=== PATIENT | female | born 1940 | race Caucasian/White ===

== ENCOUNTER 2024-07-09 11:52 | Inpatient (IN) | payer MEDICARE, SELFPAY ==
[2024-07-09] VITALS (12 sets, daily range): BP systolic 84–159; BP diastolic 57–110; PULSE 102–115; RESP 15–33; TEMP 36.6; O2SAT 93–98
--- NOTE | ~2024-07-09 | US_ITS ---
BILATERAL LOWER EXTREMITY VENOUS ULTRASOUND Ordering provider: Jordi Russo MD History: . lower extremitis swelling . Comparison: None. FINDINGS: RIGHT LOWER EXTREMITY VEINS: --COMMON FEMORAL: Patent and free of thrombus. Normal compressibility, phasic flow and augmentation. --PROXIMAL SUPERFICIAL FEMORAL: Patent and free of thrombus. Normal compressibility, phasic flow and augmentation. --DISTAL SUPERFICIAL FEMORAL: Patent and free of thrombus. Normal compressibility, phasic flow and au gmentation. --POPLITEAL: Patent and free of thrombus. Normal compressibility, phasic flow and augmentation. --POSTERIOR TIBIAL: Thrombosed. --Peroneal: Thrombosed. --Lesser saphenous: Thrombosed. LEFT LOWER EXTREMITY VEINS: --COMMON FEMORAL: Patent and free of thrombus. Normal compressibility, phasic flow and augmentation. --PROXIMAL SUPERFICIAL FEMORAL: Patent and free of thrombus. Normal compressibility, phasic flow and augmentation. --DISTAL SUPERFICIAL FEMORAL: Thrombosed.. --POPLITEAL: Patent and free of thrombus. Normal compressibility, phasic flow and augmentation. --POSTERIOR TIBIAL: Thrombosed. --Peroneal: Thrombosis. IMPRESSION: Bilateral deep vein thrombosis. Reviewed, dictated and finalized at location A.
--- NOTE | ~2024-07-09 | CT_ITS ---
EXAMINATION: CT chest abdomen pelvis wo con DATE: 07/09/2024 15:16 INDICATION: Tachycardia. Hypotension. TECHNIQUE: Computed tomography (CT) of the chest, abdomen, and pelvis was performed without intraveno us contrast. Automated exposure control and iterative reconstruction technique were employed. The dos e-length product was 1685.58 mGy-cm. COMPARISON: None FINDINGS: CHEST CT: There is mild atelectasis bilaterally. There are subpleural bands in the lower lobes and lingula. A c alcified right lung nodule and calcified right hilar lymph nodes are consistent with old granulomatou s disease. No pleural effusion. The heart size is normal. There are coronary artery calcifications. N o pericardial effusion. There is severe thoracic and cervical spondylosis. ABDOMEN/PELVIS CT: The liver is normal. Calcifications in the spleen are consistent with old granulomatous disease. Ther e are gallstones in the gallbladder which is normal in size. The pancreas and right adrenal gland are normal. There is thickening of left adrenal gland, likely benign. There are cysts in the kidneys karen suring up to 3.6 cm on the right. There is a 1.9 cm mass in left kidney. There is no urolithiasis. A uterine fibroid is noted. There are no dilated loops of bowel. The appendix is normal. There are no p athologically enlarged lymph nodes. There is no free intraperitoneal fluid. There is a total right hi p arthroplasty. There is severe lumbar spondylosis. IMPRESSION: 1. 1.9 cm left kidney mass, which may be a hemorrhagic cyst or less likely renal cell carcinoma. Abdo men CT or MRI without and with contrast is recommended. Reviewed, dictated and finalized at location B. IMPRESSION: 1. 1.9 cm left kidney mass, which may be a hemorrhagic cyst or less likely debbie l cell carcinoma. Abdomen CT or MRI without and with contrast is recommended.
--- NOTE | ~2024-07-09 | MR_ITS ---
EXAMINATION: MR brain/brain stem wo/w con DATE: 07/10/2024 14:27 INDICATION: Altered mental status. TECHNIQUE: Magnetic resonance imaging (MRI) of the brain and brainstem was performed without and with 20 mL ProHance intravenous contrast. COMPARISON: Head CT 07/09/2024 FINDINGS: There is an old lacunar infarct in the shorty. There is an old infarct in the right parietal and occipital lobes. There are old infarcts in the bilateral basal ganglia and thalami. There are sca ttered areas of nonspecific increased T2-weighted signal intensity in the cerebral white matter and p ons. There is no intracranial hemorrhage, acute infarction, or abnormal intracranial mass lesion. The ventricles are normal in size. There is mild mucosal thickening in the paranasal sinuses. The mastoi d air cells are normal. There are likely changes of ocular lens replacement surgeries. IMPRESSION: 1. Old infarcts in the brain. 2. Moderate nonspecific cerebral white matter disease and pontine disease, which likely represents ch ronic small vessel ischemic disease. Reviewed, dictated and finalized at location B. IMPRESSION: 1. Old infarcts in the brain. 2. Moderate nonspecific cerebral white matter disease and pontine disease, whic h likely represents chronic small vessel ischemic disease.
--- NOTE | ~2024-07-09 | US_ITS ---
EXAMINATION: US carotid duplex BI DATE: 07/11/2024 16:02 INDICATION: Infarct in the right parietal and occipital lobes. TECHNIQUE: Grayscale, color Doppler, and pulsed Doppler images of the cervical carotid arteries were obtained. The degree of vessel stenosis is placed in one of the following categories: normal, <50%, 5 0-69%, >=70% but less than near-occlusion, near-occlusion, or total occlusion. Note that percent sten osis relative to normal distal artery lumen diameter is indirectly measured from velocity measurement s as described by Kai, et al. Radiology 2003; 229:340-346. COMPARISON: None. FINDINGS: RIGHT: The right common carotid artery (CCA) peak systolic velocity (PSV) is 115 cm/s. The right internal ca rotid artery (ICA) PSV is 97 cm/s. The right ICA end-diastolic velocity (EDV) is 11 cm/s. The right I CA/CCA PSV ratio is 0.8. Grayscale and color Doppler images yield an estimate of <50% diameter reduct ion from plaque in the ICA. There is antegrade flow in the right vertebral artery. LEFT: The left CCA PSV is 77 cm/s. The left ICA PSV is 262 cm/s. The left ICA EDV is 37 cm/s. The left ICA/ CCA PSV ratio is 3.4. Grayscale and color Doppler images yield an estimate of <50% diameter reduction from plaque in the ICA. There is antegrade flow in the left vertebral artery. IMPRESSION: 1. <50% stenosis in the right internal carotid artery. 2. <50% stenosis in the left internal carotid artery. Reviewed, dictated and finalized at location B.
--- NOTE | ~2024-07-09 | CT_ITS ---
EXAMINATION: CT brain wo con DATE: 07/09/2024 15:16 INDICATION: Altered mental status. TECHNIQUE: Computed tomography (CT) of the head was performed without intravenous contrast. The mA wa s adjusted according to patient size. Iterative reconstruction technique was employed. The dose-lengt h product was 605.33 mGy-cm. COMPARISON: None FINDINGS: There is an old lacunar infarct in the shorty. There is an old infarct in the right parietal and occipital lobes. There are old infarcts in the bilateral basal ganglia and thalami. There are sca ttered areas of low attenuation in the cerebral white matter. There is no intracranial hemorrhage, ac mohegan infarction, or abnormal intracranial mass lesion. The ventricles are normal in size. There is mil d mucosal thickening in left maxillary sinus. The mastoid air cells are normal. There are likely luz ges of ocular lens replacement surgeries. IMPRESSION: 1. Old infarcts involving the shorty, right parietal and occipital lobes, bilateral basal ganglia, and bilateral thalami. 2. Moderate nonspecific cerebral white matter disease, which likely represents chronic small vessel i schemic disease. Reviewed, dictated and finalized at location B. IMPRESSION: 1. Old infarcts involving the shorty, right parietal and occipital lobes, bilater al basal ganglia, and bilateral thalami. 2. Moderate nonspecific cerebral white matter disease, which likely represents chronic small vessel ischemic disease.
--- NOTE | 2024-07-09 12:13 | ECG_ITS ---
Test Date: 2024-07-09 12:48:29 Measurements Intervals [employer] Rate: 110 P: 56 [place]: 162 QRS: 7 QRSD: 84 T: 60 QT: 344 QTc: 465 Interpretive Statements SINUS TACHYCARDIA NONSPECIFIC T-WAVE ABNORMALITY No previous ECG available for comparison Electronically Signed On 07-09-2024 15:05:59 CDT by Charlotte Crowder M.D.
[2024-07-09 13:06] LABS: Add Urine Microscopic? YES; Appearance Urine Clear (Clear); Bacteria Urine None Seen /hpf; Bilirubin Urine Negative (Negative); Blood Urine Negative (Negative); Budding Yeast Urine Present /hpf; Color Urine Yellow (Yellow); Glucose Urine UA Negative (Negative); Ketones Urine Negative (Negative); Leukocyte Esterase Ur Negative LEU/UL (Negative); Nitrate Urine Negative (Negative); Non Pathogenic Casts 0-2; Protein Urine Trace mg/dL (Negative); Specific Grav Ur 1.017 (1.001-1.035); Squamous Epithelial Cell Urine None Seen /hpf (Few); Urobilinogen Urine 0.2 mg/dL (<2.0); WBC Urine 0-5 /hpf (0-3)
[2024-07-09 13:29] LABS: Alanine Aminotransferase 27 U/L (6-35); Albumin Level 4.1 g/dL (3.5-5.1); Alkaline Phosphatase 82 U/L (38-126); Anion Gap 11 mmol/L (4-12); Aspartate Amino Transferase 57 U/L (14-36); Bilirubin,Total 0.7 mg/dL (0.2-1.3); Blood Urea Nitrogen 35 mg/dL (7-17); Calcium 9.7 mg/dL (8.4-10.2); Carbon Dioxide 19 mmol/L (22-30); Chloride 110 mmol/L (98-107); Estimated CRCL calculation 24 ml/min; Estimated Glomerular Filt Rate 21; Glucose 112 mg/dL (65-110); Potassium 4.6 mmol/L (3.4-5.0); Sodium 140 mmol/L (137-145)
--- NOTE | 2024-07-09 14:11 | PC.NURSE ---
Lab called to add on bnp.
[2024-07-09 14:13] LABS: Basophils Percent Auto 0.3 % (0.2-1.2); Eosinophils Absolute Auto 0.1 K/mm3 (0-0.3); Eosinophils Percent Auto 0.7 % (0-4.4); Hematocrit 31.8 % (37.0-47.0); Hemoglobin 9.7 g/dL (12.0-15.0); Immature Granulocyte Absolute 0.06 K/mm3 (0.00-0.031); Immature Granulocyte Percent A 0.6 % (0-0.5); Lymphocytes Absolute Auto 0.76 K/mm3 (0.9-3.2); Lymphocytes Percent Auto 7.5 % (18.3-44.2); Mean Corpuscular HGB Conc 30.5 g/dl (32-36); Mean Corpuscular Hemoglobin 31.4 pg (26-34); Mean Corpuscular Volume 102.9 fl (80-100); Mean Platelet Volume 10.1 fl (7.4-10.4); Monocytes Absolute Auto 0.8 K/mm3 (0.1-0.6); Monocytes Percent Auto 8.2 % (2.6-8.5); Neutrophils Absolute Auto 8.4 K/mm3 (1.3-6.7); Neutrophils Percent Auto 82.7 % (45.5-73.1); Platelet Count Result 172 k/mm3 (150-375); Red Blood Count 3.09 M/mm3 (4.2-5.4); Red Cell Distribution Width 16.1 % (11.5-14.5); White Blood Count 10.1 K/mm3 (4.5-10.0)
[2024-07-09 14:26] LABS: Prothrombin Time 14.1 Seconds (11.1-14.7)
[2024-07-09 14:27] LABS: Partial Thromboplastin Time 25.3 Seconds (22.3-36.8)
[2024-07-09 14:40] LABS: NT Pro B Type Natriuretic Pept 383 pg/mL (19.9-100)
[2024-07-09] MEDS: LACTATED RINGERS 1,000 ML 999 ML IV CONT (14:55)
--- NOTE | 2024-07-09 14:59 | PC.NURSE ---
pt to CT at this time. Will restart LR when pt is back in room.
--- NOTE | 2024-07-09 15:11 | PC.NURSE ---
lab called to add on troponin and tsh.
--- NOTE | 2024-07-09 15:23 | ED.AMS ---
HPI - Altered Mental Status General Chief Complaint: Altered Mental Status Stated Complaint: weak, AMS Time Seen by Provider: 07/09/24 14:14 History of Present Illness HPI narrative: 84-year-old female presenting from her [facility] facility for concerns of mental status changes. Patient was diagnosed with urinary tract infection 2 weeks ago. Patient presently is alert and answering questions. She has a history of hypertension, hyperlipidemia, CKD. Patient endorses a headache as well as just feeling unwell. Endorses weakness for a few days. Found to be slightly hypotensive and tachycardic and tachypneic in triage. No signs of trauma. No collateral formation provided from [facility] or review of the EMR. Related Data Allergies Allergy/AdvReac Type Severity Reaction Status Date / Time codeine Allergy Mild Itching Verified 06/01/18 12:36 vancomycin Allergy Mild Hives / Verified 06/01/18 12:36 Red Face Review of Systems Review of Systems: As reviewed above in HPI Exam Narrative: GENERAL: Elderly, not any acute distress, mildly tachypneic HEAD: [Normocephalic, atraumatic.] EYES: [PERRLA and EOMI.] ENT: Nares clear, no rhinorrhea or epistaxis. Mucous membranes moist. NECK: Supple. CHEST: [Clear to auscultation. No respiratory distress.] HEART: [Regular rate and rhythm]. No murmur heard. [Normal peripheral pulses.] ABDOMEN: Largely distended abdomen but soft and non peritoneal, mild tenderness to palpation, [No rigidity or guarding] EXTREMITIES: Normal range of motion. [No edema.] SKIN: Warm, dry, no rash. NEURO: [No focal deficits]. Alert and oriented [x3.] PSYCH: [Normal mood and affect.] Course Vital Signs Vital signs: Vital Signs Temperature 36.6 C 07/09/24 11:52 Pulse Rate 111 H 07/09/24 11:52 Respiratory Rate 24 H 07/09/24 11:52 Blood Pressure 91/66 L 07/09/24 11:52 Pulse Oximetry 98 07/09/24 11:52 Oxygen Delivery Room Air 07/09/24 11:52 Temperature 36.6 C 07/09/24 11:52 Pulse Rate 115 H 07/09/24 18:04 Respiratory Rate 15 07/09/24 18:04 Blood Pressure 156/110 H 07/09/24 18:04 Pulse Oximetry 95 07/09/24 18:04 Oxygen Delivery Room Air 07/09/24 13:16 MDM - Altered Mental Status MDM Narrative Medical decision making narrative: 84-year-old female history of hypertension, hyperlipidemia, CKD stage 4. Presents from her fdc facility for mental status changes. Patient endorses feeling weak for last week as well as having a headache and does have some mild abdominal tenderness. She has distended abdomen which he states is not new for her. Hypotensive and tachycardic in triage with some tachypnea. IV was established, fluid bolus initiated, CBC, CMP, lactic acid, blood cultures, coags, troponin and BNP ordered. CT chest abdomen pelvis and CT head obtained. Differential remains broad at this time but could include metabolic encephalopathy versus infectious pathology. Intracranial process such as a bleed or stroke less likely but still possible. Urinary tract infection, electrolyte disturbances, dehydration. She was given a fluid bolus and re-evaluated frequently. COVID flu RSV and TSH also added on. Workup shows no significant leukocytosis. Hemoglobin 9.7 with no recent baseline. Normal platelet count. Coag studies within normal limits. Electrolytes show an elevated BUN and creatinine likely secondary to volume depletion in dehydration given her low blood pressure that responded to fluids. This is likely KEKE on CKD as she has a baseline elevated creatinine. Negative lactic acid which reassures that there is no acute infectious or septic pathology. LFTs within normal limits. TSH mildly elevated 5.25, urinalysis without signs of infection. Negative COVID flu and RSV. CT of the head shows old infarcts in multiple territories consistent with her history. Nonspecific cerebral white matter disease chronic. CT of the chest abdomen pelvis shows a left kidney mass likely hemorrhagic cyst. EKG obtained shows sinus tachycardia but no signs of ST segment elevations, depressions inversions or ectopy. Patient was frequent re-evaluated, felt slightly improved after fluids and has a new blood pressure 154/60 which is reassuring. No longer is tachycardic. Patient likely is dehydrated with an KEKE on CKD and still unclear if she is truly altered from her baseline. Patient will be admitted to the hospital for further evaluation and treatment as well as fluid resuscitation. Spoke to the hospitalist ruling being covered by the midlevel provider Jessica Hernandez who accepted the patient. Condition is hemodynamically stable for a medical-surgical bed at this time. Medical Records Attestation: I reviewed the patient's medical records. Lab Data Attestation: I reviewed the patient's lab results. 07/09/24 14:01 07/09/24 12:56 Labs: Lab Results 07/09/24 07/09/24 07/09/24 Range/Units 12:36 12:55 12:56 WBC (4.5-10.0) K/mm3 RBC (4.2-5.4) M/mm3 Hgb (12.0-15.0) g/dL Hct (37.0-47.0) % MCV (80-100) fl MCH (26-34) pg MCHC (32-36) g/dl RDW (11.5-14.5) % Plt Count (150-375) k/mm3 MPV (7.4-10.4) fl Immature Gran % (Auto) (0-0.5) % Neut % (Auto) (45.5-73.1) % Lymph % (Auto) (18.3-44.2) % [place] % (Auto) (2.6-8.5) % Eos % (Auto) (0-4.4) % Baso % (Auto) (0.2-1.2) % Lymph # (Auto) (0.9-3.2) K/mm3 [place] # (Auto) (0.1-0.6) K/mm3 Eos # (Auto) (0-0.3) K/mm3 Baso # (Auto) (0.0-0.1) K/mm3 Abs Immat Gran (auto) (0.00-0.031) K/mm3 Absolute Neuts (auto) (1.3-6.7) K/mm3 Absolute Nucleated RBC (0.0-0.012) K/mm3 Nucleated RBC % (0.0-0.2) % PT (11.1-14.7) Seconds INR APTT (22.3-36.8) Seconds Sodium 140 (137-145) mmol/L Potassium 4.6 (3.4-5.0) mmol/L Chloride 110 H (98-107) mmol/L Carbon Dioxide 19 L (22-30) mmol/L Anion Gap 11 (4-12) mmol/L BUN 35 H (7-17) mg/dL Creatinine 2.23 H (0.7-1.0) mg/dL Estim Creat Clear Calc 24 ml/min Estimated GFR 21 L (59 - ) Glucose 112 H (65-110) mg/dL Lactic Acid (0.7-2.0) mmol/L Calcium 9.7 (8.4-10.2) mg/dL Total Bilirubin 0.7 (0.2-1.3) mg/dL AST 57 H (14-36) U/L ALT 27 (6-35) U/L Alkaline Phosphatase 82 (38-126) U/L Troponin I 0.032 (0.000-0.034) ng/mL NT-Pro-B Natriuret Pep 383 H (19.9-100) pg/mL Total Protein 7.0 (6.3-8.2) g/dL Albumin 4.1 (3.5-5.1) g/dL TSH (Reflex) (0.465-4.68) uIU/mL Free T4 (0.78-2.19) ng/dL Total T3 (0.97-1.69) NG/ML Urine Color Yellow (Yellow) Urine Appearance Clear (Clear) Urine pH 5.0 (5.0-9.0) Ur Specific [place] 1.017 (1.001-1.035) Urine Protein Trace (Negative) mg/dL Urine Glucose (UA) Negative (Negative) mg/dL Urine Ketones Negative (Negative) mg/dL Ur Blood (Man) Negative (Negative) Urine Nitrate Negative (Negative) Urine Bilirubin Negative (Negative) Urine Urobilinogen 0.2 (<2.0) mg/dL Leukocyte Esterase Rfl Negative (Negative) ROWAN/UL Urine RBC 6-10 H (0-2) /hpf Urine WBC 0-5 (0-3) /hpf Ur Squamous Epith Cells None seen (Few) /hpf Urine Bacteria None seen /hpf Urine Casts 0-2 Urine Yeast (Budding) Present H (None) /hpf Influenza A (RT-PCR) (Negative) Influenza B (RT-PCR) (Negative) RSV (RT-PCR) (Negative) SARS-CoV-2 RNA (RT-PCR) (Negative) 07/09/24 07/09/24 07/09/24 Range/Units 14:01 15:26 16:04 WBC 10.1 H (4.5-10.0) K/mm3 RBC 3.09 L (4.2-5.4) M/mm3 Hgb 9.7 L (12.0-15.0) g/dL Hct 31.8 L (37.0-47.0) % MCV 102.9 H (80-100) fl MCH 31.4 (26-34) pg MCHC 30.5 L (32-36) g/dl RDW 16.1 H (11.5-14.5) % Plt Count 172 (150-375) k/mm3 MPV 10.1 (7.4-10.4) fl Immature Gran % (Auto) 0.6 H (0-0.5) % Neut % (Auto) 82.7 H (45.5-73.1) % Lymph % (Auto) 7.5 L (18.3-44.2) % [place] % (Auto) 8.2 (2.6-8.5) % Eos % (Auto) 0.7 (0-4.4) % Baso % (Auto) 0.3 (0.2-1.2) % Lymph # (Auto) 0.76 L (0.9-3.2) K/mm3 [place] # (Auto) 0.8 H (0.1-0.6) K/mm3 Eos # (Auto) 0.1 (0-0.3) K/mm3 Baso # (Auto) 0.0 (0.0-0.1) K/mm3 Abs Immat Gran (auto) 0.06 H (0.00-0.031) K/mm3 Absolute Neuts (auto) 8.4 H (1.3-6.7) K/mm3 Absolute Nucleated RBC 0.000 (0.0-0.012) K/mm3 Nucleated RBC % 0.0 (0.0-0.2) % PT 14.1 (11.1-14.7) Seconds INR 1.0 APTT 25.3 (22.3-36.8) Seconds Sodium (137-145) mmol/L Potassium (3.4-5.0) mmol/L Chloride (98-107) mmol/L Carbon Dioxide (22-30) mmol/L Anion Gap (4-12) mmol/L BUN (7-17) mg/dL Creatinine (0.7-1.0) mg/dL Estim Creat Clear Calc ml/min Estimated GFR (59 - ) Glucose (65-110) mg/dL Lactic Acid 1.4 (0.7-2.0) mmol/L Calcium (8.4-10.2) mg/dL Total Bilirubin (0.2-1.3) mg/dL AST (14-36) U/L ALT (6-35) U/L Alkaline Phosphatase (38-126) U/L Troponin I (0.000-0.034) ng/mL NT-Pro-B Natriuret Pep (19.9-100) pg/mL Total Protein (6.3-8.2) g/dL Albumin (3.5-5.1) g/dL TSH (Reflex) 5.250 H (0.465-4.68) uIU/mL Free T4 1.00 (0.78-2.19) ng/dL Total T3 0.93 L (0.97-1.69) NG/ML Urine Color (Yellow) Urine Appearance (Clear) Urine pH (5.0-9.0) Ur Specific [place] (1.001-1.035) Urine Protein (Negative) mg/dL Urine Glucose (UA) (Negative) mg/dL Urine Ketones (Negative) mg/dL Ur Blood (Man) (Negative) Urine Nitrate (Negative) Urine Bilirubin (Negative) Urine Urobilinogen (<2.0) mg/dL Leukocyte Esterase Rfl (Negative) ROWAN/UL Urine RBC (0-2) /hpf Urine WBC (0-3) /hpf Ur Squamous Epith Cells (Few) /hpf Urine Bacteria /hpf Urine Casts Urine Yeast (Budding) (None) /hpf Influenza A (RT-PCR) Negative (Negative) Influenza B (RT-PCR) Negative (Negative) RSV (RT-PCR) Negative (Negative) SARS-CoV-2 RNA (RT-PCR) Negative (Negative) Imaging Data Attestation: I personally reviewed and interpreted this imaging study as follows: My impression: Impressions Head CT 07/09/24 15:18 IMPRESSION: 1. Old infarcts involving the shorty, right parietal and occipital lobes, bilateral basal ganglia, and bilateral thalami. 2. Moderate nonspecific cerebral white matter disease, which likely represents chronic small vessel ischemic disease. Chest/Abdomen/Pelvis CT 07/09/24 15:24 IMPRESSION: 1. 1.9 cm left kidney mass, which may be a hemorrhagic cyst or less likely renal cell carcinoma. Abdomen CT or MRI without and with contrast is recommended. Discharge Plan Discharge Clinical Impression: Altered mental status, unspecified, Acute dehydration, Acute kidney injury superimposed on chronic kidney disease, History of cerebrovascular accident Patient Disposition: Still a Patient Condition: Stable Patient Language: Upper Sorbian Follow-up/Referrals: Sohan,Piter Mejia MD [Primary Care Provider] - Time of Disposition: 18:45
[2024-07-09 15:43] LABS: Lactic Acid Reflex 1.4 mmol/L (0.7-2.0)
--- NOTE | 2024-07-09 15:54 | PC.NURSE ---
Unable to obtain 2nd set of cultures d/t pt. being a difficult stick. CRN Kehinde to bedside to attempt.
[2024-07-09 16:03] LABS: Troponin I 0.032 ng/mL (0.000-0.034)
[2024-07-09 16:08] LABS: Influenza A QL RT-PCR Negative (Negative); Influenza B QL RT-PCR Negative (Negative); RSV RNA, RT-PCR Negative (Negative); SARS-CoV-2 RNA PCR Negative (Negative)
--- OUTSIDE RECORDS SUMMARY | 2024-07-09 16:34 | XMS_ITS | Clinical Summary ---
Author Organization [facility] [employer] Address [address] [place] [address] Care Team Providers Care Front End Developer Name Role Phone Unavailable Primary Care Provider Unavailabl e Source Comments [facility],non-owned Affiliates and Associated Physician Practices is amultiple site organization consisting of ambulatory clinics and hospital sitesin [place], [place], [place] and [place]. This disclosure is being madepursuant to the Care Everywhere program and may not contain all information available regarding this patient. Last updated 18.[facility] [employer] Allergies Active Allergy Reactions Criticality Noted Date Comments Adhesive Sensitivity Rash Medium 07/31/2012 Codeine Urticaria,Rash Medium 07/31/2012 Vancomycin Urticaria Medium 09/18/2012 Medications * Be aware that medications may not be up to date on this document. Alwaysverify current medications with the patient. Medication Sig Dispensed Refills Start Date End Date Status B Complex Vitamins (B COMPLEX 1 PO) Take 1 tablet by mouth once daily Active levothyroxine (Synthroid) 50 MCG tablet Take 1 (one) tablet by mouth daily before breakfast Active folic acid (Folvite) 1 MG tablet Take 2 (two) tablets by mouth once daily Active artificial tears 1.4 % ophthalmic solution 1 (one) drop 4 times daily as needed Active melatonin 5 MG tablet Take 1 (one) tablet by mouth nightly as needed Active lisinopril-hydroCHLO ROthiazide (Prinzide; Zestoretic) 20-12.5 MG tablet Take 1 (one) tablet by mouth once daily Active docusate sodium (Colace) 100 MG capsule Take 1 (one) capsule by mouth once daily as needed Active loperamide (Imodium) 2 MG capsule Take 1 (one) capsule by mouth 4 times daily as needed for Diarrhea Active cholestyramine (Questran) 4 g packet Take 1 (one) packet by mouth 2 times daily as needed (Loose stools) Active diphenhydrAMINE (Benadryl) 25 MG capsule Take 1 (one) capsule by mouth nightly as needed for Itching Active allopurinol (Zyloprim) 100 MG tablet Take 1 (one) tablet by mouth once daily Active vitamin D3 (Cholecalciferol) 25 MCG (1000 UNITS) tablet Take 1 (one) tablet by mouth once daily Active citalopram (CeleXA) 10 MG tablet Take 1 (one) tablet by mouth once daily Active metoprolol succinate XL 24hr (Toprol XL) 100 MG tablet Take 1 (one) tablet by mouth once daily Active simvastatin (Zocor) 20 MG tablet Take 1 (one) tablet by mouth at bedtime Active ondansetron (Zofran) 4 MG tablet Take 1 (one) tablet by mouth every 6 hours as needed for Nausea/Vomiting Active famotidine (Pepcid) 20 MG tablet Take 1 (one) tablet by mouth at bedtime Active pantoprazole EC (Protonix) 40 MG tablet Take 1 (one) tablet by mouth daily before breakfast for 30 days 30 tablet 02/01/2024 Active apixaban (Eliquis) 2.5 MG tablet Take 1 (one) tablet by mouth 2 times daily 02/07/2024 Active Active Problems Problem Noted Date Diagnosed Date Rectal bleeding 01/26/2024 Stage 4 chronic kidney disease 01/26/2024 Left homonymous hemianopsia 08/08/2022 Benign essential hypertension 04/25/2019 Chronic left-sided ulcerative colitis 04/25/2019 Chronic renal insufficiency, stage III (moderate ) 04/25/2019 Deep venous thrombosis 04/25/2019 Herniation of nucleus pulposus 04/25/2019 Hirsutism 04/25/2019 History of cerebrovascular accident 04/25/2019 Postartificial menopausal syndrome 04/25/2019 Pure hypercholesterolemia 04/25/2019 Tobacco user 04/25/2019 Depressive disorder 12/12/2017 Social History Tobacco Use Types Packs/Day Years Used Date Smoking Tobacco: Former Smokeless Tobacco: Never Tobacco Cessation:Counseling Given: No Alcohol Use Standard Drinks/Week Comments Yes 0 (1 standard drink = 0.6 oz pur e alcohol) occ. AUDIT-C Answer Date Recorded Q1: How often do you have a drink containing alc ohol? Monthly or less 01/28/2024 Q2: How many drinks containi ng alcohol do you have on a typical day when you are drinking? 1 or 2 01/28/2024 Q3: How often do you have si x or more drinks on one occasion? Never 01/28/2024 Overall Financial Resource Strain (CARDIA) Answe r Date Recorded How hard is it for you to pa y for the very basics like food, housing, medical care, and heating? Not hard at all 01/29/2024 PHQ-2 Answer Date Recorded PHQ2 TOTAL SCORE 0 08/09/2022 [facility] - Occupational Stress Questionnaire Answer Date Recorded Do you feel stress - tense, restless, nervous, or anxious, or unable to sleep at night because your mind is troubled all the time - these days? Only a little 01/29/2024 Hunger Vital Sign Answer Date Recorded Within the past 12 months, y ou worried that your food would run out before you got the money to buy more. Never true 01/29/20 24 Within the past 12 months, t he food you bought just didn't last and you didn't have money to get more. Never true 01/29/2024 PRAPARE - Transportation Answer Date Re corded In the past 12 months, has l ack of transportation kept you from medical appointments or from getting medications? No 01/01 In the past 12 months, has l ack of transportation kept you from meetings, work, or from getting things needed for daily living? No 01/29/2024 Housing Stability Vital Sign Answer Sal e Recorded In the last 12 months, was t here a time when you were not able to pay the mortgage or rent on time? No 01/29/2024 In the last 12 months, how many places have you lived? 1 01/29/2024 In the last 12 months, was t here a time when you did not have a steady place to sleep or slept in a fci (including now)? No 01/29/2024 Sex and Gender Information Value Date Recorded Sex Assigned at Not on file Gender Identity Not on file Sexual Orientation Not on file Last Filed Vital Signs Vital Sign Reading Time Taken Comments Blood Pressure 132/71 01/31/2024 11:09 AM CDT Pulse 88 01/31/2024 11:09 AM CDT Temperature 36.5 C (97.7 F) 01/31/2024 11:09 AM CDT Respiratory Rate 18 01/31/2024 11:0 9 AM CDT Oxygen Saturation 100% 01/31/2024 11: 09 AM CDT Inhaled Oxygen Concentration - - Weight 105.7 kg (233 lb 1.6 oz) 01/28/2024 3:37 AM CDT Height 165.1 cm (5' 5 ) 01/28/2024 3:37 AM CDT Body Mass Index 38.79 01/28/2024 3:37 AM CDT Plan of Treatment Health Maintenance Due Date Last Done Comments BONE DENSITY TESTING 1940 COLOGUARD (AGES 45-75) - COLON CA SCREENING 1942 CT COLONOGRAPHY - COLON CA SCREENING 1940 FIT - COLON CA SCREENING 1940 FLEX SIG - COLON CA SCREENING 1940 MEDICARE AWV 12 MONTHS 1940 DTAP/TDAP/TD VACCINES (1 - Tdap) 1961 PNEUMOCOCCAL VACCINE 50+ (1 of 1 - PCV) 02/07/1992 ZOSTER VACCINE (1 of 2) 02/07/1992 Respiratory Syncytial Virus (RSV) Vaccine Pt: or over 60 yrs (1 - 1-dose 75+ series) 2017 COVID-19 VACCINE ( - season) 2023 04/13/2021, 08/25/2020, 07/28/2020 INFLUENZA VACCINE (#1) 2023 , 02/04/2022, 02/19/2021, Additional history exists DEPRESSION SCREENING 05/01/2024 08/08/2022 COLON MONITORING 01/28/2025 01/29/2024, 01/29/2024 Colorectal Cancer Screening 01/28/2025 COLONOSCOPY - COLON CA SCREENING 01/28/2034 01/29/2024, 01/29/2024 HEPATITIS B VACCINE Aged Out No longe r eligible based on patient's age to complete this topic HIB VACCINE Aged Out No longer eligi ble based on patient's age to complete this topic HPV VACCINE Aged Out No longer eligi ble based on patient's age to complete this topic MENINGOCOCCAL (Group B) VACCINE Aged Out No longer eligible based on patient's age to complete this topic MENINGOCOCCAL VACCINE Aged Out No juany farshad eligible based on patient's age to complete this topic Goals Goal Patient Goal Type Associated Problems Recent Progress Patient-Stated? Author Medication Management General No James Marquez DO Note: Expected end date: Interventions: Take all medications as prescribed Procedures Procedure Name Priority Date/Time Associated Diagnosis Comments ENDOSCOPY, COLON, DIAGNOSTIC Routine 01/29/2024 2:39 PM CDT from Last 3 Months or Most Recently Relevant to Health Maintenance Results * Endoscopy, Colon, Diagnostic (01/29/2024 2:39 PM CDT) Report Endoscopy POC _ Patient Name: Clau Escalante Procedure Date: 01/29/2024 2:39 PM Date of : 1940 Admit Type: Inpatient Age: 83 Gender: Female Attending MD: Yari Rosa MD, [id number] _ Procedure: Colonoscopy Indications: Hematochezia Providers: Yari Rosa MD (Doctor) Medicines: Monitored Anesthesia Care Complications: No immediate complications. _ Estimated Blood Loss: Estimated blood loss: none. Procedure: Pre-Anesthesia Assessment: - Prior to the procedure, a History and Physical was performed, and patient medications and allergies were reviewed. The patient's tolerance of previous anesthesia was also reviewed. The risks and benefits of the procedure and the sedation options and risks were discussed with the patient. All questions were answered, and informed consent was obtained. Prior Anticoagulants: The patient has taken no anticoagulant or antiplatelet agents. ASA Grade Assessment: III - A patient with severe systemic disease. After reviewing the risks and benefits, the patient was deemed in satisfactory condition to undergo the procedure. After I obtained informed consent, the scope was passed under direct vision. Throughout the procedure, the patient's blood pressure, pulse, and oxygen saturations were monitored continuously. The Colonoscope was introduced through the anus and advanced to the cecum, identified by appendiceal orifice and ileocecal valve. The colonoscopy was performed without difficulty. The patient tolerated the procedure well. The quality of the bowel preparation was adequate. The ileocecal valve, appendiceal orifice, and rectum were photographed. Findings: The perianal and digital rectal examinations were normal. A 24 mm polyp was found in the proximal ascending colon. The polyp was sessile. Preparations were made for mucosal resection. Chromoscopy with methylene blue was done to steven the borders of the lesion. Demarcation of the lesion was performed to clearly identify boundaries of the lesion. Saline with methylene blue was injected to raise the lesion. Snare mucosal resection was performed. Resection and retrieval were complete. Resected tissue margins were examined and clear of polyp tissue. To prevent bleeding after mucosal resection, two hemostatic clips were successfully placed. 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 The transverse colon, ascending colon and cecum appeared normal. There was significant inflammation in the sigmoid and descending colon. Inflammation was most severe in the descending colon with ulceration, visible flat vessels, and stigmata of recent bleeding. Patchy erythema was noted in other parts of the descending colon and sigmoid. Appearance is most consistent with ischemic colitis. This was biopsied with a cold forceps for histology. Verification of patient identification for the specimen was done. Estimated blood loss was minimal. A 10 mm polyp was found in the sigmoid colon. The polyp was flat. The polyp was removed with a hot snare. Resection and retrieval were complete. Verification of patient identification for the specimen was done. Estimated blood loss: none. Many small-mouthed diverticula were found in the sigmoid colon. Non-bleeding external hemorrhoids were found during retroflexion. The hemorrhoids were medium-sized. _ Impression: - One 24 mm polyp in the proximal ascending colon, removed with mucosal resection. Resected and retrieved. Clips were placed. 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 - The transverse colon, ascending colon and cecum are normal. - Ischemic colitis in the descending colon and sigmoid, with severely inflamed segment in the descending colon with stigmata of recent bleeding. Biopsied. - One 10 mm polyp in the sigmoid colon, removed with a hot snare. Resected and retrieved. - Diverticulosis in the sigmoid colon. - Non-bleeding external hemorrhoids. Recommendation: - Return patient to hospital crews for ongoing care. - Resume regular diet today. - Continue present medications. - Await pathology results. - Repeat colonoscopy in 1 year for surveillance. Procedure Code(s): --- Professional --- 29974, Colonoscopy, flexible; with endoscopic mucosal resection 75436, 59, Colonoscopy, flexible; with removal of tumor(s), polyp(s), or other lesion(s) by snare technique 18864, 59, Colonoscopy, flexible; with biopsy, single or multiple --- Technical --- 24003, Colonoscopy, flexible; with endoscopic mucosal resection 69122, 59, Colonoscopy, flexible; with removal of tumor(s), polyp(s), or other lesion(s) by snare technique 25529, 59, Colonoscopy, flexible; with biopsy, single or multiple Diagnosis Code(s): --- Professional --- D12.2, Benign neoplasm of ascending colon D12.5, Benign neoplasm of sigmoid colon K64.4, Residual hemorrhoidal skin tags K63.89, Other specified diseases of intestine K92.1, Melena (includes Hematochezia) K57.30, Diverticulosis of large intestine without perforation or abscess without bleeding --- Technical --- D12.2, Benign neoplasm of ascending colon D12.5, Benign neoplasm of sigmoid colon K64.4, Residual hemorrhoidal skin tags K63.89, Other specified diseases of intestine K92.1, Melena (includes Hematochezia) K57.30, Diverticulosis of large intestine without perforation or abscess without bleeding CPT copyright 2020 [employer]. All rights reserved. The codes documented in this report are preliminary and upon insulation board calender operator review may be revised to meet current compliance requirements. Dr. Theresa Rosa MD Yari Rosa MD 01/29/2024 4:20:25 PM This report has been signed electronically. Number of Addenda: 0 Note Initiated On: 01/29/2024 2:39 PM Procedure Date: 01/29/2024 2:39:58 PM Scope Withdrawal Time: 0 hours 29 minutes 12 seconds [facility] ENDOSCOPY 01/29/2024 2:39 PM CDT Yari Rosa MD GI PROCEDURE ORDERAB LES [facility] ENDOSCOPY from Last 3 Months or Most Recently Relevant to Health Maintenance Advance Directives Documents on File Type Date Recorded Patient Trimmer Sorter Expl anation Adv Directive/Living Will/POA 08/13/2022 12:08 AM * Full Code (Latest Code Status on File) Date Activated Date Inactivated Comments 01/26/2024 4:31 PM 01/31/2024 3:46 PM * Full Code Date Activated Date Inactivated Comments 08/08/2022 10:05 PM 08/11/2022 2:32 PM
--- OUTSIDE RECORDS SUMMARY | 2024-07-09 16:34 | XMS_ITS | Referral Summary ---
Author Organization [facility] Address [address] [place] [address] Care Team Providers Care Network Systems Integrator Name Role Phone Unavailable Primary Care Provider Unavailabl e Source Comments [facility],non-owned Affiliates and Associated Physician Practices is amultiple site organization consisting of ambulatory clinics and hospital sitesin [place], [place], [place] and [place]. This disclosure is being madepursuant to the Care Everywhere program and may not contain all information available regarding this patient. Last updated 18.[facility] [employer] Allergies Active Allergy Reactions Criticality Noted Date [...] Date Recorded PHQ2 TOTAL SCORE 0 08/09/2022 [facility] - Occupational Stress [...] Mass Index 38.79 01/28/2024 3:37 AM CDT Functional Status Functional Status Response Date of Assess ment Is person deaf or have serious hearing difficult y? No 01/28/2024 Is person blind or have serious difficulty seein g? No 01/28/2024 Does person have serious dif ficulty walking/climbing stairs? Yes 01/28/2024 Does person have difficulty dressing/bathing? No 01/28/2024 Does person have difficulty doing errands alone? Yes 01/28/2024 Cognitive Status Response Date of Assessm ent Does person have difficulty concentrating/remembering/making decisions? No 01/28/2024 Plan of Treatment Not on file Goals Goal Patient Goal Type Associated Problems [...] Gender: Female Attending MD: Yari Rosa MD, [id number] _ Procedure: Colonoscopy Indications: Hematochezia Providers: Yari [...] two hemostatic clips were successfully placed. 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 The transverse colon, ascending colon and cecum [...] Resected and retrieved. Clips were placed. 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 - The transverse colon, ascending colon and [...] for surveillance. Procedure Code(s): --- Professional --- 23224, Colonoscopy, flexible; with endoscopic mucosal resection 48284, 59, Colonoscopy, flexible; with removal of tumor(s), polyp(s), or other lesion(s) by snare technique [id number], 59, Colonoscopy, flexible; with biopsy, single or multiple --- Technical --- 24794, Colonoscopy, flexible; with endoscopic mucosal resection 25572, 59, Colonoscopy, flexible; with removal of tumor(s), polyp(s), or other lesion(s) by snare technique 72127, 59, Colonoscopy, flexible; with biopsy, single or [...] or abscess without bleeding CPT copyright 2020 [employer]. All rights reserved. The codes documented in this report are preliminary and upon marketing content manager review may be revised to meet current compliance requirements. Dr. Theresa Rosa MD Yari Rosa MD 01/29/2024 4:20:25 PM This report has been signed electronically. Number of Addenda: 0 Note Initiated On: 01/29/2024 2:39 PM Procedure Date: 01/29/2024 2:39:58 PM Scope Withdrawal Time: 0 hours 29 minutes 12 seconds [facility] ENDOSCOPY 01/29/2024 2:39 PM CDT Yari Rosa MD GI PROCEDURE ORDERAB LES [facility] ENDOSCOPY from Last 3 Months or Most Recently Relevant to Health Maintenance Advance Directives Documents on File Type Date Recorded Patient Exceptional Children Teacher Assistant Expl anation Adv Directive/Living Will/POA 08/13/2022 12:08 AM * Full Code (Latest Code Status on File) Date Activated Date Inactivated Comments 01/26/2024 4:31 PM 01/31/2024 3:46 PM * Full Code Date Activated Date Inactivated Comments 08/08/2022 10:05 PM 08/11/2022 2:32 PM
--- OUTSIDE RECORDS SUMMARY | 2024-07-09 16:34 | XMS_ITS | Patient Health Summary ---
Author Organization [facility] Address [address] [place] [address] Care Team Providers Care Superintendent [employer] Name Role Phone Unavailable Primary Care Provider Unavailabl e Note from [facility],non-owned Affiliates and Associated Physician Practices is amultiple site organization consisting of ambulatory clinics and hospital sitesin [place], [place], [place] and [place]. This disclosure is being madepursuant to the Care Everywhere program and may not contain all information available regarding this patient. Last updated 18.[facility] Allergies * Adhesive Sensitivity(Rash) -Medium Criticality * Codeine(Urticaria,Rash) -Medium Criticality * Vancomycin(Urticaria) -Medium Criticality Medications * Be aware that medications may not be up to date on this document. Alwaysverify current medications with the patient. * B Complex Vitamins (B COMPLEX 1 PO) Take 1 tablet by mouth once daily * levothyroxine (Synthroid) 50 MCG tablet Take 1 (one) tablet by mouth daily before breakfast * folic acid (Folvite) 1 MG tablet Take 2 (two) tablets by mouth once daily * artificial tears 1.4 % ophthalmic solution 1 (one) drop 4 times daily as needed * melatonin 5 MG tablet Take 1 (one) tablet by mouth nightly as needed * lisinopril-hydroCHLOROthiazide (Prinzide; Zestoretic) 20-12.5 MG tablet Take 1 (one) tablet by mouth once daily * docusate sodium (Colace) 100 MG capsule Take 1 (one) capsule by mouth once daily as needed * loperamide (Imodium) 2 MG capsule Take 1 (one) capsule by mouth 4 times daily as needed for Diarrhea * cholestyramine (Questran) 4 g packet Take 1 (one) packet by mouth 2 times daily as needed (Loose stools) * diphenhydrAMINE (Benadryl) 25 MG capsule Take 1 (one) capsule by mouth nightly as needed for Itching * allopurinol (Zyloprim) 100 MG tablet Take 1 (one) tablet by mouth once daily * vitamin D3 (Cholecalciferol) 25 MCG (1000 UNITS) tablet Take 1 (one) tablet by mouth once daily * citalopram (CeleXA) 10 MG tablet Take 1 (one) tablet by mouth once daily * metoprolol succinate XL 24hr (Toprol XL) 100 MG tablet Take 1 (one) tablet by mouth once daily * simvastatin (Zocor) 20 MG tablet Take 1 (one) tablet by mouth at bedtime * ondansetron (Zofran) 4 MG tablet Take 1 (one) tablet by mouth every 6 hours as needed for Nausea/Vomiting * famotidine (Pepcid) 20 MG tablet Take 1 (one) tablet by mouth at bedtime * pantoprazole EC (Protonix) 40 MG tablet(Started 02/01/2024) Take 1 (one) tablet by mouth daily before breakfast for 30 days * apixaban (Eliquis) 2.5 MG tablet(Started 02/07/2024) Take 1 (one) tablet by mouth 2 times daily Active Problems Problem Noted Date Diagnosed Date [...] Date Recorded PHQ2 TOTAL SCORE 0 08/09/2022 [facility] - Occupational [...] place to sleep or slept in a long term (including now)? No 01/29/2024 Sex and Gender [...] Mass Index 38.79 01/28/2024 3:37 AM CDT Procedures * CARDIAC EKG ORDER(Performed 02/01/2024) * CBC W/O DIFFERENTIAL(Performed 01/31/2024) * BASIC METABOLIC PANEL (CALCIUM TOTAL)(Performed 01/31/2024) * CBC W/O DIFFERENTIAL(Performed 01/30/2024) * BASIC METABOLIC PANEL (CALCIUM TOTAL)(Performed 01/30/2024) * PATHOLOGY TISSUE EXAM (STL)(Performed 01/29/2024) Performed for Colitis * ENDOSCOPY, COLON, DIAGNOSTIC(Performed 01/29/2024) * GA COLONOSCOPY, DIAGNOSTIC(Performed 01/29/2024) * CBC W AUTO DIFFERENTIAL(Performed 01/29/2024) * CBC W AUTO DIFFERENTIAL(Performed 01/28/2024) Performed for Rectal bleeding * HGB HCT PANEL(Performed 01/27/2024) Performed for Rectal bleeding * HGB HCT PANEL(Performed 01/27/2024) Performed for Rectal bleeding * HGB HCT PANEL(Performed 01/27/2024) Performed for Rectal bleeding * BASIC METABOLIC PANEL (CALCIUM TOTAL)(Performed 01/27/2024) Performed for Rectal bleeding * HGB HCT PANEL(Performed 01/26/2024) Performed for Rectal bleeding * BLOOD TYPE VERIFICATION(Performed 01/26/2024) * TROPONIN-I HIGH SENSITIVE REFLEX 1HOUR(Performed 01/26/2024) * ANTIBODY IDENTIFICATION(Performed 01/26/2024) * TYPE + SCREEN PANEL(Performed 01/26/2024) * TROPONIN-I HIGH SENSITIVE BASELINE + 1HR(Performed 01/26/2024) * COMPREHENSIVE METABOLIC PANEL(Performed 01/26/2024) * CBC W AUTO DIFFERENTIAL(Performed 01/26/2024) * EKG 12-LEAD(Performed 01/26/2024) Performed for Rectal bleeding * CARDIAC RHYTHM STRIP ORDER(Performed 08/13/2022) * GLUCOSE - POINT OF CARE(Performed 08/11/2022) * GLUCOSE - POINT OF CARE(Performed 08/11/2022) * CBC W AUTO DIFFERENTIAL(Performed 08/11/2022) * BASIC METABOLIC PANEL (CALCIUM TOTAL)(Performed 08/11/2022) * GLUCOSE - POINT OF CARE(Performed 08/10/2022) * GLUCOSE - POINT OF CARE(Performed 08/10/2022) * ECHO COMPLETE W CONTRAST(Performed 08/10/2022) Performed for Left homonymous hemianopsia * GLUCOSE - POINT OF CARE(Performed 08/10/2022) * GLUCOSE - POINT OF CARE(Performed 08/10/2022) * CARDIAC EKG ORDER(Performed 08/09/2022) * GLUCOSE - POINT OF CARE(Performed 08/09/2022) * GLUCOSE - POINT OF CARE(Performed 08/09/2022) * MRI BRAIN WO CONTRAST(Performed 08/09/2022) Performed for Left homonymous hemianopsia * GLUCOSE - POINT OF CARE(Performed 08/09/2022) * GLUCOSE - POINT OF CARE(Performed 08/09/2022) * TROPONIN I(Performed 08/09/2022) Performed for Left homonymous hemianopsia * LIPID PROFILE(Performed 08/09/2022) Performed for Left homonymous hemianopsia * TROPONIN I(Performed 08/08/2022) * URINE MICROSCOPIC ONLY REFLEX TO CULTURE(Performed 08/08/2022) * URINALYSIS REFLEX MICROSCOPIC REFLEX CULTURE(Performed 08/08/2022) * TROPONIN I(Performed 08/08/2022) * CULTURE URINE(Performed 08/08/2022) * CT HEAD WO CONTRAST(Performed 08/08/2022) Performed for Left homonymous hemianopsia * HEMOGLOBIN A1C(Performed 08/08/2022) Performed for Left homonymous hemianopsia * TROPONIN I(Performed 08/08/2022) * PT-INR(Performed 08/08/2022) * COMPREHENSIVE METABOLIC PANEL(Performed 08/08/2022) * CBC W AUTO DIFFERENTIAL(Performed 08/08/2022) * EKG 12-LEAD(Performed 08/08/2022) Performed for Left homonymous hemianopsia * ED LACERATION REPAIR(Performed 08/02/2022) * CT CERVICAL SPINE WO CONTRAST(Performed 08/02/2022) Performed for Fall, initial encounter * CT HEAD WO CONTRAST(Performed 08/02/2022) Performed for Fall, initial encounter * PT-INR(Performed 08/02/2022) * CBC W AUTO DIFFERENTIAL(Performed 08/02/2022) * COMPREHENSIVE METABOLIC PANEL(Performed 08/02/2022) * AMB REFERRAL TO CARDIOLOGY(Performed 07/05/2019) Performed for Orthostatic hypotension * CBC W AUTO DIFFERENTIAL(Performed 05/15/2019) Performed for Other iron deficiency anemia * CBC W AUTO DIFFERENTIAL(Performed 04/25/2019) Performed for Other iron deficiency anemia * COMPREHENSIVE METABOLIC PANEL(Performed 04/25/2019) Performed for Other iron deficiency anemia * IRON + TRANSFERRIN PANEL(Performed 04/25/2019) Performed for Other iron deficiency anemia * FERRITIN(Performed 04/25/2019) Performed for Other iron deficiency anemia * CARDIAC EKG ORDER(Performed 12/22/2009) * CARDIAC PROCEDURE ORDER(Performed 12/22/2009) * IMAGING/RADIOLOGY/XRAY RESULTS ORDER(Performed 12/18/2009) * CARDIAC STRESS TEST ORDER(Performed 12/18/2009) * IMAGING/RADIOLOGY/XRAY RESULTS ORDER(Performed 12/17/2009) * CARDIAC EKG ORDER(Performed 12/17/2009) Results * CARDIAC EKG ORDER (02/01/2024 4:04 PM CDT) Only the most recent of4 resultswithin the time period is included. Narrative 02/01/2024 4:04 PM CDT Ordered by an unspecified provider. Scanned Document CARDIAC SERVICES ORD ERABLES * (ABNORMAL) CBC W/O DIFFERENTIAL (01/31/2024 4:03 AM CDT) Only the most recent of2 resultswithin the time period is included. WBC 8.0 4.0 - 10.7 x10E9/L 01/31/2024 4:25 AM CDT [facility] RBC Count 3.21(L) 3.90 - 5.20 x10E12/L 01/31/2024 4:25 AM CDT [facility] Hemoglobin 10.1(L) 11.9 - 15.8 g/dL 01/31/2024 4:25 AM CDT [facility] Hematocrit 32.9(L) 34.8 - 46.1 % 01/31/2024 4:25 AM CDT -[facility] MCV 102.5(H) 80.0 - 98.0 fL 01/31/2024 4:25 AM CDT -[facility] MCH 31.5 26.7 - 33.6 pg 01/31/2024 4:25 AM CDT [facility] MCHC 30.7(L) 31.7 - 36.3 g/dL 01/31/2024 4:25 AM CDT [facility] RDW-CV 13.2 11.3 - 14.8 % 01/31/2024 4:25 AM CDT -[facility] Platelet Count 131(L) 150 - 420 x10E9/L 01/31/2024 4:25 AM CDT [facility] MPV 9.8 7.8 - 11.4 fL 01/31/2024 4:25 AM CDT [facility] Blood BLOOD SPECIMEN / Unknown Lab Venipuncture / Unknown 01/31/2024 4:03 AM CDT 01/31/2024 4:17 AM CDT Ricky Long MD LAB - HEMATOLOG Y ORDERABLES [facility] [address] [place], [place] [id number] * (ABNORMAL) BASIC METABOLIC PANEL (CALCIUM TOTAL) (01/31/2024 4:03 AM CDT) Only the most recent of4 resultswithin the time period is included. Glucose 138(H) 70 - 99 mg/dL 01/31/2024 4:40 AM CDT -[facility] Sodium 138 136 - 145 mmol/L 01/31/2024 4:40 AM CDT [facility] Potassium 3.9 3.5 - 5.1 mmol/L 01/31/2024 4:40 AM CDT -[facility] Chloride 107 98 - 107 mmol/L 01/31/2024 4:40 AM CDT [facility] CO2 21(L) 22 - 29 mmol/L 01/31/2024 4:40 AM CDT -[facility] Calcium 8.8 8.4 - 10.4 mg/dL 01/31/2024 4:40 AM CDT [facility] Anion Gap 10 6 - 16 mmol/L 01/31/2024 4:40 AM CDT -[facility] BUN 30(H) 7 - 26 mg/dL 01/31/2024 4:40 AM CDT -[facility] Creatinine 2.99(H) 0.57 - 1.11 mg/dL 01/31/2024 4:40 AM CDT -[facility] eGFR by CKD-EPI 15(L) >=90 mL/min/1.7 3 m2 01/31/2024 4:40 AM CDT [facility] Blood BLOOD SPECIMEN / Unknown Lab Venipuncture / Unknown 01/31/2024 4:03 AM CDT 01/31/2024 4:16 AM CDT Ricky Long MD LAB - CHEMISTRY ORDERABLES [facility] [address] [place] [address] * PATHOLOGY TISSUE EXAM (STL) (01/29/2024 3:02 PM CDT) Case Report Surgical Pathology Report Case: [id number] Authorizing Provider: Yari Rosa MD Collected: 01/29/2024 03:02 PM Ordering Location: [address] INPATIENT CARE Received: 01/30/2024 09:05 AM Pathologist: Sharmin Ceja MD Specimens: A) - Colon, Left colon CB B) - Polyp Ascending, HS X 1 C) - Polyp Sigmoid 01/31/2024 10:58 AM CDT -[facility] Final Diagnosis Left colon biopsy: - Colonic mucosa with changes consistent with mild ischemic type mucosal injury/colitis (see comment) - Negative for dysplasia and malignancy Colon, ascending polyp x1, polypectomy: - Tubulovillous adenoma - Negative for high-grade dysplasia and malignancy Colon, sigmoid polyp x1, polypectomy: - Tubular adenoma - Negative for high-grade dysplasia and malignancy Comment: Possible etiologies for this ischemic type mucosal injury include true ischemic colitis, infection and a drug reaction. Clinical and endoscopic correlation is recommended. 01/31/2024 10:58 AM CDT [facility] Clinical History 83-year-old female presenting with history of colitis. 01/31/2024 10:58 AM CDT [facility] Gross Description There are 3 formalin filled specimen containers received. Specimen A labeled l eft colon biopsy consists of multiple menezes-red mucosal fragments 2-5 mm greatest dimension, submitted in toto in A1. Specimen B labeled a scending polyp x1 consists of a 1.6 x 1.4 x 0.6 cm menezes-red, blue-stained polypoid tissue. Polyp is sectioned and entirely submitted in B1. Specimen C labeled sigmoid polyp consists of a 5 mm menezes polypoid tissue fragment, submitted in toto in C1. 01/31/2024 10:58 AM CDT [facility] Microscopic Description Microscopic examination substantiates the final diagnosis. 01/31/2024 10:58 AM CDT [facility] Performed By [facility] at [address] [address]. 01/31/2024 10:58 AM CDT [facility] Disclaimer All histochemical and/or immunohistochemical results are interpreted with controls that demonstrate appropriate staining reactions before reporting results. Note on use of immunocytochemistry reagents: This test was developed and its performance characteristic determined by [facility], Department of Laboratory Medicine. It has not been cleared or approved by the U.S. Food and Drug Administration (FDA). The FDA has determined that such clearance or approval is not necessary. The test is used for clinical purpose. It should not be regarded as investigational or for research. This laboratory is certified to perform high complexity testing. The performance characteristics of the IHC/LIVAN assays have been validated on formalin-fixed paraffin embedded tissues only. The assays have not been validated on decalcified tissues. Results should be interpreted with caution. 01/31/2024 10:58 AM CDT [facility] Embedded Images 01/31/2024 10:58 AM CDT [facility] Pathology/Cytology COLON PART / Unknown 01/29/2024 3:02 PM CDT 01/30/2024 9:05 AM CDT Miscellaneous samples (specimen) POLYP / Unknown 01/29/2024 3:23 PM CDT 01/30/2024 9:05 AM CDT Miscellaneous samples (specimen) POLYP OF SIGMOID COLON / Unknown 01/29/2024 3:36 PM CDT 01/30/2024 9:05 AM CDT Yari Rosa MD LAB - PATHOLOGY/CYTO LOGY ORDERABLES -[facility] [address] [place] [address] * Endoscopy, Colon, Diagnostic (01/29/2024 2:39 PM CDT) Report Endoscopy POC _ Patient Name: Clau Escalante Procedure Date: 01/29/2024 2:39 PM Date of : 1940 Admit Type: Inpatient Age: 83 Gender: Female Attending MD: Yari Rosa MD, [id number] _ Procedure: Colonoscopy Indications: Hematochezia Providers: Yari [...] two hemostatic clips were successfully placed. 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 The transverse colon, ascending colon and cecum [...] Resected and retrieved. Clips were placed. 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 - The transverse colon, ascending colon and [...] for surveillance. Procedure Code(s): --- Professional --- 36255, Colonoscopy, flexible; with endoscopic mucosal resection 21141, 59, Colonoscopy, flexible; with removal of tumor(s), polyp(s), or other lesion(s) by snare technique 28427, 59, Colonoscopy, flexible; with biopsy, single or multiple --- Technical --- 58329, Colonoscopy, flexible; with endoscopic mucosal resection 96454, 59, Colonoscopy, flexible; with removal of tumor(s), polyp(s), or other lesion(s) by snare technique 52438, 59, Colonoscopy, flexible; with biopsy, single or [...] or abscess without bleeding CPT copyright 2020 [employer]. All rights reserved. The codes documented in this report are preliminary and upon manager electronic review may be revised to meet current compliance requirements. Dr. Theresa Rosa MD Yari Rosa MD 01/29/2024 4:20:25 PM This report has been signed electronically. Number of Addenda: 0 Note Initiated On: 01/29/2024 2:39 PM Procedure Date: 01/29/2024 2:39:58 PM Scope Withdrawal Time: 0 hours 29 minutes 12 seconds [facility] ENDOSCOPY 01/29/2024 2:39 PM CDT Yari Rosa MD GI PROCEDURE ORDERAB LES [facility] ENDOSCOPY * (ABNORMAL) CBC W AUTO DIFFERENTIAL (01/29/2024 3:32 AM CDT) Only the most recent of8 resultswithin the time period is included. WBC 9.8 4.0 - 10.7 x10E9/L 01/29/2024 4:15 AM CDT [facility] RBC Count 3.62(L) 3.90 - 5.20 x10E12/L 01/29/2024 4:15 AM CDT [facility] Hemoglobin 11.5(L) 11.9 - 15.8 g/dL 01/29/2024 4:15 AM CDT [facility] Hematocrit 36.6 34.8 - 46.1 % 01/29/2024 4:15 AM CDT [facility] MCV 101.1(H) 80.0 - 98.0 fL 01/29/2024 4:15 AM CDT [facility] MCH 31.8 26.7 - 33.6 pg 01/29/2024 4:15 AM CDT [facility] MCHC 31.4(L) 31.7 - 36.3 g/dL 01/29/2024 4:15 AM CDT [facility] RDW-CV 13.1 11.3 - 14.8 % 01/29/2024 4:15 AM CDT [facility] Platelet Count 171 150 - 420 x10E9/L 01/29/2024 4:15 AM CDT [facility] MPV 9.7 7.8 - 11.4 fL 01/29/2024 4:15 AM CDT [facility] Neutrophil % 74.4(H) 41.0 - 74.0 % 01/29/2024 4:15 AM CDT [facility] Lymphocyte % 13.9(L) 17.0 - 47.0 % 01/29/2024 4:15 AM CDT [facility] Monocyte % 8.6 3.0 - 11.0 % 01/29/2024 4:15 AM CDT [facility] Eosinophil % 2.4 0.0 - 7.0 % 01/29/2024 4:15 AM CDT [facility] Basophil % 0.3 0.0 - 1.6 % 01/29/2024 4:15 AM CDT [facility] Immature Granulocytes % 0.4 0.0 - 1.0 % 01/29/2024 4:15 AM CDT [facility] Neutrophil Absolute 7.25 1.60 - 7.50 x10E9/L 01/29/2024 4:15 AM CDT [facility] Lymphocyte Absolute 1.36 1.00 - 4.40 x10E9/L 01/29/2024 4:15 AM CDT [facility] Monocyte Absolute 0.84 0.15 - 1.00 x10E9/L 01/29/2024 4:15 AM CDT [facility] Eosinophil Absolute 0.23 0.00 - 0.60 x10E9/L 01/29/2024 4:15 AM CDT [facility] Basophil Absolute 0.03 0.00 - 0.13 x10E9/L 01/29/2024 4:15 AM CDT -[facility] Blood BLOOD SPECIMEN / Unknown Lab Venipuncture / Unknown 01/29/2024 3:32 AM CDT 01/29/2024 4:05 AM CDT Ricky Long MD LAB - HEMATOLOG Y ORDERABLES Performing Organization Address [facility]/ZIP Co de Phone Number [facility] [address] [place] [phone] * (ABNORMAL) HGB HCT PANEL (01/27/2024 4:38 PM CDT) Only the most recent of4 resultswithin the time period is included. Hemoglobin 10.7(L) 11.9 - 15.8 g/dL 01/27/2024 4:45 PM CDT [facility] Hematocrit 34.7(L) 34.8 - 46.1 % 01/27/2024 4:45 PM CDT [facility] Blood BLOOD SPECIMEN / Unknown Lab Venipuncture / Unknown 01/27/2024 4:38 PM CDT 01/27/2024 4:42 PM CDT Isaiah Marshall PA-C LAB - HEMATOLOGY ORD ERABLES Performing Organization Address [facility] Co de Phone Number [facility] [address] [place] [phone] * TROPONIN-I HIGH SENSITIVE REFLEX 1HOUR (01/26/2024 2:13 PM CDT) Troponin I High Sensitive 6 <=14 ng/L 01/26/2024 2:39 PM CDT -[facility] Delta Troponin I HS 01/26/2024 2:39 PM CDT -[facility] Comment:Delta value intentio nas not calculated. Baseline to 1 hour specimen collection interval exceeded. Blood BLOOD SPECIMEN / Unknown Venipuncture / Unknown 01/26/2024 2:13 PM CDT 01/26/2024 2:15 PM CDT Gustavo Dozier DO LAB - CHEMISTRY MILLIE KAN Performing Organization Address [facility]/ZIP Co de Phone Number [facility] [address] [place] [phone] * BLOOD TYPE VERIFICATION (01/26/2024 2:13 PM CDT) ABO Rh A POS 01/26/2024 3:0 2 PM CDT [facility] Blood Bank BLOOD SPECIMEN / Unknown Venipuncture / Unknown 01/26/2024 2:13 PM CDT 01/26/2024 2:15 PM CDT Gustavo Dozier DO LAB - BLOOD BANK ROGE BRAVO Performing Organization Address [facility] Co de Phone Number [facility] [address] [place] [phone] [place] [address] * TROPONIN-I HIGH SENSITIVE BASELINE + 1HR (01/26/2024 12:41 PM CDT) Troponin I High Sensitive 8 <=14 ng/L 01/26/2024 1:11 PM CDT [facility] Blood BLOOD SPECIMEN / Unknown Venipuncture / Unknown 01/26/2024 12:41 PM CDT 01/26/2024 12:47 PM CDT Gustavo Dozier DO LAB - CHEMISTRY MILLIE KAN Performing Organization Address [facility]/ZIP Co de Phone Number [facility] [address] [place] [phone] * TYPE + SCREEN PANEL (01/26/2024 12:41 PM CDT) ABO Rh A POS 01/26/2024 2:38 PM CDT -[facility] Comment:No history; collect retype. Antibody Screen POS 2:38 PM CDT [facility] Blood Bank BLOOD SPECIMEN / Unknown Venipuncture / Unknown 01/26/2024 12:41 PM CDT 01/26/2024 12:47 PM CDT Gustavo Dozier DO LAB - BLOOD BANK ORD ERABLES [facility] [address] [place] [address], [facility] [phone] * ANTIBODY IDENTIFICATION (01/26/2024 12:41 PM CDT) Antibody 1 POS, Anti-JkA 01/26/2024 4:35 PM CDT [facility] Blood Bank BLOOD SPECIMEN / Unknown Venipuncture / Unknown 01/26/2024 12:41 PM CDT 01/26/2024 12:47 PM CDT Gustavo Dozier DO LAB - BLOOD BANK ORD [facility] Performing Organization Address City/[facility]/ZIP Co de Phone Number [facility] [address] [place] [phone], [facility] [phone] * (ABNORMAL) COMPREHENSIVE METABOLIC PANEL (01/26/2024 12:41 PM CDT) Only the most recent of4 resultswithin the time period is included. Glucose 118(H) 70 - 99 mg/dL 01/26/2024 1:05 PM CDT -[facility] Sodium 141 136 - 145 mmol/L 01/26/2024 1:05 PM CDT -[facility] Potassium 4.5 3.5 - 5.1 mmol/L 01/26/2024 1:05 PM CDT -[facility] Chloride 106 98 - 107 mmol/L 01/26/2024 1:05 PM CDT -[facility] CO2 24 22 - 29 mmol/L 01/26/2024 1:05 PM CDT -[facility] Calcium 10.0 8.4 - 10.4 mg/dL 01/26/2024 1:05 PM CDT -[facility] Anion Gap 11 6 - 16 mmol/L 01/26/2024 1:05 PM CDT -[facility] BUN 33(H) 7 - 26 mg/dL 01/26/2024 1:05 PM T -[facility] Creatinine 2.28(H) 0.57 - 1.11 mg/dL 01/26/2024 1:05 PM T -[facility] Alkaline Phosphatase 89 40 - 150 U/L 01/26/2024 1:05 PM CDT [facility] ALT 13 0 - 55 U/L 01/26/2024 1:05 PM T -[facility] AST 16 5 - 34 U/L 01/26/2024 1:05 PM T -[facility] Protein Total 6.9 6.4 - 8.3 gm/dL 01/26/2024 1:05 PM T -[facility] Albumin 3.6 3.4 - 5.0 gm/dL 01/26/2024 1:05 PM T -[facility] Bilirubin Total 0.7 0.2 - 1.2 mg/dL 01/26/2024 1:05 PM T [facility] eGFR by CKD-EPI 21(L) >=90 mL/min/1.7 3 m2 01/26/2024 1:05 PM T [facility] Blood BLOOD SPECIMEN / Unknown Venipuncture / Unknown 01/26/2024 12:41 PM CDT 01/26/2024 12:47 PM CDT Gustavo Dozier DO LAB - CHEMISTRY MILLIE KAN [facility] Organization Address City/State/ZIP Co de Phone Number [facility] [address] [place] [address] * EKG 12-LEAD (01/26/2024 12:15 PM CDT) Only the most recent of2 resultswithin the time period is included. Ventricular Rate 72 BPM [facility] Atrial Rate 72 BPM [facility] P-R Interval 138 ms [facility] QRS Duration ms 80 ms [facility] Q-T Interval ms 410 ms [facility] QTC Calculation (Bezet) 448 ms [facility] Calculated P [place] 27 degrees [facility] Calculated R [place] 14 degrees [facility] Calculated T [place] 72 degrees [facility] Interpretation EKG Normal sinus rhythm Nonspecific ST and T wave abnormality Abnormal ECG No previous ECGs available Confirmed by JUVENTINO PRINCE ([id number]) on 01/27/2024 3:58:44 PM [facility] 01/26/2024 12:1 5 PM CDT 01/27/2024 3:58 PM CDT Gustavo Dozier DO ECG ORDERABLES Performing Organization Address [facility] de Phone Number [facility] * CARDIAC RHYTHM STRIP ORDER (08/13/2022 12:18 AM CDT) Narrative 08/13/2022 12:18 AM CDT Ordered by an unspecified provider. Scanned Document CARDIAC SERVICES ORD ERABLES * GLUCOSE - POINT OF CARE (08/11/2022 11:46 AM CDT) Only the most recent of10 resultswithin the time period is included. [facility] Glucose WB/POC 87 70 - 106 mg/dL 08/11/2022 11:55 AM CDT [facility] [facility] Specimen Type Cap Fingerstick 2022 11:55 AM CDT [facility] Blood BLOOD SPECIMEN / Unknown 08/11/2022 11:46 AM CDT 08/11/2022 11:55 AM CDT Chary Victoria MD LAB - POINT OF CARE ORDERABLES Performing Organization Address [facility] Co de Phone Number [facility] [address] [place] [address] * ECHO COMPLETE W CONTRAST (08/10/2022 3:04 PM CDT) Pathologist [facility] BSA 2.2961646 m2 SSM CV FUJ I PACS LV biplane EF 72 % SSM CV FUJI PACS LV A2C EF 82 % SSM CV FUJ I PACS LV A4C EF 89 % SSM CV FUJ I PACS LV stroke vol index A4C MOD 41.45 ml SSM CV FUJI PACS LV ESV BP 14.591 mL SSM CV [facility] I PACS LV ESV index BP 6.5 mL/m2 SSM CV FUJI PACS LV ESV A2C 4.9 mL SSM CV FU JI PACS LV EDV BP 52.164 mL SSM CV [facility] I PACS LV ESV A4C 10.615 mL SSM CV FU JI PACS LV EDV index BP 23.2 mL/m2 SSM CV FUJI PACS LV EDV A2C 59.356 mL SSM CV FU JI PACS LV EDV A4C 46.351 mL SSM CV FU JI PACS LV Guerra A4C 7.375 cm SSM CV F UJI PACS MV E pk scott 62.564 cm/s SSM CV F UJI PACS MV A pk scott 112.109 cm/s SSM CV F UJI PACS MV E' lateral scott 8.237 cm/s SS M [facility] DT 297 ms SSM CV [facility] I PACS MV E' septal scott 7.54 cm/s [facility] LVOT pk scott 1.73925 m/s SSM CV F UJI PACS LVOT mn scott 1.60840 m/s SSM CV F UJI PACS LVOT mn grad 5.8 mmHg [facility] TAPSE 2.542 cm SSM CV [facility] I PACS AV mn grad 7 mmHg SSM CV FU PACS AV pk grad 11 mmHg SSM CV FU PACS AV mn scott 1.21 m/s SSM CV [facility] I PACS AV pk scott 1.68 m/s SSM CV [facility] I PACS AV VTI 35.351 cm SSM CV [facility] I PACS LVOT pk grad 8.393 mmHg [facility] LVOT VTI 33.908 cm SSM CV [facility] I PACS AV Doppler scott index pk scott 0.86 [facility] PHT 86 ms SSM CV [facility] I PACS MV area PHT 2.56 cm2 SSM CV F UJI PACS MV decel slope 210.434 cm/s2 [facility] C [facility] TR pk scott 254.6 cm/s SSM CV [facility] I PACS TR pk grad 26 mmHg SSM CV FU JI PACS PV pk scott 112.302 cm/s SSM CV FUJ I PACS PV pk grad 5 mmHg SSM CV FU JI PACS AV scott ratio 0.86 SSM CV FUJI PACS LA ESV A4C MOD Index 19 ml/m2 SSM CV FUJI PACS LA ESV A2C MOD Index 15 ml/m2 SSM CV FUJI PACS LA vol BP A-L 41.01 SSM CV FUJI PACS Dimensionless Index 0.959 SSM CV FUJI PACS LA Size 3.114 cm SSM CV FUJ I PACS Anatomical Region Laterality Modality Ultrasound Narrative 08/10/2022 3:12 PM CDT Left Ventricle: Left ventricle size is normal. Normal wall thickness. Normal systolic function. Normal wall motion. Grade I diastolic dysfunction with normal left atrial pressure. Left Atrium: Left atrium size is normal. Right Ventricle: Normal systolic function. Right Atrium: Right atrium size is normal. Mitral Valve: Mild regurgitation. Tricuspid Valve: Mild regurgitation. Left Ventricle Left ventricle size is normal. Normal wall thickness. Normal systolic function. Normal wall motion. Grade I diastolic dysfunction with normal left atrial pressure. Right Ventricle Right ventricle size is normal. Normal systolic function. Left Atrium Left atrium size is normal. Right Atrium Right atrium size is normal. IVC/SVC IVC diameter is less than or equal to 21 mm and decreases greater than 50% during inspiration; therefore the estimated right atrial pressure is normal (~3 mmHg). Mitral Valve Valve structure is normal. No restricted motion. Mild regurgitation. No stenosis. Tricuspid Valve Valve structure is normal. No restricted motion. Mild regurgitation. No stenosis. Aortic Valve Valve structure is trileaflet. No restricted motion. No regurgitation. No stenosis. Pulmonic Valve Valve structure is normal. No restricted motion. No regurgitation. No stenosis. Main pulmonary artery size is normal. Ascending Aorta Normal sized sinus of Valsalva (aortic root) and ascending aorta. Pericardium No pericardial effusion. Study Details Study quality was poor. A complete 2D, color Doppler, spectral Doppler and M- mode echocardiogram was performed. The apical, parasternal, subcostal and suprasternal views were obtained. Definity ultrasound enhancing agent used. Procedure Note Timmy Valdez MD - 08/10/2022 Left Ventricle: Left ventricle size is normal. Normal wall thickness.Normal systolic function. Normal wall motion. Grade I diastolicdysfunction with normal left atrial pressure. Left Atrium: Left atrium size is normal. Right Ventricle: Normal systolic function. Right Atrium: Right atrium size is normal. Mitral Valve: Mild regurgitation. Tricuspid Valve: Mild regurgitation. Nilay Riggs MD ECHO CUPID * MRI BRAIN WO CONTRAST (08/09/2022 2:07 PM CDT) Anatomical Region Laterality Modality Head Magnetic Resonan ce 08/09/2022 2:19 PM CDT Impressions 08/09/2022 2:23 PM CDT IMPRESSION: 1. No acute intracranial abnormality or recent infarction. 2. Involutional changes, chronic infarctions and moderate ischemic microangiopathy. > Interpreting Provider: Grant Dang DO on 08/09/2022 2:23 PM Narrative 08/09/2022 2:23 PM CDT PROCEDURE: MRI BRAIN WO CONTRAST, DATE/TIME OF EXAM: 08/09/2022 2:07 PM, LOCATION [facility] INDICATION: CVA. COMPARISON: Head CT 05/10/2022. TECHNIQUE: Axial DWI, ADC, FLAIR, T2 FSE and T1-weighted imaging without contrast utilizing limited stroke protocol. FINDINGS: Volume loss, commensurate with age. There is no mass, mass effect or midline shift. 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 There may be a much smaller, minimally hemorrhagic chronic lacune within or adjacent to the left caudate head nucleus. 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 Superimposed moderate chronic ischemic microangiopathy. No cytotoxic edema is identified to indicate an acute infarction. Orbital contents are grossly unremarkable. Sinuses and mastoids are clear. Procedure Note Grant Dang DO - 08/09/2022 PROCEDURE: MRI BRAIN WO CONTRAST, DATE/TIME OF EXAM: 08/09/2022 2:07PM, LOCATION [facility] INDICATION: CVA. COMPARISON: Head CT 05/10/2022. TECHNIQUE: Axial DWI, ADC, FLAIR, T2 FSE and T1-weighted imaging without contrast utilizing limited stroke protocol. FINDINGS: Volume loss, commensurate with age. There is no mass, mass effect or midline shift. Old hemorrhagic infarction within the posterior limb of the rightinternal capsule extending to the cerebral peduncle. There may be a much smaller, minimally hemorrhagic chronic lacune within or adjacent to the leftcaudate head nucleus. 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 Superimposed moderate chronic ischemic microangiopathy. No cytotoxic edema is identified to indicate an acute infarction. Orbital contents are grossly unremarkable. Sinuses and mastoids areclear. IMPRESSION: 1. No acute intracranial abnormality or recent infarction. 2. Involutional changes, chronic infarctions and moderate ischemic microangiopathy. > Interpreting Provider: Grant Dang DO on 08/09/2022 2:23 PM Eneida Barreto APRN-CREDIT PORTFOLIO MANAGER MR ORDERABLES * TROPONIN I (08/09/2022 5:07 AM CDT) Only the most recent of4 resultswithin the time period is included. Troponin I 0.010 <0.038 ng/mL 08/09/2022 5:41 AM CDT [facility] Blood BLOOD SPECIMEN / Unknown Venipuncture / Unknown 08/09/2022 5:07 AM CDT 08/09/2022 5:14 AM CDT Nilay Riggs MD LAB - CHEMISTRY MILLIE KAN [facility] Organization Address City/State/ZIP Co de Phone Number [facility] [address] [place] [address] * LIPID PROFILE (08/09/2022 5:07 AM CDT) Cholesterol 143 <200 mg/dL 08/09/2022 5:49 AM CDT [facility] Triglycerides 115 <150 mg/dL 08/09/2022 5:49 AM CDT [facility] HDL Cholesterol 54 >40 mg/dL 3 5:49 AM CDT [facility] LDL Calculated 66 <130 mg/dL 08/09/2022 5:49 AM CDT [facility] VLDL Calculated 23 <=30 mg/dL 3 5:49 AM CDT [facility] Chol HDL Ratio 2.6 <4.5 08/09/2022 5:49 AM CDT [facility] LDL/HDL Ratio 1.2 <5.0 08/09/2022 5:49 AM CDT [facility] Blood BLOOD SPECIMEN / Unknown Venipuncture / Unknown 08/09/2022 5:07 AM CDT 08/09/2022 5:14 AM CDT Nilay Riggs MD LAB - CHEMISTRY ORDE RABLES Performing Organization Address [facility]/ZIP Co de Phone Number [facility] [address] [place] [address] * (ABNORMAL) URINE MICROSCOPIC ONLY REFLEX TO CULTURE (08/08/2022 6:44 PM CDT) Reflex Status Culture to follow 08/08/2022 7:07 PM CDT [facility] RBC UA 0-2 0 - 5 # /hpf 08/08/2022 7:07 PM CDT [facility] WBC UA 0-5 0 - 5 # /hpf 08/08/2022 7:07 PM CDT [facility] Bacteria UA Trace(A) None Seen 08/08/2022 7:07 PM CDT [facility] Squamous Epithelial Cells 0-2 0 - 5 /hpf 08/08/2022 7:07 PM CDT [facility] Urine URINE SPECIMEN OBTAINED BY CLEAN CATCH PROCEDURE / Unknown Collection / Unknown 08/08/2022 6:44 PM CDT 08/08/2022 6:52 PM CDT Narrative [facility] - 08/08/2022 7:07 PM CDT Nilay Riggs MD LAB - URINALYSIS ORD ERABLES Performing Organization Address [facility]/ZIP Co de Phone Number [facility] [address] [place] [address] * (ABNORMAL) URINALYSIS REFLEX MICROSCOPIC REFLEX CULTURE (08/08/2022 6:44 PM CDT) Color UA Yellow Straw, Yellow 08/08/2022 6:59 PM CDT [facility] Clarity UA Clear Clear 08/08/2022 6:59 PM CDT [facility] Glucose UA Negative Negative 08/08/2022 6:59 PM CDT [facility] Bilirubin UA Negative Negative 08/08/2022 6:59 PM CDT [facility] Ketone UA Negative Negative 08/08/2022 6:59 PM CDT [facility] Specific [place] Cross UA 1.011 1.005 - 1.030 08/08/2022 6:59 PM CDT [facility] Blood UA Negative Negative 08/08/2022 6:59 PM CDT [facility] pH UA 6.0 5.0 - 8.0 pH 08/08/2022 6:59 PM CDT [facility] Protein UA Negative Negative 08/08/2022 6:59 PM CDT [facility] Urobilinogen UA Negative Negative mg/dL 08/08/2022 6:59 PM CDT [facility] Nitrite UA Negative Negative 08/08/2022 6:59 PM CDT [facility] Leukocyte UA Trace(A) Negative 08/08/2022 6:59 PM CDT [facility] Urine Microscopy Urine microscopy to follow 08/08/2022 6:59 PM CDT [facility] Reflex Status Culture to follow 08/08/2022 6:59 PM CDT [facility] Urine URINE SPECIMEN OBTAINED BY CLEAN CATCH PROCEDURE / Unknown Collection / Unknown 08/08/2022 6:44 PM CDT 08/08/2022 6:52 PM CDT Narrative [facility] - 08/08/2022 6:59 PM CDT Nilay Riggs MD LAB - URINALYSIS ORD ERABLES Performing Organization Address City/State/[facility] Co de Phone Number [facility] [address] [place] [address] * (ABNORMAL) CULTURE URINE (08/08/2022 6:44 PM CDT) Pathologist [facility] Culture Urine >100,000 CFU/mL Citrobacter freundii(A) KELLY 08/11/2022 2:30 AM CDT [facility] Urine URINE SPECIMEN OBTAINED BY CLEAN CATCH PROCEDURE / Unknown Collection / Unknown 08/08/2022 6:44 PM CDT 08/08/2022 6:52 PM CDT [facility] MICROBIOLOGY - 08/11/2022 2:30 AM CDT Organism Antibiotic Method Susceptibility Citrobacter freundii Piperacillin-tazobactam KB Susceptible Citrobacter freundii Amikacin KELLY <=2 ug/mL: Susceptible Citrobacter freundii Cefepime KELLY <=1 ug/mL: Susceptible Citrobacter freundii Ceftriaxone KELLY <=1 ug/mL: Susceptible Citrobacter freundii Ciprofloxacin KELLY <=0.25 ug/mL: Susceptible Citrobacter freundii Gentamicin KELLY <=1 ug/mL: Susceptible Citrobacter freundii Meropenem KELLY <=0.25 ug/mL: Susceptible Citrobacter freundii Nitrofurantoin KELLY 64 ug/mL: Intermediate Citrobacter freundii Tobramycin KELLY <=1 ug/mL: Susceptible Citrobacter freundii Trimethoprim-sulfamethoxazole KELLY <=20 ug/mL: Susceptible Nilay Riggs MD LAB - MICROBIOLOGY O RDERABLES [facility] MICROBIOLOGY [address] [place], [place] [address], [facility] [phone] * CT HEAD WO CONTRAST (08/08/2022 4:45 PM CDT) Only the most recent of2 resultswithin the time period is included. Anatomical Region Laterality Modality Head Computed Tomogra phy 08/08/2022 5:02 PM CDT Impressions 08/08/2022 5:03 PM CDT IMPRESSION: Old right occipital infarct Small vessel and senescent changes. > Interpreting Provider: Aquiles Schmidt MD on 08/08/2022 5:03 PM Narrative 08/08/2022 5:03 PM CDT PROCEDURE: CT HEAD WO CONTRAST, DATE/TIME OF EXAM: 08/08/2022 4:45 PM, LOCATION [facility] INDICATION: H53.462: Homonymous bilateral field defects, left side. Stroke. ADDITIONAL CLINICAL INFORMATION: Ordering Provider Reason For Exam: Technologist Note: Additional: COMPARISON: August 02, 2022 TECHNIQUE: Noncontrast CT brain was performed utilizing standard protocol. CT dose reduction technique was used, including Automated Exposure Control. FINDINGS: The ventricles, gyri and sulci are diffusely prominent but stable. Encephalomalacia right occipital lobe is still present. Periventricular small vessel and senescent changes are seen. There is no midline shift, mass, mass effect or acute intracranial hemorrhage. No definite acute cortical infarct is present. The calvarium is intact. Left maxillary sinus thickening is present. Procedure Note Aquiles Schmidt MD - 08/08/2022 PROCEDURE: CT HEAD WO CONTRAST, DATE/TIME OF EXAM: 08/08/2022 4:45 PM, LOCATION [facility] INDICATION: H53.462: Homonymous bilateral field defects, left side. Stroke. ADDITIONAL CLINICAL INFORMATION: Ordering Provider Reason For Exam: Technologist Note: Additional: COMPARISON: August 02, 2022 TECHNIQUE: Noncontrast CT brain was performed utilizing standard protocol. CT dose reduction technique was used, including Automated ExposureControl. FINDINGS: The ventricles, gyri and sulci are diffusely prominent but stable. Encephalomalacia right occipital lobe is still present. Periventricular small vessel and senescent changes are seen. There is no midline shift, mass, mass effect or acute intracranial hemorrhage. No definite acute cortical infarct is present. The calvarium is intact. Left maxillary sinus thickening is present. IMPRESSION: Old right occipital infarct Small vessel and senescent changes. > Interpreting Provider: Aquiles Schmidt MD on 08/08/2022 5:03 PM Nilay Riggs MD CT ORDERABLES * (ABNORMAL) HEMOGLOBIN A1C (08/08/2022 3:47 PM CDT) Hemoglobin A1c 5.9(H) <5.7 % 08/08/2022 10:17 PM CDT [facility] Estimated Average Glucose 123 mg/dL 08/08/2022 10:17 PM CDT [facility] Blood BLOOD SPECIMEN / Unknown Venipuncture / Unknown 08/08/2022 3:47 PM CDT 08/08/2022 3:58 PM CDT Narrative [facility] - 08/08/2022 10:17 PM CDT HbA1c Interpretation: Normal: < 5.7% Pre-diabetes: 5.7-6.4% Diabetes: Equal to or greater than 6.5% Test results diagnostic of diabetes should be repeated for confirmation. Treatment target values recommended by ADA and other clinical organizations should be used to evaluate metabolic control in patients. This test should not replace glucose testing for patients with Type 1 diabetes, pediatric patients, or women. Falsely low HbA1c results may be observed in patients with clinical conditions that shorten erythrocyte life span or decrease mean erythrocyte age such as the presence of unstable hemoglobin variants, elevated hemoglobin F level or other causes of hemolytic anemia. HbA1c may not accurately reflect glycemic control when clinical conditions that affect erythrocyte survival are present. Severe Iron deficiency anemia may yield falsely high results. Hemoglobin A1c assay should not be used to diagnose or monitor diabetes in patients with malignancy, recent blood transfusion, chronic kidney or liver disease. This method may yield falsely low results when hemoglobin (HbF) exceeds 5% in the specimen. The Macdonald Roofer Apprentice assay for the measurement of HbA1c is a National Glycohemoglobin Standardization Program (NGSP) certified method. Nilay Riggs MD LAB - CHEMISTRY ORDE LUCIUS Performing Organization Address [facility] de Phone Number [facility] [id number] [place] [id number] * PT-INR (08/08/2022 3:47 PM CDT) Only the most recent of2 resultswithin the time period is included. PT 13.7 12.1 - 14.8 sec 08/08/2022 4:12 PM CDT [facility] INR 1.1 0.9 - 1.1 08/08/2022 4:12 PM CDT [facility] Blood BLOOD SPECIMEN / Unknown Venipuncture / Unknown 08/08/2022 3:47 PM CDT 08/08/2022 3:58 PM CDT Narrative [facility] - 08/08/2022 4:12 PM CDT Conventional Warfarin Anticoagulant Therapy: INR Reference Range: 2.0-3.0 Intensive Warfarin Anticoagulant Therapy: INR Reference Range: 2.5-3.5 Nilay Riggs MD LAB - COAGULATION OR DERABLES Performing Organization Address [facility] Co de Phone Number [facility] [address] [place], [place] [id number] * Laceration Repair (08/02/2022 9:52 PM CDT) Dg Laws MD - 08/02/2022 9:52 PM CDT Dg Pal MD 08/02/2022 9:56 PM Laceration Repair Date/Time: 08/02/2022 9:52 PM Performed by: Dg Pal MD Authorized by: Dg Pal MD Consent: Consent obtained: Verbal Consent given by: Patient Risks, benefits, and alternatives were discussed: yes Risks discussed: Infection, pain, poor cosmetic result and poor wound healing Alternatives discussed: No treatment [place] protocol: Patient identity confirmed: Verbally with patient Anesthesia: Anesthesia method: Local infiltration Local anesthetic: Lidocaine 1% w/o epi Laceration details: Location: Face Face location: Forehead Length (cm): 3 Pre-procedure details: Preparation: Patient was prepped and draped in usual sterile fashion Exploration: Imaging obtained comment: Ct Imaging outcome: foreign body not noted Wound exploration: entire depth of wound visualized Wound extent: no muscle damage noted Contaminated: no Treatment: Area cleansed with: Povidone-iodine Amount of cleaning: Standard Debridement: None Skin repair: Repair method: Sutures Suture size: 4-0 Suture material: Nylon Suture technique: Running Number of sutures: 7 Approximation: Approximation: Close Repair type: Repair type: Simple Post-procedure details: Dressing: Open (no dressing) Procedure completion: Tolerated well, no immediate complications Dg Pal MD PROCEDURE/MINOR SURG ICAL ORDERABLES * CT CERVICAL SPINE WO CONTRAST (08/02/2022 3:22 PM CDT) Anatomical Region Laterality Modality Spine Computed Tomogra phy 08/02/2022 3:25 PM CDT Impressions 08/02/2022 3:26 PM CDT Impression: No acute injury. Diffuse cervical spondylosis. > Interpreting Provider: Javan John MD on 08/02/2022 3:26 PM Narrative 08/02/2022 3:[address] Cervical Spine Without Contrast Indication: Neck Pain, Trauma Comparison: None Technique: Multiple axial CT images of the cervical spine were obtained along with coronal and sagittal multiplanar reformats. Findings: The lung apices are clear. The vertebral body alignment is preserved. No prevertebral soft tissue swelling is seen. No fracture is visible. There is diffuse disc disease, facet hypertrophy, and uncovertebral joint spurring contributing to varying degrees of spinal and foraminal stenosis. Procedure Note Javan John MD - 08/02/2022 CT Cervical Spine Without Contrast Indication: Neck Pain, Trauma Comparison: None Technique: Multiple axial CT images of the cervical spine were obtained along with coronal and sagittal multiplanar reformats. Findings: The lung apices are clear. The vertebral body alignment is preserved. No prevertebral soft tissue swelling is seen. No fracture is visible. Thereis diffuse disc disease, facet hypertrophy, and uncovertebral jointspurring contributing to varying degrees of spinal and foraminal stenosis. Impression: No acute injury. Diffuse cervical spondylosis. > Interpreting Provider: Javan John MD on 08/02/2022 3:26 [address]inthya Morejon MD CT ORDERABLES * AMB REFERRAL TO CARDIOLOGY (07/05/2019) James Marquez DO OUTPATIENT REFERRALS * (ABNORMAL) IRON + TRANSFERRIN PANEL (04/25/2019 3:01 PM HVAC R TECH) Iron 65 50 - 170 ug/dL 04/25/2019 11:24 PM [facility] Transferrin 300 173 - 360 mg/dL 04/25/2019 11:24 PM HVAC R TECH [facility] TIBC Calculated 375 ug/ml 9 11:24 PM HVAC R TECH [facility] Iron Saturation % 17(L) 20 - 55 % 04/25/2019 11:24 PM HVAC R TECH [facility] Blood BLOOD SPECIMEN / Unknown Venipuncture / Unknown 04/25/2019 3:01 PM HVAC R TECH 04/25/2019 3:01 PM HVAC R TECH James Marquez DO LAB - CHEMISTRY MILLIE KAN [facility] Organization Address City/State/ZIP Co de Phone Number [facility] [address] [place], [place] [address] [phone] * FERRITIN (04/25/2019 3:01 PM HVAC R TECH) Ferritin 139 5 - 204 ng/mL 04/25/2019 11:26 PM [facility] Blood BLOOD SPECIMEN / Unknown Venipuncture / Unknown 04/25/2019 3:01 PM HVAC R TECH 04/25/2019 3:01 PM HVAC R TECH James Marquez DO LAB - CHEMISTRY MILLIE KAN [facility] [address] [place] [id number], [facility] [phone] * CARDIAC PROCEDURE ORDER (12/22/2009) Scanned Document CARDIAC SERVICES ORD ERABLES * IMAGING RADIOLOGY XRAY RESULTS ORDER (12/18/2009) Only the most recent of2 resultswithin the time period is included. Anatomical Region Laterality Modality Other Scanned Document IMAGING * CARDIAC STRESS TEST ORDER (12/18/2009) Scanned Document CARDIAC SERVICES ORD ERABLES
--- OUTSIDE RECORDS SUMMARY | 2024-07-09 16:34 | XMS_ITS | Clinical Summary ---
Author Organization [facility] Address [address] [facility] [address] [facility] [address] [address] [place] [address] Care Team Providers Care Clerk Funeral Detail Name Role Phone Unavailable Primary Care Provider Unavailabl e Encounters Date Type Department Care Team Description 06/25/2024 Telephone [facility] [address] [facility] [address] [place] [address] Rosalina Gil from Last 3 Months Social History Tobacco Use Types Packs/Day Years Used Date Smoking Tobacco: Never Assessed Comments Unknown Sex and Gender Information Value Date Recorded Sex Assigned at Not on file Legal Sex Female 12:45 PM EST Gender Identity Not on file Sexual Orientation Not on file Plan of Treatment Health Maintenance Due Date Last Done Comments Pneumococcal Vaccine: 65+ Ye ars (1 of 2 - PCV) 02/07/1946 Influenza Vaccine (#1) 2023 04/15/2019 Hepatitis B Vaccine Aged Out No longe r eligible based on patient's age to complete this topic Insurance MEDICARE [facility]
--- OUTSIDE RECORDS SUMMARY | 2024-07-09 16:34 | XMS_ITS | Clinical Summary ---
Author Organization [facility] [address] [facility] Address [address] [facility] [place] [address] Phone Care Team Providers Care Entry Level Accounting Clerk Name Role Phone Piter Parry MD Primary Care Provider [phone] Allergies Active Allergy Reactions Criticality Noted Date Comments Adhesive Tape-Silicones Rash Low 07/31/2012 Codeine Hives High 07/31/2012 Vancomycin Hives High 09/18/2012 Medications omega-3 fatty acids-fish oil 300-1,000 mg Oral Cap Take by mouth daily. Active multivitamin (DAILY-KESHIA) Oral tablet Take 1 Tab by mouth daily. Active metoprolol tartrate (LOPRESSOR) 100 mg Oral tablet Take 200 mg by mouth daily. Active mesalamine (ASACOL) 400 mg Oral TbEC Take 400 mg by mouth 3 times daily. 3 tabs Active simvastatin (ZOCOR) 20 mg tablet Take by mouth daily. Active CLOPIDOGREL BISULFATE (PLAVIX ORAL) Active ASPIRIN ORAL Active vit b comp & q-iw-ibtngl-zin c (DIATX ZN) 5-1.5-25 mg Tablet Take 1 Tab by mouth daily. Active vit X-ejrcbvmt-vedg thicone (CETAPHIL) Lotion Apply to affected area 4 times daily as needed. Active ELIQUIS 5 mg tablet 09/04/2017 Active citalopram (CeleXA) 10 mg tablet 01/11/2018 Active FLUAD [id number], 65 YR UP,,PF, 45 mcg (15 mcg x 3)/0.5 mL Syringe syringe RPH TO ADM 0.5ML IM UTD 0 02/20/2018 Active metoprolol succinate (TOPROL XL) 200 mg Extended Release 24 hour tablet 01/09/2018 Active warfarin (COUMADIN) 5 mg tablet 02/19/2018 Active Active Problems No known active problems Family History Medical History Relation Name Comments Macular Degen Mother Relation Name Status Comments Mother Social History Tobacco Use Types Packs/Day Years Used Date Smoking Tobacco: Former Cigarettes Q uit: 05/04/2015 Smokeless Tobacco: Never Alcohol Use Standard Drinks/Week Comments No 0 (1 standard drink = 0.6 oz pur e alcohol) Comments Unknown Sex and Gender Information Value Date Recorded Sex Assigned at Not on file Legal Sex Female 3:32 PM CDT Gender Identity Not on file Sexual Orientation Not on file Occupation Industry Job Start Date Job End Date Not on file Not on file Not on file Not on file Last Filed Vital Signs Vital Sign Reading Time Taken Comments Blood Pressure 153/82 03/20/2018 3:00 PM 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 Pulse 75 03/20/2018 3:00 PM 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 Temperature 36.3 C (97.4 F) 10/16/2012 11:57 AM CDT Respiratory Rate 14 10/16/2012 11:57 AM CDT Oxygen Saturation 95% 03/20/2018 3:00 PM [employer]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 Inhaled Oxygen Concentration - - Weight 99.8 kg (220 lb) 09/12/2017 1:56 PM CDT Height 170.2 cm (5' 7 ) 09/12/2017 1:56 PM CDT Body Mass Index 34.46 09/12/2017 1:56 PM CDT Plan of Treatment Health Maintenance Due Date Last Done Comments DTAP/TDAP/TD VACCINES (1 - Tdap) 1959 PNEUMOCOCCAL VACCINE 50+ YEARS (1 of 1 - PCV) 02/06/19 92 ZOSTER VACCINE (1 of 2) 02/07/1992 OSTEOPOROSIS SCREENING 2007 RSV VACCINE (60+ or ) (1 - 1-dose 75+ series) 2017 INFLUENZA VACCINE (#1) 2023 Medical Devices Implanted Type Area Showplace Manager Device Identifier Shelf Expiration Date Model / Serial / Lot Lens Io Toric Sn6at5 18.5 - [id number] Implanted:Qty: 1 on 09/20/2012 at [facility] [address] Eye Left: Eye [employer] 08/29/2015 SN6AT5 18.5 / [id number] / Lens Io Toric Sn6at4 19.5 - [id number] Implanted:Qty: 1 on 10/16/2012 at [place] [address] Eye Right: Eye [employer] 07/28/2014 SN6AT4 19.5 / [id number] / Insurance MEDICARE PART A AND B [facility] EYE MED VISION Advance Directives For more information, please contact: [phone] * Full Code (Latest Code Status on File) Date Activated Date Inactivated Comments 10/16/2012 11:19 AM 10/16/2012 2:33 PM * Full Code Date Activated Date Inactivated Comments 10/16/2012 9:24 AM 10/16/2012 11:19 AM * Full Code Date Activated Date Inactivated Comments 09/20/2012 10:18 AM 09/20/2012 2:09 PM * Full Code Date Activated Date Inactivated Comments 09/20/2012 9:20 AM 09/20/2012 10:18 AM Care Teams Entry Level Accounting Clerk Relationship Specialty Start Date End Date Piter Parry MD [address] [address] PCP - General Internal Medicine 03/20/18
--- OUTSIDE RECORDS SUMMARY | 2024-07-09 16:35 | XMS_ITS | Referral Summary ---
Author Organization [facility] Address [address] [place] [address] Care Team Providers Care Body Service Team Member Name Role Phone Piter Parry MD Primary Care Provider Encounters Date Type Department Care Team Description 06/19/2024 10:31 AM ARCADE ATTENDANT - 06/24/2024 6:47 PM ARCADE ATTENDANT Hospital Encounter [address] [id number] Giovanny Regan MD Hartweger, John E., MD Kumaralingam, Pradeep, MD Acute kidney injury superimposed on chronic kidney disease (Primary Dx) Discharge Disposition: Discharge to home or self care 06/18/2024 2:55 PM ARCADE ATTENDANT - 06/18/2024 11:59 PM ARCADE ATTENDANT Hospital Encounter [id number] [place] [address] Discharge Disposition: Discharge to home or self care 05/30/2024 10:35 AM ARCADE ATTENDANT - 06/05/2024 2:48 PM ARCADE ATTENDANT Hospital Encounter [address] [id number] Rossana Christiansen MD Hartweger, John E., MD Johnson, Michael Ernest, MD Kumaralingam, Pradeep, MD KEKE (acute kidney injury) (Primary Dx); Altered mental status, unspecified altered mental status type Discharge Disposition: Discharge to home or self care from Last 3 Months Allergies Active Allergy Reactions Criticality Noted Date Comments Adhesive Tape-Silicones Rash Medium Reaction: rash, Codeine Hives,Rash Medium 07/31/2012 Reaction: hives Lisinopril Other (See comments) High 06/24/2024 Renal failure. SCR > 4 Vancomycin Hives Medium 09/18/2012 Medications citalopram (CeleXA) 10 mg tablet Take 10 mg by mouth daily. 8 Active ascorbic acid (ascorbic acid with azra hips) 500 mg tablet,chewabl e Active cholecalcifero l, vitamin D3, 1,000 unit tablet,chewabl e Take 1 tablet/chew tab by mouth Active vitamin B xnzoisz-O-hys- Fe-FA 106 mg iron- 1 mg tabletIndicati ons:Vitamin Deficiency 1 tablet Active folic acid (FOLVITE) 1 mg tablet Take 2 mg by mouth daily Active levothyroxine (SYNTHROID) 50 mcg tablet Take 1 tablet (50 mcg total) by mouth steel placer before breakfast Active allopurinoL (ZYLOPRIM) 300 mg tablet Take 1 tablet (300 mg total) by mouth daily Active apixaban (ELIQUIS) 2.5 mg tablet Take 2.5 mg by mouth 2 (two) times a day Active simvastatin (ZOCOR) 20 mg tablet Take 20 mg by mouth nightly Active ARIPiprazole (ABILIFY) 2 mg tablet Take 1 tablet (2 mg total) by mouth daily Active lisinopriL (PRINIVIL,ZEST RIL) 40 mg tablet Take 1 tablet (40 mg total) by mouth daily 06/24/19 25 Discontinue d(Stop Taking at Discharge) cefdinir (OMNICEF) 300 mg capsuleIndicat ions:Urinary Tract/Genitour inary Infection Take 1 capsule (300 mg total) by mouth daily for 2 doses 2 capsule 5 06/27/19 25 Active Problems Problem Noted Date Diagnosed Date Acute kidney injury superimposed on chronic kidn ey disease 06/19/2024 KEKE (acute kidney injury) 05/30/2024 Fall 04/11/2019 Dizziness on standing 04/11/2019 Supratherapeutic INR 04/11/2019 Coagulopathy 04/11/2019 Chronic deep vein thrombosis (DVT) of right popl iteal vein 04/11/2019 Acute blood loss anemia 04/11/2019 Intraparenchymal hemorrhage of brain 04/11/2019 Cystitis 04/11/2019 Normocytic anemia 04/11/2019 Acute kidney injury superimposed on CKD 04/11/20 19 Hypophosphatemia 04/11/2019 Hypothyroidism (acquired) 04/11/2019 Mood disorder 04/11/2019 Gastrointestinal hemorrhage 04/10/2019 Overview (04/11/2019): Added automatically from request for surgery [id number] Essential hypertension 08/24/2018 Overview (08/24/2018): Hypertension Hemiparesis 08/24/2018 Vision disturbance, 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/2018 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 Overview (08/05/2016): POSTTRAUM WND INFEC NEC Adverse effect of anticoagulant Immunizations Immunization Administration Dates Next Due Influenza, Trivalent, High D ose, Split, Preservative Free, Intramuscular 04/15/2019 Social History Tobacco Use Types Packs/Day Years Used Date Smoking Tobacco: Former Cigarettes 1 50 0 05/01/1964 - 05/01/2014 Smokeless Tobacco: Never Tobacco Cessation:Counseling Given: No Alcohol Use Standard Drinks/Week Comments Yes 2 (1 standard drink = 0.6 oz pur e alcohol) 1-2 drinks, about 3 x/week Tuee Utilities Answer Date Recorded In the past 12 months has e electric, gas, oil, or water [employer] threatened to shut off services in your home? No 06/20/2024 Social Connection and Isolation Panel [NHANES] A nswer Date Recorded In a typical week, how many times do you talk on the phone with family, friends, or neighbors? Twice a week 06/20/2024 How often do you get together with friends or re latives? Never 06/20/2024 How often do you attend yarsani or jainism serv ices? Never 06/20/2024 Do you belong to any clubs o r organizations such as yarsani groups, unions, fraternal or athletic groups, or school groups? No 06/20/2024 How often do you attend meet ings of the clubs or organizations you belong to? Never 06/20/2024 Are you , , di vorced, , never , or living with a partner? 06/20/2024 Overall Financial Resource Strain (CARDIA) Answe r Date Recorded How hard is it for you to pa y for the very basics like food, housing, medical care, and heating? Not hard at all 06/20/2024 PHQ-2 Answer Date Recorded PHQ-2 Score 0 12/22/2018 Hunger Vital Sign Answer Date Recorded Within the past 12 months, y ou worried that your food would run out before you got the money to buy more. Never true 06/20/19 25 Within the past 12 months, t he food you bought just didn't last and you didn't have money to get more. Never true 06/20/2024 PRAPARE - Transportation Answer Date Re corded In the past 12 months, has l ack of transportation kept you from medical appointments or from getting medications? No 06/02 In the past 12 months, has l ack of transportation kept you from meetings, work, or from getting things needed for daily living? No 06/20/2024 Housing Stability Vital Sign Answer Sal e Recorded In the last 12 months, was t here a time when you were not able to pay the mortgage or rent on time? No 06/20/2024 In the past 12 months, how m any times have you moved where you were living? 0 06/20/2024 At any time in the past 12 m [facility], were you homeless or living in a usp (including now)? No 06/20/2024 Personal Safety Answer Date Recorded Have you ever been in or are you currently in a harmful physical or emotional relationship or is someone making you feel afraid or unsafe? Denies 06/19/2024 Comments No Sex and Gender Information Value Date Recorded Sex Assigned at Not on file Legal Sex Female 1:28 AM ARCADE ATTENDANT Gender Identity Not on file Sexual Orientation Not on file Last Filed Vital Signs Vital Sign Reading Time Taken Comments Blood Pressure 147/53 06/24/2024 5:15 AM ARCADE ATTENDANT Pulse 66 06/24/2024 5:15 AM ARCADE ATTENDANT Temperature 37.1 C (98.8 F) 06/23/2024 8:20 PM ARCADE ATTENDANT Respiratory Rate 18 06/23/2024 8:20 PM ARCADE ATTENDANT Oxygen Saturation 98% 06/24/2024 5:15 AM ARCADE ATTENDANT Inhaled Oxygen Concentration - - Weight 100 kg (220 lb 7.4 oz) 06/20/2024 8:00 AM ARCADE ATTENDANT Height 168 cm (5' 6.14 ) 06/20/2024 8:00 AM ARCADE ATTENDANT Body Mass Index 35.43 06/20/2024 8:00 AM ARCADE ATTENDANT Plan of Treatment Not on file Medical Devices Implanted Type Area Doctor Of Dental Medicine Device Identifier Shelf Expiration Date Model / Serial / Lot Lens Lens Bilateral: Eye Procedures Procedure Name Priority Date/Time Associated Diagnosis Comments EGFR Routine 06/24/2024 1:43 AM ARCADE ATTENDANT DIFFERENTIAL AUTO Routine 06/24/2024 1:4 3 AM ARCADE ATTENDANT MAGNESIUM Routine 06/24/2024 1:43 AM ARCADE ATTENDANT COMPREHENSIVE METABOLIC PANEL Routine 06/24/2024 1:43 AM ARCADE ATTENDANT CBC WITH AUTO DIFFERENTIAL Routine 06/24/2024 1:43 AM ARCADE ATTENDANT EGFR Routine 06/23/2024 2:25 AM ARCADE ATTENDANT DIFFERENTIAL AUTO Routine 06/23/2024 2:2 5 AM ARCADE ATTENDANT MAGNESIUM Routine 06/23/2024 2:25 AM ARCADE ATTENDANT COMPREHENSIVE METABOLIC PANEL Routine 06/23/2024 2:25 AM ARCADE ATTENDANT CBC WITH AUTO DIFFERENTIAL Routine 06/23/2024 2:25 AM ARCADE ATTENDANT EGFR Routine 06/22/2024 5:31 AM ARCADE ATTENDANT DIFFERENTIAL AUTO Routine 06/22/2024 5:3 1 AM ARCADE ATTENDANT COMPREHENSIVE METABOLIC PANEL Routine 06/22/2024 5:31 AM ARCADE ATTENDANT CBC WITH AUTO DIFFERENTIAL Routine 06/22/2024 5:31 AM ARCADE ATTENDANT MAGNESIUM Add-On 06/21/2024 4:46 AM ARCADE ATTENDANT EGFR Routine 06/21/2024 4:46 AM ARCADE ATTENDANT DIFFERENTIAL AUTO Routine 06/21/2024 4:4 6 AM ARCADE ATTENDANT COMPREHENSIVE METABOLIC PANEL Routine 06/21/2024 4:46 AM ARCADE ATTENDANT CBC WITH AUTO DIFFERENTIAL Routine 06/21/2024 4:46 AM ARCADE ATTENDANT US KIDNEY COMPLETE IP Routine 06/20/2024 8: 24 AM ARCADE ATTENDANT EGFR Routine 06/20/2024 2:08 AM ARCADE ATTENDANT DIFFERENTIAL AUTO Routine 06/20/2024 2:0 8 AM ARCADE ATTENDANT COMPREHENSIVE METABOLIC PANEL Routine 06/20/2024 2:08 AM ARCADE ATTENDANT CBC WITH AUTO DIFFERENTIAL Routine 06/20/2024 2:08 AM ARCADE ATTENDANT URINALYSIS, MICROSCOPIC ONLY STAT 06/19/2024 10:26 PM ARCADE ATTENDANT SODIUM, URINE, RANDOM STAT 06/19/2024 10:26 PM ARCADE ATTENDANT CREATININE, URINE, RANDOM STAT 06/19/2024 10:26 PM ARCADE ATTENDANT URINE CULTURE STAT 06/19/2024 10:26 PM ARCADE ATTENDANT URINALYSIS AND REFLEX TO MICROSCOPIC AND CULTURE STAT 06/19/2024 10:26 PM ARCADE ATTENDANT EGFR STAT 06/19/2024 12:39 PM ARCADE ATTENDANT COMPREHENSIVE METABOLIC PANEL STAT 06/19/2024 12:39 PM ARCADE ATTENDANT DIFFERENTIAL AUTO STAT 06/19/2024 10: 46 AM ARCADE ATTENDANT CBC WITH AUTO DIFFERENTIAL STAT 06/19/2024 10:46 AM ARCADE ATTENDANT ECG 12-LEAD STAT 06/19/2024 10:38 AM ARCADE ATTENDANT EGFR Routine 06/18/2024 9:00 AM ARCADE ATTENDANT DIFFERENTIAL AUTO Routine 06/18/2024 9:0 0 AM ARCADE ATTENDANT CBC WITH AUTO DIFFERENTIAL Routine 06/18/2024 9:00 AM ARCADE ATTENDANT GLUCOSE, RANDOM (OUTREACH) Routine 06/18/2024 9:00 AM ARCADE ATTENDANT COMPREHENSIVE METABOLIC PANEL WITHOUT GLUCOSE (OUTREACH) Routine 06/18/2024 9:00 AM ARCADE ATTENDANT EGFR Routine 06/05/2024 3:03 AM ARCADE ATTENDANT DIFFERENTIAL AUTO Routine 06/05/2024 3:0 3 AM ARCADE ATTENDANT CBC WITH AUTO DIFFERENTIAL Routine 06/05/2024 3:03 AM ARCADE ATTENDANT BASIC METABOLIC PANEL Routine 06/05/2024 3:03 AM ARCADE ATTENDANT EGFR Routine 06/04/2024 3:13 AM ARCADE ATTENDANT DIFFERENTIAL AUTO Routine 06/04/2024 3:1 3 AM ARCADE ATTENDANT CBC WITH AUTO DIFFERENTIAL Routine 06/04/2024 3:13 AM ARCADE ATTENDANT BASIC METABOLIC PANEL Routine 06/04/2024 3:13 AM ARCADE ATTENDANT EGFR Routine 06/03/2024 4:56 PM ARCADE ATTENDANT BASIC METABOLIC PANEL Routine 06/03/2024 4:56 PM ARCADE ATTENDANT MAGNESIUM Add-On 06/03/2024 2:32 AM ARCADE ATTENDANT EGFR STAT 06/03/2024 2:32 AM ARCADE ATTENDANT BASIC METABOLIC PANEL STAT 06/03/2024 2:32 AM ARCADE ATTENDANT DIFFERENTIAL AUTO Routine 06/03/2024 1:5 0 AM ARCADE ATTENDANT CBC WITH AUTO DIFFERENTIAL Routine 06/03/2024 1:50 AM ARCADE ATTENDANT EGFR Routine 06/02/2024 3:08 AM ARCADE ATTENDANT DIFFERENTIAL AUTO Routine 06/02/2024 3:0 8 AM ARCADE ATTENDANT CBC WITH AUTO DIFFERENTIAL Routine 06/02/2024 3:08 AM ARCADE ATTENDANT BASIC METABOLIC PANEL Routine 06/02/2024 3:08 AM ARCADE ATTENDANT EGFR Routine 06/01/2024 1:35 AM ARCADE ATTENDANT DIFFERENTIAL AUTO Routine 06/01/2024 1:3 5 AM ARCADE ATTENDANT CBC WITH AUTO DIFFERENTIAL Routine 06/01/2024 1:35 AM ARCADE ATTENDANT BASIC METABOLIC PANEL Routine 06/01/2024 1:35 AM ARCADE ATTENDANT LEUKOCYTES, FECAL Routine 05/31/2024 3:4 4 AM ARCADE ATTENDANT STOOL CULTURE Routine 05/31/2024 3:[address] HEAD WO CONTRAST ED 05/30/2024 2 :38 PM ARCADE ATTENDANT URINALYSIS, MICROSCOPIC ONLY STAT 05/30/2024 2:25 PM ARCADE ATTENDANT URINALYSIS AND REFLEX TO MICROSCOPIC AND CULTURE STAT 05/30/2024 2:25 PM ARCADE ATTENDANT ECG 12-LEAD STAT 05/30/2024 10:38 AM ARCADE ATTENDANT MAGNESIUM Add-On 05/30/2024 10:36 AM ARCADE ATTENDANT THYROID FUNCTION CASCADE Add-On 05/30/2024 10:36 AM ARCADE ATTENDANT EGFR STAT 05/30/2024 10:36 AM ARCADE ATTENDANT DIFFERENTIAL AUTO STAT 05/30/2024 10: 36 AM ARCADE ATTENDANT COMPREHENSIVE METABOLIC PANEL STAT 05/30/2024 10:36 AM ARCADE ATTENDANT CBC WITH AUTO DIFFERENTIAL STAT 05/30/2024 10:36 AM ARCADE ATTENDANT INFLUENZA A/B, RSV, AND COVID-19 PCR Routine 05/30/2024 10:36 AM ARCADE ATTENDANT from Last 3 Months Results * (ABNORMAL) eGFR (06/24/2024 1:43 AM ARCADE ATTENDANT) eGFR 31(L) >=60 mL/min/1. 73 m2 Comment: Interpretive Data Reference Interval Normal >/= 90 mL/min/1.73m2 Mildly decreased* 60 - 89 mL/min/1.73m2 Mildly to moderately decreased 45 - 59 mL/min/1.73m2 Moderately to severely decreased 30 - 44 mL/min/1.73m2 Severely decreased 15 - 29 mL/min/1.73m2 Kidney Failure < 15 mL/min/1.73m2 *Relative to young adult level Estimated glomerular filtration rate is determined by the 2020 CKD-EPI equation recommended by the National Kidney Foundation (A Unifying Approach to GFR Estimation: Recommendations of the NKF-ASK Task Force on Reassessing the Inclusion of Race in Diagnosing Kidney Disease, JASN 202). The CKD-EPI equation should not be used for patients with unstable renal function and has not been validated in children and those over 70. Current interpretive data was last reviewed 2021. Blood 06/24/2024 1:43 AM ARCADE ATTENDANT 06/24/2024 1:56 AM ARCADE ATTENDANT us Giovanny Regan MD LAB BLOOD ORDERABLES F inal Result [facility] [address] [facility] Department [place] [address] * Differential, auto (06/24/2024 1:43 AM ARCADE ATTENDANT) Neutrophil abs 4.9 1.5 - 6.5 K/cumm Imm gran abs 0.1 0.0 - 0.1 K/cumm [facility] Lymphocyte abs 1.3 0.8 - 3.3 K/cumm [facility] Monocyte abs 0.6 0.2 - 0.8 K/cumm [facility] Eosinophil abs 0.3 0.0 - 0.5 K/cumm [facility] Basophil abs 0.0 0.0 - 0.1 K/cumm [facility] Neutrophil pct 67.9 % [facility] Comment: Interpretive Data Percent cell count reference ranges are not reported, since discordance with absolute values may lead to misinterpretation of CBC data. Current Interpretive Data was last revised on 2017. Imm gran pct 0.8 % [facility] Comment: Interpretive Data Percent cell count reference ranges are not reported, since discordance with absolute values may lead to misinterpretation of CBC data. Current Interpretive Data was last revised on 2017. Lymphocyte pct 18.3 % [facility] Comment: Interpretive Data Percent cell count reference ranges are not reported, since discordance with absolute values may lead to misinterpretation of CBC data. Current Interpretive Data was last revised on 2017. Monocyte pct 8.2 % [facility] Comment: Interpretive Data Percent cell count reference ranges are not reported, since discordance with absolute values may lead to misinterpretation of CBC data. Current Interpretive Data was last revised on 2017. Eosinophil pct 4.4 % [facility] Comment: Interpretive Data Percent cell count reference ranges are not reported, since discordance with absolute values may lead to misinterpretation of CBC data. Current Interpretive Data was last revised on 2017. Basophil pct 0.4 % [facility] Comment: Interpretive Data Percent cell count reference ranges are not reported, since discordance with absolute values may lead to misinterpretation of CBC data. Current Interpretive Data was last revised on 2017. Blood 06/24/2024 1:43 AM ARCADE ATTENDANT 06/24/2024 1:56 AM ARCADE ATTENDANT Giovanny Regan MD LAB BLOOD ORDERABLES F inal Result [facility] [address] [place] [address] * (ABNORMAL) CBC with auto differential (06/24/2024 1:43 AM ARCADE ATTENDANT) WBC 7.2 3.8 - 9.9 K/cumm Hgb 8.7(L) 11.9 - 15.5 g/dL [facility] Hct 28.3(L) 35.6 - 45.5 % [facility] Plt 187 150 - 400 K/cumm [facility] MPV 10.1 9.1 - 12.3 fL [facility] RBC 2.82(L) 3.90 - 5.20 M/cumm [facility] MCV 100.4(H) 81.3 - 96.4 fL [facility] MCH 30.9 27.1 - 33.3 pg [facility] MCHC 30.7(L) 32.3 - 35.7 g/dL [facility] RDW CV 16.2(H) 11.1 - 14.9 % [facility] RDW SD 59.5(H) 35.7 - 48.1 fL [facility] NRBC abs 0.00 0.00 - 0.01 K/cumm [facility] Blood 06/24/2024 1:43 AM ARCADE ATTENDANT 06/24/2024 1:56 AM ARCADE ATTENDANT Giovanny Regan MD LAB BLOOD ORDERABLES F inal Result [facility] [address] [place] [address] * Magnesium (06/24/2024 1:43 AM ARCADE ATTENDANT) Magnesium 1.5 1.4 - 2.5 mg/dL Blood 06/24/2024 1:43 AM ARCADE ATTENDANT 06/24/2024 1:56 AM ARCADE ATTENDANT us Rosetta La MD LAB BLOOD ORDERABLES Final Resul t [facility] [address] [facility] Department [place] [address] * (ABNORMAL) Comprehensive metabolic panel (06/24/2024 1:43 AM ARCADE ATTENDANT) Sodium 141 135 - 145 mmol/L Potassium, pl 3.4 3.3 - 4.9 mmol/L [facility] Chloride 107 97 - 110 mmol/L [facility] CO2 23 22 - 32 mmol/L [facility] Anion gap 11 2 - 15 mmol/L [facility] BUN 24 6 - 25 mg/dL [facility] Creatinine 1.63(H) 0.60 - 1.10 mg/dL [facility] Glucose 100 70 - 199 mg/dL [facility] Comment: Interpretive Data Fasting glucose >/= 126 mg/dl is diagnostic for diabetes. Fasting is defined as no caloric intake for at least 8 hours. Fasting glucose between 100 mg/dl to 125 mg/dl is diagnostic of prediabetes. In a patient with classic symptoms of hyperglycemia or hyperglycemic crisis, a random glucose >/= 200 mg/dl is diagnostic for diabetes. In the absence of unequivocal hyperglycemia, results should be confirmed by repeat testing. The classification and Diagnosis of Diabetes Diabetes Care 2021; 46: S19-S40. Current interpretive data was last revised 2022. Calcium 9.3 8.5 - 10.3 mg/dL [facility] Bilirubin, total 0.2 0.1 - 1.2 mg/dL [facility] Protein, pl 5.9(L) 6.5 - 8.5 g/dL [facility] Albumin 3.4(L) 3.5 - 5.0 g/dL [facility] Alk phos 76 40 - 130 Units/L [facility] ALT 19 7 - 45 Units/L [facility] AST 27 10 - 45 Units/L [facility] Blood 06/24/2024 1:43 AM ARCADE ATTENDANT 06/24/2024 1:56 AM ARCADE ATTENDANT Giovanny Regan MD LAB BLOOD ORDERABLES F inal Result Performing Organization Address [facility] Co de Phone Number [address] Department [place] [address] * (ABNORMAL) eGFR (06/23/2024 2:25 AM ARCADE ATTENDANT) Pathologist [facility] eGFR 32(L) >=60 mL/min/1. 73 m2 Comment: Interpretive Data Reference Interval Normal >/= 90 mL/min/1.73m2 Mildly decreased* 60 - 89 mL/min/1.73m2 Mildly to moderately decreased 45 - 59 mL/min/1.73m2 Moderately to severely decreased 30 - 44 mL/min/1.73m2 Severely decreased 15 - 29 mL/min/1.73m2 Kidney Failure < 15 mL/min/1.73m2 *Relative to young adult level Estimated glomerular filtration rate is determined by the 2020 CKD-EPI equation recommended by the National Kidney Foundation (A Unifying Approach to GFR Estimation: Recommendations of the NKF-ASK Task Force on Reassessing the Inclusion of Race in Diagnosing Kidney Disease, JASN 2020). The CKD-EPI equation should not be used for patients with unstable renal function and has not been validated in children and those over 70. Current interpretive data was last reviewed 2021. Blood 06/23/2024 2:25 AM ARCADE ATTENDANT 06/23/2024 2:55 AM ARCADE ATTENDANT Giovanny Regan MD LAB BLOOD ORDERABLES F inal Result Performing Organization Address [facility]/ZIP Co de Phone Number [address] Department [place] [address] * Differential, auto (06/23/2024 2:25 AM ARCADE ATTENDANT) [facility] Neutrophil abs 4.6 1.5 - 6.5 K/cumm Imm gran abs 0.1 0.0 - 0.1 K/cumm [facility] Lymphocyte abs 1.4 0.8 - 3.3 K/cumm [facility] Monocyte abs 0.6 0.2 - 0.8 K/cumm [facility] Eosinophil abs 0.3 0.0 - 0.5 K/cumm [facility] Basophil abs 0.0 0.0 - 0.1 K/cumm [facility] Neutrophil pct 65.0 % [facility] Comment: Interpretive Data Percent cell count reference ranges are not reported, since discordance with absolute values may lead to misinterpretation of CBC data. Current Interpretive Data was last revised on 2017. Imm gran pct 1.0 % [facility] Comment: Interpretive Data Percent cell count reference ranges are not reported, since discordance with absolute values may lead to misinterpretation of CBC data. Current Interpretive Data was last revised on 2017. Lymphocyte pct 19.7 % [facility] Comment: Interpretive Data Percent cell count reference ranges are not reported, since discordance with absolute values may lead to misinterpretation of CBC data. Current Interpretive Data was last revised on 2017. Monocyte pct 8.9 % [facility] Comment: Interpretive Data Percent cell count reference ranges are not reported, since discordance with absolute values may lead to misinterpretation of CBC data. Current Interpretive Data was last revised on 2017. Eosinophil pct 4.8 % [facility] Comment: Interpretive Data Percent cell count reference ranges are not reported, since discordance with absolute values may lead to misinterpretation of CBC data. Current Interpretive Data was last revised on 2017. Basophil pct 0.6 % [facility] Comment: Interpretive Data Percent cell count reference ranges are not reported, since discordance with absolute values may lead to misinterpretation of CBC data. Current Interpretive Data was last revised on 2017. Blood 06/23/2024 2:25 AM ARCADE ATTENDANT 06/23/2024 2:55 AM ARCADE ATTENDANT us Giovanny Regan MD LAB BLOOD ORDERABLES F inal Result [facility] [address] [facility] Department [place] [address] * (ABNORMAL) CBC with auto differential (06/23/2024 2:25 AM ARCADE ATTENDANT) WBC 7.1 3.8 - 9.9 K/cumm Hgb 8.1(L) 11.9 - 15.5 g/dL [facility] Hct 26.4(L) 35.6 - 45.5 % [facility] Plt 189 150 - 400 K/cumm [facility] MPV 10.5 9.1 - 12.3 fL [facility] RBC 2.62(L) 3.90 - 5.20 M/cumm [facility] MCV 100.8(H) 81.3 - 96.4 fL [facility] MCH 30.9 27.1 - 33.3 pg [facility] MCHC 30.7(L) 32.3 - 35.7 g/dL [facility] RDW CV 16.6(H) 11.1 - 14.9 % [facility] RDW SD 59.9(H) 35.7 - 48.1 fL [facility] NRBC abs 0.00 0.00 - 0.01 K/cumm [facility] Blood 06/23/2024 2:25 AM ARCADE ATTENDANT 06/23/2024 2:55 AM ARCADE ATTENDANT us Giovanny Regan MD LAB BLOOD ORDERABLES F inal Result Performing Organization Address City/[facility]/ZIP Co de Phone Number [address] Department [place] [address] * (ABNORMAL) Magnesium (06/23/2024 2:25 AM ARCADE ATTENDANT) Pathologist [facility] Magnesium 1.3(L) 1.4 - 2.5 mg/dL Blood 06/23/2024 2:25 AM ARCADE ATTENDANT 06/23/2024 2:55 AM ARCADE ATTENDANT Rosetta La MD LAB BLOOD ORDERABLES Final Resul t [address] [place] [address] * (ABNORMAL) Comprehensive metabolic panel (06/23/2024 2:25 AM ARCADE ATTENDANT) Sodium 141 135 - 145 mmol/L Potassium, pl 3.3 3.3 - 4.9 mmol/L [facility] Chloride 110 97 - 110 mmol/L [facility] CO2 22 22 - 32 mmol/L [facility] Anion gap 9 2 - 15 mmol/L [facility] BUN 27(H) 6 - 25 mg/dL [facility] Creatinine 1.61(H) 0.60 - 1.10 mg/dL [facility] Glucose 104 70 - 199 mg/dL [facility] Comment: Interpretive Data Fasting glucose >/= 126 mg/dl is diagnostic for diabetes. Fasting is defined as no caloric intake for at least 8 hours. Fasting glucose between 100 mg/dl to 125 mg/dl is diagnostic of prediabetes. In a patient with classic symptoms of hyperglycemia or hyperglycemic crisis, a random glucose >/= 200 mg/dl is diagnostic for diabetes. In the absence of unequivocal hyperglycemia, results should be confirmed by repeat testing. The classification and Diagnosis of Diabetes Diabetes Care 202; 46: S19-S40. Current interpretive data was last revised 2022. Calcium 8.9 8.5 - 10.3 mg/dL [facility] Bilirubin, total 0.2 0.1 - 1.2 mg/dL [facility] Protein, pl 5.0(L) 6.5 - 8.5 g/dL [facility] Albumin 3.0(L) 3.5 - 5.0 g/dL [facility] Alk phos 62 40 - 130 Units/L [facility] ALT 15 7 - 45 Units/L [facility] AST 25 10 - 45 Units/L [facility] Blood 06/23/2024 2:25 AM ARCADE ATTENDANT 06/23/2024 2:55 AM ARCADE ATTENDANT us Giovanny Regan MD LAB BLOOD ORDERABLES F inal Result [facility] [address] [place] [address] * (ABNORMAL) eGFR (06/22/2024 5:31 AM ARCADE ATTENDANT) Pathologist [facility] eGFR 31(L) >=60 mL/min/1. 73 m2 Comment: Interpretive Data Reference Interval Normal >/= 90 mL/min/1.73m2 Mildly decreased* 60 - 89 mL/min/1.73m2 Mildly to moderately decreased 45 - 59 mL/min/1.73m2 Moderately to severely decreased 30 - 44 mL/min/1.73m2 Severely decreased 15 - 29 mL/min/1.73m2 Kidney Failure < 15 mL/min/1.73m2 *Relative to young adult level Estimated glomerular filtration rate is determined by the 2020 CKD-EPI equation recommended by the National Kidney Foundation (A Unifying Approach to GFR Estimation: Recommendations of the NKF-ASK Task Force on Reassessing the Inclusion of Race in Diagnosing Kidney Disease, JASN 2020). The CKD-EPI equation should not be used for patients with unstable renal function and has not been validated in children and those over 70. Current interpretive data was last reviewed 2021. Blood 06/22/2024 5:31 AM ARCADE ATTENDANT 06/22/2024 5:34 AM ARCADE ATTENDANT us Giovanny Regan MD LAB BLOOD ORDERABLES F inal Result [address] [place] [address] * Differential, auto (06/22/2024 5:31 AM ARCADE ATTENDANT) Neutrophil abs 4.4 1.5 - 6.5 K/cumm Imm gran abs 0.1 0.0 - 0.1 K/cumm [facility] Lymphocyte abs 1.9 0.8 - 3.3 K/cumm [facility] Monocyte abs 0.7 0.2 - 0.8 K/cumm [facility] Eosinophil abs 0.4 0.0 - 0.5 K/cumm [facility] Basophil abs 0.0 0.0 - 0.1 K/cumm [facility] Neutrophil pct 59.0 % [facility] Comment: Interpretive Data Percent cell count reference ranges are not reported, since discordance with absolute values may lead to misinterpretation of CBC data. Current Interpretive Data was last revised on 2017. Imm gran pct 0.7 % [facility] Comment: Interpretive Data Percent cell count reference ranges are not reported, since discordance with absolute values may lead to misinterpretation of CBC data. Current Interpretive Data was last revised on 2017. Lymphocyte pct 25.6 % [facility] Comment: Interpretive Data Percent cell count reference ranges are not reported, since discordance with absolute values may lead to misinterpretation of CBC data. Current Interpretive Data was last revised on 2017. Monocyte pct 9.1 % [facility] Comment: Interpretive Data Percent cell count reference ranges are not reported, since discordance with absolute values may lead to misinterpretation of CBC data. Current Interpretive Data was last revised on 2017. Eosinophil pct 5.1 % [facility] Comment: Interpretive Data Percent cell count reference ranges are not reported, since discordance with absolute values may lead to misinterpretation of CBC data. Current Interpretive Data was last revised on 2017. Basophil pct 0.5 % [facility] Comment: Interpretive Data Percent cell count reference ranges are not reported, since discordance with absolute values may lead to misinterpretation of CBC data. Current Interpretive Data was last revised on 2017. Blood 06/22/2024 5:31 AM ARCADE ATTENDANT 06/22/2024 5:34 AM ARCADE ATTENDANT us Giovanny Regan MD LAB BLOOD ORDERABLES F inal Result [facility] [address] [facility] Department [place] [address] * (ABNORMAL) CBC with auto differential (06/22/2024 5:31 AM ARCADE ATTENDANT) WBC 7.5 3.8 - 9.9 K/cumm Hgb 9.2(L) 11.9 - 15.5 g/dL [facility] Hct 29.8(L) 35.6 - 45.5 % [facility] Plt 208 150 - 400 K/cumm [facility] MPV 10.4 9.1 - 12.3 fL [facility] RBC 2.95(L) 3.90 - 5.20 M/cumm [facility] MCV 101.0(H) 81.3 - 96.4 fL [facility] MCH 31.2 27.1 - 33.3 pg [facility] MCHC 30.9(L) 32.3 - 35.7 g/dL [facility] RDW CV 16.5(H) 11.1 - 14.9 % [facility] RDW SD 60.3(H) 35.7 - 48.1 fL [facility] NRBC abs 0.00 0.00 - 0.01 K/cumm [facility] Blood 06/22/2024 5:31 AM ARCADE ATTENDANT 06/22/2024 5:34 AM ARCADE ATTENDANT us Giovanny Regan MD LAB BLOOD ORDERABLES F inal Result [facility] [address] [facility] Department [place] [address] * (ABNORMAL) Comprehensive metabolic panel (06/22/2024 5:31 AM ARCADE ATTENDANT) Sodium 143 135 - 145 mmol/L Potassium, pl 3.7 3.3 - 4.9 mmol/L [facility] Chloride 111(H) 97 - 110 mmol/L [facility] CO2 22 22 - 32 mmol/L [facility] Anion gap 10 2 - 15 mmol/L [facility] BUN 33(H) 6 - 25 mg/dL [facility] Creatinine 1.63(H) 0.60 - 1.10 mg/dL [facility] Glucose 106 70 - 199 mg/dL [facility] Comment: Interpretive Data Fasting glucose >/= 126 mg/dl is diagnostic for diabetes. Fasting is defined as no caloric intake for at least 8 hours. Fasting glucose between 100 mg/dl to 125 mg/dl is diagnostic of prediabetes. In a patient with classic symptoms of hyperglycemia or hyperglycemic crisis, a random glucose >/= 200 mg/dl is diagnostic for diabetes. In the absence of unequivocal hyperglycemia, results should be confirmed by repeat testing. The classification and Diagnosis of Diabetes Diabetes Care 2021; 46: S19-S40. Current interpretive data was last revised 2022. Calcium 9.0 8.5 - 10.3 mg/dL [facility] Bilirubin, total 0.2 0.1 - 1.2 mg/dL [facility] Protein, pl 5.7(L) 6.5 - 8.5 g/dL [facility] Albumin 3.3(L) 3.5 - 5.0 g/dL [facility] Alk phos 67 40 - 130 Units/L [facility] ALT 22 7 - 45 Units/L [facility] AST 28 10 - 45 Units/L [facility] Blood 06/22/2024 5:31 AM ARCADE ATTENDANT 06/22/2024 5:34 AM ARCADE ATTENDANT us Giovanny Regan MD LAB BLOOD ORDERABLES F inal Result [facility] [address] [facility] Department [place] [address] * (ABNORMAL) eGFR (06/21/2024 4:46 AM ARCADE ATTENDANT) eGFR 21(L) >=60 mL/min/1. 73 m2 Comment: Interpretive Data Reference Interval Normal >/= 90 mL/min/1.73m2 Mildly decreased* 60 - 89 mL/min/1.73m2 Mildly to moderately decreased 45 - 59 mL/min/1.73m2 Moderately to severely decreased 30 - 44 mL/min/1.73m2 Severely decreased 15 - 29 mL/min/1.73m2 Kidney Failure < 15 mL/min/1.73m2 *Relative to young adult level Estimated glomerular filtration rate is determined by the 2020 CKD-EPI equation recommended by the National Kidney Foundation (A Unifying Approach to GFR Estimation: Recommendations of the NKF-ASK Task Force on Reassessing the Inclusion of Race in Diagnosing Kidney Disease, JASN 202). The CKD-EPI equation should not be used for patients with unstable renal function and has not been validated in children and those over 70. Current interpretive data was last reviewed 2021. Blood 06/21/2024 4:46 AM ARCADE ATTENDANT 06/21/2024 4:51 AM ARCADE ATTENDANT us Giovanny Regan MD LAB BLOOD ORDERABLES F inal Result [address] Department [place] [address] * Differential, auto (06/21/2024 4:46 AM ARCADE ATTENDANT) Neutrophil abs 4.1 1.5 - 6.5 K/cumm Imm gran abs 0.0 0.0 - 0.1 K/cumm [facility] Lymphocyte abs 1.6 0.8 - 3.3 K/cumm [facility] Monocyte abs 0.6 0.2 - 0.8 K/cumm [facility] Eosinophil abs 0.4 0.0 - 0.5 K/cumm [facility] Basophil abs 0.0 0.0 - 0.1 K/cumm [facility] Neutrophil pct 61.1 % [facility] Comment: Interpretive Data Percent cell count reference ranges are not reported, since discordance with absolute values may lead to misinterpretation of CBC data. Current Interpretive Data was last revised on 2017. Imm gran pct 0.4 % [facility] Comment: Interpretive Data Percent cell count reference ranges are not reported, since discordance with absolute values may lead to misinterpretation of CBC data. Current Interpretive Data was last revised on 2017. Lymphocyte pct 22.9 % [facility] Comment: Interpretive Data Percent cell count reference ranges are not reported, since discordance with absolute values may lead to misinterpretation of CBC data. Current Interpretive Data was last revised on 2017. Monocyte pct 9.1 % [facility] Comment: Interpretive Data Percent cell count reference ranges are not reported, since discordance with absolute values may lead to misinterpretation of CBC data. Current Interpretive Data was last revised on 2017. Eosinophil pct 6.2 % [facility] Comment: Interpretive Data Percent cell count reference ranges are not reported, since discordance with absolute values may lead to misinterpretation of CBC data. Current Interpretive Data was last revised on 2017. Basophil pct 0.3 % [facility] Comment: Interpretive Data Percent cell count reference ranges are not reported, since discordance with absolute values may lead to misinterpretation of CBC data. Current Interpretive Data was last revised on 2017. Blood 06/21/2024 4:46 AM ARCADE ATTENDANT 06/21/2024 4:51 AM ARCADE ATTENDANT us Giovanny Regan MD LAB BLOOD ORDERABLES F inal Result [facility] [address] [facility] Department [place] [address] * (ABNORMAL) CBC with auto differential (06/21/2024 4:46 AM ARCADE ATTENDANT) WBC 6.8 3.8 - 9.9 K/cumm Hgb 8.5(L) 11.9 - 15.5 g/dL [facility] Hct 27.0(L) 35.6 - 45.5 % [facility] Plt 186 150 - 400 K/cumm [facility] MPV 9.5 9.1 - 12.3 fL [facility] RBC 2.69(L) 3.90 - 5.20 M/cumm [facility] MCV 100.4(H) 81.3 - 96.4 fL [facility] MCH 31.6 27.1 - 33.3 pg [facility] MCHC 31.5(L) 32.3 - 35.7 g/dL [facility] RDW CV 16.3(H) 11.1 - 14.9 % [facility] RDW SD 59.1(H) 35.7 - 48.1 fL [facility] NRBC abs 0.00 0.00 - 0.01 K/cumm [facility] Blood 06/21/2024 4:46 AM ARCADE ATTENDANT 06/21/2024 4:51 AM ARCADE ATTENDANT Giovanny Regan MD LAB BLOOD ORDERABLES F inal Result Performing Organization Address [facility] de Phone Number [address] [place] [address] * (ABNORMAL) Magnesium (06/21/2024 4:46 AM ARCADE ATTENDANT) [facility] Magnesium 1.3(L) 1.4 - 2.5 mg/dL Blood 06/21/2024 4:46 AM ARCADE ATTENDANT 06/21/2024 6:26 AM ARCADE ATTENDANT Derrek Paz NP LAB BLOOD ORDERABLES Fin al Result Performing Organization Address [facility] de Phone Number [address] [place] [address] * (ABNORMAL) Comprehensive metabolic panel (06/21/2024 4:46 AM ARCADE ATTENDANT) [facility] Sodium 144 135 - 145 mmol/L Potassium, pl 2.9(C) 3.3 - 4.9 mmol/L [facility] Comment:Critical Result call ed by [id number] at 2024-06-21 05:12:17. Result Read Back by annalise cheng rn med Chloride 113(H) 97 - 110 mmol/L [facility] CO2 20(L) 22 - 32 mmol/L [facility] Anion gap 11 2 - 15 mmol/L [facility] BUN 48(H) 6 - 25 mg/dL [facility] Creatinine 2.30(H) 0.60 - 1.10 mg/dL [facility] Glucose 116 70 - 199 mg/dL [facility] Comment: Interpretive Data Fasting glucose >/= 126 mg/dl is diagnostic for diabetes. Fasting is defined as no caloric intake for at least 8 hours. Fasting glucose between 100 mg/dl to 125 mg/dl is diagnostic of prediabetes. In a patient with classic symptoms of hyperglycemia or hyperglycemic crisis, a random glucose >/= 200 mg/dl is diagnostic for diabetes. In the absence of unequivocal hyperglycemia, results should be confirmed by repeat testing. The classification and Diagnosis of Diabetes Diabetes Care 2021; 46: S19-S40. Current interpretive data was last revised 2022. Calcium 8.9 8.5 - 10.3 mg/dL [facility] Bilirubin, total 0.3 0.1 - 1.2 mg/dL [facility] Protein, pl 5.2(L) 6.5 - 8.5 g/dL [facility] Albumin 3.2(L) 3.5 - 5.0 g/dL [facility] Alk phos 63 40 - 130 Units/L [facility] ALT 19 7 - 45 Units/L [facility] AST 32 10 - 45 Units/L [facility] Blood 06/21/2024 4:46 AM ARCADE ATTENDANT 06/21/2024 4:51 AM ARCADE ATTENDANT us Giovanny Regan MD LAB BLOOD ORDERABLES F inal Result [facility] [address] [facility] Department [place] [address] * US Kidney Complete (06/20/2024 8:24 AM ARCADE ATTENDANT) Anatomical Region Laterality Modality Kidney N/A Ultrasound 06/20/2024 8:59 AM ARCADE ATTENDANT Impressions 06/20/2024 8:59 AM ARCADE ATTENDANT 1. Normal renal size without hydronephrosis; bilateral renal cysts as detailed above. 2. Central endometrial cavity fluid, an incidental but abnormal finding in a postmenopausal patient, which could be further evaluated with elective dedicated pelvic ultrasound. Correlate clinically for any gynecological symptoms such as pelvic pain or postmenopausal bleeding. This report was created using voice recognition software. Occasional wrong-word or sound-alike substitutions may have occurred due to the inherent limitations of voice recognition software. Read the above report carefully and recognize, using context, where substitutions may have occurred. Recommend follow up of the Incidental endometrial cavity fluid Additional Imaging In 1 Month with pelvic ultrasound, sooner if gynecologic symptoms such as pelvic pain or postmenopausal bleeding are present. Electronically signed by: Veronika Kimbrough M.D. Narrative 06/20/2024 8:59 AM ARCADE ATTENDANT EXAMINATION: Bilateral Renal Ultrasound DATE/TIME: 06/20/2024 6:40 AM. HISTORY/INDICATION: Kidney failure, acute COMPARISON: 02/19/2023 TECHNIQUE: Bilateral renal and bladder sonogram was performed. The right kidney measures 10.7 cm X 5.7 cm X 4.7 cm. The left kidney measures 10.3 cm X 5.3 cm X 5.0 cm. No hydronephrosis is present. 3.1 x 3 x 2.6 cm parapelvic cyst is similar in size and shape to 2022 CT. There is an additional 12 x 9 x 9 mm right mid zone renal cortical cyst. 2 left upper pole renal cysts measuring 1.9 x 1.6 x 1.8 cm and 1.6 x 1.7 x 1.8 cm are similar in size to the [address]22 CT. No complex cystic or solid renal masses are identified. Renal parenchymal echogenicity is within normal limits. The bladder is well distended and normal in appearance. Incidental finding of endometrial cavity fluid with a fusiform appearance, 9 mm thickness, 12 mm transverse width and 23 mm long, which could be further evaluated with dedicated pelvic ultrasound. Correlate clinically for gynecological symptoms such as pelvic pain or postmenopausal vaginal bleeding. Procedure Note Veronika Kimbrough MD - 06/20/2024 EXAMINATION: Bilateral Renal Ultrasound DATE/TIME: 06/20/2024 6:40 AM. HISTORY/INDICATION: Kidney failure, acute COMPARISON: 02/19/2023 TECHNIQUE: Bilateral renal and bladder sonogram was performed. The right kidney measures 10.7 cm X 5.7 cm X 4.7 cm. The left kidney measures 10.3 cm X 5.3 cm X 5.0 cm. No hydronephrosis is present. 3.1 x 3 x 2.6 cm parapelvic cyst is similar in size and shape to 2022 CT. There is an additional 12 x 9 x 9 mm right mid zone renal cortical cyst. 2 left upper pole renal cysts measuring 1.9 x 1.6 x 1.8 cm and 1.6 x 1.7 x 1.8 cm are similar in size to the 2022 CT. No complex cystic or solid renal masses are identified. Renal parenchymal echogenicity is within normal limits. The bladder is well distended and normal in appearance. Incidental finding of endometrial cavity fluid with a fusiform appearance, 9 mm thickness, 12 mm transverse width and 23 mm long, which could be further evaluated with dedicated pelvic ultrasound. Correlate clinically for gynecological symptoms such as pelvic pain or postmenopausal vaginal bleeding. IMPRESSION: 1. Normal renal size without hydronephrosis; bilateral renal cysts as detailed above. 2. Central endometrial cavity fluid, an incidental but abnormal finding in a postmenopausal patient, which could be further evaluated with elective dedicated pelvic ultrasound. Correlate clinically for any gynecological symptoms such as pelvic pain or postmenopausal bleeding. This report was created using voice recognition software. Occasional wrong-word or sound-alike substitutions may have occurred due to the inherent limitations of voice recognition software. Read the above report carefully and recognize, using context, where substitutions may have occurred. Recommend follow up of the Incidental endometrial cavity fluid Additional Imaging In 1 Month with pelvic ultrasound, sooner if gynecologic symptoms such as pelvic pain or postmenopausal bleeding are present. Electronically signed by: Veronika Kimbrough M.D. us Cahrisse Dunn NP IMG US PROCEDURES Final Result * (ABNORMAL) eGFR (06/20/2024 2:08 AM ARCADE ATTENDANT) eGFR 11(L) >=60 mL/min/1. 73 m2 Comment: Interpretive Data Reference Interval Normal >/= 90 mL/min/1.73m2 Mildly decreased* 60 - 89 mL/min/1.73m2 Mildly to moderately decreased 45 - 59 mL/min/1.73m2 Moderately to severely decreased 30 - 44 mL/min/1.73m2 Severely decreased 15 - 29 mL/min/1.73m2 Kidney Failure < 15 mL/min/1.73m2 *Relative to young adult level Estimated glomerular filtration rate is determined by the 2020 CKD-EPI equation recommended by the National Kidney Foundation (A Unifying Approach to GFR Estimation: Recommendations of the NKF-ASK Task Force on Reassessing the Inclusion of Race in Diagnosing Kidney Disease, JASN 2020). The CKD-EPI equation should not be used for patients with unstable renal function and has not been validated in children and those over 70. Current interpretive data was last reviewed 2021. Blood 06/20/2024 2:08 AM ARCADE ATTENDANT 06/20/2024 2:14 AM ARCADE ATTENDANT Giovanny Regan MD LAB BLOOD ORDERABLES F inal Result [address] [place] [address] * Differential, auto (06/20/2024 2:08 AM ARCADE ATTENDANT) Neutrophil abs 4.9 1.5 - 6.5 K/cumm Imm gran abs 0.0 0.0 - 0.1 K/cumm [facility] Lymphocyte abs 1.3 0.8 - 3.3 K/cumm [facility] Monocyte abs 0.8 0.2 - 0.8 K/cumm [facility] Eosinophil abs 0.5 0.0 - 0.5 K/cumm [facility] Basophil abs 0.0 0.0 - 0.1 K/cumm [facility] Neutrophil pct 65.5 % [facility] Comment: Interpretive Data Percent cell count reference ranges are not reported, since discordance with absolute values may lead to misinterpretation of CBC data. Current Interpretive Data was last revised on 2017. Imm gran pct 0.3 % [facility] Comment: Interpretive Data Percent cell count reference ranges are not reported, since discordance with absolute values may lead to misinterpretation of CBC data. Current Interpretive Data was last revised on 2017. Lymphocyte pct 17.1 % [facility] Comment: Interpretive Data Percent cell count reference ranges are not reported, since discordance with absolute values may lead to misinterpretation of CBC data. Current Interpretive Data was last revised on 2017. Monocyte pct 10.3 % [facility] Comment: Interpretive Data Percent cell count reference ranges are not reported, since discordance with absolute values may lead to misinterpretation of CBC data. Current Interpretive Data was last revised on 2017. Eosinophil pct 6.4 % [facility] Comment: Interpretive Data Percent cell count reference ranges are not reported, since discordance with absolute values may lead to misinterpretation of CBC data. Current Interpretive Data was last revised on 2017. Basophil pct 0.4 % [facility] Comment: Interpretive Data Percent cell count reference ranges are not reported, since discordance with absolute values may lead to misinterpretation of CBC data. Current Interpretive Data was last revised on 2017. Blood 06/20/2024 2:08 AM ARCADE ATTENDANT 06/20/2024 2:14 AM ARCADE ATTENDANT us Giovanny Regan MD LAB BLOOD ORDERABLES F inal Result [facility] [address] [facility] Department [place] [address] * (ABNORMAL) CBC with auto differential (06/20/2024 2:08 AM ARCADE ATTENDANT) WBC 7.5 3.8 - 9.9 K/cumm Hgb 8.4(L) 11.9 - 15.5 g/dL [facility] Hct 26.6(L) 35.6 - 45.5 % [facility] Plt 202 150 - 400 K/cumm [facility] MPV 9.9 9.1 - 12.3 fL [facility] RBC 2.67(L) 3.90 - 5.20 M/cumm [facility] MCV 99.6(H) 81.3 - 96.4 fL [facility] MCH 31.5 27.1 - 33.3 pg [facility] MCHC 31.6(L) 32.3 - 35.7 g/dL [facility] RDW CV 16.2(H) 11.1 - 14.9 % [facility] RDW SD 59.1(H) 35.7 - 48.1 fL [facility] NRBC abs 0.00 0.00 - 0.01 K/cumm [facility] Blood 06/20/2024 2:08 AM ARCADE ATTENDANT 06/20/2024 2:14 AM ARCADE ATTENDANT us Giovanny Regan MD LAB BLOOD ORDERABLES F inal Result [facility] [address] [facility] Department [place] [address] * (ABNORMAL) Comprehensive metabolic panel (06/20/2024 2:08 AM ARCADE ATTENDANT) Sodium 144 135 - 145 mmol/L Potassium, pl 3.1(L) 3.3 - 4.9 mmol/L [facility] Chloride 113(H) 97 - 110 mmol/L [facility] CO2 18(L) 22 - 32 mmol/L [facility] Anion gap 13 2 - 15 mmol/L [facility] BUN 67(H) 6 - 25 mg/dL [facility] Creatinine 3.88(H) 0.60 - 1.10 mg/dL [facility] Glucose 126 70 - 199 mg/dL [facility] Comment: Interpretive Data Fasting glucose >/= 126 mg/dl is diagnostic for diabetes. Fasting is defined as no caloric intake for at least 8 hours. Fasting glucose between 100 mg/dl to 125 mg/dl is diagnostic of prediabetes. In a patient with classic symptoms of hyperglycemia or hyperglycemic crisis, a random glucose >/= 200 mg/dl is diagnostic for diabetes. In the absence of unequivocal hyperglycemia, results should be confirmed by repeat testing. The classification and Diagnosis of Diabetes Diabetes Care 2021; 46: S19-S40. Current interpretive data was last revised 2022. Calcium 9.0 8.5 - 10.3 mg/dL [facility] Bilirubin, total 0.3 0.1 - 1.2 mg/dL [facility] Protein, pl 5.4(L) 6.5 - 8.5 g/dL [facility] Albumin 3.1(L) 3.5 - 5.0 g/dL [facility] Alk phos 67 40 - 130 Units/L [facility] ALT 28 7 - 45 Units/L [facility] AST 50(H) 10 - 45 Units/L [facility] Blood 06/20/2024 2:08 AM ARCADE ATTENDANT 06/20/2024 2:14 AM ARCADE ATTENDANT Giovanny Regan MD LAB BLOOD ORDERABLES F inal Result Performing Organization Address City/[facility]/ZIP Co de Phone Number [facility] [address] [place] [address] * (ABNORMAL) Urinalysis reflex to microscopic and culture Urine (06/19/2024 10:26 PM ARCADE ATTENDANT) Color, ur Yellow Yellow Clarity, ur Turbid(A) Clear [facility] Specific gravity, ur 1.016 1.003 - 1.030 [facility] pH, urine 6.0 [facility] Comment: Interpretive Data U rine pH is affected by diet, medications, systemic acid-base disturbances, and renal tubular function. pH may affect urinary stone formation. For example, urine pH below 6.0 may help reduce the tendency for calcium phosphate stones and pH greater than 6.0 may reduce the tendency for uric acid stone formation. Source: [facility] Current Interpretive Data was last revised on 2017 Protein, ur ql 1+(A) Negative [facility] Glucose, ur ql Negative Negative [facility] Ketones, ur Negative Negative [facility] Bilirubin, ur Negative Negative [facility] Blood, ur 1+(A) Negative [facility] Urobilinogen, ur <2.0 <2.0 mg/dL [facility] Nitrite, ur Positive(A) Negative [facility] Leukocyte esterase, ur 4+(A) Negative [facility] UA reflex comment Reflex to microscopic UA will be performed. [facility] Urine 06/19/2024 10:2 6 PM ARCADE ATTENDANT 06/19/2024 10:30 PM ARCADE ATTENDANT Giovanny Regan MD LAB MICROBIOLOGY - GEN ERAL ORDERABLES Final Result Performing Organization Address City/[facility]/ZIP Co de Phone Number [facility] [address] [place] [address] * Sodium, urine, random (06/19/2024 10:26 PM ARCADE ATTENDANT) Sodium, ur 30 mmol/L Comment: Interpretive Data No reference range established. Current interpretive data was last revised 2018. Testing performed by: [facility], [address] [place] [address]., [id number] Urine 06/19/2024 10:2 6 PM ARCADE ATTENDANT 06/19/2024 10:30 PM ARCADE ATTENDANT Giovanny Regan MD LAB URINE ORDERABLES F inal Result Performing Organization Address [facility]/ZIP Co de Phone Number [address] [address] * Creatinine, urine, random (06/19/2024 10:26 PM ARCADE ATTENDANT) Creatinine Ur 206.2 mg/dL Comment: Interpretive Data No reference range established. Current interpretive data was last revised 2018. Testing performed by: [facility], [address] [place] [address]., [id number] Urine 06/19/2024 10:2 6 PM ARCADE ATTENDANT 06/19/2024 10:30 PM ARCADE ATTENDANT Giovanny Regan MD LAB URINE ORDERABLES F inal Result Performing Organization Address City/[facility] Co de Phone Number [address] [address] * (ABNORMAL) Urinalysis, microscopic only (06/19/2024 10:26 PM ARCADE ATTENDANT) WBC, ur >50(A) 0 - 5 /HPF RBC, ur 3-5(A) 0 - 2 /HPF [facility] Epithelial cells, squamous, ur 6-10(A) 0 - 5 /HPF [facility] Bacteria, ur 1+(A) [facility] Culture Reflex Comment Reflex to urine culture will be performed. [facility] Urine 06/19/2024 10:2 6 PM ARCADE ATTENDANT 06/19/2024 10:30 PM ARCADE ATTENDANT Giovanny Regan MD LAB URINE ORDERABLES F inal Result Performing Organization Address [facility]/State/ZIP Co de Phone Number MAGALIS [address] [place] [address] * (ABNORMAL) Urine culture Urine (06/19/2024 10:26 PM ARCADE ATTENDANT) Report Final Report: Greater than or equal to 100,000 colonies/ml of Klebsiella pneumoniae (.) Comment:Testing performed by : [facility], [address] [place] [address]., [id number] Organism KLEBSIELLA PNEUMONIAE [facility] Urine 06/19/2024 10:2 6 PM ARCADE ATTENDANT 06/20/2024 3:24 AM ARCADE ATTENDANT Narrative [facility] - 06/23/2024 1:19 PM ARCADE ATTENDANT Urine culture reflexed based upon urinalysis results. Organism Antibiotic Method Susceptibility Klebsiella pneumoniae Ampicillin with Sulbactam (KELLY) INTERPRETATION Susceptible Klebsiella pneumoniae Cefazolin (KELLY) INTERPRETATIO N Susceptible Klebsiella pneumoniae Ciprofloxacin (KELLY) INTERPRETATI ON Susceptible Klebsiella pneumoniae Gentamicin (KELLY) INTERPRETATIO N Susceptible Klebsiella pneumoniae Levofloxacin (KELLY) INTERPRETATIO N Susceptible Klebsiella pneumoniae Meropenem (KELLY) INTERPRETATIO N Susceptible Klebsiella pneumoniae Nitrofurantoin (KELLY) INTERPRETAT ION Intermediate Klebsiella pneumoniae Piperacillin/Tazobactam (KELLY) IN TERPRETATION Susceptible Klebsiella pneumoniae Trimethoprim with Sulfamethoxazole (KELLY) INTERPRETATION Susceptible Giovanny Regan MD LAB MICROBIOLOGY - GEN ERAL ORDERABLES Final Result [facility] [address] [place] [address] * (ABNORMAL) eGFR (06/19/2024 12:39 PM ARCADE ATTENDANT) eGFR 9(L) >=60 mL/min/1. 73 m2 Comment: Interpretive Data Reference Interval Normal >/= 90 mL/min/1.73m2 Mildly decreased* 60 - 89 mL/min/1.73m2 Mildly to moderately decreased 45 - 59 mL/min/1.73m2 Moderately to severely decreased 30 - 44 mL/min/1.73m2 Severely decreased 15 - 29 mL/min/1.73m2 Kidney Failure < 15 mL/min/1.73m2 *Relative to young adult level Estimated glomerular filtration rate is determined by the 2020 CKD-EPI equation recommended by the National Kidney Foundation (A Unifying Approach to GFR Estimation: Recommendations of the NKF-ASK Task Force on Reassessing the Inclusion of Race in Diagnosing Kidney Disease, JASN 2020). The CKD-EPI equation should not be used for patients with unstable renal function and has not been validated in children and those over 70. Current interpretive data was last reviewed 2021. Blood 06/19/2024 12:3 9 PM ARCADE ATTENDANT 06/19/2024 12:43 PM ARCADE ATTENDANT Giovanny Regan MD LAB BLOOD ORDERABLES F inal Result [facility] [address] [facility] [place] [address] * (ABNORMAL) Comprehensive metabolic panel (06/19/2024 12:39 PM ARCADE ATTENDANT) Sodium 145 135 - 145 mmol/L Potassium, pl 3.3 3.3 - 4.9 mmol/L [facility] Chloride 111(H) 97 - 110 mmol/L [facility] CO2 18(L) 22 - 32 mmol/L [facility] Anion gap 16(H) 2 - 15 mmol/L [facility] BUN 70(H) 6 - 25 mg/dL [facility] Creatinine 4.63(H) 0.60 - 1.10 mg/dL [facility] Glucose 113 70 - 199 mg/dL [facility] Comment: Interpretive Data Fasting glucose >/= 126 mg/dl is diagnostic for diabetes. Fasting is defined as no caloric intake for at least 8 hours. Fasting glucose between 100 mg/dl to 125 mg/dl is diagnostic of prediabetes. In a patient with classic symptoms of hyperglycemia or hyperglycemic crisis, a random glucose >/= 200 mg/dl is diagnostic for diabetes. In the absence of unequivocal hyperglycemia, results should be confirmed by repeat testing. The classification and Diagnosis of Diabetes Diabetes Care 2021; 46: S19-S40. Current interpretive data was last revised 2022. Calcium 9.9 8.5 - 10.3 mg/dL [facility] Bilirubin, total 0.3 0.1 - 1.2 mg/dL [facility] Protein, pl 6.5 6.5 - 8.5 g/dL [facility] Albumin 3.8 3.5 - 5.0 g/dL [facility] Alk phos 79 40 - 130 Units/L [facility] ALT 34 7 - 45 Units/L [facility] AST 70(H) 10 - 45 Units/L [facility] Comment:Hemolysis may falsel y increase results. Use caution when interpreting hemolyzed results. Blood 06/19/2024 12:3 9 PM ARCADE ATTENDANT 06/19/2024 12:43 PM ARCADE ATTENDANT us Giovanny Regan MD LAB BLOOD ORDERABLES F inal Result [facility] [address] [facility] Department [place] [address] * (ABNORMAL) Differential, auto (06/19/2024 10:46 AM ARCADE ATTENDANT) Neutrophil abs 7.0(H) 1.5 - 6.5 K/cumm Imm gran abs 0.1 0.0 - 0.1 K/cumm [facility] Lymphocyte abs 1.5 0.8 - 3.3 K/cumm [facility] Monocyte abs 0.9(H) 0.2 - 0.8 K/cumm [facility] Eosinophil abs 0.2 0.0 - 0.5 K/cumm [facility] Basophil abs 0.1 0.0 - 0.1 K/cumm [facility] Neutrophil pct 71.8 % [facility] Comment: Interpretive Data Percent cell count reference ranges are not reported, since discordance with absolute values may lead to misinterpretation of CBC data. Current Interpretive Data was last revised on 2017. Imm gran pct 0.5 % [facility] Comment: Interpretive Data Percent cell count reference ranges are not reported, since discordance with absolute values may lead to misinterpretation of CBC data. Current Interpretive Data was last revised on 2017. Lymphocyte pct 15.4 % [facility] Comment: Interpretive Data Percent cell count reference ranges are not reported, since discordance with absolute values may lead to misinterpretation of CBC data. Current Interpretive Data was last revised on 2017. Monocyte pct 9.5 % [facility] Comment: Interpretive Data Percent cell count reference ranges are not reported, since discordance with absolute values may lead to misinterpretation of CBC data. Current Interpretive Data was last revised on 2017. Eosinophil pct 2.1 % [facility] Comment: Interpretive Data Percent cell count reference ranges are not reported, since discordance with absolute values may lead to misinterpretation of CBC data. Current Interpretive Data was last revised on 2017. Basophil pct 0.7 % [facility] Comment: Interpretive Data Percent cell count reference ranges are not reported, since discordance with absolute values may lead to misinterpretation of CBC data. Current Interpretive Data was last revised on 2017. Blood 06/19/2024 10:4 6 AM ARCADE ATTENDANT 06/19/2024 10:53 AM ARCADE ATTENDANT us Giovanny Regan MD LAB BLOOD ORDERABLES F inal Result [facility] [address] [facility] Department [place] [address] * (ABNORMAL) CBC with auto differential (06/19/2024 10:46 AM ARCADE ATTENDANT) WBC 9.7 3.8 - 9.9 K/cumm Hgb 10.1(L) 11.9 - 15.5 g/dL [facility] Hct 32.2(L) 35.6 - 45.5 % [facility] Plt 267 150 - 400 K/cumm [facility] MPV 10.7 9.1 - 12.3 fL [facility] RBC 3.20(L) 3.90 - 5.20 M/cumm [facility] MCV 100.6(H) 81.3 - 96.4 fL [facility] MCH 31.6 27.1 - 33.3 pg [facility] MCHC 31.4(L) 32.3 - 35.7 g/dL [facility] RDW CV 16.2(H) 11.1 - 14.9 % [facility] RDW SD 59.4(H) 35.7 - 48.1 fL [facility] NRBC abs 0.00 0.00 - 0.01 K/cumm [facility] Blood 06/19/2024 10:4 6 AM ARCADE ATTENDANT 06/19/2024 10:53 AM ARCADE ATTENDANT Giovanny eRgan MD LAB BLOOD ORDERABLES F inal Result Performing Organization Address City/[facility] Co de Phone Number [facility] [address] [facility] [place] [address] * ECG 12 lead (06/19/2024 10:38 AM ARCADE ATTENDANT) 06/19/2024 10:3 8 AM ARCADE ATTENDANT Narrative [facility] - 06/19/2024 7:30 PM ARCADE ATTENDANT Vent Rate: 85 bpm RR Interval: 703 msec IA Interval: 0 msec QRS Duration: 98 msec QT Interval: 336 msec QTC Interval: 378 msec P-R-T [place]: 0 - 7 - 60 degrees IMPRESSION: poor baseline sinus rhythm NONSPECIFIC ST \T\ T-WAVE ABNORMALITY BORDERLINE ECG Electronically Signed By: Grant Yi MD, [facility] Giovanny Regan MD ECG ORDERABLES Final Result Performing Organization Address [facility] Co de Phone Number [facility] [employer] [facility] * Glucose, random (Outreach) (06/18/2024 9:00 AM ARCADE ATTENDANT) Glucose 91 70 - 199 mg/dL Comment: Interpretive Data Fasting glucose >/= 126 mg/dl is diagnostic for diabetes. Fasting is defined as no caloric intake for at least 8 hours. Fasting glucose between 100 mg/dl to 125 mg/dl is diagnostic of prediabetes. In a patient with classic symptoms of hyperglycemia or hyperglycemic crisis, a random glucose >/= 200 mg/dl is diagnostic for diabetes. In the absence of unequivocal hyperglycemia, results should be confirmed by repeat testing. The classification and Diagnosis of Diabetes Diabetes Care 2021; 46: S19-S40. Current interpretive data was last revised 2022. Blood 06/18/2024 9:00 AM ARCADE ATTENDANT 06/18/2024 3:32 PM ARCADE ATTENDANT us Notinfile Unknown LAB BLOOD ORDERABLES Final Res ult [facility] [address] Department [place] [address] * (ABNORMAL) eGFR (06/18/2024 9:00 AM ARCADE ATTENDANT) eGFR 10(L) >=60 mL/min/1. 73 m2 Comment: Interpretive Data Reference Interval Normal >/= 90 mL/min/1.73m2 Mildly decreased* 60 - 89 mL/min/1.73m2 Mildly to moderately decreased 45 - 59 mL/min/1.73m2 Moderately to severely decreased 30 - 44 mL/min/1.73m2 Severely decreased 15 - 29 mL/min/1.73m2 Kidney Failure < 15 mL/min/1.73m2 *Relative to young adult level Estimated glomerular filtration rate is determined by the 2020 CKD-EPI equation recommended by the National Kidney Foundation (A Unifying Approach to GFR Estimation: Recommendations of the NKF-ASK Task Force on Reassessing the Inclusion of Race in Diagnosing Kidney Disease, JASN 2020). The CKD-EPI equation should not be used for patients with unstable renal function and has not been validated in children and those over 70. Current interpretive data was last reviewed 2021. Blood 06/18/2024 9:00 AM ARCADE ATTENDANT 06/18/2024 3:55 PM ARCADE ATTENDANT us Notinfile Unknown LAB BLOOD ORDERABLES Final Res ult [facility] [address] Department [place] [address] * Differential, auto (06/18/2024 9:00 AM ARCADE ATTENDANT) Neutrophil abs 5.5 1.5 - 6.5 K/cumm Imm gran abs 0.0 0.0 - 0.1 K/cumm [facility] Lymphocyte abs 1.2 0.8 - 3.3 K/cumm [facility] Monocyte abs 0.7 0.2 - 0.8 K/cumm [facility] Eosinophil abs 0.4 0.0 - 0.5 K/cumm [facility] Basophil abs 0.0 0.0 - 0.1 K/cumm [facility] Neutrophil pct 70.8 % [facility] Comment: Interpretive Data Percent cell count reference ranges are not reported, since discordance with absolute values may lead to misinterpretation of CBC data. Current Interpretive Data was last revised on 2017. Imm gran pct 0.4 % [facility] Comment: Interpretive Data Percent cell count reference ranges are not reported, since discordance with absolute values may lead to misinterpretation of CBC data. Current Interpretive Data was last revised on 2017. Lymphocyte pct 14.8 % [facility] Comment: Interpretive Data Percent cell count reference ranges are not reported, since discordance with absolute values may lead to misinterpretation of CBC data. Current Interpretive Data was last revised on 2017. Monocyte pct 8.5 % [facility] Comment: Interpretive Data Percent cell count reference ranges are not reported, since discordance with absolute values may lead to misinterpretation of CBC data. Current Interpretive Data was last revised on 2017. Eosinophil pct 5.0 % [facility] Comment: Interpretive Data Percent cell count reference ranges are not reported, since discordance with absolute values may lead to misinterpretation of CBC data. Current Interpretive Data was last revised on 2017. Basophil pct 0.5 % [facility] Comment: Interpretive Data Percent cell count reference ranges are not reported, since discordance with absolute values may lead to misinterpretation of CBC data. Current Interpretive Data was last revised on 2017. Blood 06/18/2024 9:00 AM ARCADE ATTENDANT 06/18/2024 3:32 PM ARCADE ATTENDANT us Notinfile Unknown LAB BLOOD ORDERABLES Final Res ult Performing Organization Address [facility]/ZIP Co de Phone Number [facility] [address] Department [employer] [place] [address] * (ABNORMAL) Comprehensive metabolic panel, without glucose (Outreach) (06/18/2024 9:00 AM ARCADE ATTENDANT) Sodium 145 135 - 145 mmol/L Potassium, pl 3.2(L) 3.3 - 4.9 mmol/L [facility] Chloride 114(H) 97 - 110 mmol/L [facility] CO2 18(L) 22 - 32 mmol/L [facility] Anion gap 13 2 - 15 mmol/L [facility] BUN 66(H) 6 - 25 mg/dL [facility] Creatinine 4.18(H) 0.60 - 1.10 mg/dL [facility] Calcium 8.7 8.5 - 10.3 mg/dL [facility] Protein, pl 5.8(L) 6.5 - 8.5 g/dL [facility] Albumin 3.3(L) 3.5 - 5.0 g/dL [facility] Bilirubin, total 0.3 0.1 - 1.2 mg/dL [facility] Alk phos 68 40 - 130 Units/L [facility] AST 107(H) 10 - 45 Units/L [facility] ALT 36 7 - 45 Units/L [facility] Blood 06/18/2024 9:00 AM ARCADE ATTENDANT 06/18/2024 3:32 PM ARCADE ATTENDANT us Notinfile Unknown LAB BLOOD ORDERABLES Final Res ult Performing Organization Address City/[facility]/ZIP Co de Phone Number [facility] [address] Department [employer] [place], [place] [id number] * (ABNORMAL) CBC with auto differential (06/18/2024 9:00 AM ARCADE ATTENDANT) [facility] WBC 7.8 3.8 - 9.9 K/cumm Hgb 9.1(L) 11.9 - 15.5 g/dL [facility] Hct 29.6(L) 35.6 - 45.5 % [facility] Plt 226 150 - 400 K/cumm [facility] MPV 11.0 9.1 - 12.3 fL [facility] RBC 2.91(L) 3.90 - 5.20 M/cumm [facility] MCV 101.7(H) 81.3 - 96.4 fL [facility] MCH 31.3 27.1 - 33.3 pg [facility] MCHC 30.7(L) 32.3 - 35.7 g/dL [facility] RDW CV 15.8(H) 11.1 - 14.9 % [facility] RDW SD 58.6(H) 35.7 - 48.1 fL [facility] NRBC abs 0.00 0.00 - 0.01 K/cumm [facility] Blood 06/18/2024 9:00 AM ARCADE ATTENDANT 06/18/2024 3:32 PM ARCADE ATTENDANT us Notinfile Unknown LAB BLOOD ORDERABLES Final Res ult [facility] [address] Department [place] [address] * (ABNORMAL) eGFR (06/05/2024 3:03 AM ARCADE ATTENDANT) [facility] eGFR 33(L) >=60 mL/min/1. 73 m2 Comment: Interpretive Data Reference Interval Normal >/= 90 mL/min/1.73m2 Mildly decreased* 60 - 89 mL/min/1.73m2 Mildly to moderately decreased 45 - 59 mL/min/1.73m2 Moderately to severely decreased 30 - 44 mL/min/1.73m2 Severely decreased 15 - 29 mL/min/1.73m2 Kidney Failure < 15 mL/min/1.73m2 *Relative to young adult level Estimated glomerular filtration rate is determined by the 2020 CKD-EPI equation recommended by the National Kidney Foundation (A Unifying Approach to GFR Estimation: Recommendations of the NKF-ASK Task Force on Reassessing the Inclusion of Race in Diagnosing Kidney Disease, JASN 2020). The CKD-EPI equation should not be used for patients with unstable renal function and has not been validated in children and those over 70. Current interpretive data was last reviewed 2021. Blood 06/05/2024 3:03 AM ARCADE ATTENDANT 06/05/2024 3:08 AM ARCADE ATTENDANT us Sushma Romo NP LAB BLOOD ORDERABLES [place] cardenas Result [address] [place] [address] * Differential, auto (06/05/2024 3:03 AM ARCADE ATTENDANT) Neutrophil abs 5.5 1.5 - 6.5 K/cumm Imm gran abs 0.0 0.0 - 0.1 K/cumm [facility] Lymphocyte abs 1.4 0.8 - 3.3 K/cumm [facility] Monocyte abs 0.6 0.2 - 0.8 K/cumm [facility] Eosinophil abs 0.4 0.0 - 0.5 K/cumm [facility] Basophil abs 0.0 0.0 - 0.1 K/cumm [facility] Neutrophil pct 69.3 % [facility] Comment: Interpretive Data Percent cell count reference ranges are not reported, since discordance with absolute values may lead to misinterpretation of CBC data. Current Interpretive Data was last revised on 2017. Imm gran pct 0.5 % [facility] Comment: Interpretive Data Percent cell count reference ranges are not reported, since discordance with absolute values may lead to misinterpretation of CBC data. Current Interpretive Data was last revised on 2017. Lymphocyte pct 18.0 % [facility] Comment: Interpretive Data Percent cell count reference ranges are not reported, since discordance with absolute values may lead to misinterpretation of CBC data. Current Interpretive Data was last revised on 2017. Monocyte pct 7.3 % [facility] Comment: Interpretive Data Percent cell count reference ranges are not reported, since discordance with absolute values may lead to misinterpretation of CBC data. Current Interpretive Data was last revised on 2017. Eosinophil pct 4.4 % [facility] Comment: Interpretive Data Percent cell count reference ranges are not reported, since discordance with absolute values may lead to misinterpretation of CBC data. Current Interpretive Data was last revised on 2017. Basophil pct 0.5 % [facility] Comment: Interpretive Data Percent cell count reference ranges are not reported, since discordance with absolute values may lead to misinterpretation of CBC data. Current Interpretive Data was last revised on 2017. Blood 06/05/2024 3:03 AM ARCADE ATTENDANT 06/05/2024 3:07 AM ARCADE ATTENDANT Sushma Romo NP LAB BLOOD ORDERABLES [place] cardenas Result [address] Department [place] [address] * (ABNORMAL) CBC with auto differential (06/05/2024 3:03 AM ARCADE ATTENDANT) Pathologist [facility] WBC 8.0 3.8 - 9.9 K/cumm Hgb 9.4(L) 11.9 - 15.5 g/dL [facility] Hct 30.3(L) 35.6 - 45.5 % [facility] Plt 173 150 - 400 K/cumm [facility] MPV 9.4 9.1 - 12.3 fL [facility] RBC 3.00(L) 3.90 - 5.20 M/cumm [facility] MCV 101.0(H) 81.3 - 96.4 fL [facility] MCH 31.3 27.1 - 33.3 pg [facility] MCHC 31.0(L) 32.3 - 35.7 g/dL [facility] RDW CV 15.9(H) 11.1 - 14.9 % [facility] RDW SD 58.6(H) 35.7 - 48.1 fL [facility] NRBC abs 0.00 0.00 - 0.01 K/cumm [facility] Blood 06/05/2024 3:03 AM ARCADE ATTENDANT 06/05/2024 3:07 AM ARCADE ATTENDANT Sushma Romo NP LAB BLOOD ORDERABLES [place] l Result [facility] [address] [facility] [place] [address] * (ABNORMAL) Basic metabolic panel (06/05/2024 3:03 AM ARCADE ATTENDANT) Sodium 144 135 - 145 mmol/L Potassium, pl 4.0 3.3 - 4.9 mmol/L [facility] Chloride 116(H) 97 - 110 mmol/L [facility] CO2 18(L) 22 - 32 mmol/L [facility] Anion gap 10 2 - 15 mmol/L [facility] BUN 19 6 - 25 mg/dL [facility] Creatinine 1.56(H) 0.60 - 1.10 mg/dL [facility] Glucose 108 70 - 199 mg/dL [facility] Comment: Interpretive Data Fasting glucose >/= 126 mg/dl is diagnostic for diabetes. Fasting is defined as no caloric intake for at least 8 hours. Fasting glucose between 100 mg/dl to 125 mg/dl is diagnostic of prediabetes. In a patient with classic symptoms of hyperglycemia or hyperglycemic crisis, a random glucose >/= 200 mg/dl is diagnostic for diabetes. In the absence of unequivocal hyperglycemia, results should be confirmed by repeat testing. The classification and Diagnosis of Diabetes Diabetes Care 2021; 46: S19-S40. Current interpretive data was last revised 2022. Calcium 9.2 8.5 - 10.3 mg/dL [facility] Blood 06/05/2024 3:03 AM ARCADE ATTENDANT 06/05/2024 3:08 AM ARCADE ATTENDANT Sushma Christa Rmoo PERFORMANCE REPORTER LAB BLOOD ORDERABLES [place] l Result Performing Organization Address [facility] Co de Phone Number [address] [place] [address] * (ABNORMAL) eGFR (06/04/2024 3:13 AM ARCADE ATTENDANT) Pathologist [facility] eGFR 36(L) >=60 mL/min/1. 73 m2 Comment: Interpretive Data Reference Interval Normal >/= 90 mL/min/1.73m2 Mildly decreased* 60 - 89 mL/min/1.73m2 Mildly to moderately decreased 45 - 59 mL/min/1.73m2 Moderately to severely decreased 30 - 44 mL/min/1.73m2 Severely decreased 15 - 29 mL/min/1.73m2 Kidney Failure < 15 mL/min/1.73m2 *Relative to young adult level Estimated glomerular filtration rate is determined by the 2020 CKD-EPI equation recommended by the National Kidney Foundation (A Unifying Approach to GFR Estimation: Recommendations of the NKF-ASK Task Force on Reassessing the Inclusion of Race in Diagnosing Kidney Disease, JASN 2020). The CKD-EPI equation should not be used for patients with unstable renal function and has not been validated in children and those over 70. Current interpretive data was last reviewed 2021. Blood 06/04/2024 3:13 AM ARCADE ATTENDANT 06/04/2024 4:00 AM ARCADE ATTENDANT Sushma Romo NP LAB BLOOD ORDERABLES [place] l Result Performing Organization Address [facility] Co de Phone Number [facility] [address] [place] [address] * Differential, auto (06/04/2024 3:13 AM ARCADE ATTENDANT) Pathologist [facility] Neutrophil abs 5.4 1.5 - 6.5 K/cumm Imm gran abs 0.0 0.0 - 0.1 K/cumm [facility] Lymphocyte abs 1.6 0.8 - 3.3 K/cumm [facility] Monocyte abs 0.7 0.2 - 0.8 K/cumm [facility] Eosinophil abs 0.4 0.0 - 0.5 K/cumm [facility] Basophil abs 0.0 0.0 - 0.1 K/cumm [facility] Neutrophil pct 67.3 % [facility] Comment: Interpretive Data Percent cell count reference ranges are not reported, since discordance with absolute values may lead to misinterpretation of CBC data. Current Interpretive Data was last revised on 2017. Imm gran pct 0.4 % [facility] Comment: Interpretive Data Percent cell count reference ranges are not reported, since discordance with absolute values may lead to misinterpretation of CBC data. Current Interpretive Data was last revised on 2017. Lymphocyte pct 19.5 % [facility] Comment: Interpretive Data Percent cell count reference ranges are not reported, since discordance with absolute values may lead to misinterpretation of CBC data. Current Interpretive Data was last revised on 2017. Monocyte pct 8.1 % [facility] Comment: Interpretive Data Percent cell count reference ranges are not reported, since discordance with absolute values may lead to misinterpretation of CBC data. Current Interpretive Data was last revised on 2017. Eosinophil pct 4.3 % [facility] Comment: Interpretive Data Percent cell count reference ranges are not reported, since discordance with absolute values may lead to misinterpretation of CBC data. Current Interpretive Data was last revised on 2017. Basophil pct 0.4 % [facility] Comment: Interpretive Data Percent cell count reference ranges are not reported, since discordance with absolute values may lead to misinterpretation of CBC data. Current Interpretive Data was last revised on 2017. Blood 06/04/2024 3:13 AM ARCADE ATTENDANT 06/04/2024 4:00 AM ARCADE ATTENDANT us Sushma Romo PERFORMANCE REPORTER LAB BLOOD ORDERABLES [place] cardenas Result [facility] [address] [facility] [place] [address] * (ABNORMAL) CBC with auto differential (06/04/2024 3:13 AM ARCADE ATTENDANT) WBC 8.1 3.8 - 9.9 K/cumm Hgb 10.0(L) 11.9 - 15.5 g/dL [facility] Hct 31.5(L) 35.6 - 45.5 % [facility] Plt 186 150 - 400 K/cumm [facility] MPV 10.2 9.1 - 12.3 fL [facility] RBC 3.14(L) 3.90 - 5.20 M/cumm [facility] MCV 100.3(H) 81.3 - 96.4 fL [facility] MCH 31.8 27.1 - 33.3 pg [facility] MCHC 31.7(L) 32.3 - 35.7 g/dL [facility] RDW CV 15.8(H) 11.1 - 14.9 % [facility] RDW SD 56.8(H) 35.7 - 48.1 fL [facility] NRBC abs 0.00 0.00 - 0.01 K/cumm [facility] Blood 06/04/2024 3:13 AM ARCADE ATTENDANT 06/04/2024 4:00 AM ARCADE ATTENDANT us Sushma Romo NP LAB BLOOD ORDERABLES [place] cardenas Result [facility] [address] [facility] Department [place] [address] * (ABNORMAL) Basic metabolic panel (06/04/2024 3:13 AM ARCADE ATTENDANT) [facility] Sodium 144 135 - 145 mmol/L Potassium, pl 3.4 3.3 - 4.9 mmol/L [facility] Chloride 115(H) 97 - 110 mmol/L [facility] CO2 18(L) 22 - 32 mmol/L [facility] Anion gap 11 2 - 15 mmol/L [facility] BUN 16 6 - 25 mg/dL [facility] Creatinine 1.46(H) 0.60 - 1.10 mg/dL [facility] Glucose 99 70 - 199 mg/dL [facility] Comment: Interpretive Data Fasting glucose >/= 126 mg/dl is diagnostic for diabetes. Fasting is defined as no caloric intake for at least 8 hours. Fasting glucose between 100 mg/dl to 125 mg/dl is diagnostic of prediabetes. In a patient with classic symptoms of hyperglycemia or hyperglycemic crisis, a random glucose >/= 200 mg/dl is diagnostic for diabetes. In the absence of unequivocal hyperglycemia, results should be confirmed by repeat testing. The classification and Diagnosis of Diabetes Diabetes Care 2021; 46: S19-S40. Current interpretive data was last revised 2022. Calcium 9.1 8.5 - 10.3 mg/dL [facility] Blood 06/04/2024 3:13 AM ARCADE ATTENDANT 06/04/2024 4:00 AM ARCADE ATTENDANT Sushma Romo PERFORMANCE REPORTER LAB BLOOD ORDERABLES [place] cardenas Result [facility] Department [place] [address] * (ABNORMAL) eGFR (06/03/2024 4:56 PM ARCADE ATTENDANT) eGFR 34(L) >=60 mL/min/1. 73 m2 Comment: Interpretive Data Reference Interval Normal >/= 90 mL/min/1.73m2 Mildly decreased* 60 - 89 mL/min/1.73m2 Mildly to moderately decreased 45 - 59 mL/min/1.73m2 Moderately to severely decreased 30 - 44 mL/min/1.73m2 Severely decreased 15 - 29 mL/min/1.73m2 Kidney Failure < 15 mL/min/1.73m2 *Relative to young adult level Estimated glomerular filtration rate is determined by the 2020 CKD-EPI equation recommended by the National Kidney Foundation (A Unifying Approach to GFR Estimation: Recommendations of the NKF-ASK Task Force on Reassessing the Inclusion of Race in Diagnosing Kidney Disease, JASN 2020). The CKD-EPI equation should not be used for patients with unstable renal function and has not been validated in children and those over 70. Current interpretive data was last reviewed 2021. Blood 06/03/2024 4:56 PM ARCADE ATTENDANT 06/03/2024 4:59 PM ARCADE ATTENDANT Niyah Rubio PERFORMANCE REPORTER LAB BLOOD ORDERABLES Final R esult [facility] [address] Department [place] [address] * (ABNORMAL) Basic metabolic panel (06/03/2024 4:56 PM ARCADE ATTENDANT) [facility] Sodium 144 135 - 145 mmol/L Potassium, pl 3.6 3.3 - 4.9 mmol/L [facility] Chloride 114(H) 97 - 110 mmol/L [facility] CO2 20(L) 22 - 32 mmol/L [facility] Anion gap 11 2 - 15 mmol/L [facility] BUN 15 6 - 25 mg/dL [facility] Creatinine 1.53(H) 0.60 - 1.10 mg/dL [facility] Glucose 130 70 - 199 mg/dL [facility] Comment: Interpretive Data Fasting glucose >/= 126 mg/dl is diagnostic for diabetes. Fasting is defined as no caloric intake for at least 8 hours. Fasting glucose between 100 mg/dl to 125 mg/dl is diagnostic of prediabetes. In a patient with classic symptoms of hyperglycemia or hyperglycemic crisis, a random glucose >/= 200 mg/dl is diagnostic for diabetes. In the absence of unequivocal hyperglycemia, results should be confirmed by repeat testing. The classification and Diagnosis of Diabetes Diabetes Care 2021; 46: S19-S40. Current interpretive data was last revised 2022. Calcium 9.0 8.5 - 10.3 mg/dL [facility] Blood 06/03/2024 4:56 PM ARCADE ATTENDANT 06/03/2024 4:59 PM ARCADE ATTENDANT Niyah Rubio PERFORMANCE REPORTER LAB BLOOD ORDERABLES Final R esult [facility] [address] Department [place] [address] * (ABNORMAL) eGFR (06/03/2024 2:32 AM ARCADE ATTENDANT) Pathologist [facility] eGFR 35(L) >=60 mL/min/1. 73 m2 Comment: Interpretive Data Reference Interval Normal >/= 90 mL/min/1.73m2 Mildly decreased* 60 - 89 mL/min/1.73m2 Mildly to moderately decreased 45 - 59 mL/min/1.73m2 Moderately to severely decreased 30 - 44 mL/min/1.73m2 Severely decreased 15 - 29 mL/min/1.73m2 Kidney Failure < 15 mL/min/1.73m2 *Relative to young adult level Estimated glomerular filtration rate is determined by the 2020 CKD-EPI equation recommended by the National Kidney Foundation (A Unifying Approach to GFR Estimation: Recommendations of the NKF-ASK Task Force on Reassessing the Inclusion of Race in Diagnosing Kidney Disease, JASN 2020). The CKD-EPI equation should not be used for patients with unstable renal function and has not been validated in children and those over 70. Current interpretive data was last reviewed 2021. Blood 06/03/2024 2:32 AM ARCADE ATTENDANT 06/03/2024 2:35 AM ARCADE ATTENDANT Giovanny Villeda MD LAB BLOOD ORDERABLES F inal Result Performing Organization Address [facility] Co de Phone Number [address] Department [place] [address] * (ABNORMAL) Magnesium (06/03/2024 2:32 AM ARCADE ATTENDANT) [facility] Magnesium 1.1(L) 1.4 - 2.5 mg/dL Blood 06/03/2024 2:32 AM ARCADE ATTENDANT 06/03/2024 7:52 AM ARCADE ATTENDANT Niyah Rubio NP LAB BLOOD ORDERABLES Final R esult Performing Organization Address City/[facility]/ZIP Co de Phone Number [address] of [facility] [place], [place] [id number] * (ABNORMAL) Basic metabolic panel (06/03/2024 2:32 AM ARCADE ATTENDANT) Pathologist [facility] Sodium 146(H) 135 - 145 mmol/L Potassium, pl 2.9(C) 3.3 - 4.9 mmol/L [facility] Comment:Critical Result call ed by [id number] at 2024-06-03 02:52:22. Result Read Back by Nikolay Godron RN in MEDS Chloride 116(H) 97 - 110 mmol/L [facility] CO2 20(L) 22 - 32 mmol/L [facility] Anion gap 10 2 - 15 mmol/L [facility] BUN 19 6 - 25 mg/dL [facility] Creatinine 1.50(H) 0.60 - 1.10 mg/dL [facility] Glucose 144 70 - 199 mg/dL [facility] Comment: Interpretive Data Fasting glucose >/= 126 mg/dl is diagnostic for diabetes. Fasting is defined as no caloric intake for at least 8 hours. Fasting glucose between 100 mg/dl to 125 mg/dl is diagnostic of prediabetes. In a patient with classic symptoms of hyperglycemia or hyperglycemic crisis, a random glucose >/= 200 mg/dl is diagnostic for diabetes. In the absence of unequivocal hyperglycemia, results should be confirmed by repeat testing. The classification and Diagnosis of Diabetes Diabetes Care 2021; 46: S19-S40. Current interpretive data was last revised 2022. Calcium 8.7 8.5 - 10.3 mg/dL [facility] Blood 06/03/2024 2:32 AM ARCADE ATTENDANT 06/03/2024 2:35 AM ARCADE ATTENDANT us Giovanny Villeda MD LAB BLOOD ORDERABLES F inal Result [facility] [address] [facility] Department [place] [address] * Differential, auto (06/03/2024 1:50 AM ARCADE ATTENDANT) [facility] Neutrophil abs 5.5 1.5 - 6.5 K/cumm Imm gran abs 0.0 0.0 - 0.1 K/cumm [facility] Lymphocyte abs 1.3 0.8 - 3.3 K/cumm [facility] Monocyte abs 0.6 0.2 - 0.8 K/cumm [facility] Eosinophil abs 0.3 0.0 - 0.5 K/cumm [facility] Basophil abs 0.0 0.0 - 0.1 K/cumm [facility] Neutrophil pct 71.0 % [facility] Comment: Interpretive Data Percent cell count reference ranges are not reported, since discordance with absolute values may lead to misinterpretation of CBC data. Current Interpretive Data was last revised on 2017. Imm gran pct 0.4 % [facility] Comment: Interpretive Data Percent cell count reference ranges are not reported, since discordance with absolute values may lead to misinterpretation of CBC data. Current Interpretive Data was last revised on 2017. Lymphocyte pct 16.1 % [facility] Comment: Interpretive Data Percent cell count reference ranges are not reported, since discordance with absolute values may lead to misinterpretation of CBC data. Current Interpretive Data was last revised on 2017. Monocyte pct 7.9 % [facility] Comment: Interpretive Data Percent cell count reference ranges are not reported, since discordance with absolute values may lead to misinterpretation of CBC data. Current Interpretive Data was last revised on 2017. Eosinophil pct 4.1 % [facility] Comment: Interpretive Data Percent cell count reference ranges are not reported, since discordance with absolute values may lead to misinterpretation of CBC data. Current Interpretive Data was last revised on 2017. Basophil pct 0.5 % [facility] Comment: Interpretive Data Percent cell count reference ranges are not reported, since discordance with absolute values may lead to misinterpretation of CBC data. Current Interpretive Data was last revised on 2017. Blood 06/03/2024 1:50 AM ARCADE ATTENDANT 06/03/2024 2:03 AM ARCADE ATTENDANT us Sushma Romo PERFORMANCE REPORTER LAB BLOOD ORDERABLES [place] cardenas Result [facility] [address] [facility] Department [place] [address] * (ABNORMAL) CBC with auto differential (06/03/2024 1:50 AM ARCADE ATTENDANT) Pathologist [facility] WBC 7.8 3.8 - 9.9 K/cumm Hgb 9.9(L) 11.9 - 15.5 g/dL [facility] Hct 33.2(L) 35.6 - 45.5 % [facility] Plt 173 150 - 400 K/cumm [facility] MPV 10.1 9.1 - 12.3 fL [facility] RBC 3.12(L) 3.90 - 5.20 M/cumm [facility] MCV 106.4(H) 81.3 - 96.4 fL [facility] MCH 31.7 27.1 - 33.3 pg [facility] MCHC 29.8(L) 32.3 - 35.7 g/dL [facility] RDW CV 15.9(H) 11.1 - 14.9 % [facility] RDW SD 60.1(H) 35.7 - 48.1 fL [facility] NRBC abs 0.00 0.00 - 0.01 K/cumm [facility] Blood 06/03/2024 1:50 AM ARCADE ATTENDANT 06/03/2024 2:03 AM ARCADE ATTENDANT Sushma Romo NP LAB BLOOD ORDERABLES [place] cardenas Result [facility] [address] [facility] Department [place] [address] * (ABNORMAL) eGFR (06/02/2024 3:08 AM ARCADE ATTENDANT) Pathologist [facility] eGFR 30(L) >=60 mL/min/1. 73 m2 Comment: Interpretive Data Reference Interval Normal >/= 90 mL/min/1.73m2 Mildly decreased* 60 - 89 mL/min/1.73m2 Mildly to moderately decreased 45 - 59 mL/min/1.73m2 Moderately to severely decreased 30 - 44 mL/min/1.73m2 Severely decreased 15 - 29 mL/min/1.73m2 Kidney Failure < 15 mL/min/1.73m2 *Relative to young adult level Estimated glomerular filtration rate is determined by the 2020 CKD-EPI equation recommended by the National Kidney Foundation (A Unifying Approach to GFR Estimation: Recommendations of the NKF-ASK Task Force on Reassessing the Inclusion of Race in Diagnosing Kidney Disease, JASN 2020). The CKD-EPI equation should not be used for patients with unstable renal function and has not been validated in children and those over 70. Current interpretive data was last reviewed 2021. Blood 06/02/2024 3:08 AM ARCADE ATTENDANT 06/02/2024 3:13 AM ARCADE ATTENDANT us Sushma Romo NP LAB BLOOD ORDERABLES [place] cardenas Result [address] Department [place] [address] * Differential, auto (06/02/2024 3:08 AM ARCADE ATTENDANT) Neutrophil abs 4.5 1.5 - 6.5 K/cumm Imm gran abs 0.0 0.0 - 0.1 K/cumm [facility] Lymphocyte abs 1.4 0.8 - 3.3 K/cumm [facility] Monocyte abs 0.6 0.2 - 0.8 K/cumm [facility] Eosinophil abs 0.3 0.0 - 0.5 K/cumm [facility] Basophil abs 0.0 0.0 - 0.1 K/cumm [facility] Neutrophil pct 65.4 % [facility] Comment: Interpretive Data Percent cell count reference ranges are not reported, since discordance with absolute values may lead to misinterpretation of CBC data. Current Interpretive Data was last revised on 2017. Imm gran pct 0.3 % [facility] Comment: Interpretive Data Percent cell count reference ranges are not reported, since discordance with absolute values may lead to misinterpretation of CBC data. Current Interpretive Data was last revised on 2017. Lymphocyte pct 21.2 % [facility] Comment: Interpretive Data Percent cell count reference ranges are not reported, since discordance with absolute values may lead to misinterpretation of CBC data. Current Interpretive Data was last revised on 2017. Monocyte pct 8.5 % [facility] Comment: Interpretive Data Percent cell count reference ranges are not reported, since discordance with absolute values may lead to misinterpretation of CBC data. Current Interpretive Data was last revised on 2017. Eosinophil pct 4.3 % [facility] Comment: Interpretive Data Percent cell count reference ranges are not reported, since discordance with absolute values may lead to misinterpretation of CBC data. Current Interpretive Data was last revised on 2017. Basophil pct 0.3 % [facility] Comment: Interpretive Data Percent cell count reference ranges are not reported, since discordance with absolute values may lead to misinterpretation of CBC data. Current Interpretive Data was last revised on 2017. Blood 06/02/2024 3:08 AM ARCADE ATTENDANT 06/02/2024 3:13 AM ARCADE ATTENDANT Sushma Romo NP LAB BLOOD ORDERABLES [place] cardenas Result [facility] [address] [facility] Department [place] [address] * (ABNORMAL) CBC with auto differential (06/02/2024 3:08 AM ARCADE ATTENDANT) WBC 6.8 3.8 - 9.9 K/cumm Hgb 9.4(L) 11.9 - 15.5 g/dL [facility] Hct 29.8(L) 35.6 - 45.5 % [facility] Plt 191 150 - 400 K/cumm [facility] MPV 10.0 9.1 - 12.3 fL [facility] RBC 2.93(L) 3.90 - 5.20 M/cumm [facility] MCV 101.7(H) 81.3 - 96.4 fL [facility] MCH 32.1 27.1 - 33.3 pg [facility] MCHC 31.5(L) 32.3 - 35.7 g/dL [facility] RDW CV 15.5(H) 11.1 - 14.9 % [facility] RDW SD 56.7(H) 35.7 - 48.1 fL [facility] NRBC abs 0.00 0.00 - 0.01 K/cumm [facility] Blood 06/02/2024 3:08 AM ARCADE ATTENDANT 06/02/2024 3:13 AM ARCADE ATTENDANT Sushma Romo PERFORMANCE REPORTER LAB BLOOD ORDERABLES [place] l Result [facility] [address] [facility] Department [place] [address] * (ABNORMAL) Basic metabolic panel (06/02/2024 3:08 AM ARCADE ATTENDANT) Sodium 146(H) 135 - 145 mmol/L Potassium, pl 3.0(L) 3.3 - 4.9 mmol/L [facility] Chloride 119(H) 97 - 110 mmol/L [facility] CO2 17(L) 22 - 32 mmol/L [facility] Anion gap 10 2 - 15 mmol/L [facility] BUN 25 6 - 25 mg/dL [facility] Creatinine 1.68(H) 0.60 - 1.10 mg/dL [facility] Glucose 105 70 - 199 mg/dL [facility] Comment: Interpretive Data Fasting glucose >/= 126 mg/dl is diagnostic for diabetes. Fasting is defined as no caloric intake for at least 8 hours. Fasting glucose between 100 mg/dl to 125 mg/dl is diagnostic of prediabetes. In a patient with classic symptoms of hyperglycemia or hyperglycemic crisis, a random glucose >/= 200 mg/dl is diagnostic for diabetes. In the absence of unequivocal hyperglycemia, results should be confirmed by repeat testing. The classification and Diagnosis of Diabetes Diabetes Care 202; 46: S19-S40. Current interpretive data was last revised 2022. Calcium 9.0 8.5 - 10.3 mg/dL [facility] Blood 06/02/2024 3:08 AM ARCADE ATTENDANT 06/02/2024 3:13 AM ARCADE ATTENDANT Sushma Romo NP LAB BLOOD ORDERABLES [place] l Result Performing Organization Address City/[facility]/ZIP Co de Phone Number [facility] [address] [place] [address] * (ABNORMAL) eGFR (06/01/2024 1:35 AM ARCADE ATTENDANT) eGFR 23(L) >=60 mL/min/1. 73 m2 Comment: Interpretive Data Reference Interval Normal >/= 90 mL/min/1.73m2 Mildly decreased* 60 - 89 mL/min/1.73m2 Mildly to moderately decreased 45 - 59 mL/min/1.73m2 Moderately to severely decreased 30 - 44 mL/min/1.73m2 Severely decreased 15 - 29 mL/min/1.73m2 Kidney Failure < 15 mL/min/1.73m2 *Relative to young adult level Estimated glomerular filtration rate is determined by the 2020 CKD-EPI equation recommended by the National Kidney Foundation (A Unifying Approach to GFR Estimation: Recommendations of the NKF-ASK Task Force on Reassessing the Inclusion of Race in Diagnosing Kidney Disease, JASN 2020). The CKD-EPI equation should not be used for patients with unstable renal function and has not been validated in children and those over 70. Current interpretive data was last reviewed 2021. Blood 06/01/2024 1:35 AM ARCADE ATTENDANT 06/01/2024 5:56 AM ARCADE ATTENDANT Sushma Romo NP LAB BLOOD ORDERABLES [place] l Result Performing Organization Address City/[facility]/ZIP Co de Phone Number [facility] [address] Department [place] [address] * Differential, auto (06/01/2024 1:35 AM ARCADE ATTENDANT) Neutrophil abs 6.1 1.5 - 6.5 K/cumm Imm gran abs 0.1 0.0 - 0.1 K/cumm [facility] Lymphocyte abs 1.1 0.8 - 3.3 K/cumm [facility] Monocyte abs 0.6 0.2 - 0.8 K/cumm [facility] Eosinophil abs 0.2 0.0 - 0.5 K/cumm [facility] Basophil abs 0.0 0.0 - 0.1 K/cumm [facility] Neutrophil pct 74.9 % [facility] Comment: Interpretive Data Percent cell count reference ranges are not reported, since discordance with absolute values may lead to misinterpretation of CBC data. Current Interpretive Data was last revised on 2017. Imm gran pct 0.6 % [facility] Comment: Interpretive Data Percent cell count reference ranges are not reported, since discordance with absolute values may lead to misinterpretation of CBC data. Current Interpretive Data was last revised on 2017. Lymphocyte pct 13.7 % [facility] Comment: Interpretive Data Percent cell count reference ranges are not reported, since discordance with absolute values may lead to misinterpretation of CBC data. Current Interpretive Data was last revised on 2017. Monocyte pct 7.4 % [facility] Comment: Interpretive Data Percent cell count reference ranges are not reported, since discordance with absolute values may lead to misinterpretation of CBC data. Current Interpretive Data was last revised on 2017. Eosinophil pct 3.0 % [facility] Comment: Interpretive Data Percent cell count reference ranges are not reported, since discordance with absolute values may lead to misinterpretation of CBC data. Current Interpretive Data was last revised on 2017. Basophil pct 0.4 % [facility] Comment: Interpretive Data Percent cell count reference ranges are not reported, since discordance with absolute values may lead to misinterpretation of CBC data. Current Interpretive Data was last revised on 2017. Blood 06/01/2024 1:35 AM ARCADE ATTENDANT 06/01/2024 5:55 AM ARCADE ATTENDANT Sushma Romo NP LAB BLOOD ORDERABLES [place] cardenas Result [facility] [address] [facility] Department [place] [address] * (ABNORMAL) CBC with auto differential (06/01/2024 1:35 AM ARCADE ATTENDANT) [facility] WBC 8.1 3.8 - 9.9 K/cumm Hgb 9.4(L) 11.9 - 15.5 g/dL [facility] Hct 29.8(L) 35.6 - 45.5 % [facility] Plt 218 150 - 400 K/cumm [facility] MPV 10.7 9.1 - 12.3 fL [facility] RBC 2.97(L) 3.90 - 5.20 M/cumm [facility] MCV 100.3(H) 81.3 - 96.4 fL [facility] MCH 31.6 27.1 - 33.3 pg [facility] MCHC 31.5(L) 32.3 - 35.7 g/dL [facility] RDW CV 15.3(H) 11.1 - 14.9 % [facility] RDW SD 55.6(H) 35.7 - 48.1 fL [facility] NRBC abs 0.00 0.00 - 0.01 K/cumm [facility] Blood 06/01/2024 1:35 AM ARCADE ATTENDANT 06/01/2024 5:55 AM ARCADE ATTENDANT Sushma Romo NP LAB BLOOD ORDERABLES [place] cardenas Result [facility] [address] [facility] Department [place] [address] * (ABNORMAL) Basic metabolic panel (06/01/2024 1:35 AM ARCADE ATTENDANT) [facility] Sodium 144 135 - 145 mmol/L Potassium, pl 3.5 3.3 - 4.9 mmol/L [facility] Chloride 113(H) 97 - 110 mmol/L [facility] CO2 17(L) 22 - 32 mmol/L [facility] Anion gap 14 2 - 15 mmol/L [facility] BUN 37(H) 6 - 25 mg/dL [facility] Creatinine 2.10(H) 0.60 - 1.10 mg/dL [facility] Glucose 89 70 - 199 mg/dL [facility] Comment: Interpretive Data Fasting glucose >/= 126 mg/dl is diagnostic for diabetes. Fasting is defined as no caloric intake for at least 8 hours. Fasting glucose between 100 mg/dl to 125 mg/dl is diagnostic of prediabetes. In a patient with classic symptoms of hyperglycemia or hyperglycemic crisis, a random glucose >/= 200 mg/dl is diagnostic for diabetes. In the absence of unequivocal hyperglycemia, results should be confirmed by repeat testing. The classification and Diagnosis of Diabetes Diabetes Care 2021; 46: S19-S40. Current interpretive data was last revised 2022. Calcium 9.5 8.5 - 10.3 mg/dL [facility] Blood 06/01/2024 1:35 AM ARCADE ATTENDANT 06/01/2024 5:55 AM ARCADE ATTENDANT Sushma Romo PERFORMANCE REPORTER LAB BLOOD ORDERABLES [place] l Result Performing Organization Address [facility] Co de Phone Number [address] [place] [address] * (ABNORMAL) Leukocytes, fecal (05/31/2024 3:44 AM ARCADE ATTENDANT) WBC, fecal Few leukocyte s(A) No leukocytes Comment: Interpretive Data Testing performed by microsopy. Current Interpretive Data was last revised on 2022 Stool 05/31/2024 3:44 AM ARCADE ATTENDANT 05/31/2024 3:46 AM ARCADE ATTENDANT us Aaliyah Wen PERFORMANCE REPORTER LAB BODY FLUIDS AND STOOLS ORDERABLES Final Result [address] [place] [address] * Stool culture Stool Rectum (05/31/2024 3:44 AM ARCADE ATTENDANT) Direct Specimen Exam Shiga Toxin Testing: Negative for: Shigatoxin of enterohemorrhagic E.coli. Comment:Testing performed by : [facility], [facility], [place]., [address] Report Final Report: No Salmonella, Shigella, Aeromonas, Plesiomonas, Yersinia, Campylobacter, or E.coli O157:H7 isolated [facility] Comment:Testing performed by : [facility], [facility], [place]., [address] Stool (Rectum) 05/31/2024 3: 44 AM ARCADE ATTENDANT 05/31/2024 9:14 AM ARCADE ATTENDANT Narrative [facility] - 06/03/2024 2:00 PM ARCADE ATTENDANT This specimen is screened for the presence of Aeromonas, Campylobacter, E.coli-[id number], Plesiomonas, Salmonella, Shigella, Shiga Toxin producing E. coli, and Yersinia. Aaliyah Wen NP LAB MICROBIOLOGY - G ENERAL ORDERABLES Final Result [facility] [address] [facility] [place] [address] * CT Head WO Contrast (05/30/2024 2:38 PM ARCADE ATTENDANT) Anatomical Region Laterality Modality Head and Neck N/A Computed Tomogra phy 05/30/2024 2:48 PM ARCADE ATTENDANT Impressions 05/30/2024 2:48 PM ARCADE ATTENDANT No acute intracranial CT abnormality. Electronically signed by: Kelvin Mcduffie M.D. Narrative 05/30/2024 2:48 PM ARCADE ATTENDANT EXAMINATION: CT HEAD WO CONTRAST HISTORY: Mental status change, unknown cause FINDINGS: No acute intracranial hemorrhage. No evidence of mass effect or midline shift. Areas of subcortical and periventricular hypoattenuation is nonspecific, but likely sequela of chronic small vessel ischemic change. 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 Bilateral lens replacements. No acute fractures. Mastoid air cells and paranasal sinuses are unremarkable. Procedure Note Kelvin Mcduffie MD - 05/30/2024 EXAMINATION: CT HEAD WO CONTRAST HISTORY: Mental status change, unknown cause FINDINGS: No acute intracranial hemorrhage. No evidence of mass effect or midline shift. Areas of subcortical and periventricular hypoattenuation is nonspecific, but likely sequela of chronic small vessel ischemic change. 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 Bilateral lens replacements. No acute fractures. Mastoid air cells and paranasal sinuses are unremarkable. IMPRESSION: No acute intracranial CT abnormality. Electronically signed by: Kelvin Mcduffie M.D. Zachariah Man MD IMG CT PROCEDURES Final Result * (ABNORMAL) Urinalysis reflex to microscopic and culture Urine (05/30/2024 2:25 PM ARCADE ATTENDANT) Color, ur Yellow Yellow Clarity, ur Clear Clear [facility] Specific gravity, ur 1.014 1.003 - 1.030 [facility] pH, urine 6.0 [facility] Comment: Interpretive Data U rine pH is affected by diet, medications, systemic acid-base disturbances, and renal tubular function. pH may affect urinary stone formation. For example, urine pH below 6.0 may help reduce the tendency for calcium phosphate stones and pH greater than 6.0 may reduce the tendency for uric acid stone formation. Source: [facility] Current Interpretive Data was last revised on 2017 Protein, ur ql Trace Negative [facility] Glucose, ur ql Negative Negative [facility] Ketones, ur Negative Negative [facility] Bilirubin, ur Negative Negative [facility] Blood, ur Trace(A) Negative [facility] Urobilinogen, ur <2.0 <2.0 mg/dL [facility] Nitrite, ur Negative Negative [facility] Leukocyte esterase, ur 1+(A) Negative [facility] UA reflex comment Reflex to microscopic UA will be performed. [facility] Urine 05/30/2024 2:25 PM ARCADE ATTENDANT 05/30/2024 2:29 PM ARCADE ATTENDANT Zachariah Man MD LAB MICROBIOLOGY - GENE RAL ORDERABLES Final Result [facility] [address] [place] [address] * (ABNORMAL) Urinalysis, microscopic only (05/30/2024 2:25 PM ARCADE ATTENDANT) WBC, ur 0-5 0 - 5 /HPF RBC, ur 0-2 0 - 2 /HPF [facility] Epithelial cells, squamous, ur 1-5 0 - 5 /HPF [facility] Bacteria, ur Trace(A) [facility] Mucous, ur Present(A) [facility] Hyaline casts, ur 1-5 0 - 10 /LPF [facility] Culture Reflex Comment Reflex conditions for urine culture (WBC >10) not met. [facility] Urine 05/30/2024 2:25 PM ARCADE ATTENDANT 05/30/2024 2:29 PM ARCADE ATTENDANT Zachariah Man MD LAB URINE ORDERABLES Fi nal Result Performing Organization Address [facility]/ZIP Co de Phone Number [facility] [address] [facility] Department of Laboratories [place] [id number] * ECG 12 lead (05/30/2024 10:38 AM ARCADE ATTENDANT) 05/30/2024 10:3 8 AM ARCADE ATTENDANT Narrative [facility] - 05/30/2024 11:04 AM ARCADE ATTENDANT Vent Rate: 89 bpm RR Interval: 670 msec IA Interval: 186 msec QRS Duration: 97 msec QT Interval: 321 msec QTC Interval: 368 msec P-R-T [place]: 58 - 32 - 83 degrees IMPRESSION: SINUS RHYTHM NONSPECIFIC ST \T\ T-WAVE ABNORMALITY BORDERLINE ECG Electronically Signed By: Giovanny Butt, , [facility] Giovanny Regan MD ECG ORDERABLES Final Result Performing Organization Address City/[facility]/ZIP Co de Phone Number [facility] * Influenza A/B, RSV, and COVID-19 PCR Nasopharyngeal (05/30/2024 10:36 AM ARCADE ATTENDANT) Pathologist [facility] COVID-19 RNA Negative Negative Influenza A RNA Negative Negative [facility] Influenza B RNA Negative Negative [facility] RSV RNA Negative Negative [facility] Comment: Interpretive data: Testing performed by [facility]. This test is performed using the [employer] Xpert Xpress CoV-2/Flu/RSV plus assay. This is a multiplex, real-time reverse transcriptase PCR assay intended for the qualitative detection of nucleic acid from SARS-CoV-2, influenza A, influenza B, and respiratory syncytial virus. This assay has been cleared by the [place] Food and Drug administration. The performance characteristics have been verified by the [facility]. Results must be considered in the clinical context, and a negative result does not rule out infection. Interpretive Data last revised 2023 Nasopharyngeal 05/30/2024 10 :36 AM ARCADE ATTENDANT 05/30/2024 10:48 AM ARCADE ATTENDANT Narrative [facility] - 05/30/2024 12:38 PM ARCADE ATTENDANT Is the Patient experiencing symptoms consistent with COVID?->Yes Giovanny Regan MD LAB MICROBIOLOGY - GEN ERAL ORDERABLES Final Result [facility] [address] [facility] [place] [address] * (ABNORMAL) eGFR (05/30/2024 10:36 AM ARCADE ATTENDANT) eGFR 11(L) >=60 mL/min/1. 73 m2 Comment: Interpretive Data Reference Interval Normal >/= 90 mL/min/1.73m2 Mildly decreased* 60 - 89 mL/min/1.73m2 Mildly to moderately decreased 45 - 59 mL/min/1.73m2 Moderately to severely decreased 30 - 44 mL/min/1.73m2 Severely decreased 15 - 29 mL/min/1.73m2 Kidney Failure < 15 mL/min/1.73m2 *Relative to young adult level Estimated glomerular filtration rate is determined by the 2020 CKD-EPI equation recommended by the National Kidney Foundation (A Unifying Approach to GFR Estimation: Recommendations of the NKF-ASK Task Force on Reassessing the Inclusion of Race in Diagnosing Kidney Disease, JASN 202). The CKD-EPI equation should not be used for patients with unstable renal function and has not been validated in children and those over 70. Current interpretive data was last reviewed 2021. Blood 05/30/2024 10:3 6 AM ARCADE ATTENDANT 05/30/2024 10:42 AM ARCADE ATTENDANT us Giovanny Regan MD LAB BLOOD ORDERABLES F inal Result [facility] [address] [facility] [place] [address] * (ABNORMAL) Differential, auto (05/30/2024 10:36 AM ARCADE ATTENDANT) Neutrophil abs 6.6(H) 1.5 - 6.5 K/cumm Imm gran abs 0.0 0.0 - 0.1 K/cumm [facility] Lymphocyte abs 1.3 0.8 - 3.3 K/cumm [facility] Monocyte abs 0.7 0.2 - 0.8 K/cumm [facility] Eosinophil abs 0.2 0.0 - 0.5 K/cumm [facility] Basophil abs 0.0 0.0 - 0.1 K/cumm [facility] Neutrophil pct 74.7 % [facility] Comment: Interpretive Data Percent cell count reference ranges are not reported, since discordance with absolute values may lead to misinterpretation of CBC data. Current Interpretive Data was last revised on 2017. Imm gran pct 0.3 % [facility] Comment: Interpretive Data Percent cell count reference ranges are not reported, since discordance with absolute values may lead to misinterpretation of CBC data. Current Interpretive Data was last revised on 2017. Lymphocyte pct 14.4 % [facility] Comment: Interpretive Data Percent cell count reference ranges are not reported, since discordance with absolute values may lead to misinterpretation of CBC data. Current Interpretive Data was last revised on 2017. Monocyte pct 7.6 % [facility] Comment: Interpretive Data Percent cell count reference ranges are not reported, since discordance with absolute values may lead to misinterpretation of CBC data. Current Interpretive Data was last revised on 2017. Eosinophil pct 2.6 % [facility] Comment: Interpretive Data Percent cell count reference ranges are not reported, since discordance with absolute values may lead to misinterpretation of CBC data. Current Interpretive Data was last revised on 2017. Basophil pct 0.4 % [facility] Comment: Interpretive Data Percent cell count reference ranges are not reported, since discordance with absolute values may lead to misinterpretation of CBC data. Current Interpretive Data was last revised on 2017. Blood 05/30/2024 10:3 6 AM ARCADE ATTENDANT 05/30/2024 10:42 AM ARCADE ATTENDANT Giovanny Regan MD LAB BLOOD ORDERABLES F inal Result Performing Organization Address City/[facility]/ZIP Co de Phone Number [address] [place] [address] * Thyroid Function [place] (05/30/2024 10:36 AM ARCADE ATTENDANT) [facility] TSH 3.38 0.30 - 4.20 mcIUnit/mL Blood 05/30/2024 10:3 6 AM ARCADE ATTENDANT 05/30/2024 2:37 PM ARCADE ATTENDANT Rossana Christiansen MD LAB BLOOD ORDERABLES Final Result Performing Organization Address City/[facility]/ZIP Co de Phone Number [address] [place] [address] * (ABNORMAL) CBC with auto differential (05/30/2024 10:36 AM ARCADE ATTENDANT) [facility] WBC 8.9 3.8 - 9.9 K/cumm Hgb 9.8(L) 11.9 - 15.5 g/dL [facility] Hct 30.9(L) 35.6 - 45.5 % [facility] Plt 216 150 - 400 K/cumm [facility] MPV 10.1 9.1 - 12.3 fL [facility] RBC 3.10(L) 3.90 - 5.20 M/cumm [facility] MCV 99.7(H) 81.3 - 96.4 fL [facility] MCH 31.6 27.1 - 33.3 pg [facility] MCHC 31.7(L) 32.3 - 35.7 g/dL [facility] RDW CV 14.9 11.1 - 14.9 % [facility] RDW SD 54.0(H) 35.7 - 48.1 fL [facility] NRBC abs 0.00 0.00 - 0.01 K/cumm [facility] Blood 05/30/2024 10:3 6 AM ARCADE ATTENDANT 05/30/2024 10:42 AM ARCADE ATTENDANT Giovanny Regan MD LAB BLOOD ORDERABLES F inal Result Performing Organization Address [facility]/ZIP Co de Phone Number [address] Department [place] [address] * Magnesium (05/30/2024 10:36 AM ARCADE ATTENDANT) [facility] Magnesium 1.6 1.4 - 2.5 mg/dL Blood 05/30/2024 10:3 6 AM ARCADE ATTENDANT 05/30/2024 2:37 PM ARCADE ATTENDANT Rossana Christiansen MD LAB BLOOD ORDERABLES Final Result Performing Organization Address [facility] de Phone Number [address] [place] [address] * (ABNORMAL) Comprehensive metabolic panel (05/30/2024 10:36 AM ARCADE ATTENDANT) [facility] Sodium 144 135 - 145 mmol/L Potassium, pl 3.7 3.3 - 4.9 mmol/L [facility] Chloride 111(H) 97 - 110 mmol/L [facility] CO2 18(L) 22 - 32 mmol/L [facility] Anion gap 15 2 - 15 mmol/L [facility] BUN 54(H) 6 - 25 mg/dL [facility] Creatinine 3.81(H) 0.60 - 1.10 mg/dL [facility] Glucose 117 70 - 199 mg/dL [facility] Comment: Interpretive Data Fasting glucose >/= 126 mg/dl is diagnostic for diabetes. Fasting is defined as no caloric intake for at least 8 hours. Fasting glucose between 100 mg/dl to 125 mg/dl is diagnostic of prediabetes. In a patient with classic symptoms of hyperglycemia or hyperglycemic crisis, a random glucose >/= 200 mg/dl is diagnostic for diabetes. In the absence of unequivocal hyperglycemia, results should be confirmed by repeat testing. The classification and Diagnosis of Diabetes Diabetes Care 202; 46: S19-S40. Current interpretive data was last revised 2022. Calcium 10.0 8.5 - 10.3 mg/dL [facility] Bilirubin, total 0.4 0.1 - 1.2 mg/dL [facility] Protein, pl 6.9 6.5 - 8.5 g/dL [facility] Albumin 4.1 3.5 - 5.0 g/dL [facility] Alk phos 92 40 - 130 Units/L [facility] ALT 14 7 - 45 Units/L [facility] AST 35 10 - 45 Units/L [facility] Blood 05/30/2024 10:3 6 AM ARCADE ATTENDANT 05/30/2024 10:42 AM ARCADE ATTENDANT Giovanny Regan MD LAB BLOOD ORDERABLES F inal Result [facility] [address] [facility] Department of Laboratories [place] [address] from Last 3 Months Insurance MEDICARE [facility] TRADITIONAL MEDICARE [facility] MEDICARE ANTH MEDICARE SUPPLEMENT Advance Directives For more information, please contact: [phone] Documents on File Type Date Recorded Patient Clipper Automatic Expl anation ADVANCE DIRECTIVE 06/05/2018 11:45 AM POWER OF LITHODUPLICATOR OPERATOR ADVANCE DIRECTIVE 06/05/2018 11:42 AM POWER OF LITHODUPLICATOR OPERATOR ADVANCE DIRECTIVE 06/02/2018 12:56 AM POWER OF LITHODUPLICATOR OPERATOR * Full Code (Latest Code Status on File) Date Activated Date Inactivated Comments 06/19/2024 1:33 PM 06/24/2024 10:47 PM * Full Code Date Activated Date Inactivated Comments 05/30/2024 5:04 PM 06/05/2024 6:48 PM * LIMITED - No CPR Date Activated Date Inactivated Comments 04/11/2019 12:12 AM 04/15/2019 2:25 PM Question Answer Comments Provide aggressive medical m anagement before a full cardiopulmonary arrest occurs. Use antibiotics, IV Fluids, and medical treatment unless specifically selected below: No intubation * Full Code Date Activated Date Inactivated Comments 06/01/2018 5:27 PM 06/04/2018 7:16 PM Healthcare Agents on File Name Relationship Healthcare Agent [facility] Communication Doris Tamayo Daughter First Alternate Health Care Agent Care Teams Body Service Team Member Relationship Specialty Start Date End Date Piter Parry MD [address] [place] [address] [facility] - General 04/10/19
--- OUTSIDE RECORDS SUMMARY | 2024-07-09 16:35 | XMS_ITS | Clinical Summary ---
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 Active allopurinoL (ZYLOPRIM) 300 mg [...] for 2 doses 2 capsule 5 06/27/19 Active Problems Problem Noted Date Diagnosed Date [...] (04/11/2019): Added automatically from request for surgery [id number] Essential hypertension 08/24/2018 Overview (08/24/2018): Hypertension Hemiparesis 08/24/2018 Vision disturbance, 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/2018 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 Overview (08/05/2016): POSTTRAUM WND INFEC NEC Adverse effect of anticoagulant Encounters Date Type Department Care Team Description 06/19/2024 10:31 AM [facility] - 06/24/2024 6:47 PM [facility] Hospital Encounter [address] [address] Giovanny Regan MD Hartweger, John E., MD Kumaralingam, Pradeep, MD Acute kidney injury superimposed on chronic kidney disease (Primary Dx) Discharge Disposition: Discharge to home or self care 06/18/2024 2:55 PM [facility] - 06/18/2024 11:59 PM [facility] Hospital Encounter [facility] [address] [place] [address] Discharge Disposition: Discharge to home or self care 05/30/2024 10:35 AM [facility] - 06/05/2024 2:48 PM [facility] [facility] Hospital Encounter [facility] [address] [place] [address] Rossana Christiansen MD Hartweger, John E., MD Johnson, MD Yudith Younger Pradeep, MD KEKE (acute kidney injury) (Primary Dx); Altered mental status, unspecified altered mental status type Discharge Disposition: Discharge to home or self care from Last 3 Months Immunizations Immunization Administration Dates Next Due Influenza, Trivalent, High D ose, Split, Preservative Free, Intramuscular 04/15/2019 Surgical History Surgery Date Site/Laterality Comments TUBAL LIGATION Bilateral tubal ligation OTHER SURGICAL HISTORY D&C HIP ARTHROPLASTY 05/01/2009 - 04/30/2010 Right Medical History Medical History Date Comments Hypertension Hypertension Gastroesophageal reflux disease GERD Asthma as child Cancer ([facility]) skin cancer on f shade, s/p excision Arthritis Stroke ([facility]) DVT (deep venous thrombosis) (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 Family History Medical History Relation Name Comments Heart attack Brother Heart disease Brother Cancer Father Heart disease Mother No Known Problems Sister Relation Name Status Comments Brother Father Mother Sister Alive Social History Tobacco Use Types Packs/Day Years Used Date Smoking Tobacco: Former Cigarettes 1 50 0 05/01/1964 - 05/01/2014 Smokeless Tobacco: Never Tobacco Cessation:Counseling Given: No Alcohol Use Standard Drinks/Week Comments Yes 2 (1 standard drink = 0.6 oz pur e alcohol) 1-2 drinks, about 3 x/week [facility] Utilities Answer Date Recorded In the past 12 months has th e electric, gas, oil, or water company threatened to shut off services in your home? No 06/20/2024 Social Connection and Isolation Panel [NHANES] A nswer Date Recorded In a typical week, how many times do you talk on the phone with family, friends, or neighbors? Twice a week 06/20/2024 How often do you get together with friends or re latives? Never 06/20/2024 How often do you attend scientologist or yarsani serv ices? Never 06/20/2024 Do you belong to any clubs o r organizations such as scientologist groups, unions, fraternal or athletic groups, or [...] any time in the past 12 m [facility], were you homeless or living in a correction (including now)? No 06/20/2024 Personal Safety Answer Date Recorded Have you ever been in or are you currently in a harmful physical or emotional relationship or is someone making you feel afraid or unsafe? Denies 06/19/2024 Comments No Sex and Gender Information Value Date Recorded Sex Assigned at Not on file Legal Sex Female 1:28 AM [employer] [employer] [facility] Gender Identity Not on file Sexual Orientation Not on file Obstetrics History Last Filed Vital Signs Vital Sign Reading Time Taken Comments Blood Pressure 147/53 06/24/2024 5:15 AM [facility] Pulse 66 06/24/2024 5:15 AM [facility] Temperature 37.1 C (98.8 F) 06/23/2024 8:20 PM [facility] Respiratory Rate 18 06/23/2024 8:20 PM [facility] Oxygen Saturation 98% 06/24/2024 5:15 AM [facility] Inhaled Oxygen Concentration - - Weight 100 kg (220 lb 7.4 oz) 06/20/2024 8:00 AM [facility] Height 168 cm (5' 6.14 ) 06/20/2024 8:00 AM [facility] Body Mass Index 35.43 06/20/2024 8:00 AM [facility] Plan of Treatment Health Maintenance Due Date Last Done Comments Osteoporosis Screening-Bone Density Scan 1942 DTaP/Tdap/Td Vaccine (1 - Tdap) 1953 Hepatitis B Screening 02/07/1960 Zoster Vaccine (1 of 2) 02/07/1992 Well Visit 65+ 2007 Pneumococcal vaccine 65+ (2 of 2 - PCV) 02/09/2013 02/10/2012 Depression Screening 06/01/2019 06/01/2018, 06/01/19 19 Influenza Vaccine (#1) 2023 9, 02/20/2018, 02/19/2014, Additional history exists Fall Risk Assessment 06/24/2025 06/24/2024 Medical Devices Implanted Type Area [employer] Instructor Device Identifier Shelf Expiration Date Model / Serial / Lot Lens Lens Bilateral: Eye Procedures Procedure Name Priority Date/Time Associated Diagnosis Comments EGFR Routine 06/24/2024 1:43 AM [facility] DIFFERENTIAL AUTO Routine 06/24/2024 1:4 3 AM [facility] MAGNESIUM Routine 06/24/2024 1:43 AM [facility] COMPREHENSIVE METABOLIC PANEL Routine 06/24/2024 1:43 AM [facility] CBC WITH AUTO DIFFERENTIAL Routine 06/24/2024 1:43 AM [employer] [facility] EGFR Routine 06/23/2024 2:25 AM [employer] DIFFERENTIAL AUTO Routine 06/23/2024 2:2 5 AM [employer] [facility] MAGNESIUM Routine 06/23/2024 2:25 AM [employer] [facility] COMPREHENSIVE METABOLIC PANEL Routine 06/23/2024 2:25 AM [employer] [facility] CBC WITH AUTO DIFFERENTIAL Routine 06/23/2024 2:25 AM [employer] [facility] EGFR Routine 06/22/2024 5:31 AM [employer] [employer] [facility] DIFFERENTIAL AUTO Routine 06/22/2024 5:3 1 AM [employer] COMPREHENSIVE METABOLIC PANEL Routine 06/22/2024 5:31 AM [employer] [facility] CBC WITH AUTO DIFFERENTIAL Routine 06/22/2024 5:31 AM [facility] MAGNESIUM Add-On 06/21/2024 4:46 AM [employer] [facility] EGFR Routine 06/21/2024 4:46 AM [employer] [facility] DIFFERENTIAL AUTO Routine 06/21/2024 4:4 6 AM [facility] COMPREHENSIVE METABOLIC PANEL Routine 06/21/2024 4:46 AM [employer] [facility] CBC WITH AUTO DIFFERENTIAL Routine 06/21/2024 4:46 AM [employer] [facility] US KIDNEY COMPLETE IP Routine 06/20/2024 8: 24 AM [facility] EGFR Routine 06/20/2024 2:08 AM [facility] [facility] DIFFERENTIAL AUTO Routine 06/20/2024 2:0 8 AM [facility] COMPREHENSIVE METABOLIC PANEL Routine 06/20/2024 2:08 AM [facility] CBC WITH AUTO DIFFERENTIAL Routine 06/20/2024 2:08 AM [facility] URINALYSIS, MICROSCOPIC ONLY STAT 06/19/2024 10:26 PM [facility] SODIUM, URINE, RANDOM STAT 06/19/2024 10:26 PM [facility] CREATININE, URINE, RANDOM STAT 06/19/2024 10:26 PM [facility] URINE CULTURE STAT 06/19/2024 10:26 PM [facility] URINALYSIS AND REFLEX TO MICROSCOPIC AND CULTURE STAT 06/19/2024 10:26 PM [facility] [facility] EGFR STAT 06/19/2024 12:39 PM [facility] COMPREHENSIVE METABOLIC PANEL STAT 06/19/2024 12:39 PM [facility] DIFFERENTIAL AUTO STAT 06/19/2024 10: 46 AM [facility] CBC WITH AUTO DIFFERENTIAL STAT 06/19/2024 10:46 AM [facility] ECG 12-LEAD STAT 06/19/2024 10:38 AM [facility] EGFR Routine 06/18/2024 9:00 AM [employer] [facility] DIFFERENTIAL AUTO Routine 06/18/2024 9:0 0 AM [facility] CBC WITH AUTO DIFFERENTIAL Routine 06/18/2024 9:00 AM [facility] GLUCOSE, RANDOM (OUTREACH) Routine 06/18/2024 9:00 AM [facility] COMPREHENSIVE METABOLIC PANEL WITHOUT GLUCOSE (OUTREACH) Routine 06/18/2024 9:00 AM [facility] EGFR Routine 06/05/2024 3:03 AM [facility] DIFFERENTIAL AUTO Routine 06/05/2024 3:0 3 AM [facility] CBC WITH AUTO DIFFERENTIAL Routine 06/05/2024 3:03 AM [facility] BASIC METABOLIC PANEL Routine 06/05/2024 3:03 AM [facility] EGFR Routine 06/04/2024 3:13 AM [facility] DIFFERENTIAL AUTO Routine 06/04/2024 3:1 3 AM [facility] CBC WITH AUTO DIFFERENTIAL Routine 06/04/2024 3:13 AM [facility] BASIC METABOLIC PANEL Routine 06/04/2024 3:13 AM [facility] EGFR Routine 06/03/2024 4:56 PM [facility] BASIC METABOLIC PANEL Routine 06/03/2024 4:56 PM [facility] MAGNESIUM Add-On 06/03/2024 2:32 AM [facility] EGFR STAT 06/03/2024 2:32 AM [facility] BASIC METABOLIC PANEL STAT 06/03/2024 2:32 AM [facility] DIFFERENTIAL AUTO Routine 06/03/2024 1:5 0 AM [facility] CBC WITH AUTO DIFFERENTIAL Routine 06/03/2024 1:50 AM [facility] EGFR Routine 06/02/2024 3:08 AM [employer] DIFFERENTIAL AUTO Routine 06/02/2024 3:0 8 AM [facility] CBC WITH AUTO DIFFERENTIAL Routine 06/02/2024 3:08 AM [facility] BASIC METABOLIC PANEL Routine 06/02/2024 3:08 AM [facility] EGFR Routine 06/01/2024 1:35 AM [facility] DIFFERENTIAL AUTO Routine 06/01/2024 1:3 5 AM [facility] CBC WITH AUTO DIFFERENTIAL Routine 06/01/2024 1:35 AM [facility] BASIC METABOLIC PANEL Routine 06/01/2024 1:35 AM [facility] LEUKOCYTES, FECAL Routine 05/31/2024 3:4 4 AM [facility] STOOL CULTURE Routine 05/31/2024 3:[address] HEAD WO CONTRAST ED 05/30/2024 2 :38 PM [facility] URINALYSIS, MICROSCOPIC ONLY STAT 05/30/2024 2:25 PM [facility] URINALYSIS AND REFLEX TO MICROSCOPIC AND CULTURE STAT 05/30/2024 2:25 PM [facility] ECG 12-LEAD STAT 05/30/2024 10:38 AM [facility] MAGNESIUM Add-On 05/30/2024 10:36 AM [facility] THYROID FUNCTION CASCADE Add-On 05/30/2024 10:36 AM [facility] EGFR STAT 05/30/2024 10:36 AM [facility] DIFFERENTIAL AUTO STAT 05/30/2024 10: 36 AM [facility] COMPREHENSIVE METABOLIC PANEL STAT 05/30/2024 10:36 AM [facility] CBC WITH AUTO DIFFERENTIAL STAT 05/30/2024 10:36 AM [facility] INFLUENZA A/B, RSV, AND COVID-19 PCR Routine 05/30/2024 10:36 AM [facility] from Last 3 Months Results * (ABNORMAL) eGFR (06/24/2024 1:43 AM [facility]) eGFR 31(L) >=60 mL/min/1. 73 m2 Comment: [...] last reviewed 2021. Blood 06/24/2024 1:43 AM [facility] 06/24/2024 1:56 AM [employer] [facility] Giovanny Regan MD LAB BLOOD ORDERABLES F inal Result [facility] [address] [facility] Department [place] [address] * Differential, auto (06/24/2024 1:43 AM [employer]) Neutrophil abs 4.9 1.5 - 6.5 K/cumm Imm gran abs 0.1 0.0 - 0.1 K/cumm [facility] Lymphocyte abs 1.3 0.8 - 3.3 K/cumm [facility] Monocyte abs 0.6 0.2 - 0.8 K/cumm [facility] Eosinophil abs 0.3 0.0 - 0.5 K/cumm [facility] Basophil abs 0.0 0.0 - 0.1 K/cumm [facility] Neutrophil pct 67.9 % [facility] Comment: Interpretive Data Percent cell count reference ranges are not reported, since discordance with absolute values may lead to misinterpretation of CBC data. Current Interpretive Data was last revised on 2017. Imm gran pct 0.8 % [facility] Comment: Interpretive Data Percent cell count reference ranges are not reported, since discordance with absolute values may lead to misinterpretation of CBC data. Current Interpretive Data was last revised on 2017. Lymphocyte pct 18.3 % [facility] Comment: Interpretive Data Percent cell count reference ranges are not reported, since discordance with absolute values may lead to misinterpretation of CBC data. Current Interpretive Data was last revised on 2017. Monocyte pct 8.2 % [facility] Comment: Interpretive Data Percent cell count reference ranges are not reported, since discordance with absolute values may lead to misinterpretation of CBC data. Current Interpretive Data was last revised on 2017. Eosinophil pct 4.4 % [facility] Comment: Interpretive Data Percent cell count reference ranges are not reported, since discordance with absolute values may lead to misinterpretation of CBC data. Current Interpretive Data was last revised on 2017. Basophil pct 0.4 % [facility] Comment: Interpretive Data Percent cell count reference ranges are not reported, since discordance with absolute values may lead to misinterpretation of CBC data. Current Interpretive Data was last revised on 2017. Blood 06/24/2024 1:43 AM [facility] 06/24/2024 1:56 AM [employer] us Giovanny Regan MD LAB BLOOD ORDERABLES F inal Result [facility] [address] [facility] Department [place] [address] * (ABNORMAL) CBC with auto differential (06/24/2024 1:43 AM [facility] [facility]) WBC 7.2 3.8 - 9.9 K/cumm Hgb 8.7(L) 11.9 - 15.5 g/dL [facility] Hct 28.3(L) 35.6 - 45.5 % [facility] Plt 187 150 - 400 K/cumm [facility] MPV 10.1 9.1 - 12.3 fL [facility] RBC 2.82(L) 3.90 - 5.20 M/cumm [facility] MCV 100.4(H) 81.3 - 96.4 fL [facility] MCH 30.9 27.1 - 33.3 pg [facility] MCHC 30.7(L) 32.3 - 35.7 g/dL [facility] RDW CV 16.2(H) 11.1 - 14.9 % [facility] RDW SD 59.5(H) 35.7 - 48.1 fL [facility] NRBC abs 0.00 0.00 - 0.01 K/cumm [facility] Blood 06/24/2024 1:43 AM [facility] 06/24/2024 1:56 AM [employer] [facility] Giovanny Regan MD LAB BLOOD ORDERABLES F inal Result Performing Organization Address [facility] de Phone Number [address] [place], [place] [id number] * Magnesium (06/24/2024 1:43 AM [facility]) [facility] Magnesium 1.5 1.4 - 2.5 mg/dL Blood 06/24/2024 1:43 AM [facility] 06/24/2024 1:56 AM [employer] [facility] Rosetta La MD LAB BLOOD ORDERABLES Final Resul t Performing Organization Address [facility] de Phone Number [address] [place] [address] * (ABNORMAL) Comprehensive metabolic panel (06/24/2024 1:43 AM [facility] [facility]) [facility] Sodium 141 135 - 145 mmol/L Potassium, pl 3.4 3.3 - 4.9 mmol/L [facility] Chloride 107 97 - 110 mmol/L [facility] CO2 23 22 - 32 mmol/L [facility] Anion gap 11 2 - 15 mmol/L [facility] BUN 24 6 - 25 mg/dL [facility] Creatinine 1.63(H) 0.60 - 1.10 mg/dL [facility] Glucose 100 70 - 199 mg/dL [facility] Comment: Interpretive Data Fasting glucose >/= [...] 2022. Calcium 9.3 8.5 - 10.3 mg/dL [facility] Bilirubin, total 0.2 0.1 - 1.2 mg/dL [facility] Protein, pl 5.9(L) 6.5 - 8.5 g/dL [facility] Albumin 3.4(L) 3.5 - 5.0 g/dL [facility] Alk phos 76 40 - 130 Units/L [facility] ALT 19 7 - 45 Units/L [facility] AST 27 10 - 45 Units/L [facility] Blood 06/24/2024 1:43 AM [facility] [facility] 06/24/2024 1:56 AM [employer] Giovanny Regan MD LAB BLOOD ORDERABLES F inal Result [address] Department [place] [address] * (ABNORMAL) eGFR (06/23/2024 2:25 AM [facility] [facility]) eGFR 32(L) >=60 mL/min/1. 73 m2 Comment: [...] last reviewed 2021. Blood 06/23/2024 2:25 AM [facility] [facility] 06/23/2024 2:55 AM [employer] us Giovanny Regan MD LAB BLOOD ORDERABLES F inal Result [address] Department [place] [address] * Differential, auto (06/23/2024 2:25 AM [employer] [employer]) Pathologist [facility] Neutrophil abs 4.6 1.5 - 6.5 K/cumm Imm gran abs 0.1 0.0 - 0.1 K/cumm [facility] Lymphocyte abs 1.4 0.8 - 3.3 K/cumm [facility] Monocyte abs 0.6 0.2 - 0.8 K/cumm [facility] Eosinophil abs 0.3 0.0 - 0.5 K/cumm [facility] Basophil abs 0.0 0.0 - 0.1 K/cumm [facility] Neutrophil pct 65.0 % [facility] Comment: Interpretive Data Percent cell count reference ranges are not reported, since discordance with absolute values may lead to misinterpretation of CBC data. Current Interpretive Data was last revised on 2017. Imm gran pct 1.0 % [facility] Comment: Interpretive Data Percent cell count reference ranges are not reported, since discordance with absolute values may lead to misinterpretation of CBC data. Current Interpretive Data was last revised on 2017. Lymphocyte pct 19.7 % [facility] Comment: Interpretive Data Percent cell count reference ranges are not reported, since discordance with absolute values may lead to misinterpretation of CBC data. Current Interpretive Data was last revised on 2017. Monocyte pct 8.9 % [facility] Comment: Interpretive Data Percent cell count reference ranges are not reported, since discordance with absolute values may lead to misinterpretation of CBC data. Current Interpretive Data was last revised on 2017. Eosinophil pct 4.8 % [facility] Comment: Interpretive Data Percent cell count reference ranges are not reported, since discordance with absolute values may lead to misinterpretation of CBC data. Current Interpretive Data was last revised on 2017. Basophil pct 0.6 % [facility] Comment: Interpretive Data Percent cell count reference ranges are not reported, since discordance with absolute values may lead to misinterpretation of CBC data. Current Interpretive Data was last revised on 2017. Blood 06/23/2024 2:25 AM [employer] [facility] 06/23/2024 2:55 AM [employer] us Giovanny Regan MD LAB BLOOD ORDERABLES F inal Result [facility] [address] [facility] Department [place] [address] * (ABNORMAL) CBC with auto differential (06/23/2024 2:25 AM [facility] [facility]) WBC 7.1 3.8 - 9.9 K/cumm Hgb 8.1(L) 11.9 - 15.5 g/dL [facility] Hct 26.4(L) 35.6 - 45.5 % [facility] Plt 189 150 - 400 K/cumm [facility] MPV 10.5 9.1 - 12.3 fL [facility] RBC 2.62(L) 3.90 - 5.20 M/cumm [facility] MCV 100.8(H) 81.3 - 96.4 fL [facility] MCH 30.9 27.1 - 33.3 pg [facility] MCHC 30.7(L) 32.3 - 35.7 g/dL [facility] RDW CV 16.6(H) 11.1 - 14.9 % [facility] RDW SD 59.9(H) 35.7 - 48.1 fL [facility] NRBC abs 0.00 0.00 - 0.01 K/cumm [facility] Blood 06/23/2024 2:25 AM [employer] [facility] 06/23/2024 2:55 AM [employer] [facility] Giovanny Regan MD LAB BLOOD ORDERABLES F inal Result Performing Organization Address [facility] Co de Phone Number [address] of Laboratories [place], [place] [id number] * (ABNORMAL) Magnesium (06/23/2024 2:25 AM [facility]) [facility] Magnesium 1.3(L) 1.4 - 2.5 mg/dL Blood 06/23/2024 2:25 AM [facility] [facility] 06/23/2024 2:55 AM [employer] [facility] Rosetta La MD LAB BLOOD ORDERABLES Final Resul t Performing Organization Address [facility] de Phone Number [address] [place] [address] * (ABNORMAL) Comprehensive metabolic panel (06/23/2024 2:25 AM [facility]) [facility] Sodium 141 135 - 145 mmol/L Potassium, pl 3.3 3.3 - 4.9 mmol/L [facility] Chloride 110 97 - 110 mmol/L [facility] CO2 22 22 - 32 mmol/L [facility] Anion gap 9 2 - 15 mmol/L [facility] BUN 27(H) 6 - 25 mg/dL [facility] Creatinine 1.61(H) 0.60 - 1.10 mg/dL [facility] Glucose 104 70 - 199 mg/dL [facility] Comment: Interpretive Data Fasting glucose >/= [...] Calcium 8.9 8.5 - 10.3 mg/dL [facility] Bilirubin, total 0.2 0.1 - 1.2 mg/dL [facility] Protein, pl 5.0(L) 6.5 - 8.5 g/dL [facility] Albumin 3.0(L) 3.5 - 5.0 g/dL [facility] Alk phos 62 40 - 130 Units/L [facility] ALT 15 7 - 45 Units/L [facility] AST 25 10 - 45 Units/L [facility] Blood 06/23/2024 2:25 AM [employer] [facility] 06/23/2024 2:55 AM [employer] us Giovanny Regan MD LAB BLOOD ORDERABLES F inal Result [facility] [address] [facility] Department [place] [address] * (ABNORMAL) eGFR (06/22/2024 5:31 AM [employer] [facility]) eGFR 31(L) >=60 mL/min/1. 73 m2 Comment: [...] last reviewed 2021. Blood 06/22/2024 5:31 AM [employer] [facility] 06/22/2024 5:34 AM [employer] us Giovanny Regan MD LAB BLOOD ORDERABLES F inal Result [address] Department [place] [address] * Differential, auto (06/22/2024 5:31 AM [facility] [facility]) Neutrophil abs 4.4 1.5 - 6.5 K/cumm Imm gran abs 0.1 0.0 - 0.1 K/cumm [facility] Lymphocyte abs 1.9 0.8 - 3.3 K/cumm [facility] Monocyte abs 0.7 0.2 - 0.8 K/cumm [facility] Eosinophil abs 0.4 0.0 - 0.5 K/cumm [facility] Basophil abs 0.0 0.0 - 0.1 K/cumm [facility] Neutrophil pct 59.0 % [facility] Comment: Interpretive Data Percent cell count reference ranges are not reported, since discordance with absolute values may lead to misinterpretation of CBC data. Current Interpretive Data was last revised on 2017. Imm gran pct 0.7 % [facility] Comment: Interpretive Data Percent cell count reference ranges are not reported, since discordance with absolute values may lead to misinterpretation of CBC data. Current Interpretive Data was last revised on 2017. Lymphocyte pct 25.6 % [facility] Comment: Interpretive Data Percent cell count reference ranges are not reported, since discordance with absolute values may lead to misinterpretation of CBC data. Current Interpretive Data was last revised on 2017. Monocyte pct 9.1 % [facility] Comment: Interpretive Data Percent cell count reference ranges are not reported, since discordance with absolute values may lead to misinterpretation of CBC data. Current Interpretive Data was last revised on 2017. Eosinophil pct 5.1 % [facility] Comment: Interpretive Data Percent cell count reference ranges are not reported, since discordance with absolute values may lead to misinterpretation of CBC data. Current Interpretive Data was last revised on 2017. Basophil pct 0.5 % [facility] Comment: Interpretive Data Percent cell count reference ranges are not reported, since discordance with absolute values may lead to misinterpretation of CBC data. Current Interpretive Data was last revised on 2017. Blood 06/22/2024 5:31 AM [employer] 06/22/2024 5:34 AM [employer] Giovanny Regan MD LAB BLOOD ORDERABLES F inal Result [facility] [address] [facility] Department [place] [address] * (ABNORMAL) CBC with auto differential (06/22/2024 5:31 AM [employer] [employer]) WBC 7.5 3.8 - 9.9 K/cumm Hgb 9.2(L) 11.9 - 15.5 g/dL [facility] Hct 29.8(L) 35.6 - 45.5 % [facility] Plt 208 150 - 400 K/cumm [facility] MPV 10.4 9.1 - 12.3 fL [facility] RBC 2.95(L) 3.90 - 5.20 M/cumm [facility] MCV 101.0(H) 81.3 - 96.4 fL [facility] MCH 31.2 27.1 - 33.3 pg [facility] MCHC 30.9(L) 32.3 - 35.7 g/dL [facility] RDW CV 16.5(H) 11.1 - 14.9 % [facility] RDW SD 60.3(H) 35.7 - 48.1 fL [facility] NRBC abs 0.00 0.00 - 0.01 K/cumm [facility] Blood 06/22/2024 5:31 AM [employer] 06/22/2024 5:34 AM [employer] Giovanny Regan MD LAB BLOOD ORDERABLES F inal Result [facility] [address] [facility] Department [place] [address] * (ABNORMAL) Comprehensive metabolic panel (06/22/2024 5:31 AM [employer] [employer]) Sodium 143 135 - 145 mmol/L Potassium, pl 3.7 3.3 - 4.9 mmol/L [facility] Chloride 111(H) 97 - 110 mmol/L [facility] CO2 22 22 - 32 mmol/L [facility] Anion gap 10 2 - 15 mmol/L [facility] BUN 33(H) 6 - 25 mg/dL [facility] Creatinine 1.63(H) 0.60 - 1.10 mg/dL [facility] Glucose 106 70 - 199 mg/dL [facility] Comment: Interpretive Data Fasting glucose >/= [...] Bilirubin, total 0.2 0.1 - 1.2 mg/dL [facility] Protein, pl 5.7(L) 6.5 - 8.5 g/dL [facility] Albumin 3.3(L) 3.5 - 5.0 g/dL [facility] Alk phos 67 40 - 130 Units/L [facility] ALT 22 7 - 45 Units/L [facility] AST 28 10 - 45 Units/L [facility] Blood 06/22/2024 5:31 AM [employer] 06/22/2024 5:34 AM [employer] Giovanny Regan MD LAB BLOOD ORDERABLES F inal Result Performing Organization Address City/[facility]/ZIP Co de Phone Number [address] [place] [address] * (ABNORMAL) eGFR (06/21/2024 4:46 AM [employer] [employer]) eGFR 21(L) >=60 mL/min/1. 73 m2 Comment: [...] last reviewed 2021. Blood 06/21/2024 4:46 AM [employer] 06/21/2024 4:51 AM [employer] Giovanny Regan MD LAB BLOOD ORDERABLES F inal Result Performing Organization Address City/[facility]/ZIP Co de Phone Number [address] Department [place] [address] * Differential, auto (06/21/2024 4:46 AM [employer] [employer]) Neutrophil abs 4.1 1.5 - 6.5 K/cumm Imm gran abs 0.0 0.0 - 0.1 K/cumm [facility] Lymphocyte abs 1.6 0.8 - 3.3 K/cumm [facility] Monocyte abs 0.6 0.2 - 0.8 K/cumm [facility] Eosinophil abs 0.4 0.0 - 0.5 K/cumm [facility] Basophil abs 0.0 0.0 - 0.1 K/cumm [facility] Neutrophil pct 61.1 % [facility] Comment: Interpretive Data Percent cell count reference ranges are not reported, since discordance with absolute values may lead to misinterpretation of CBC data. Current Interpretive Data was last revised on 2017. Imm gran pct 0.4 % [facility] Comment: Interpretive Data Percent cell count reference ranges are not reported, since discordance with absolute values may lead to misinterpretation of CBC data. Current Interpretive Data was last revised on 2017. Lymphocyte pct 22.9 % [facility] Comment: Interpretive Data Percent cell count reference ranges are not reported, since discordance with absolute values may lead to misinterpretation of CBC data. Current Interpretive Data was last revised on 2017. Monocyte pct 9.1 % [facility] Comment: Interpretive Data Percent cell count reference ranges are not reported, since discordance with absolute values may lead to misinterpretation of CBC data. Current Interpretive Data was last revised on 2017. Eosinophil pct 6.2 % [facility] Comment: Interpretive Data Percent cell count reference ranges are not reported, since discordance with absolute values may lead to misinterpretation of CBC data. Current Interpretive Data was last revised on 2017. Basophil pct 0.3 % [facility] Comment: Interpretive Data Percent cell count reference ranges are not reported, since discordance with absolute values may lead to misinterpretation of CBC data. Current Interpretive Data was last revised on 2017. Blood 06/21/2024 4:46 AM [employer] 06/21/2024 4:51 AM [employer] Giovanny Regan MD LAB BLOOD ORDERABLES F inal Result [address] Department [place] [address] * (ABNORMAL) CBC with auto differential (06/21/2024 4:46 AM [employer]) Pathologist [facility] WBC 6.8 3.8 - 9.9 K/cumm Hgb 8.5(L) 11.9 - 15.5 g/dL [facility] Hct 27.0(L) 35.6 - 45.5 % [facility] Plt 186 150 - 400 K/cumm [facility] MPV 9.5 9.1 - 12.3 fL [facility] RBC 2.69(L) 3.90 - 5.20 M/cumm [facility] MCV 100.4(H) 81.3 - 96.4 fL [facility] MCH 31.6 27.1 - 33.3 pg [facility] MCHC 31.5(L) 32.3 - 35.7 g/dL [facility] RDW CV 16.3(H) 11.1 - 14.9 % [facility] RDW SD 59.1(H) 35.7 - 48.1 fL [facility] NRBC abs 0.00 0.00 - 0.01 K/cumm [facility] Blood 06/21/2024 4:46 AM [employer] 06/21/2024 4:51 AM [employer] Giovanny Regan MD LAB BLOOD ORDERABLES F inal Result Performing Organization Address [facility]/ZIP Co de Phone Number [address] Department [place] [address] * (ABNORMAL) Magnesium (06/21/2024 4:46 AM [employer]) Pathologist [facility] Magnesium 1.3(L) 1.4 - 2.5 mg/dL Blood 06/21/2024 4:46 AM [employer] 06/21/2024 6:26 AM [employer] us Derrek Paz EDUCATION RESEARCH ANALYST LAB BLOOD ORDERABLES Fin al Result [facility] [address] [facility] Department [place] [address] * (ABNORMAL) Comprehensive metabolic panel (06/21/2024 4:46 AM [employer]) Sodium 144 135 - 145 mmol/L Potassium, pl 2.9(C) 3.3 - 4.9 mmol/L [facility] Comment:Critical Result call ed by [id number] at 2024-06-21 05:12:17. Result Read Back by annalise cheng rn med Chloride 113(H) 97 - 110 mmol/L [facility] CO2 20(L) 22 - 32 mmol/L [facility] Anion gap 11 2 - 15 mmol/L [facility] BUN 48(H) 6 - 25 mg/dL [facility] Creatinine 2.30(H) 0.60 - 1.10 mg/dL [facility] Glucose 116 70 - 199 mg/dL [facility] Comment: Interpretive Data Fasting glucose >/= [...] - 1.2 mg/dL [facility] Protein, pl 5.2(L) 6.5 - 8.5 g/dL [facility] Albumin 3.2(L) 3.5 - 5.0 g/dL [facility] Alk phos 63 40 - 130 Units/L [facility] ALT 19 7 - 45 Units/L [facility] AST 32 10 - 45 Units/L [facility] Blood 06/21/2024 4:46 AM [employer] 06/21/2024 4:51 AM [employer] us Giovanny Regan MD LAB BLOOD ORDERABLES F inal Result [facility] [address] [facility] Department [place] [address] * US Kidney Complete (06/20/2024 8:24 AM [employer]) Anatomical Region Laterality Modality Kidney N/A Ultrasound 06/20/2024 8:59 AM [employer] Impressions 06/20/2024 8:59 AM [employer] 1. Normal renal size without hydronephrosis; bilateral [...] Veronika Kimbrough M.D. Narrative 06/20/2024 8:59 AM [employer] EXAMINATION: Bilateral Renal Ultrasound DATE/TIME: 06/20/2024 6:40 [...] is similar in size and shape to 202 CT. There is an additional 12 x 9 x 9 mm right mid zone renal cortical cyst. 2 left upper pole renal cysts measuring 1.9 x 1.6 x 1.8 cm and 1.6 x 1.7 x 1.8 cm are similar in size to the 2023 CT. No complex cystic or solid renal [...] present. Electronically signed by: Veronika Kimbrough M.D. Charisse Dunn NP IMG US PROCEDURES Final Result * (ABNORMAL) eGFR (06/20/2024 2:08 AM [employer]) eGFR 11(L) >=60 mL/min/1. 73 m2 Comment: [...] last reviewed 2021. Blood 06/20/2024 2:08 AM [employer] 06/20/2024 2:14 AM [employer] Giovanny Regan MD LAB BLOOD ORDERABLES F inal Result [facility] [address] [facility] Department [place] [address] * Differential, auto (06/20/2024 2:08 AM [employer]) Neutrophil abs 4.9 1.5 - 6.5 K/cumm Imm gran abs 0.0 0.0 - 0.1 K/cumm [facility] Lymphocyte abs 1.3 0.8 - 3.3 K/cumm [facility] Monocyte abs 0.8 0.2 - 0.8 K/cumm [facility] Eosinophil abs 0.5 0.0 - 0.5 K/cumm [facility] Basophil abs 0.0 0.0 - 0.1 K/cumm [facility] Neutrophil pct 65.5 % [facility] Comment: Interpretive Data Percent cell count reference ranges are not reported, since discordance with absolute values may lead to misinterpretation of CBC data. Current Interpretive Data was last revised on 2017. Imm gran pct 0.3 % [facility] Comment: Interpretive Data Percent cell count reference ranges are not reported, since discordance with absolute values may lead to misinterpretation of CBC data. Current Interpretive Data was last revised on 2017. Lymphocyte pct 17.1 % [facility] Comment: Interpretive Data Percent cell count reference ranges are not reported, since discordance with absolute values may lead to misinterpretation of CBC data. Current Interpretive Data was last revised on 2017. Monocyte pct 10.3 % [facility] Comment: Interpretive Data Percent cell count reference ranges are not reported, since discordance with absolute values may lead to misinterpretation of CBC data. Current Interpretive Data was last revised on 2017. Eosinophil pct 6.4 % [facility] Comment: Interpretive Data Percent cell count reference ranges are not reported, since discordance with absolute values may lead to misinterpretation of CBC data. Current Interpretive Data was last revised on 2017. Basophil pct 0.4 % [facility] Comment: Interpretive Data Percent cell count reference ranges are not reported, since discordance with absolute values may lead to misinterpretation of CBC data. Current Interpretive Data was last revised on 2017. Blood 06/20/2024 2:08 AM [employer] 06/20/2024 2:14 AM [employer] us Giovanny Regan MD LAB BLOOD ORDERABLES F inal Result [address] Department [place] [address] * (ABNORMAL) CBC with auto differential (06/20/2024 2:08 AM [employer]) [facility] WBC 7.5 3.8 - 9.9 K/cumm Hgb 8.4(L) 11.9 - 15.5 g/dL [facility] Hct 26.6(L) 35.6 - 45.5 % [facility] Plt 202 150 - 400 K/cumm [facility] MPV 9.9 9.1 - 12.3 fL [facility] RBC 2.67(L) 3.90 - 5.20 M/cumm [facility] MCV 99.6(H) 81.3 - 96.4 fL [facility] MCH 31.5 27.1 - 33.3 pg [facility] MCHC 31.6(L) 32.3 - 35.7 g/dL [facility] RDW CV 16.2(H) 11.1 - 14.9 % [facility] RDW SD 59.1(H) 35.7 - 48.1 fL [facility] NRBC abs 0.00 0.00 - 0.01 K/cumm [facility] Blood 06/20/2024 2:08 AM [employer] 06/20/2024 2:14 AM [employer] us Giovanny Regan MD LAB BLOOD ORDERABLES F inal Result [facility] [address] [facility] Department [place] [address] * (ABNORMAL) Comprehensive metabolic panel (06/20/2024 2:08 AM [employer]) [facility] Sodium 144 135 - 145 mmol/L Potassium, pl 3.1(L) 3.3 - 4.9 mmol/L [facility] Chloride 113(H) 97 - 110 mmol/L [facility] CO2 18(L) 22 - 32 mmol/L [facility] Anion gap 13 2 - 15 mmol/L [facility] BUN 67(H) 6 - 25 mg/dL [facility] Creatinine 3.88(H) 0.60 - 1.10 mg/dL [facility] Glucose 126 70 - 199 mg/dL [facility] Comment: Interpretive Data Fasting glucose >/= [...] 2022. Calcium 9.0 8.5 - 10.3 mg/dL [facility] Bilirubin, total 0.3 0.1 - 1.2 mg/dL [facility] Protein, pl 5.4(L) 6.5 - 8.5 g/dL [facility] Albumin 3.1(L) 3.5 - 5.0 g/dL [facility] Alk phos 67 40 - 130 Units/L [facility] ALT 28 7 - 45 Units/L [facility] AST 50(H) 10 - 45 Units/L [facility] Blood 06/20/2024 2:08 AM [employer] 06/20/2024 2:14 AM [employer] Giovanny Regan MD LAB BLOOD ORDERABLES F inal Result [address] Department [place] [address] * (ABNORMAL) Urinalysis reflex to microscopic and culture Urine (06/19/2024 10:26 PM [employer]) Color, ur Yellow Yellow Clarity, ur Turbid(A) Clear [facility] Specific gravity, ur 1.016 1.003 - 1.030 [facility] pH, urine 6.0 [facility] Comment: Interpretive Data U rine pH is affected by diet, medications, systemic acid-base disturbances, and renal tubular function. pH may affect urinary stone formation. For example, urine pH below 6.0 may help reduce the tendency for calcium phosphate stones and pH greater than 6.0 may reduce the tendency for uric acid stone formation. Source: [facility] Current Interpretive Data was last revised on 2017 Protein, ur ql 1+(A) Negative [facility] Glucose, ur ql Negative Negative [facility] Ketones, ur Negative Negative [facility] Bilirubin, ur Negative Negative [facility] Blood, ur 1+(A) Negative [facility] Urobilinogen, ur <2.0 <2.0 mg/dL [facility] Nitrite, ur Positive(A) Negative [facility] Leukocyte esterase, ur 4+(A) Negative [facility] UA reflex comment Reflex to microscopic UA will be performed. [facility] Urine 06/19/2024 10:2 6 PM [employer] 06/19/2024 10:30 PM [employer] Giovanny Regan MD LAB MICROBIOLOGY - GEN ERAL ORDERABLES Final Result Performing Organization Address City/[facility]/ZIP Co de Phone Number [facility] [address] [place] [address] * Sodium, urine, random (06/19/2024 10:26 PM [employer]) Sodium, ur 30 mmol/L Comment: Interpretive Data No reference range established. Current interpretive data was last revised 2018. Testing performed by: [facility], [facility], [place]., [address] Urine 06/19/2024 10:2 6 PM [employer] 06/19/2024 10:30 PM [employer] Giovanny Regan MD LAB URINE ORDERABLES F inal Result Performing Organization Address City/[facility]/ZIP Co de Phone Number [address] [place] [address] * Creatinine, urine, random (06/19/2024 10:26 PM [employer]) Creatinine Ur 206.2 mg/dL Comment: Interpretive Data No reference range established. Current interpretive data was last revised 2018. Testing performed by: [facility], [address] [place] [address]., [address] Urine 06/19/2024 10:2 6 PM [employer] 06/19/2024 10:30 PM [employer] Giovanny Regan MD LAB URINE ORDERABLES F inal Result Performing Organization Address [facility] Co de Phone Number [address] [place] [address] * (ABNORMAL) Urinalysis, microscopic only (06/19/2024 10:26 PM [employer]) WBC, ur >50(A) 0 - 5 /HPF RBC, ur 3-5(A) 0 - 2 /HPF [facility] Epithelial cells, squamous, ur 6-10(A) 0 - 5 /HPF [facility] Bacteria, ur 1+(A) [facility] Culture Reflex Comment Reflex to urine culture will be performed. [facility] Urine 06/19/2024 10:2 6 PM [employer] 06/19/2024 10:30 PM [employer] Giovanny Regan MD LAB URINE ORDERABLES F inal Result Performing Organization Address [facility] Co de Phone Number [facility] [address] Department [place] [address] * (ABNORMAL) Urine culture Urine (06/19/2024 10:26 PM [employer]) Pathologist [facility] Report Final Report: Greater than or equal to 100,000 colonies/ml of Klebsiella pneumoniae (.) Comment:Testing performed by : [facility], [address] [place] [address], [place]., [address] Organism KLEBSIELLA PNEUMONIAE [facility] Urine 06/19/2024 10:2 6 PM [employer] 06/20/2024 3:24 AM [employer] Narrative [facility] - 06/23/2024 1:19 PM [employer] Urine culture reflexed based upon urinalysis results. [...] pneumoniae Trimethoprim with Sulfamethoxazole (KELLY) INTERPRETATION Susceptible us Giovanny Regan MD LAB MICROBIOLOGY - GEN ERAL ORDERABLES Final Result [facility] [address] [facility] Department [place] [address] * (ABNORMAL) eGFR (06/19/2024 12:39 PM [employer]) eGFR 9(L) >=60 mL/min/1. 73 m2 Comment: [...] reviewed 2021. Blood 06/19/2024 12:3 9 PM [employer] 06/19/2024 12:43 PM [employer] us Giovanny Regan MD LAB BLOOD ORDERABLES F inal Result [facility] [address] [facility] Department [place] [address] * (ABNORMAL) Comprehensive metabolic panel (06/19/2024 12:39 PM [employer]) Sodium 145 135 - 145 mmol/L Potassium, pl 3.3 3.3 - 4.9 mmol/L [facility] Chloride 111(H) 97 - 110 mmol/L [facility] CO2 18(L) 22 - 32 mmol/L [facility] Anion gap 16(H) 2 - 15 mmol/L [facility] BUN 70(H) 6 - 25 mg/dL [facility] Creatinine 4.63(H) 0.60 - 1.10 mg/dL [facility] Glucose 113 70 - 199 mg/dL [facility] Comment: Interpretive Data Fasting glucose >/= 126 [...] 2022. Calcium 9.9 8.5 - 10.3 mg/dL [facility] Bilirubin, total 0.3 0.1 - 1.2 mg/dL [facility] Protein, pl 6.5 6.5 - 8.5 g/dL [facility] Albumin 3.8 3.5 - 5.0 g/dL [facility] Alk phos 79 40 - 130 Units/L [facility] ALT 34 7 - 45 Units/L [facility] AST 70(H) 10 - 45 Units/L [facility] Comment:Hemolysis may falsel y increase results. Use caution when interpreting hemolyzed results. Blood 06/19/2024 12:3 9 PM [employer] 06/19/2024 12:43 PM [employer] us Giovanny Regan MD LAB BLOOD ORDERABLES F inal Result [facility] [address] [facility] Department [place] [address] * (ABNORMAL) Differential, auto (06/19/2024 10:46 AM [employer]) Neutrophil abs 7.0(H) 1.5 - 6.5 K/cumm Imm gran abs 0.1 0.0 - 0.1 K/cumm [facility] Lymphocyte abs 1.5 0.8 - 3.3 K/cumm [facility] Monocyte abs 0.9(H) 0.2 - 0.8 K/cumm [facility] Eosinophil abs 0.2 0.0 - 0.5 K/cumm [facility] Basophil abs 0.1 0.0 - 0.1 K/cumm [facility] Neutrophil pct 71.8 % [facility] Comment: Interpretive Data Percent cell count reference ranges are not reported, since discordance with absolute values may lead to misinterpretation of CBC data. Current Interpretive Data was last revised on 2017. Imm gran pct 0.5 % [facility] Comment: Interpretive Data Percent cell count reference ranges are not reported, since discordance with absolute values may lead to misinterpretation of CBC data. Current Interpretive Data was last revised on 2017. Lymphocyte pct 15.4 % [facility] Comment: Interpretive Data Percent cell count reference ranges are not reported, since discordance with absolute values may lead to misinterpretation of CBC data. Current Interpretive Data was last revised on 2017. Monocyte pct 9.5 % [facility] Comment: Interpretive Data Percent cell count reference ranges are not reported, since discordance with absolute values may lead to misinterpretation of CBC data. Current Interpretive Data was last revised on 2017. Eosinophil pct 2.1 % [facility] Comment: Interpretive Data Percent cell count reference ranges are not reported, since discordance with absolute values may lead to misinterpretation of CBC data. Current Interpretive Data was last revised on 2017. Basophil pct 0.7 % [facility] Comment: Interpretive Data Percent cell count reference ranges are not reported, since discordance with absolute values may lead to misinterpretation of CBC data. Current Interpretive Data was last revised on 2017. Blood 06/19/2024 10:4 6 AM [employer] 06/19/2024 10:53 AM [employer] us Giovanny Regan MD LAB BLOOD ORDERABLES F inal Result [facility] [address] [facility] [place] [address] * (ABNORMAL) CBC with auto differential (06/19/2024 10:46 AM [employer]) WBC 9.7 3.8 - 9.9 K/cumm Hgb 10.1(L) 11.9 - 15.5 g/dL [facility] Hct 32.2(L) 35.6 - 45.5 % [facility] Plt 267 150 - 400 K/cumm [facility] MPV 10.7 9.1 - 12.3 fL [facility] RBC 3.20(L) 3.90 - 5.20 M/cumm [facility] MCV 100.6(H) 81.3 - 96.4 fL [facility] MCH 31.6 27.1 - 33.3 pg [facility] MCHC 31.4(L) 32.3 - 35.7 g/dL [facility] RDW CV 16.2(H) 11.1 - 14.9 % [facility] RDW SD 59.4(H) 35.7 - 48.1 fL [facility] NRBC abs 0.00 0.00 - 0.01 K/cumm [facility] Blood 06/19/2024 10:4 6 AM [employer] 06/19/2024 10:53 AM [employer] Giovanny Regan MD LAB BLOOD ORDERABLES F inal Result Performing Organization Address City/[facility]/ZIP Co de Phone Number [facility] [address] [facility] Department [place] [address] * ECG 12 lead (06/19/2024 10:38 AM [employer]) 06/19/2024 10:3 8 AM [employer] Narrative [facility] - 06/19/2024 7:30 PM [employer] Vent Rate: 85 bpm RR Interval: 703 msec ND Interval: 0 msec QRS Duration: 98 msec QT Interval: 336 msec QTC Interval: 378 msec P-R-T [place]: 0 - 7 - 60 degrees IMPRESSION: poor baseline sinus rhythm NONSPECIFIC ST \T\ T-WAVE ABNORMALITY BORDERLINE ECG Electronically Signed By: Grant Yi MD, [facility] Giovanny Regan MD ECG ORDERABLES Final Result Performing Organization Address [facility] de Phone Number [facility] * Glucose, random (Outreach) (06/18/2024 9:00 AM [employer]) [facility] Signature Glucose 91 70 - 199 mg/dL Comment: [...] last revised 2022. Blood 06/18/2024 9:00 AM [employer] 06/18/2024 3:32 PM [employer] us Notinfile Unknown LAB BLOOD ORDERABLES Final Res ult Performing Organization Address City/[facility]/ZIP Co de Phone Number [facility] [address] Department [place] [address] * (ABNORMAL) eGFR (06/18/2024 9:00 AM [employer]) [facility] eGFR 10(L) >=60 mL/min/1. 73 m2 Comment: [...] last reviewed 2021. Blood 06/18/2024 9:00 AM [employer] 06/18/2024 3:55 PM [employer] us Notinfile Unknown LAB BLOOD ORDERABLES Final Res ult [facility] [address] Department [place] [address] * Differential, auto (06/18/2024 9:00 AM [employer]) [facility] Neutrophil abs 5.5 1.5 - 6.5 K/cumm Imm gran abs 0.0 0.0 - 0.1 K/cumm [facility] Lymphocyte abs 1.2 0.8 - 3.3 K/cumm [facility] Monocyte abs 0.7 0.2 - 0.8 K/cumm [facility] Eosinophil abs 0.4 0.0 - 0.5 K/cumm [facility] Basophil abs 0.0 0.0 - 0.1 K/cumm [facility] Neutrophil pct 70.8 % [facility] Comment: Interpretive Data Percent cell count reference ranges are not reported, since discordance with absolute values may lead to misinterpretation of CBC data. Current Interpretive Data was last revised on 2017. Imm gran pct 0.4 % [facility] Comment: Interpretive Data Percent cell count reference ranges are not reported, since discordance with absolute values may lead to misinterpretation of CBC data. Current Interpretive Data was last revised on 2017. Lymphocyte pct 14.8 % [facility] Comment: Interpretive Data Percent cell count reference ranges are not reported, since discordance with absolute values may lead to misinterpretation of CBC data. Current Interpretive Data was last revised on 2017. Monocyte pct 8.5 % [facility] Comment: Interpretive Data Percent cell count reference ranges are not reported, since discordance with absolute values may lead to misinterpretation of CBC data. Current Interpretive Data was last revised on 2017. Eosinophil pct 5.0 % [facility] Comment: Interpretive Data Percent cell count reference ranges are not reported, since discordance with absolute values may lead to misinterpretation of CBC data. Current Interpretive Data was last revised on 2017. Basophil pct 0.5 % [facility] Comment: Interpretive Data Percent cell count reference ranges are not reported, since discordance with absolute values may lead to misinterpretation of CBC data. Current Interpretive Data was last revised on 2017. Blood 06/18/2024 9:00 AM [employer] 06/18/2024 3:32 PM [employer] us Notinfile Unknown LAB BLOOD ORDERABLES Final Res ult [facility] [address] Department [place] [address] * (ABNORMAL) Comprehensive metabolic panel, without glucose (Outreach) (06/18/2024 9:00 AM [employer]) Sodium 145 135 - 145 mmol/L Potassium, pl 3.2(L) 3.3 - 4.9 mmol/L [facility] Chloride 114(H) 97 - 110 mmol/L [facility] CO2 18(L) 22 - 32 mmol/L [facility] Anion gap 13 2 - 15 mmol/L [facility] BUN 66(H) 6 - 25 mg/dL [facility] Creatinine 4.18(H) 0.60 - 1.10 mg/dL [facility] Calcium 8.7 8.5 - 10.3 mg/dL [facility] Protein, pl 5.8(L) 6.5 - 8.5 g/dL [facility] Albumin 3.3(L) 3.5 - 5.0 g/dL [facility] Bilirubin, total 0.3 0.1 - 1.2 mg/dL [facility] Alk phos 68 40 - 130 Units/L [facility] AST 107(H) 10 - 45 Units/L [facility] ALT 36 7 - 45 Units/L [facility] Blood 06/18/2024 9:00 AM [employer] 06/18/2024 3:32 PM [employer] us Notinfile Unknown LAB BLOOD ORDERABLES Final Res ult [facility] [address] Department [place] [address] * (ABNORMAL) CBC with auto differential (06/18/2024 9:00 AM [employer]) WBC 7.8 3.8 - 9.9 K/cumm Hgb 9.1(L) 11.9 - 15.5 g/dL [facility] Hct 29.6(L) 35.6 - 45.5 % [facility] Plt 226 150 - 400 K/cumm [facility] MPV 11.0 9.1 - 12.3 fL [facility] RBC 2.91(L) 3.90 - 5.20 M/cumm [facility] MCV 101.7(H) 81.3 - 96.4 fL [facility] MCH 31.3 27.1 - 33.3 pg [facility] MCHC 30.7(L) 32.3 - 35.7 g/dL [facility] RDW CV 15.8(H) 11.1 - 14.9 % [facility] RDW SD 58.6(H) 35.7 - 48.1 fL [facility] NRBC abs 0.00 0.00 - 0.01 K/cumm [facility] Blood 06/18/2024 9:00 AM [employer] 06/18/2024 3:32 PM [employer] us Notinfile Unknown LAB BLOOD ORDERABLES Final Res ult Performing Organization Address City/[facility]/ZIP Co de Phone Number [facility] [address] Department [place] [address] * (ABNORMAL) eGFR (06/05/2024 3:03 AM [employer]) eGFR 33(L) >=60 mL/min/1. 73 m2 Comment: [...] last reviewed 2021. Blood 06/05/2024 3:03 AM [employer] 06/05/2024 3:08 AM [employer] us Sushma Romo EDUCATION RESEARCH ANALYST LAB BLOOD ORDERABLES [place] l Result [facility] [address] Department [place] [address] * Differential, auto (06/05/2024 3:03 AM [employer]) Neutrophil abs 5.5 1.5 - 6.5 K/cumm Imm gran abs 0.0 0.0 - 0.1 K/cumm [facility] Lymphocyte abs 1.4 0.8 - 3.3 K/cumm [facility] Monocyte abs 0.6 0.2 - 0.8 K/cumm [facility] Eosinophil abs 0.4 0.0 - 0.5 K/cumm [facility] Basophil abs 0.0 0.0 - 0.1 K/cumm [facility] Neutrophil pct 69.3 % [facility] Comment: Interpretive Data Percent cell count reference ranges are not reported, since discordance with absolute values may lead to misinterpretation of CBC data. Current Interpretive Data was last revised on 2017. Imm gran pct 0.5 % [facility] Comment: Interpretive Data Percent cell count reference ranges are not reported, since discordance with absolute values may lead to misinterpretation of CBC data. Current Interpretive Data was last revised on 2017. Lymphocyte pct 18.0 % [facility] Comment: Interpretive Data Percent cell count reference ranges are not reported, since discordance with absolute values may lead to misinterpretation of CBC data. Current Interpretive Data was last revised on 2017. Monocyte pct 7.3 % [facility] Comment: Interpretive Data Percent cell count reference ranges are not reported, since discordance with absolute values may lead to misinterpretation of CBC data. Current Interpretive Data was last revised on 2017. Eosinophil pct 4.4 % [facility] Comment: Interpretive Data Percent cell count reference ranges are not reported, since discordance with absolute values may lead to misinterpretation of CBC data. Current Interpretive Data was last revised on 2017. Basophil pct 0.5 % [facility] Comment: Interpretive Data Percent cell count reference ranges are not reported, since discordance with absolute values may lead to misinterpretation of CBC data. Current Interpretive Data was last revised on 2017. Blood 06/05/2024 3:03 AM [employer] 06/05/2024 3:07 AM [employer] Sushma Romo EDUCATION RESEARCH ANALYST LAB BLOOD ORDERABLES [place] l Result [facility] [address] [place] [address] * (ABNORMAL) CBC with auto differential (06/05/2024 3:03 AM [employer]) WBC 8.0 3.8 - 9.9 K/cumm Hgb 9.4(L) 11.9 - 15.5 g/dL [facility] Hct 30.3(L) 35.6 - 45.5 % [facility] Plt 173 150 - 400 K/cumm [facility] MPV 9.4 9.1 - 12.3 fL [facility] RBC 3.00(L) 3.90 - 5.20 M/cumm [facility] MCV 101.0(H) 81.3 - 96.4 fL [facility] MCH 31.3 27.1 - 33.3 pg [facility] MCHC 31.0(L) 32.3 - 35.7 g/dL [facility] RDW CV 15.9(H) 11.1 - 14.9 % [facility] RDW SD 58.6(H) 35.7 - 48.1 fL [facility] NRBC abs 0.00 0.00 - 0.01 K/cumm [facility] Blood 06/05/2024 3:03 AM [employer] 06/05/2024 3:07 AM [employer] Sushma Romo EDUCATION RESEARCH ANALYST LAB BLOOD ORDERABLES [place] l Result [facility] [address] of Laboratories [place], [place] [id number] * (ABNORMAL) Basic metabolic panel (06/05/2024 3:03 AM [employer]) Sodium 144 135 - 145 mmol/L Potassium, pl 4.0 3.3 - 4.9 mmol/L [facility] Chloride 116(H) 97 - 110 mmol/L [facility] CO2 18(L) 22 - 32 mmol/L [facility] Anion gap 10 2 - 15 mmol/L [facility] BUN 19 6 - 25 mg/dL [facility] Creatinine 1.56(H) 0.60 - 1.10 mg/dL [facility] Glucose 108 70 - 199 mg/dL [facility] Comment: Interpretive Data Fasting glucose >/= [...] 2022. Calcium 9.2 8.5 - 10.3 mg/dL [facility] Blood 06/05/2024 3:03 AM [employer] 06/05/2024 3:08 AM [employer] Sushma Romo NP LAB BLOOD ORDERABLES [place] cardenas Result [facility] [address] [facility] Department [place] [address] * (ABNORMAL) eGFR (06/04/2024 3:13 AM [employer]) eGFR 36(L) >=60 mL/min/1. 73 m2 Comment: [...] last reviewed 2021. Blood 06/04/2024 3:13 AM [employer] 06/04/2024 4:00 AM [employer] us Sushma Romo NP LAB BLOOD ORDERABLES [place] theresa Result [facility] [address] [facility] Department [place] [address] * Differential, auto (06/04/2024 3:13 AM [employer]) Neutrophil abs 5.4 1.5 - 6.5 K/cumm Imm gran abs 0.0 0.0 - 0.1 K/cumm [facility] Lymphocyte abs 1.6 0.8 - 3.3 K/cumm [facility] Monocyte abs 0.7 0.2 - 0.8 K/cumm [facility] Eosinophil abs 0.4 0.0 - 0.5 K/cumm [facility] Basophil abs 0.0 0.0 - 0.1 K/cumm [facility] Neutrophil pct 67.3 % [facility] Comment: Interpretive Data Percent cell count reference ranges are not reported, since discordance with absolute values may lead to misinterpretation of CBC data. Current Interpretive Data was last revised on 2017. Imm gran pct 0.4 % [facility] Comment: Interpretive Data Percent cell count reference ranges are not reported, since discordance with absolute values may lead to misinterpretation of CBC data. Current Interpretive Data was last revised on 2017. Lymphocyte pct 19.5 % [facility] Comment: Interpretive Data Percent cell count reference ranges are not reported, since discordance with absolute values may lead to misinterpretation of CBC data. Current Interpretive Data was last revised on 2017. Monocyte pct 8.1 % [facility] Comment: Interpretive Data Percent cell count reference ranges are not reported, since discordance with absolute values may lead to misinterpretation of CBC data. Current Interpretive Data was last revised on 2017. Eosinophil pct 4.3 % [facility] Comment: Interpretive Data Percent cell count reference ranges are not reported, since discordance with absolute values may lead to misinterpretation of CBC data. Current Interpretive Data was last revised on 2017. Basophil pct 0.4 % [facility] Comment: Interpretive Data Percent cell count reference ranges are not reported, since discordance with absolute values may lead to misinterpretation of CBC data. Current Interpretive Data was last revised on 2017. Blood 06/04/2024 3:13 AM [employer] 06/04/2024 4:00 AM [employer] Sushma Romo NP LAB BLOOD ORDERABLES [place] cardenas Result Performing Organization Address City/State/[facility] Co de Phone Number [address] Department [place] [address] * (ABNORMAL) CBC with auto differential (06/04/2024 3:13 AM [employer]) WBC 8.1 3.8 - 9.9 K/cumm Hgb 10.0(L) 11.9 - 15.5 g/dL [facility] Hct 31.5(L) 35.6 - 45.5 % [facility] Plt 186 150 - 400 K/cumm [facility] MPV 10.2 9.1 - 12.3 fL [facility] RBC 3.14(L) 3.90 - 5.20 M/cumm [facility] MCV 100.3(H) 81.3 - 96.4 fL [facility] MCH 31.8 27.1 - 33.3 pg [facility] MCHC 31.7(L) 32.3 - 35.7 g/dL [facility] RDW CV 15.8(H) 11.1 - 14.9 % [facility] RDW SD 56.8(H) 35.7 - 48.1 fL [facility] NRBC abs 0.00 0.00 - 0.01 K/cumm [facility] Blood 06/04/2024 3:13 AM [employer] 06/04/2024 4:00 AM [employer] Sushma Romo EDUCATION RESEARCH ANALYST LAB BLOOD ORDERABLES [place] l Result Performing Organization Address City/[facility]/ZIP Co de Phone Number [address] Department [place] [address] * (ABNORMAL) Basic metabolic panel (06/04/2024 3:13 AM [employer]) Pathologist [facility] Sodium 144 135 - 145 mmol/L Potassium, pl 3.4 3.3 - 4.9 mmol/L [facility] Chloride 115(H) 97 - 110 mmol/L [facility] CO2 18(L) 22 - 32 mmol/L [facility] Anion gap 11 2 - 15 mmol/L [facility] BUN 16 6 - 25 mg/dL [facility] Creatinine 1.46(H) 0.60 - 1.10 mg/dL [facility] Glucose 99 70 - 199 mg/dL [facility] Comment: Interpretive Data Fasting glucose >/= [...] 2022. Calcium 9.1 8.5 - 10.3 mg/dL [facility] Blood 06/04/2024 3:13 AM [employer] 06/04/2024 4:00 AM [employer] Sushma Romo NP LAB BLOOD ORDERABLES [place] l Result [facility] [address] Department [place] [address] * (ABNORMAL) eGFR (06/03/2024 4:56 PM [employer]) eGFR 34(L) >=60 mL/min/1. 73 m2 Comment: [...] last reviewed 2021. Blood 06/03/2024 4:56 PM [employer] 06/03/2024 4:59 PM [employer] us Niyah Rubio NP LAB BLOOD ORDERABLES Final R esult [facility] [address] Department [place] [address] * (ABNORMAL) Basic metabolic panel (06/03/2024 4:56 PM [employer]) Pathologist [facility] Sodium 144 135 - 145 mmol/L Potassium, pl 3.6 3.3 - 4.9 mmol/L [facility] Chloride 114(H) 97 - 110 mmol/L [facility] CO2 20(L) 22 - 32 mmol/L [facility] Anion gap 11 2 - 15 mmol/L [facility] BUN 15 6 - 25 mg/dL [facility] Creatinine 1.53(H) 0.60 - 1.10 mg/dL [facility] Glucose 130 70 - 199 mg/dL [facility] Comment: Interpretive Data Fasting glucose >/= [...] 2022. Calcium 9.0 8.5 - 10.3 mg/dL [facility] Blood 06/03/2024 4:56 PM [employer] 06/03/2024 4:59 PM [employer] Niyah Rubio NP LAB BLOOD ORDERABLES Final R esult [address] Department [place] [address] * (ABNORMAL) eGFR (06/03/2024 2:32 AM [employer]) eGFR 35(L) >=60 mL/min/1. 73 m2 Comment: [...] last reviewed 2021. Blood 06/03/2024 2:32 AM [employer] 06/03/2024 2:35 AM [employer] Giovanny Villeda MD LAB BLOOD ORDERABLES F inal Result Performing Organization Address [facility] Co de Phone Number [address] [place] [address] * (ABNORMAL) Magnesium (06/03/2024 2:32 AM [employer]) [facility] Magnesium 1.1(L) 1.4 - 2.5 mg/dL Blood 06/03/2024 2:32 AM [employer] 06/03/2024 7:52 AM [employer] Niyah Rubio NP LAB BLOOD ORDERABLES Final R esult Performing Organization Address [facility] de Phone Number [address] [place] [address] * (ABNORMAL) Basic metabolic panel (06/03/2024 2:32 AM [employer]) [facility] Sodium 146(H) 135 - 145 mmol/L Potassium, pl 2.9(C) 3.3 - 4.9 mmol/L [facility] Comment:Critical Result call ed by [id number] at 2024-06-03 02:52:22. Result Read Back by Nikolay Gordon RN in MEDS Chloride 116(H) 97 - 110 mmol/L [facility] CO2 20(L) 22 - 32 mmol/L [facility] Anion gap 10 2 - 15 mmol/L [facility] BUN 19 6 - 25 mg/dL [facility] Creatinine 1.50(H) 0.60 - 1.10 mg/dL [facility] Glucose 144 70 - 199 mg/dL [facility] Comment: Interpretive Data Fasting glucose >/= [...] 2022. Calcium 8.7 8.5 - 10.3 mg/dL [facility] Blood 06/03/2024 2:32 AM [employer] 06/03/2024 2:35 AM [employer] us Giovanny Villeda MD LAB BLOOD ORDERABLES F inal Result [address] Department [place] [address] * Differential, auto (06/03/2024 1:50 AM [employer]) Neutrophil abs 5.5 1.5 - 6.5 K/cumm Imm gran abs 0.0 0.0 - 0.1 K/cumm [facility] Lymphocyte abs 1.3 0.8 - 3.3 K/cumm [facility] Monocyte abs 0.6 0.2 - 0.8 K/cumm [facility] Eosinophil abs 0.3 0.0 - 0.5 K/cumm [facility] Basophil abs 0.0 0.0 - 0.1 K/cumm [facility] Neutrophil pct 71.0 % [facility] Comment: Interpretive Data Percent cell count reference ranges are not reported, since discordance with absolute values may lead to misinterpretation of CBC data. Current Interpretive Data was last revised on 2017. Imm gran pct 0.4 % [facility] Comment: Interpretive Data Percent cell count reference ranges are not reported, since discordance with absolute values may lead to misinterpretation of CBC data. Current Interpretive Data was last revised on 2017. Lymphocyte pct 16.1 % [facility] Comment: Interpretive Data Percent cell count reference ranges are not reported, since discordance with absolute values may lead to misinterpretation of CBC data. Current Interpretive Data was last revised on 2017. Monocyte pct 7.9 % [facility] Comment: Interpretive Data Percent cell count reference ranges are not reported, since discordance with absolute values may lead to misinterpretation of CBC data. Current Interpretive Data was last revised on 2017. Eosinophil pct 4.1 % [facility] Comment: Interpretive Data Percent cell count reference ranges are not reported, since discordance with absolute values may lead to misinterpretation of CBC data. Current Interpretive Data was last revised on 2017. Basophil pct 0.5 % [facility] Comment: Interpretive Data Percent cell count reference ranges are not reported, since discordance with absolute values may lead to misinterpretation of CBC data. Current Interpretive Data was last revised on 2017. Blood 06/03/2024 1:50 AM [employer] 06/03/2024 2:03 AM [employer] Sushma Romo EDUCATION RESEARCH ANALYST LAB BLOOD ORDERABLES [place] cardenas Result [facility] [address] [facility] Department [place] [address] * (ABNORMAL) CBC with auto differential (06/03/2024 1:50 AM [employer]) WBC 7.8 3.8 - 9.9 K/cumm Hgb 9.9(L) 11.9 - 15.5 g/dL [facility] Hct 33.2(L) 35.6 - 45.5 % [facility] Plt 173 150 - 400 K/cumm [facility] MPV 10.1 9.1 - 12.3 fL [facility] RBC 3.12(L) 3.90 - 5.20 M/cumm [facility] MCV 106.4(H) 81.3 - 96.4 fL [facility] MCH 31.7 27.1 - 33.3 pg [facility] MCHC 29.8(L) 32.3 - 35.7 g/dL [facility] RDW CV 15.9(H) 11.1 - 14.9 % [facility] RDW SD 60.1(H) 35.7 - 48.1 fL [facility] NRBC abs 0.00 0.00 - 0.01 K/cumm [facility] Blood 06/03/2024 1:50 AM [employer] 06/03/2024 2:03 AM [employer] Sushma Romo NP LAB BLOOD ORDERABLES [place] l Result Performing Organization Address [facility] Co de Phone Number [address] Department [place] [address] * (ABNORMAL) eGFR (06/02/2024 3:08 AM [employer]) eGFR 30(L) >=60 mL/min/1. 73 m2 Comment: [...] last reviewed 2021. Blood 06/02/2024 3:08 AM [employer] 06/02/2024 3:13 AM [employer] Sushma Romo NP LAB BLOOD ORDERABLES [place] l Result Performing Organization Address [facility] Co de Phone Number [address] Department [place] [address] * Differential, auto (06/02/2024 3:08 AM [employer]) Neutrophil abs 4.5 1.5 - 6.5 K/cumm Imm gran abs 0.0 0.0 - 0.1 K/cumm [facility] Lymphocyte abs 1.4 0.8 - 3.3 K/cumm [facility] Monocyte abs 0.6 0.2 - 0.8 K/cumm [facility] Eosinophil abs 0.3 0.0 - 0.5 K/cumm [facility] Basophil abs 0.0 0.0 - 0.1 K/cumm [facility] Neutrophil pct 65.4 % [facility] Comment: Interpretive Data Percent cell count reference ranges are not reported, since discordance with absolute values may lead to misinterpretation of CBC data. Current Interpretive Data was last revised on 2017. Imm gran pct 0.3 % [facility] Comment: Interpretive Data Percent cell count reference ranges are not reported, since discordance with absolute values may lead to misinterpretation of CBC data. Current Interpretive Data was last revised on 2017. Lymphocyte pct 21.2 % [facility] Comment: Interpretive Data Percent cell count reference ranges are not reported, since discordance with absolute values may lead to misinterpretation of CBC data. Current Interpretive Data was last revised on 2017. Monocyte pct 8.5 % [facility] Comment: Interpretive Data Percent cell count reference ranges are not reported, since discordance with absolute values may lead to misinterpretation of CBC data. Current Interpretive Data was last revised on 2017. Eosinophil pct 4.3 % [facility] Comment: Interpretive Data Percent cell count reference ranges are not reported, since discordance with absolute values may lead to misinterpretation of CBC data. Current Interpretive Data was last revised on 2017. Basophil pct 0.3 % [facility] Comment: Interpretive Data Percent cell count reference ranges are not reported, since discordance with absolute values may lead to misinterpretation of CBC data. Current Interpretive Data was last revised on 2017. Blood 06/02/2024 3:08 AM [employer] 06/02/2024 3:13 AM [employer] Sushma Romo EDUCATION RESEARCH ANALYST LAB BLOOD ORDERABLES [place] l Result [facility] Department [place] [address] * (ABNORMAL) CBC with auto differential (06/02/2024 3:08 AM [employer]) Pathologist [facility] WBC 6.8 3.8 - 9.9 K/cumm Hgb 9.4(L) 11.9 - 15.5 g/dL [facility] Hct 29.8(L) 35.6 - 45.5 % [facility] Plt 191 150 - 400 K/cumm [facility] MPV 10.0 9.1 - 12.3 fL [facility] RBC 2.93(L) 3.90 - 5.20 M/cumm [facility] MCV 101.7(H) 81.3 - 96.4 fL [facility] MCH 32.1 27.1 - 33.3 pg [facility] MCHC 31.5(L) 32.3 - 35.7 g/dL [facility] RDW CV 15.5(H) 11.1 - 14.9 % [facility] RDW SD 56.7(H) 35.7 - 48.1 fL [facility] NRBC abs 0.00 0.00 - 0.01 K/cumm [facility] Blood 06/02/2024 3:08 AM [employer] 06/02/2024 3:13 AM [employer] Sushma Romo EDUCATION RESEARCH ANALYST LAB BLOOD ORDERABLES [place] l Result [facility] [address] [place] [address] * (ABNORMAL) Basic metabolic panel (06/02/2024 3:08 AM [employer]) Sodium 146(H) 135 - 145 mmol/L Potassium, pl 3.0(L) 3.3 - 4.9 mmol/L [facility] Chloride 119(H) 97 - 110 mmol/L [facility] CO2 17(L) 22 - 32 mmol/L [facility] Anion gap 10 2 - 15 mmol/L [facility] BUN 25 6 - 25 mg/dL [facility] Creatinine 1.68(H) 0.60 - 1.10 mg/dL [facility] Glucose 105 70 - 199 mg/dL [facility] Comment: Interpretive Data Fasting glucose >/= [...] 2022. Calcium 9.0 8.5 - 10.3 mg/dL [facility] Blood 06/02/2024 3:08 AM [employer] 06/02/2024 3:13 AM [employer] Sushma Romo NP LAB BLOOD ORDERABLES [place] cardenas Result [facility] [address] [facility] Department [place] [address] * (ABNORMAL) eGFR (06/01/2024 1:35 AM [employer]) eGFR 23(L) >=60 mL/min/1. 73 m2 Comment: [...] last reviewed 2021. Blood 06/01/2024 1:35 AM [employer] 06/01/2024 5:56 AM [employer] us Sushma Romo NP LAB BLOOD ORDERABLES [place] cardenas Result [address] Department [place] [address] * Differential, auto (06/01/2024 1:35 AM [employer]) Neutrophil abs 6.1 1.5 - 6.5 K/cumm Imm gran abs 0.1 0.0 - 0.1 K/cumm [facility] Lymphocyte abs 1.1 0.8 - 3.3 K/cumm [facility] Monocyte abs 0.6 0.2 - 0.8 K/cumm [facility] Eosinophil abs 0.2 0.0 - 0.5 K/cumm [facility] Basophil abs 0.0 0.0 - 0.1 K/cumm [facility] Neutrophil pct 74.9 % [facility] Comment: Interpretive Data Percent cell count reference ranges are not reported, since discordance with absolute values may lead to misinterpretation of CBC data. Current Interpretive Data was last revised on 2017. Imm gran pct 0.6 % [facility] Comment: Interpretive Data Percent cell count reference ranges are not reported, since discordance with absolute values may lead to misinterpretation of CBC data. Current Interpretive Data was last revised on 2017. Lymphocyte pct 13.7 % [facility] Comment: Interpretive Data Percent cell count reference ranges are not reported, since discordance with absolute values may lead to misinterpretation of CBC data. Current Interpretive Data was last revised on 2017. Monocyte pct 7.4 % [facility] Comment: Interpretive Data Percent cell count reference ranges are not reported, since discordance with absolute values may lead to misinterpretation of CBC data. Current Interpretive Data was last revised on 2017. Eosinophil pct 3.0 % [facility] Comment: Interpretive Data Percent cell count reference ranges are not reported, since discordance with absolute values may lead to misinterpretation of CBC data. Current Interpretive Data was last revised on 2017. Basophil pct 0.4 % [facility] Comment: Interpretive Data Percent cell count reference ranges are not reported, since discordance with absolute values may lead to misinterpretation of CBC data. Current Interpretive Data was last revised on 2017. Blood 06/01/2024 1:35 AM [employer] 06/01/2024 5:55 AM [employer] Sushma Romo NP LAB BLOOD ORDERABLES [place] cardenas Result [address] Department [place] [address] * (ABNORMAL) CBC with auto differential (06/01/2024 1:35 AM [employer]) WBC 8.1 3.8 - 9.9 K/cumm Hgb 9.4(L) 11.9 - 15.5 g/dL [facility] Hct 29.8(L) 35.6 - 45.5 % [facility] Plt 218 150 - 400 K/cumm [facility] MPV 10.7 9.1 - 12.3 fL [facility] RBC 2.97(L) 3.90 - 5.20 M/cumm [facility] MCV 100.3(H) 81.3 - 96.4 fL [facility] MCH 31.6 27.1 - 33.3 pg [facility] MCHC 31.5(L) 32.3 - 35.7 g/dL [facility] RDW CV 15.3(H) 11.1 - 14.9 % [facility] RDW SD 55.6(H) 35.7 - 48.1 fL [facility] NRBC abs 0.00 0.00 - 0.01 K/cumm [facility] Blood 06/01/2024 1:35 AM [employer] 06/01/2024 5:55 AM [employer] Sushma Romo NP LAB BLOOD ORDERABLES [place] l Result [facility] [address] [facility] Department [place] [address] * (ABNORMAL) Basic metabolic panel (06/01/2024 1:35 AM [employer]) Sodium 144 135 - 145 mmol/L Potassium, pl 3.5 3.3 - 4.9 mmol/L [facility] Chloride 113(H) 97 - 110 mmol/L [facility] CO2 17(L) 22 - 32 mmol/L [facility] Anion gap 14 2 - 15 mmol/L [facility] BUN 37(H) 6 - 25 mg/dL [facility] Creatinine 2.10(H) 0.60 - 1.10 mg/dL [facility] Glucose 89 70 - 199 mg/dL [facility] Comment: Interpretive Data Fasting glucose >/= [...] 2022. Calcium 9.5 8.5 - 10.3 mg/dL [facility] Blood 06/01/2024 1:35 AM [employer] 06/01/2024 5:55 AM [employer] Sushma Christa Romo EDUCATION RESEARCH ANALYST LAB BLOOD ORDERABLES [place] l Result Performing Organization Address [facility] Co de Phone Number [address] [place] [address] * (ABNORMAL) Leukocytes, fecal (05/31/2024 3:44 AM [employer]) WBC, fecal Few leukocyte s(A) No leukocytes Comment: Interpretive Data Testing performed by microsopy. Current Interpretive Data was last revised on 2022 Stool 05/31/2024 3:44 AM [employer] 05/31/2024 3:46 AM [employer] Aaliyah Wen NP LAB BODY FLUIDS AND STOOLS ORDERABLES Final Result Performing Organization Address [facility] de Phone Number [address] [place] [address] * Stool culture Stool Rectum (05/31/2024 3:44 AM [employer]) Direct Specimen Exam Shiga Toxin Testing: Negative for: Shigatoxin of enterohemorrhagic E.coli. Comment:Testing performed by : [facility], [address] [place] [address]., [id number] Report Final Report: No Salmonella, Shigella, Aeromonas, Plesiomonas, Yersinia, Campylobacter, or E.coli O157:H7 isolated [facility] Comment:Testing performed by : [facility], [address] [place] [address]., [id number] Stool (Rectum) 05/31/2024 3: 44 AM [employer] 05/31/2024 9:14 AM [employer] Narrative [facility] - 06/03/2024 2:00 PM [employer] This specimen is screened for the presence of Aeromonas, Campylobacter, E.coli-0157:H7, Plesiomonas, Salmonella, Shigella, Shiga Toxin producing E. coli, and Yersinia. Aaliyah Wen NP LAB MICROBIOLOGY - G ENERAL ORDERABLES Final Result Performing Organization Address [facility] Co de Phone Number [facility] [address] [facility] Department [place] [address] * CT Head WO Contrast (05/30/2024 2:38 PM [employer]) Anatomical Region Laterality Modality Head and Neck N/A Computed Tomogra phy 05/30/2024 2:48 PM [employer] Impressions 05/30/2024 2:48 PM [employer] No acute intracranial CT abnormality. Electronically signed by: Kelvin Mcduffie M.D. Narrative 05/30/2024 2:48 PM [employer] EXAMINATION: CT HEAD WO CONTRAST HISTORY: Mental [...] by: Kelvin Mcduffie M.D. Zachariah Man MD IM CT PROCEDURES Final Result * (ABNORMAL) Urinalysis reflex to microscopic and culture Urine (05/30/2024 2:25 PM [employer]) Color, ur Yellow Yellow Clarity, ur Clear Clear [facility] Specific gravity, ur 1.014 1.003 - 1.030 [facility] pH, urine 6.0 [facility] Comment: Interpretive Data U rine pH is affected by diet, medications, systemic acid-base disturbances, and renal tubular function. pH may affect urinary stone formation. For example, urine pH below 6.0 may help reduce the tendency for calcium phosphate stones and pH greater than 6.0 may reduce the tendency for uric acid stone formation. Source: [facility] Current Interpretive Data was last revised on 2017 Protein, ur ql Trace Negative [facility] Glucose, ur ql Negative Negative [facility] Ketones, ur Negative Negative [facility] Bilirubin, ur Negative Negative [facility] Blood, ur Trace(A) Negative [facility] Urobilinogen, ur <2.0 <2.0 mg/dL [facility] Nitrite, ur Negative Negative [facility] Leukocyte esterase, ur 1+(A) Negative [facility] UA reflex comment Reflex to microscopic UA will be performed. [facility] Urine 05/30/2024 2:25 PM [employer] 05/30/2024 2:29 PM [employer] us Zachariah Man MD LAB MICROBIOLOGY - GENE RAL ORDERABLES Final Result Performing Organization Address City/State/[facility] Co de Phone Number [facility] [address] [facility] Department [place] [address] * (ABNORMAL) Urinalysis, microscopic only (05/30/2024 2:25 PM [employer]) WBC, ur 0-5 0 - 5 /HPF RBC, ur 0-2 0 - 2 /HPF [facility] Epithelial cells, squamous, ur 1-5 0 - 5 /HPF [facility] Bacteria, ur Trace(A) [facility] Mucous, ur Present(A) [facility] Hyaline casts, ur 1-5 0 - 10 /LPF [facility] Culture Reflex Comment Reflex conditions for urine culture (WBC >10) not met. [facility] Urine 05/30/2024 2:25 PM [employer] 05/30/2024 2:29 PM [employer] us Zachariah Man MD LAB URINE ORDERABLES Fi nal Result Performing Organization Address City/State/[facility] Co de Phone Number [facility] [address] [facility] Department [place] [address] * ECG 12 lead (05/30/2024 10:38 AM [employer]) 05/30/2024 10:3 8 AM [employer] Narrative [facility] - 05/30/2024 11:04 AM [employer] Vent Rate: 89 bpm RR Interval: 670 msec ND Interval: 186 msec QRS Duration: 97 msec QT Interval: 321 msec QTC Interval: 368 msec P-R-T [place]: 58 - 32 - 83 degrees IMPRESSION: SINUS RHYTHM NONSPECIFIC ST \T\ T-WAVE ABNORMALITY BORDERLINE ECG Electronically Signed By: Giovanny Butt DO, [facility] Giovanny Regan MD ECG ORDERABLES Final Result Performing Organization Address [facility] Phone Number [facility] * Influenza A/B, RSV, and COVID-19 PCR Nasopharyngeal (05/30/2024 10:36 AM [employer]) Pathologist [facility] COVID-19 RNA Negative Negative Influenza A RNA Negative Negative [facility] Influenza B RNA Negative Negative [facility] RSV RNA Negative Negative [facility] Comment: Interpretive data: Testing performed by [facility]. This test is performed using the [employer] Xpert Xpress CoV-2/Flu/RSV plus assay. This is a multiplex, real-time reverse transcriptase PCR assay intended for the qualitative detection of nucleic acid from SARS-CoV-2, influenza A, influenza B, and respiratory syncytial virus. This assay has been cleared by the [place] Food and Drug administration. The performance characteristics have been verified by the [facility]. Results must be considered in the clinical context, and a negative result does not rule out infection. Interpretive Data last revised 2023 Nasopharyngeal 05/30/2024 10 :36 AM [employer] 05/30/2024 10:48 AM [employer] Narrative [facility] - 05/30/2024 12:38 PM [employer] Is the Patient experiencing symptoms consistent with COVID?->Yes Giovanny Regan MD LAB MICROBIOLOGY - GEN ERAL ORDERABLES Final Result Performing Organization Address [facility] de Phone Number [facility] [address] Department [place] [address] * (ABNORMAL) eGFR (05/30/2024 10:36 AM [employer]) Pathologist [facility] eGFR 11(L) >=60 mL/min/1. 73 m2 Comment: [...] reviewed 2021. Blood 05/30/2024 10:3 6 AM [employer] 05/30/2024 10:42 AM [employer] Giovanny Regan MD LAB BLOOD ORDERABLES F inal Result Performing Organization Address [facility] Co de Phone Number [facility]AL[facility] Department [place] [address] * (ABNORMAL) Differential, auto (05/30/2024 10:36 AM [employer]) Pathologist [facility] Neutrophil abs 6.6(H) 1.5 - 6.5 K/cumm Imm gran abs 0.0 0.0 - 0.1 K/cumm [facility] Lymphocyte abs 1.3 0.8 - 3.3 K/cumm [facility] Monocyte abs 0.7 0.2 - 0.8 K/cumm [facility] Eosinophil abs 0.2 0.0 - 0.5 K/cumm [facility] Basophil abs 0.0 0.0 - 0.1 K/cumm [facility] Neutrophil pct 74.7 % [facility] Comment: Interpretive Data Percent cell count reference ranges are not reported, since discordance with absolute values may lead to misinterpretation of CBC data. Current Interpretive Data was last revised on 2017. Imm gran pct 0.3 % [facility] Comment: Interpretive Data Percent cell count reference ranges are not reported, since discordance with absolute values may lead to misinterpretation of CBC data. Current Interpretive Data was last revised on 2017. Lymphocyte pct 14.4 % [facility] Comment: Interpretive Data Percent cell count reference ranges are not reported, since discordance with absolute values may lead to misinterpretation of CBC data. Current Interpretive Data was last revised on 2017. Monocyte pct 7.6 % [facility] Comment: Interpretive Data Percent cell count reference ranges are not reported, since discordance with absolute values may lead to misinterpretation of CBC data. Current Interpretive Data was last revised on 2017. Eosinophil pct 2.6 % [facility] Comment: Interpretive Data Percent cell count reference ranges are not reported, since discordance with absolute values may lead to misinterpretation of CBC data. Current Interpretive Data was last revised on 2017. Basophil pct 0.4 % [facility] Comment: Interpretive Data Percent cell count reference ranges are not reported, since discordance with absolute values may lead to misinterpretation of CBC data. Current Interpretive Data was last revised on 2017. Blood 05/30/2024 10:3 6 AM [employer] 05/30/2024 10:42 AM [employer] us Giovanny Regan MD LAB BLOOD ORDERABLES F inal Result [facility] [address] [facility] Department [place] [address] * Thyroid Function [place] (05/30/2024 10:36 AM [employer]) Pathologist [facility] TSH 3.38 0.30 - 4.20 mcIUnit/mL Blood 05/30/2024 10:3 6 AM [employer] 05/30/2024 2:37 PM [employer] us Rossana Christiansen MD LAB BLOOD ORDERABLES Final Result Performing Organization Address [facility] Co de Phone Number [address] [employer] [place] [address] * (ABNORMAL) CBC with auto differential (05/30/2024 10:36 AM [employer]) [facility] WBC 8.9 3.8 - 9.9 K/cumm Hgb 9.8(L) 11.9 - 15.5 g/dL [facility] Hct 30.9(L) 35.6 - 45.5 % [facility] Plt 216 150 - 400 K/cumm [facility] MPV 10.1 9.1 - 12.3 fL [facility] RBC 3.10(L) 3.90 - 5.20 M/cumm [facility] MCV 99.7(H) 81.3 - 96.4 fL [facility] MCH 31.6 27.1 - 33.3 pg [facility] MCHC 31.7(L) 32.3 - 35.7 g/dL [facility] RDW CV 14.9 11.1 - 14.9 % [facility] RDW SD 54.0(H) 35.7 - 48.1 fL [facility] NRBC abs 0.00 0.00 - 0.01 K/cumm [facility] Blood 05/30/2024 10:3 6 AM [employer] 05/30/2024 10:42 AM [employer] us Giovanny Regan MD LAB BLOOD ORDERABLES F inal Result Performing Organization Address City[facility]/ZIP Co de Phone Number [address] [employer] [place] [address] * Magnesium (05/30/2024 10:36 AM [employer]) Pathologist [facility] Magnesium 1.6 1.4 - 2.5 mg/dL Blood 05/30/2024 10:3 6 AM [employer] 05/30/2024 2:37 PM [employer] us Rossana Christiansen MD LAB BLOOD ORDERABLES Final Result [facility] [address] [facility] Department [place] [address] * (ABNORMAL) Comprehensive metabolic panel (05/30/2024 10:36 AM [employer]) Pathologist [facility] Sodium 144 135 - 145 mmol/L Potassium, pl 3.7 3.3 - 4.9 mmol/L [facility] Chloride 111(H) 97 - 110 mmol/L [facility] CO2 18(L) 22 - 32 mmol/L [facility] Anion gap 15 2 - 15 mmol/L [facility] BUN 54(H) 6 - 25 mg/dL [facility] Creatinine 3.81(H) 0.60 - 1.10 mg/dL [facility] Glucose 117 70 - 199 mg/dL [facility] Comment: Interpretive Data Fasting glucose >/= [...] 2022. Calcium 10.0 8.5 - 10.3 mg/dL [facility] Bilirubin, total 0.4 0.1 - 1.2 mg/dL [facility] Protein, pl 6.9 6.5 - 8.5 g/dL [facility] Albumin 4.1 3.5 - 5.0 g/dL [facility] Alk phos 92 40 - 130 Units/L [facility] ALT 14 7 - 45 Units/L [facility] AST 35 10 - 45 Units/L [facility] Blood 05/30/2024 10:3 6 AM [employer] 05/30/2024 10:42 AM [employer] Giovanny Regan MD LAB BLOOD ORDERABLES F inal Result [facility] Department of Laboratories [place] [address] from Last 3 Months Insurance MEDICARE [facility] MEDICARE [facility] TRADITIONAL MEDICARE [facility] MEDICARE SUPPLEMENT Advance Directives For more information, please contact: [phone] Documents on File Type Date Recorded Patient Business Systems Consultant Expl anation ADVANCE DIRECTIVE 06/05/2018 11:45 AM POWER OF SWINE NUTRITIONIST ADVANCE DIRECTIVE 06/05/2018 11:42 AM POWER OF SWINE NUTRITIONIST ADVANCE DIRECTIVE 06/02/2018 12:56 AM POWER OF SWINE NUTRITIONIST * Full Code (Latest Code Status on [...] Agents on File Name Relationship Healthcare Agent [facility] p Communication Doris Tamayo Daughter First Alternate Health Care Agent Care Teams Fish Filleter Relationship Specialty Start Date End Date Piter Parry MD [address] [facility] [place] [address] PCP - General 04/10/19
--- OUTSIDE RECORDS SUMMARY | 2024-07-09 16:35 | XMS_ITS | Clinical Summary ---
Author Organization [facility] Address [address] [facility] Attn: Epic Prelude ADT [place] [address] Care Team Providers Care Chlorination Operator Name Role Phone Piter Parry MD Primary Care Provider [phone] Allergies Active Allergy Reactions Criticality Noted Date Comments Adhesive Tape-Silicones Rash Low 07/31/2012 Codeine Hives High 07/31/2012 Vancomycin Hives High 09/18/2012 Medications apixaban (Eliquis) 5 mg tablet Take 2.5 mg by mouth 2 times daily. 8 Active allopurinoL (ZYLOPRIM) 300 mg tablet Take 300 mg by mouth daily. Active cholecalciferol , vitamin D3, 1,000 unit Take 1,000 Units by mouth daily. Active levothyroxine 50 mcg tablet Take 50 mcg by mouth daily before breakfast. Active simvastatin (ZOCOR) 20 mg tablet Take 20 mg by mouth daily. Active diphenhydrAMINE (BENADRYL) 25 mg tablet Take 25 mg by mouth nightly as needed for Allergies. Active acetaminophen (TYLENOL) 325 mg tablet Take 650 mg by mouth every 6 hours as needed for Pain or Pain, Mild / Temperature. Active famotidine (PEPCID) 20 mg tablet Take 20 mg by mouth daily at bedtime. Active ondansetron (ZOFRAN) 4 mg Tablet Take 4 mg by mouth every 6 hours as needed for Nausea/Emesis. Active folic acid (FOLVITE) 1 mg tablet Take 2 mg by mouth 2 times daily. Active citalopram (CeleXA) 10 mg tablet Take 10 mg by mouth daily. Active polyvinyl alcohol (LIQUIFILM TEARS) 1.4 % solution Administer 1 Drop in both eyes PRN for Discomfort. Active melatonin 5 mg Tablet Take 5 mg by mouth nightly as needed for Insomnia. Active lisinopriL (PRINIVIL) 40 mg tablet Take 1 Tablet (40 mg) by mouth daily. Active Active Problems Problem Noted Date Diagnosed Date Near syncope 02/27/2024 Hypothyroidism 02/25/2024 History of DVT (deep vein thrombosis) 02/25/2024 Syncope and collapse 02/25/2024 Hypertensive urgency 02/25/2024 Stage 4 chronic kidney disease 01/26/2024 Benign essential hypertension 04/25/2019 Chronic left-sided ulcerative colitis 04/25/2019 Deep venous thrombosis 04/25/2019 Pure hypercholesterolemia 04/25/2019 Depressive disorder 12/12/2017 Encounters Date Type Department Care Team Description 05/28/2024 External Device Data [facility] ABSTRACTION Provider, Abstract 05/23/2024 External Device Data [facility] ABSTRACTION Provider, Abstract 05/21/2024 External Device Data [facility] ABSTRACTION Provider, Abstract from Last 3 Months Family History Medical History Relation Name Comments Gout Brother Seizure Disorder Father Heart Attack Mother Heart Disease Mother Macular Degen Mother Relation Name Status Comments Brother Father Mother Social History Tobacco Use Types Packs/Day Years Used Date Smoking Tobacco: Former Cigarettes Q uit: 05/04/2015 Smokeless Tobacco: Never Tobacco Cessation:Counseling Given: Not Answered Alcohol Use Standard Drinks/Week Comments Yes 0 (1 standard drink = 0.6 oz pur e alcohol) occasionally Feeling Safe Answer Date Recorded Are you in a relationship wi th someone who hurts you emotionally and/or physically? 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 Gender Identity Not on file Sexual Orientation Not on file Last Filed Vital Signs Vital Sign Reading Time Taken Comments Blood Pressure 112/47 02/27/2024 9:06 AM CDT Pulse 78 02/27/2024 5:07 AM CDT Temperature 36.8 C (98.3 F) 02/27/2024 9:06 AM CDT Respiratory Rate 13 02/27/2024 9:06 AM CDT Oxygen Saturation 97% 02/27/2024 9:06 AM CDT Inhaled Oxygen Concentration - - Weight 104.1 kg (229 lb 8 oz) 02/25/2024 1:58 PM CDT Height 170.2 cm (5' 7 ) 02/25/2024 1:58 PM CDT Body Mass Index 35.94 02/25/2024 1:58 PM CDT Plan of Treatment Health Maintenance Due Date Last Done Comments DTAP/TDAP/TD VACCINES (1 - Tdap) 1961 PNEUMOCOCCAL VACCINE 50+ YEA RS (1 of 1 - PCV) 02/07/1992 ZOSTER VACCINE (1 of 2) 02/07/1992 OSTEOPOROSIS SCREENING 2007 RSV VACCINE (60+ or ) (1 - 1-dose 75+ series) 2017 INFLUENZA VACCINE (#1) 2023 COLORECTAL SCREENING Discontinued 01/29/2024, 01/29/20 24 Colorectal Cancer Screening Discontinued FIT-DNA Q 3 years Discontinued FIT/FOBT Q 1 year Discontinued Flex Sig/CT Colonography Q 5 years Discontinued Medical Devices Implanted Type Area Bioinformatics Assistant Device Identifier Shelf Expiration Date Model / Serial / Lot Lens Io Toric Sn6at5 18.5 - [id number] Implanted:Qty: 1 on 09/20/2012 Eye Left: Eye [facility] 08/29/2015 SN6AT5 18 .5 / [id number] / Lens Io Toric Sn6at4 19.5 - [id number] Implanted:Qty: 1 on 10/16/2012 Eye Right: Eye [facility] 07/28/2014 SN6AT4 19 .5 / [id number] / Insurance [facility] SUPP MEDICARE PART A AND B Advance Directives For more information, please contact: [phone] * Full Code (Latest Code Status on File) Date Activated Date Inactivated Comments 02/25/2024 10:57 AM 02/27/2024 3:04 PM Care Teams Chlorination Operator Relationship Specialty Start Date End Date Piter Parry MD [address] [address] PCP - General Internal Medicine 03/20/18
--- NOTE | 2024-07-09 17:41 | PC.NURSE ---
Lab called for update on total T3. Per Gertrude tech, it is almost done.
--- NOTE | 2024-07-09 18:00 | PC.NURSE ---
Pt. arrived with large skin tear to posterior R. thigh, at the crease between the bottom and thigh. Wound dressed with a mepilex.
[2024-07-09 18:30] LABS: Total Triiodothyronine (T3) 0.93 NG/ML (0.97-1.69)
[2024-07-09] MEDS: LACTATED RINGERS 1,000 ML 125 ML IV CONT (19:00)
--- NOTE | 2024-07-09 20:17 | PC.NURSE ---
Daughter Lay updated via telephone at this time. All questions answered. Lay states she will call pt. other daughter Doris to provide update.
--- NOTE | 2024-07-09 21:11 | P.HP_ITS ---
H&P: HPI History of Present Illness Date/Time: 07/09/24 21:11 Chief Complaint: Altered mental status Narrative: This is an 84-year-old female with a significant past medical history of hypertension, hyperlipidemia, chronic kidney disease stage IV, asthma, CVA, gout, hypothyroidism who presented to the hospital from her shelter facility for concerns of mental status changes and weakness. Patient was re cently diagnosed with a UTI 2 weeks ago. Patient unable to provide any history of presenting illness due to AMS. Most of history of presenting illness obtained from medical record. Workup in the hospital included a head CT which showed old infarcts involving the shorty, right parietal and occipital lobe, bilateral basal ganglia, and bilateral thalami, moderate nonspecific cerebral white matter dise ase consistent with chronic small-vessel ischemic disease. Chest/abdomen/pelvis CT showed a 1.9 cm left kidney mass which may be a hemorrhagic cyst or less likely renal cell carcinoma. Initial labs showed a white blood cell count of 10.1, globin 9.7, INR 1.1, bicarb 19, creatinine 2.23, EGFR 21, AST 57, proBNP 383, troponin 0.032, TSH 5.250, total T3 0.93, free T4 1.0. UA was obtained and showed 6-10 urine RBC, with yeast present otherwise negative. Respiratory panel was negative for influenza A and B, RSV, COVID. Blood cultures were obtained and pending. EKG shown sinus tach with nonspecific T-wave abnormality with a rate of 110, QTC 465. Patient was given 1 L of LR and started on IV fluids while in the ED. patient was initially meeting SIRS criteria with tachycardia, tachypnea, mild hypotension. Review of Systems Review of Systems: ROS unobtainable: Yes unobtainable due to mental status [facility] Past Medical History Medical History Chronic kidney disease, stage 4 (severe) Hypothyroidism Depression Gout Hyperlipidemia Hypertension History of cerebrovascular accident Social History Social History Smoking status: Smoker, status unknown Alcohol intake: unknown Substance use: unknown Substance use type: unknown Spiritual care concerns: No Meds Home Medications and Allergies Home Medications ?Medication ?Instructions ?Recorded ?Confirmed ?Type allopurinol 300 mg tablet 300 mg PO DAILY 07/09/24 07/09/24 History apixaban 2.5 mg tablet (Eliquis) 2.5 mg PO BID 07/09/24 07/09/24 History aripiprazole 5 mg tablet (Abilify) 5 mg PO DAILY 07/09/24 07/09/24 History ascorbic acid (vitamin C) 500 mg 500 mg PO DAILY 07/09/24 07/09/24 History tablet (C-500) citalopram 10 mg tablet (Celexa) 10 mg PO DAILY 07/09/24 07/09/24 History diphenhydramine HCl 25 mg capsule 25 mg PO HS PRN sleep 07/09/24 07/09/24 History (Benadryl) levothyroxine 50 mcg capsule 50 mcg PO DAILY 07/09/24 07/09/24 History loperamide 2 mg tablet 2 mg PO TID PRN diarrhea 07/09/24 07/09/24 History simvastatin 20 mg tablet 20 mg PO HS 07/09/24 07/09/24 History vitamin B complex 1 tablet PO DAILY 07/09/24 07/09/24 History Allergies Allergy/AdvReac Type Severity Reaction Status Date / Time codeine Allergy Mild Itching Verified 06/01/18 12:36 vancomycin Allergy Mild Hives / Verified 06/01/18 12:36 Red Face Vital Signs Vital Signs - 24 hr 07/09/24 11:52 07/09/24 12:01 07/09/24 12:10 Temperature 97.9 F Pulse Rate 111 H 110 H 112 H Respiratory Rate 24 H 29 H 33 H Blood Pressure 91/66 L 84/75 L 91/66 L Pulse Oximetry 98 Oxygen Delivery Room Air 07/09/24 12:16 07/09/24 12:31 07/09/24 12:46 Temperature Pulse Rate 107 H 113 H 111 H Respiratory Rate 20 19 26 H Blood Pressure 116/57 L 130/61 135/71 Pulse Oximetry Oxygen Delivery 07/09/24 13:01 07/09/24 13:16 07/09/24 14:03 Temperature Pulse Rate 107 H 115 H Respiratory Rate 21 H 21 H Blood Pressure 151/60 H 143/87 H Pulse Oximetry 95 93 Oxygen Delivery Room Air 07/09/24 18:04 07/09/24 20:13 Temperature Pulse Rate 115 H 102 H Respiratory Rate 15 16 Blood Pressure 156/110 H 140/60 Pulse Oximetry 95 97 Oxygen Delivery Exam Narrative: General: In no acute distress, well nourished Head: acute encephalopathy Eyes: PERRLA 2mm bilaterally, sclera clear ENT: moist mucous membranes, nasal passages clear Neck: supple, no JVD, no adenopathy, trachea midline Cardiac: Normal S1 and S2. No murmur, gallops or friction rubs, peripheral pulses intact. Respiratory: Lungs clear to auscultation, no adventitious lung sounds Gastrointestinal: soft, non-distended, non-tender, normoactive bowel sounds. : voiding without difficulty. Extremities: moves all extremities well, 1+ pitting edema BLE Skin: clean, dry, intact. No wounds or lesions. Neuro:AMS, will open eyes to voice and painful stimulation and then drifts back to sleep Psych:unable to assess due to AMS H&P: Results Labs Labs: Short CBC 07/09/24 Range/Units 14:01 WBC 10.1 H (4.5-10.0) K/mm3 Hgb 9.7 L (12.0-15.0) g/dL Hct 31.8 L (37.0-47.0) % Plt Count 172 (150-375) k/mm3 BMP 07/09/24 12:56 Sodium 140 Potassium 4.6 Chloride 110 H Carbon Dioxide 19 L BUN 35 H Creatinine 2.23 H Glucose 112 H Calcium 9.7 Cardiac Enzymes 07/09/24 Range/Units 12:55 Troponin I 0.032 (0.000-0.034) ng/mL Liver Function 07/09/24 Range/Units 12:56 Total Bilirubin 0.7 (0.2-1.3) mg/dL AST 57 H (14-36) U/L ALT 27 (6-35) U/L Alkaline Phosphatase 82 (38-126) U/L Albumin 4.1 (3.5-5.1) g/dL Urine 07/09/24 Range/Units 12:36 Urine Color Yellow (Yellow) Urine Appearance Clear (Clear) Urine pH 5.0 (5.0-9.0) Ur Specific [place] 1.017 (1.001-1.035) Urine Protein Trace (Negative) mg/dL Urine Glucose (UA) Negative (Negative) mg/dL Imaging CT scan - head: Radiologist's impression: EXAMINATION: CT brain wo con DATE: 07/09/2024 15:16 INDICATION: Altered mental status. TECHNIQUE: Computed tomography (CT) of the head was performed without intravenous contrast. The mA was adjusted according to patient size. Iterative reconstruction technique was employed. The dose-length product was 605.33 mGy- cm. COMPARISON: None FINDINGS: There is an old lacunar infarct in the shorty. There is an old infarct in the right parietal and occipital lobes. There are old infarcts in the bilateral basal ganglia and thalami. There are scattered areas of low attenuation in the cerebral white matter. There is no intracranial hemorrhage, acute infarction, or abnormal intracranial mass lesion. The ventricles are normal in size. There is mild mucosal thickening in left maxillary sinus. The mastoid air cells are normal. There are likely changes of ocular lens replacement surgeries. IMPRESSION: 1. Old infarcts involving the shorty, right parietal and occipital lobes, bilateral basal ganglia, and bilateral thalami. 2. Moderate nonspecific cerebral white matter disease, which likely represents chronic small vessel ischemic disease. Reviewed, dictated and finalized at location B. Chest/Abdomen/Pelvis CT: Radiologist's impression: EXAMINATION: CT chest abdomen pelvis wo con DATE: 07/09/2024 15:16 INDICATION: Tachycardia. Hypotension. TECHNIQUE: Computed tomography (CT) of the chest, abdomen, and pelvis was performed without intravenous contrast. Automated exposure control and iterative reconstruction technique were employed. The dose-length product was 1685.58 mGy- cm. COMPARISON: None FINDINGS: CHEST CT: There is mild atelectasis bilaterally. There are subpleural bands in the lower lobes and lingula. A calcified right lung nodule and calcified right hilar lymph nodes are consistent with old granulomatous disease. No pleural effusion. The heart size is normal. There are coronary artery calcifications. No pericardial effusion. There is severe thoracic and cervical spondylosis. ABDOMEN/PELVIS CT: The liver is normal. Calcifications in the spleen are consistent with old granulomatous disease. There are gallstones in the gallbladder which is normal in size. The pancreas and right adrenal gland are normal. There is thickening of left adrenal gland, likely benign. There are cysts in the kidneys measuring up to 3.6 cm on the right. There is a 1.9 cm mass in left kidney. There is no urolithiasis. A uterine fibroid is noted. There are no dilated loops of bowel. The appendix is normal. There are no pathologically enlarged lymph nodes. There is no free intraperitoneal fluid. There is a total right hip arthroplasty. There is severe lumbar spondylosis. IMPRESSION: 1. 1.9 cm left kidney mass, which may be a hemorrhagic cyst or less likely renal cell carcinoma. Abdomen CT or MRI without and with contrast is recommended. Reviewed, dictated and finalized at location B. Assessment and Plan Assessment and plan (1) SIRS (systemic inflammatory response syndrome): Code(s): R65.10 - Systemic inflammatory response syndrome (SIRS) of non-infectious origin without acute organ dysfunction Status: Acute Assessment and Plan: * Initially meeting SIRS criteria with heart rate of 111, respiratory rate 24, blood pressures ranging 84/75 to 91/66 * Slightly elevated at 10.1 * UA only shown 6-10 urine RBC, with yeast present. * Respiratory panel was negative for influenza a and B, RSV, COVID * Patient received 1 L LR in the ED with improvement in her vital signs (2) Acute kidney injury superimposed on chronic kidney disease: Code(s): N17.9 - Acute kidney failure, unspecified; N18.9 - Chronic kidney disease, unspecified Status: Acute Assessment and Plan: * Creatinine 2.23, EGFR 21 * Baseline creatinine unknown, last creatinine that was recorded in our system was 1.80 however that was back in 2019 * Continue to trend (3) Acute dehydration: Code(s): E86.0 - Dehydration Status: Acute Assessment and Plan: * Patient was given 1 L of LR while in the ED * Continue LR at 75 mL/hour for hydration * Monitor electrolytes (4) Altered mental status, unspecified: Code(s): R41.82 - Altered mental status, unspecified Status: Acute Assessment and Plan: Recently diagnosed with a UTI 2 weeks ago. History of CVA. * UA only shown 6-10 urine RBC, yeast present on UA * Respiratory panel was negative for influenza A and B, RSV, COVID * Sodium level 140, blood sugar was 112 * Will check ammonia level * Head CT showing old infarcts involving the shorty, right parietal and occipital lobe, bilateral basal ganglia, and bilateral thalami, moderate nonspecific cerebral white matter disease likely representing chronic small vessel ischemic disease * Will get MRI of the brain and brainstem with and without contrast * Neurology consulted * Continue neuro checks (5) Hypothyroidism: Code(s): E03.9 - Hypothyroidism, unspecified Status: Acute Assessment and Plan: * Currently on Synthroid 50 mcg daily we will increase to 62.5 daily * TSH 5.250, free T4 1.0, total T3 0.93 (6) Hypertension: Code(s): I10 - Essential (primary) hypertension Status: Acute Assessment and Plan: * Blood pressure ranging 140/60 to 156/110 * Not currently on any blood pressure medications at home * Will start amlodipine 5 mg daily (7) Hyperlipidemia: Code(s): E78.5 - Hyperlipidemia, unspecified Status: Acute Assessment and Plan: * Continue simvastatin (8) Depression: Code(s): F32.A - Depression, unspecified Status: Acute Assessment and Plan: * Continue Abilify and Celexa (9) Gout: Code(s): M10.9 - Gout, unspecified Status: Acute Assessment and Plan: * Continue allopurinol (10) Chronic anticoagulation: Code(s): 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 * Unknown why she is on chronic anticoagulation unless there were given this for CVA? Quality VTE Prophylaxis VTE prophylaxis: pharmacologic ordered Hospitalist MIPS Advance Care Plan I have confirmed that the patient's Advanced Care Plan is present, code status is documented, or surrogate decision maker is listed in patient medical record.: Yes Medication Reconciliation I have utilized all available resources to obtain, update and review the patients current medications (includes all prescriptions, OTC, herbals, cannabis, and nutritional supplements).: Yes
[2024-07-09 22:06] LABS: Glucose Point of Care 94 mg/dl (65-105)
[2024-07-10 05:40] VITALS: BP 157/71; PULSE 100; RESP 16; TEMP 36.3; O2SAT 95
[2024-07-10 05:42] LABS: Basophils Percent Auto 0.4 % (0.2-1.2); Eosinophils Absolute Auto 0.5 K/mm3 (0-0.3); Eosinophils Percent Auto 7.1 % (0-4.4); Hematocrit 26.8 % (37.0-47.0); Hemoglobin 8.2 g/dL (12.0-15.0); Immature Granulocyte Absolute 0.03 K/mm3 (0.00-0.031); Immature Granulocyte Percent A 0.4 % (0-0.5); Lymphocytes Absolute Auto 1.05 K/mm3 (0.9-3.2); Lymphocytes Percent Auto 15.2 % (18.3-44.2); Mean Corpuscular HGB Conc 30.6 g/dl (32-36); Mean Corpuscular Hemoglobin 31.5 pg (26-34); Mean Corpuscular Volume 103.1 fl (80-100); Mean Platelet Volume 9.4 fl (7.4-10.4); Monocytes Absolute Auto 0.7 K/mm3 (0.1-0.6); Monocytes Percent Auto 9.7 % (2.6-8.5); Neutrophils Absolute Auto 4.6 K/mm3 (1.3-6.7); Neutrophils Percent Auto 67.2 % (45.5-73.1); Platelet Count Result 128 k/mm3 (150-375); Red Cell Distribution Width 16.1 % (11.5-14.5); White Blood Count 6.9 K/mm3 (4.5-10.0)
[2024-07-10 05:52] LABS: Ammonia < 9 umol/L (9-30)
[2024-07-10 05:54] LABS: Alanine Aminotransferase 23 U/L (6-35); Albumin Level 2.9 g/dL (3.5-5.1); Alkaline Phosphatase 66 U/L (38-126); Anion Gap 4 mmol/L (4-12); Aspartate Amino Transferase 60 U/L (14-36); Bilirubin,Total 0.6 mg/dL (0.2-1.3); Blood Urea Nitrogen 30 mg/dL (7-17); Calcium 9.1 mg/dL (8.4-10.2); Carbon Dioxide 25 mmol/L (22-30); Chloride 113 mmol/L (98-107); Estimated CRCL calculation 30 ml/min; Estimated Glomerular Filt Rate 27; Glucose 89 mg/dL (65-110); Potassium 4.1 mmol/L (3.4-5.0); Sodium 142 mmol/L (137-145)
[2024-07-10] MEDS: LACTATED RINGERS 1,000 ML 75 ML IV CONT (07:00)
[2024-07-10] MEDS: LEVOTHYROXINE SODIUM 50 MCG TABLET PO (07:00)
[2024-07-10] MEDS: LEVOTHYROXINE SODIUM 12.5 MCG TABLET PO (07:00)
[2024-07-10 08:00] VITALS: BP 150/54; PULSE 87; RESP 16; TEMP 36.7; O2SAT 98
[2024-07-10] MEDS: allopurinoL 300 MG TABLET PO (08:28)
[2024-07-10] MEDS: VITAMIN B COMPLEX CAPSULE 1 CAP PO (08:28)
[2024-07-10] MEDS: ASCORBIC ACID 500 MG TABLET PO (08:28)
[2024-07-10] MEDS: CITALOPRAM HYDROBROMIDE 10 MG TABLET PO (08:28)
[2024-07-10] MEDS: APIXABAN 2.5 MG TABLET PO ×2 (08:28→22:07)
[2024-07-10] MEDS: ARIPiprazole 5 MG TABLET PO (08:28)
[2024-07-10] MEDS: amLODIPine BESYLATE 5 MG TABLET PO (08:28)
--- NOTE | 2024-07-10 10:53 | P.CONNEU_ITS ---
Assessment and Plan Assessment and plan (1) Chronic anticoagulation: Code(s): Z79.01 - penitentiary (current) use of anticoagulants Status: Acute (2) Chronic kidney disease, stage 4 (severe): Code(s): N18.4 - Chronic kidney disease, stage 4 (severe) Status: Acute (3) History of cerebrovascular accident: Code(s): Z86.73 - Personal history of transient ischemic attack (TIA), and cerebral infarction without residual deficits Status: Acute (4) Seizures: Code(s): R56.9 - Unspecified convulsions Status: Acute Plan 1. Encephalopathy 2. status post bihemispheric stroke with involvement of the shorty, right parietal and occipital lobes in addition to subcortical area there is bilateral basal ganglia and thalami,3 considering the recent concern about the possibility of mental status changes, routine EEG will be obtained to rule out the possibility of paroxysmal activity though it is extremely unlikely patient has bihemispheric subcortical dysfunction on the basis of the small and medium size arterial disease resulting in Dementia of mixed the variety. Consult date: 07/10/24 HPI: Clau Escalante is a 84 year old female admitted to the hospital on transfer from the [facility] facility for the complaints of change in the mental status. Patient had been diagnosed to have urinary tract infection about 2 weeks ago and at the time of this particular presentation patient was alert and answering questions in addition patient has the history of 1. Hypertension 2. Hyperlipidemia 3. Chronic renal disease she also complained of headache and generalized weakness of several days and on initial finding she was hypotensive with tachycardia. It was mentioned that she is allergic to codeine and vancomycin. Initial exam in the emergency room was with mild tachypnea largely distended abdomen but otherwise no focal neurological deficit. Vital signs with pulse rate of 111 respiration 24 blood pressure 91/66, initial CBC with hemoglobin 9.7 hematocrit 31.8 and WBC is 10.1, basic metabolic panel with BUN 35 creatinine 2.03, normal UA, lactic acid only 1.4, T3 0.93 the TSH reflex 5.25 and T4 1.0, screening was a routine viral infections in the ER negative, initial CT scan of the head negative for the bleed but with old infarcts involving the shorty, right parietal and occipital lobes, bilateral basal ganglia, and bilateral thalami with nonspecific white matter disease. CT chest and abdominal and pelvis documented 1.9cm left kidney mass with the possibility of hemorrhagic cyst versus renal cell carcinoma. Patient's medications included allopurinol 300mg daily, apixaban 2.5mg b.i.d., ADP preserved 5mg daily, citalopram 10mg daily, levothyroxine 50mcg daily, simvastatin 20mg at night, and vitamin-B complex 1 tablet daily, patient is allergic to vancomycin, PMFSH Past Medical History Medical History Chronic kidney disease, stage 4 (severe) Hypothyroidism Depression Gout Hyperlipidemia Hypertension History of cerebrovascular accident Social History Social History Smoking status: Smoker, status unknown Alcohol intake: unknown Substance use: unknown Substance use type: unknown Spiritual care concerns: No Meds Home Medications and Allergies Home Medications ?Medication ?Instructions ?Recorded ?Confirmed ?Type allopurinol 300 mg tablet 300 mg PO DAILY 07/09/24 07/09/24 History apixaban 2.5 mg tablet (Eliquis) 2.5 mg PO BID 07/09/24 07/09/24 History aripiprazole 5 mg tablet (Abilify) 5 mg PO DAILY 07/09/24 07/09/24 History ascorbic acid (vitamin C) 500 mg 500 mg PO DAILY 07/09/24 07/09/24 History tablet (C-500) citalopram 10 mg tablet (Celexa) 10 mg PO DAILY 07/09/24 07/09/24 History diphenhydramine HCl 25 mg capsule 25 mg PO HS PRN sleep 07/09/24 07/09/24 History (Benadryl) levothyroxine 50 mcg capsule 50 mcg PO DAILY 07/09/24 07/09/24 History loperamide 2 mg tablet 2 mg PO TID PRN diarrhea 07/09/24 07/09/24 History simvastatin 20 mg tablet 20 mg PO HS 07/09/24 07/09/24 History vitamin B complex 1 tablet PO DAILY 07/09/24 07/09/24 History Allergies Allergy/AdvReac Type Severity Reaction Status Date / Time codeine Allergy Mild Itching Verified 06/01/18 12:36 vancomycin Allergy Mild Hives / Verified 06/01/18 12:36 Red Face Vital Signs Vital Signs - 24 hr 07/09/24 11:52 07/09/24 12:01 07/09/24 12:10 Temperature 36.6 C Pulse Rate 111 H 110 H 112 H Respiratory Rate 24 H 29 H 33 H Blood Pressure 91/66 L 84/75 L 91/66 L Pulse Oximetry 98 Oxygen Delivery Room Air 07/09/24 12:16 07/09/24 12:31 07/09/24 12:46 Temperature Pulse Rate 107 H 113 H 111 H Respiratory Rate 20 19 26 H Blood Pressure 116/57 L 130/61 135/71 Pulse Oximetry Oxygen Delivery 07/09/24 13:01 07/09/24 13:16 07/09/24 14:03 Temperature Pulse Rate 107 H 115 H Respiratory Rate 21 H 21 H Blood Pressure 151/60 H 143/87 H Pulse Oximetry 95 93 Oxygen Delivery Room Air 07/09/24 18:04 07/09/24 20:13 07/09/24 22:00 Temperature 36.6 C Pulse Rate 115 H 102 H 104 H Respiratory Rate 15 16 18 Blood Pressure 156/110 H 140/60 159/72 H Pulse Oximetry 95 97 97 Oxygen Delivery 07/10/24 00:00 07/10/24 05:40 07/10/24 08:00 Temperature 36.3 C L 36.7 C Pulse Rate 100 87 Respiratory Rate 16 16 Blood Pressure 157/71 H 150/54 H Pulse Oximetry 95 98 Oxygen Delivery Room Air 07/10/24 08:00 Temperature Pulse Rate Respiratory Rate Blood Pressure Pulse Oximetry 98 Oxygen Delivery Room Air Exam 2 Narrative: revealed her to be awake alert trying to follow the verbal commands appropriately, head normocephalic with no bruit, ear nose throat examination normal, neck supple with no meningeal signs, no cervical bruit, heart regular with no murmur, lungs clear to auscultation with no rhonchi or crepitations, abdomen is soft nontender with normal bowel sounds, extremities able to move all extremities spontaneously but has significant pitting edema of lower extremities, his skin clear with no petechiae or rash, neurologically she is awake alert open the eyes on commands and tries to follow the verbal command but not appropriately all the time, pupils round regular feels the vision full extraocular movements and spontaneously full with no nystagmus facial sensation intact with facial grimace face symmetrical tongue and oral cavity with no fasciculation motor examination revealed her to have decreased strength in upper and lower extremities with no increased tone with no cogwheeling rigidity and reflexes are sluggish but symmetrical plantars are questionable. Did not perform [id number] or heel to knee to [place]. Results Labs 07/10/24 05:33 07/10/24 05:32 Labs: Short CBC 07/09/24 07/10/24 Range/Units 14:01 05:33 WBC 10.1 H 6.9 (4.5-10.0) K/mm3 Hgb 9.7 L 8.2 L (12.0-15.0) g/dL Hct 31.8 L 26.8 L (37.0-47.0) % Plt Count 172 128 L (150-375) k/mm3 BMP 07/09/24 07/10/24 12:56 05:32 Sodium 140 142 Potassium 4.6 4.1 Chloride 110 H 113 H Carbon Dioxide 19 L 25 BUN 35 H 30 H Creatinine 2.23 H 1.77 H Glucose 112 H 89 Calcium 9.7 9.1 Cardiac Enzymes 07/09/24 Range/Units 12:55 Troponin I 0.032 (0.000-0.034) ng/mL Liver Function 07/09/24 07/10/24 Range/Units 12:56 05:32 Total Bilirubin 0.7 0.6 (0.2-1.3) mg/dL AST 57 H 60 H (14-36) U/L ALT 27 23 (6-35) U/L Alkaline Phosphatase 82 66 (38-126) U/L Albumin 4.1 2.9 L (3.5-5.1) g/dL Urine 07/09/24 Range/Units 12:36 Urine Color Yellow (Yellow) Urine Appearance Clear (Clear) Urine pH 5.0 (5.0-9.0) Ur Specific [place] 1.017 (1.001-1.035) Urine Protein Trace (Negative) mg/dL Urine Glucose (UA) Negative (Negative) mg/dL
--- NOTE | 2024-07-10 11:51 | P.CONNEU_ITS ---
Consult date: 07/10/24 HPI: Clau Escalante is a 84 year old female [facility] Past Medical History Medical History Chronic kidney disease, stage 4 (severe) Hypothyroidism Depression Gout Hyperlipidemia Hypertension History of cerebrovascular accident Social History Social History Smoking status: Smoker, status unknown Alcohol intake: unknown Substance use: unknown Substance use type: unknown Spiritual care concerns: No Meds Home Medications and Allergies Home Medications ?Medication ?Instructions ?Recorded ?Confirmed ?Type allopurinol 300 mg tablet 300 mg PO DAILY 07/09/24 07/09/24 History apixaban 2.5 mg tablet (Eliquis) 2.5 mg PO BID 07/09/24 07/09/24 History aripiprazole 5 mg tablet (Abilify) 5 mg PO DAILY 07/09/24 07/09/24 History ascorbic acid (vitamin C) 500 mg 500 mg PO DAILY 07/09/24 07/09/24 History tablet (C-500) citalopram 10 mg tablet (Celexa) 10 mg PO DAILY 07/09/24 07/09/24 History diphenhydramine HCl 25 mg capsule 25 mg PO HS PRN sleep 07/09/24 07/09/24 History (Benadryl) levothyroxine 50 mcg capsule 50 mcg PO DAILY 07/09/24 07/09/24 History loperamide 2 mg tablet 2 mg PO TID PRN diarrhea 07/09/24 07/09/24 History simvastatin 20 mg tablet 20 mg PO HS 07/09/24 07/09/24 History vitamin B complex 1 tablet PO DAILY 07/09/24 07/09/24 History Allergies Allergy/AdvReac Type Severity Reaction Status Date / Time codeine Allergy Mild Itching Verified 06/01/18 12:36 vancomycin Allergy Mild Hives / Verified 06/01/18 12:36 Red Face Vital Signs Vital Signs - 24 hr 07/09/24 11:52 07/09/24 12:01 07/09/24 12:10 Temperature 36.6 C Pulse Rate 111 H 110 H 112 H Respiratory Rate 24 H 29 H 33 H Blood Pressure 91/66 L 84/75 L 91/66 L Pulse Oximetry 98 Oxygen Delivery Room Air 07/09/24 12:16 07/09/24 12:31 07/09/24 12:46 Temperature Pulse Rate 107 H 113 H 111 H Respiratory Rate 20 19 26 H Blood Pressure 116/57 L 130/61 135/71 Pulse Oximetry Oxygen Delivery 07/09/24 13:01 07/09/24 13:16 07/09/24 14:03 Temperature Pulse Rate 107 H 115 H Respiratory Rate 21 H 21 H Blood Pressure 151/60 H 143/87 H Pulse Oximetry 95 93 Oxygen Delivery Room Air 07/09/24 18:04 07/09/24 20:13 07/09/24 22:00 Temperature 36.6 C Pulse Rate 115 H 102 H 104 H Respiratory Rate 15 16 18 Blood Pressure 156/110 H 140/60 159/72 H Pulse Oximetry 95 97 97 Oxygen Delivery 07/10/24 00:00 07/10/24 05:40 07/10/24 08:00 Temperature 36.3 C L 36.7 C Pulse Rate 100 87 Respiratory Rate 16 16 Blood Pressure 157/71 H 150/54 H Pulse Oximetry 95 98 Oxygen Delivery Room Air 07/10/24 08:00 Temperature Pulse Rate Respiratory Rate Blood Pressure Pulse Oximetry 98 Oxygen Delivery Room Air Results Labs 07/10/24 05:33 07/10/24 05:32 Labs: Short CBC 07/09/24 07/10/24 Range/Units 14:01 05:33 WBC 10.1 H 6.9 (4.5-10.0) K/mm3 Hgb 9.7 L 8.2 L (12.0-15.0) g/dL Hct 31.8 L 26.8 L (37.0-47.0) % Plt Count 172 128 L (150-375) k/mm3 BMP 07/09/24 07/10/24 12:56 05:32 Sodium 140 142 Potassium 4.6 4.1 Chloride 110 H 113 H Carbon Dioxide 19 L 25 BUN 35 H 30 H Creatinine 2.23 H 1.77 H Glucose 112 H 89 Calcium 9.7 9.1 Cardiac Enzymes 07/09/24 Range/Units 12:55 Troponin I 0.032 (0.000-0.034) ng/mL Liver Function 07/09/24 07/10/24 Range/Units 12:56 05:32 Total Bilirubin 0.7 0.6 (0.2-1.3) mg/dL AST 57 H 60 H (14-36) U/L ALT 27 23 (6-35) U/L Alkaline Phosphatase 82 66 (38-126) U/L Albumin 4.1 2.9 L (3.5-5.1) g/dL Urine 07/09/24 Range/Units 12:36 Urine Color Yellow (Yellow) Urine Appearance Clear (Clear) Urine pH 5.0 (5.0-9.0) Ur Specific [place] 1.017 (1.001-1.035) Urine Protein Trace (Negative) mg/dL Urine Glucose (UA) Negative (Negative) mg/dL
[2024-07-10 12:58] VITALS: BMI 38.4
--- NOTE | 2024-07-10 13:04 | P.PNIM_ITS ---
Progress Note: A&P Assessment and Plan (1) SIRS (systemic inflammatory response syndrome): Code(s): R65.10 - Systemic inflammatory response syndrome (SIRS) of non-infectious origin without acute organ dysfunction Status: Acute Assessment and Plan: * Initially meeting SIRS criteria with heart rate of 111, respiratory rate 24, blood pressures ranging 84/75 to 91/66 * Slightly elevated at 10.1 * UA only shown 6-10 urine RBC, with yeast present. * Respiratory panel was negative for influenza a and B, RSV, COVID * Patient received 1 L LR in the ED with improvement in her vital signs (2) Acute kidney injury superimposed on chronic kidney disease: Code(s): N17.9 - Acute kidney failure, unspecified; N18.9 - Chronic kidney disease, unspecified Status: Acute Assessment and Plan: * Creatinine 2.23, EGFR 21 * Baseline creatinine unknown, last creatinine that was recorded in our system was 1.80 however that was back in 2019 * Continue to trend (3) Acute dehydration: Code(s): E86.0 - Dehydration Status: Acute Assessment and Plan: * Patient was given 1 L of LR while in the ED * Continue LR at 75 mL/hour for hydration * Monitor electrolytes (4) Altered mental status, unspecified: Code(s): R41.82 - Altered mental status, unspecified Status: Acute Assessment and Plan: Recently diagnosed with a UTI 2 weeks ago. History of CVA. * UA only shown 6-10 urine RBC, yeast present on UA * Respiratory panel was negative for influenza A and B, RSV, COVID * Sodium level 140, blood sugar was 112 * Will check ammonia level * Head CT showing old infarcts involving the shorty, right parietal and occipital lobe, bilateral basal ganglia, and bilateral thalami, moderate nonspecific cerebral white matter disease likely representing chronic small vessel ischemic disease * Will get MRI of the brain and brainstem with and without contrast * Neurology consulted * Continue neuro checks (5) Hypothyroidism: Code(s): E03.9 - Hypothyroidism, unspecified Status: Acute Assessment and Plan: * Currently on Synthroid 50 mcg daily we will increase to 62.5 daily * TSH 5.250, free T4 1.0, total T3 0.93 (6) Hypertension: Code(s): I10 - Essential (primary) hypertension Status: Acute Assessment and Plan: * Blood pressure ranging 140/60 to 156/110 * Not currently on any blood pressure medications at home * Will start amlodipine 5 mg daily (7) Hyperlipidemia: Code(s): E78.5 - Hyperlipidemia, unspecified Status: Acute Assessment and Plan: * Continue simvastatin (8) Depression: Code(s): F32.A - Depression, unspecified Status: Acute Assessment and Plan: * Continue Abilify and Celexa (9) Gout: Code(s): M10.9 - Gout, unspecified Status: Acute Assessment and Plan: * Continue allopurinol (10) Chronic anticoagulation: Code(s): Z79.01 - longterm (current) use of anticoagulants Status: Acute Assessment and Plan: * Continue Eliquis b.i.d. * Unknown why she is on chronic anticoagulation unless there were given this for CVA? Plan patient is a poor historian unable to provider detail ROS, patient c/o lowever extremities pain and swelling, patient was receiving IVF, will stop, will do venous dopplor, patient presented with AMS with history of bihemispheric stroke with involvement of the shorty, right parietal and occipital lobes in addition to subcortical area there is bilateral basal ganglia and thalami, seen by neurologist recommending EEG, will monitor, will have PT/OT evaluate the patient. Subjective Date/time seen: 07/10/24 13:04 Interval history: Altered mental status Narrative: This is an 84-year-old female with a significant past medical history of hypertension, hyperlipidemia, chronic kidney disease stage IV, asthma, CVA, gout, hypothyroidism who presented to the hospital from her shelter facility for concerns of mental status changes and weakness. Patient was recently diagnosed with a UTI 2 weeks ago. Patient unable to provide any history of presenting illness due to AMS. Most of history of presenting illness obtained from medical record. Workup in the hospital included a head CT which showed old infarcts involving the shorty, right parietal and occipital lobe, bilateral basal ganglia, and bilateral thalami, moderate nonspecific cerebral white matter disease consistent with chronic small-vessel ischemic disease. Chest/abdomen/pelvis CT showed a 1.9 cm left kidney mass which may be a hemorrhagic cyst or less likely renal cell carcinoma. Initial labs showed a white blood cell count of 10.1, globin 9.7, INR 1.1, bicarb 19, creatinine 2.23, EGFR 21, AST 57, proBNP 383, troponin 0.032, TSH 5.250, total T3 0.93, free T4 1.0. UA was obtained and showed 6-10 urine RBC, with yeast present otherwise negative. Respiratory panel was negative for influenza A and B, RSV, COVID. Blood cultures were obtained and pending. EKG shown sinus tach with nonspecific T-wave abnormality with a rate of 110, QTC 465. Patient was given 1 L of LR and started on IV fluids while in the ED. patient was initially meeting SIRS criteria with tachycardia, tachypnea, mild hypotension. patient is a poor historian unable to provider detail ROS, patient c/o lowever extremities pain and swelling, patient was receiving IVF, will stop, will do venous dopplor, patient presented with AMS with history of bihemispheric stroke with involvement of the shorty, right parietal and occipital lobes in addition to subcortical area there is bilateral basal ganglia and thalami, seen by neurologist recommending EEG, will monitor, will have PT/OT evaluate the patient. Review of Systems Review of Systems: All systems reviewed & are unremarkable except as noted in HPI and below Exam Narrative: Patient is comfortable, NAD HEENT: eyes are clear and none icteric LUNGS:CTA HEART: RR S1S2 ABD: BS+, Soft and nontender Lower extremities: edema SKIN: nonjaundiced Neuro: grossly intact. Objective Data Vital Signs Vital Signs: Vital Signs - 24 hr 07/09/24 13:16 07/09/24 14:03 07/09/24 18:04 Temperature Pulse Rate 115 H 115 H Respiratory Rate 21 H 15 Blood Pressure 143/87 H 156/110 H Pulse Oximetry 95 93 95 Oxygen Delivery Room Air 07/09/24 20:13 07/09/24 22:00 07/10/24 00:00 Temperature 36.6 C Pulse Rate 102 H 104 H Respiratory Rate 16 18 Blood Pressure 140/60 159/72 H Pulse Oximetry 97 97 Oxygen Delivery Room Air 07/10/24 05:40 07/10/24 08:00 07/10/24 08:00 Temperature 36.3 C L 36.7 C Pulse Rate 100 87 Respiratory Rate 16 16 Blood Pressure 157/71 H 150/54 H Pulse Oximetry 95 98 98 Oxygen Delivery Room Air Intake/Output Intake/Output: Intake & Output 07/08/24 07/08/24 07/09/24 07/10/24 00:59 23:59 23:59 23:59 Intake Total 1000 1480.0 Output Total 1500 950 Balance -500 530.0 Meds/Results Medications: Active Medications Generic Name Dose Route Start Last Admin Trade Name Freq PRN Reason Stop Dose Admin Acetaminophen 650 mg 07/09/24 18:45 Acetaminophen 325 Mg Tablet PO Q4H PRN Mild Pain (1-3) or Fever Allopurinol 300 mg 07/10/24 09:00 07/10/24 08:28 Allopurinol 300 Mg Tablet PO 300 mg DAILY RINA Administration Amlodipine Besylate 5 mg 07/10/24 09:00 07/10/24 08:28 Amlodipine Besylate 5 Mg Tablet PO 5 mg DAILY RINA Administration Apixaban 2.5 mg 07/10/24 09:00 07/10/24 08:28 Apixaban 2.5 Mg Tablet PO 2.5 mg Q12HR RINA Administration Aripiprazole 5 mg 07/10/24 09:00 07/10/24 08:28 Aripiprazole 5 Mg Tablet PO 5 mg DAILY RINA Administration Ascorbic Acid 500 mg 07/10/24 09:00 07/10/24 08:28 Ascorbic Acid 500 Mg Tablet PO 500 mg DAILY RINA Administration Citalopram Hydrobromide 10 mg 07/10/24 09:00 07/10/24 08:28 Citalopram Hydrobromide 10 Mg Tablet PO 10 mg DAILY RINA Administration Levothyroxine Sodium 12.5 mcg 07/10/24 06:30 07/10/24 07:00 Levothyroxine Sodium 12.5 Mcg Tablet PO 12.5 mcg DAILY@0630 RINA Administration Levothyroxine Sodium 50 mcg 07/10/24 06:30 07/10/24 07:00 Levothyroxine Sodium 50 Mcg Tablet PO 50 mcg DAILY@0630 RINA Administration Ondansetron HCl 4 mg 07/09/24 21:30 Ondansetron Inj 4 Mg/2 Ml Vial IV PUSH Q6H PRN Nausea And Vomiting Simvastatin 20 mg 07/10/24 21:00 Simvastatin 20 Mg Tablet PO HS RINA Vitamin B Complex 1 cap 07/10/24 09:00 07/10/24 08:28 Vitamin B Complex Capsule PO 1 cap DAILY RINA Administration Radiology Results: ITS Impressions Head CT 07/09/24 15:18 IMPRESSION: 1. Old infarcts involving the shorty, right parietal and occipital lobes, bilateral basal ganglia, and bilateral thalami. 2. Moderate nonspecific cerebral white matter disease, which likely represents chronic small vessel ischemic disease. Chest/Abdomen/Pelvis CT 07/09/24 15:24 IMPRESSION: 1. 1.9 cm left kidney mass, which may be a hemorrhagic cyst or less likely renal cell carcinoma. Abdomen CT or MRI without and with contrast is recommended. Labs Labs: Laboratory Results - last 24 hr 07/09/24 07/09/24 07/09/24 12:36 12:55 12:56 WBC RBC Hgb Hct MCV MCH MCHC RDW Plt Count MPV Immature Gran % (Auto) Neut % (Auto) Lymph % (Auto) [place] % (Auto) Eos % (Auto) Baso % (Auto) Lymph # (Auto) [place] # (Auto) Eos # (Auto) Baso # (Auto) Abs Immat Gran (auto) Absolute Neuts (auto) Absolute Nucleated RBC Nucleated RBC % PT INR APTT Sodium 140 Potassium 4.6 Chloride 110 H Carbon Dioxide 19 L Anion Gap 11 BUN 35 H Creatinine 2.23 H Estim Creat Clear Calc 24 Estimated GFR 21 L Glucose 112 H POC Capillary Glucose Lactic Acid Calcium 9.7 Total Bilirubin 0.7 AST 57 H ALT 27 Alkaline Phosphatase 82 Ammonia Troponin I 0.032 NT-Pro-B Natriuret Pep 383 H Total Protein 7.0 Albumin 4.1 TSH (Reflex) Free T4 Total T3 Urine Color Yellow Urine Appearance Clear Urine pH 5.0 Ur Specific [place] 1.017 Urine Protein Trace Urine Glucose (UA) Negative Urine Ketones Negative Ur Blood (Man) Negative Urine Nitrate Negative Urine Bilirubin Negative Urine Urobilinogen 0.2 Leukocyte Esterase Rfl Negative Urine RBC 6-10 H Urine WBC 0-5 Ur Squamous Epith Cells None seen Urine Bacteria None seen Urine Casts 0-2 Urine Yeast (Budding) Present H Influenza A (RT-PCR) Influenza B (RT-PCR) RSV (RT-PCR) SARS-CoV-2 RNA (RT-PCR) 07/09/24 07/09/24 07/09/24 14:01 15:26 16:04 WBC 10.1 H RBC 3.09 L Hgb 9.7 L Hct 31.8 L MCV 102.9 H MCH 31.4 MCHC 30.5 L RDW 16.1 H Plt Count 172 MPV 10.1 Immature Gran % (Auto) 0.6 H Neut % (Auto) 82.7 H Lymph % (Auto) 7.5 L [place] % (Auto) 8.2 Eos % (Auto) 0.7 Baso % (Auto) 0.3 Lymph # (Auto) 0.76 L [place] # (Auto) 0.8 H Eos # (Auto) 0.1 Baso # (Auto) 0.0 Abs Immat Gran (auto) 0.06 H Absolute Neuts (auto) 8.4 H Absolute Nucleated RBC 0.000 Nucleated RBC % 0.0 PT 14.1 INR 1.0 APTT 25.3 Sodium Potassium Chloride Carbon Dioxide Anion Gap BUN Creatinine Estim Creat Clear Calc Estimated GFR Glucose POC Capillary Glucose Lactic Acid 1.4 Calcium Total Bilirubin AST ALT Alkaline Phosphatase Ammonia Troponin I NT-Pro-B Natriuret Pep Total Protein Albumin TSH (Reflex) 5.250 H Free T4 1.00 Total T3 0.93 L Urine Color Urine Appearance Urine pH Ur Specific [place] Urine Protein Urine Glucose (UA) Urine Ketones Ur Blood (Man) Urine Nitrate Urine Bilirubin Urine Urobilinogen Leukocyte Esterase Rfl Urine RBC Urine WBC Ur Squamous Epith Cells Urine Bacteria Urine Casts Urine Yeast (Budding) Influenza A (RT-PCR) Negative Influenza B (RT-PCR) Negative RSV (RT-PCR) Negative SARS-CoV-2 RNA (RT-PCR) Negative 07/09/24 07/10/24 07/10/24 22:03 05:32 05:33 WBC 6.9 RBC 2.60 L Hgb 8.2 L Hct 26.8 L MCV 103.1 H MCH 31.5 MCHC 30.6 L RDW 16.1 H Plt Count 128 L MPV 9.4 Immature Gran % (Auto) 0.4 Neut % (Auto) 67.2 Lymph % (Auto) 15.2 L [place] % (Auto) 9.7 H Eos % (Auto) 7.1 H Baso % (Auto) 0.4 Lymph # (Auto) 1.05 [place] # (Auto) 0.7 H Eos # (Auto) 0.5 H Baso # (Auto) 0.0 Abs Immat Gran (auto) 0.03 Absolute Neuts (auto) 4.6 Absolute Nucleated RBC 0.000 Nucleated RBC % 0.0 PT INR APTT Sodium 142 Potassium 4.1 Chloride 113 H Carbon Dioxide 25 Anion Gap 4 BUN 30 H Creatinine 1.77 H Estim Creat Clear Calc 30 Estimated GFR 27 L Glucose 89 POC Capillary Glucose 94 Lactic Acid Calcium 9.1 Total Bilirubin 0.6 AST 60 H ALT 23 Alkaline Phosphatase 66 Ammonia < 9 L Troponin I NT-Pro-B Natriuret Pep Total Protein 5.0 L Albumin 2.9 L TSH (Reflex) Free T4 Total T3 Urine Color Urine Appearance Urine pH Ur Specific [place] Urine Protein Urine Glucose (UA) Urine Ketones Ur Blood (Man) Urine Nitrate Urine Bilirubin Urine Urobilinogen Leukocyte Esterase Rfl Urine RBC Urine WBC Ur Squamous Epith Cells Urine Bacteria Urine Casts Urine Yeast (Budding) Influenza A (RT-PCR) Influenza B (RT-PCR) RSV (RT-PCR) SARS-CoV-2 RNA (RT-PCR) Quality VTE Prophylaxis VTE prophylaxis: pharmacologic ordered
[2024-07-10 14:00] VITALS: BP 111/45; PULSE 96; RESP 18; TEMP 36.3; O2SAT 99
[2024-07-10 21:02] VITALS: BP 127/42; PULSE 87; RESP 12; TEMP 36.7; O2SAT 96
[2024-07-10] MEDS: SIMVASTATIN 20 MG TABLET PO (22:08)
[2024-07-11] MEDS: LEVOTHYROXINE SODIUM 12.5 MCG TABLET PO (05:33)
[2024-07-11] MEDS: LEVOTHYROXINE SODIUM 50 MCG TABLET PO (05:34)
[2024-07-11 05:52] VITALS: BP 123/64; PULSE 95; RESP 12; TEMP 36.2; O2SAT 96
[2024-07-11 05:55] VITALS: BP 151/49; PULSE 85; RESP 13; TEMP 36.2; O2SAT 97
[2024-07-11 06:02] LABS: Basophils Absolute Auto 0.1 K/mm3 (0.0-0.1); Basophils Percent Auto 0.7 % (0.2-1.2); Eosinophils Absolute Auto 0.4 K/mm3 (0-0.3); Eosinophils Percent Auto 6.4 % (0-4.4); Hematocrit 26.3 % (37.0-47.0); Hemoglobin 8.2 g/dL (12.0-15.0); Immature Granulocyte Absolute 0.03 K/mm3 (0.00-0.031); Immature Granulocyte Percent A 0.4 % (0-0.5); Lymphocytes Absolute Auto 1.39 K/mm3 (0.9-3.2); Lymphocytes Percent Auto 20.8 % (18.3-44.2); Mean Corpuscular HGB Conc 31.2 g/dl (32-36); Mean Corpuscular Hemoglobin 32.2 pg (26-34); Mean Corpuscular Volume 103.1 fl (80-100); Mean Platelet Volume 10.4 fl (7.4-10.4); Monocytes Absolute Auto 0.6 K/mm3 (0.1-0.6); Monocytes Percent Auto 9.6 % (2.6-8.5); Neutrophils Absolute Auto 4.2 K/mm3 (1.3-6.7); Neutrophils Percent Auto 62.1 % (45.5-73.1); Platelet Count Result 143 k/mm3 (150-375); Red Blood Count 2.55 M/mm3 (4.2-5.4); Red Cell Distribution Width 15.9 % (11.5-14.5); White Blood Count 6.7 K/mm3 (4.5-10.0)
[2024-07-11 06:21] LABS: Alanine Aminotransferase 19 U/L (6-35); Albumin Level 2.8 g/dL (3.5-5.1); Alkaline Phosphatase 63 U/L (38-126); Anion Gap 6 mmol/L (4-12); Aspartate Amino Transferase 43 U/L (14-36); Bilirubin,Total 0.4 mg/dL (0.2-1.3); Blood Urea Nitrogen 31 mg/dL (7-17); Calcium 8.8 mg/dL (8.4-10.2); Carbon Dioxide 24 mmol/L (22-30); Chloride 108 mmol/L (98-107); Estimated CRCL calculation 33 ml/min; Estimated Glomerular Filt Rate 32; Glucose 96 mg/dL (65-110); Magnesium 1.5 mg/dL (1.6-2.3); Sodium 138 mmol/L (137-145)
[2024-07-11] MEDS: MAGNESIUM SULF 2 GM/WATER 50ML 2 GM/50 ML BAG IVPB (08:39)
[2024-07-11] MEDS: ASCORBIC ACID 500 MG TABLET PO (08:41)
[2024-07-11] MEDS: VITAMIN B COMPLEX CAPSULE 1 CAP PO (08:41)
[2024-07-11] MEDS: MAGNESIUM OXIDE 400 MG TABLET PO (08:41)
[2024-07-11] MEDS: amLODIPine BESYLATE 5 MG TABLET PO (08:42)
[2024-07-11] MEDS: ARIPiprazole 5 MG TABLET PO (08:42)
[2024-07-11] MEDS: APIXABAN 2.5 MG TABLET PO (08:43)
[2024-07-11] MEDS: allopurinoL 300 MG TABLET PO (08:43)
[2024-07-11] MEDS: CITALOPRAM HYDROBROMIDE 10 MG TABLET PO (08:45)
[2024-07-11] MEDS: FUROSEMIDE INJ 40 MG/4 ML VIAL IV PUSH (11:01)
--- NOTE | 2024-07-11 11:25 | P.PNNEUR_ITS ---
Progress Note: A&P Assessment and Plan (1) Altered mental status, unspecified: Code(s): R41.82 - Altered mental status, unspecified Status: Acute (2) History of cerebrovascular accident: Code(s): Z86.73 - Personal history of transient ischemic attack (TIA), and cerebral infarction without residual deficits Status: Acute (3) Chronic anticoagulation: Code(s): Z79.01 - penitentiary (current) use of anticoagulants Status: Acute Plan The changes in mental status could well be because of metabolic etiologies. MRI of the brain did not show any evidence for new stroke. I have reviewed the films and agree with the findings. Her creatinine was 2.03 and hemoglobin now 8.2. There is no definite history of seizure-like spells. EEG has been requested in view of the changes in mental status and I agree with the same. Continue treatment for underlying medical conditions is recommended. In view of the finding of cerebrovascular disease on MRI of the brain I would suggest a carotid Doppler study. also suggest to check her lipid profile, serum B12 folic acid level, methylmalonic acid level, vitamin-D and vitamin B1 levels. Subjective Date/time seen: 07/11/24 11:25 Interval history: The patient is 84-year-old with history of altered mental status at admitted from alf facility. Creatinine was 2.02 hemoglobin was 9.7 which has gone down to 8.2. Patient has been on Eliquis and Abilify and Celexa and simvastatin. She was diagnosed to have systemic inflammatory response syndrome and acute renal failure. There is history of urinary tract infection 2 weeks ago. This morning she is feeling better than before. MRI of the brain was performed which shows old infarcts and white matter changes. She denies any headache or any weakness in upper lower limbs. Review of Systems Review of Systems: All systems reviewed & are unremarkable except as noted in HPI and below Exam Narrative: No aphasia or dysarthria. Patient is fully conscious alert. Able to name 4/5 colors however need 5 cities. She is able to follow one-step command but she does get mixed up in visual field by confrontation. There is no facial asymmetry. Tongue was midline other cranials were grossly intact. Motor system moving both upper and lower limbs difficult to test her lower limbs reliably since he does not cooperate well she has significant edema both lower limbs. No cogwheeling or involuntary movements are seen. Objective Data Vital Signs Vital Signs: Vital Signs - 24 hr 07/10/24 14:00 07/10/24 20:00 07/10/24 21:02 Temperature 97.3 F L 98.0 F Pulse Rate 96 87 Respiratory Rate 18 12 Blood Pressure 111/45 L 127/42 L Pulse Oximetry 99 96 Oxygen Delivery Room Air 07/11/24 05:52 07/11/24 05:55 07/11/24 09:39 Temperature 97.2 F L 97.1 F L Pulse Rate 95 85 Respiratory Rate 12 13 Blood Pressure 123/64 151/49 H Pulse Oximetry 96 97 Oxygen Delivery Room Air 07/11/24 10:00 Temperature Pulse Rate Respiratory Rate Blood Pressure Pulse Oximetry Oxygen Delivery Room Air Intake/Output Intake/Output: Intake & Output 07/08/24 07/09/24 07/10/24 07/11/24 23:59 23:59 23:59 23:59 Intake Total 1000 1960.0 480 Output Total 1500 1850 900 Balance -500 110.0 -420 Meds/Results Medications: Active Medications Generic Name Dose Route Start Last Admin Trade Name Freq PRN Reason Stop Dose Admin Acetaminophen 650 mg 07/09/24 18:45 Acetaminophen 325 Mg Tablet PO Q4H PRN Mild Pain (1-3) or Fever Allopurinol 300 mg 07/10/24 09:00 07/11/24 08:43 Allopurinol 300 Mg Tablet PO 300 mg DAILY RINA Administration Amlodipine Besylate 5 mg 07/10/24 09:00 07/11/24 08:42 Amlodipine Besylate 5 Mg Tablet PO 5 mg DAILY RINA Administration Apixaban 2.5 mg 07/10/24 09:00 07/11/24 08:43 Apixaban 2.5 Mg Tablet PO 2.5 mg Q12HR RINA Administration Aripiprazole 5 mg 07/10/24 09:00 07/11/24 08:42 Aripiprazole 5 Mg Tablet PO 5 mg DAILY RINA Administration Ascorbic Acid 500 mg 07/10/24 09:00 07/11/24 08:41 Ascorbic Acid 500 Mg Tablet PO 500 mg DAILY RINA Administration Citalopram Hydrobromide 10 mg 07/10/24 09:00 07/11/24 08:45 Citalopram Hydrobromide 10 Mg Tablet PO 10 mg DAILY RINA Administration Levothyroxine Sodium 12.5 mcg 07/10/24 06:30 07/11/24 05:33 Levothyroxine Sodium 12.5 Mcg Tablet PO 12.5 mcg DAILY@0630 RINA Administration Levothyroxine Sodium 50 mcg 07/10/24 06:30 07/11/24 05:34 Levothyroxine Sodium 50 Mcg Tablet PO 50 mcg DAILY@0630 RINA Administration Magnesium Oxide 400 mg 07/11/24 09:00 07/11/24 08:41 Magnesium Oxide 400 Mg Tablet PO 400 mg QAM RINA Administration Ondansetron HCl 4 mg 07/09/24 21:30 Ondansetron Inj 4 Mg/2 Ml Vial IV PUSH Q6H PRN Nausea And Vomiting Simvastatin 20 mg 07/10/24 21:00 07/10/24 22:08 Simvastatin 20 Mg Tablet PO 20 mg HS RINA Administration Vitamin B Complex 1 cap 07/10/24 09:00 07/11/24 08:41 Vitamin B Complex Capsule PO 1 cap DAILY RINA Administration Radiology Results: ITS Impressions Head CT 07/09/24 15:18 IMPRESSION: 1. Old infarcts involving the shorty, right parietal and occipital lobes, bilateral basal ganglia, and bilateral thalami. 2. Moderate nonspecific cerebral white matter disease, which likely represents chronic small vessel ischemic disease. Chest/Abdomen/Pelvis CT 07/09/24 15:24 IMPRESSION: 1. 1.9 cm left kidney mass, which may be a hemorrhagic cyst or less likely renal cell carcinoma. Abdomen CT or MRI without and with contrast is recommended. Brain MRI 07/10/24 14:35 IMPRESSION: 1. Old infarcts in the brain. 2. Moderate nonspecific cerebral white matter disease and pontine disease, which likely represents chronic small vessel ischemic disease. Labs Labs: Laboratory Results - last 24 hr 07/11/24 05:21 WBC 6.7 RBC 2.55 L Hgb 8.2 L Hct 26.3 L MCV 103.1 H MCH 32.2 MCHC 31.2 L RDW 15.9 H Plt Count 143 L MPV 10.4 Immature Gran % (Auto) 0.4 Neut % (Auto) 62.1 Lymph % (Auto) 20.8 [facility] % (Auto) 9.6 H Eos % (Auto) 6.4 H Baso % (Auto) 0.7 Lymph # (Auto) 1.39 [facility] # (Auto) 0.6 Eos # (Auto) 0.4 H Baso # (Auto) 0.1 Abs Immat Gran (auto) 0.03 Absolute Neuts (auto) 4.2 Absolute Nucleated RBC 0.000 Nucleated RBC % 0.0 Sodium 138 Potassium 4.0 Chloride 108 H Carbon Dioxide 24 Anion Gap 6 BUN 31 H Creatinine 1.56 H Estim Creat Clear Calc 33 Estimated GFR 32 L Glucose 96 Calcium 8.8 Magnesium 1.5 L Total Bilirubin 0.4 AST 43 H ALT 19 Alkaline Phosphatase 63 Total Protein 5.0 L Albumin 2.8 L
--- NOTE | 2024-07-11 12:10 | P.PNIM_ITS ---
Progress Note: A&P Assessment and Plan (1) SIRS (systemic inflammatory response syndrome): Code(s): R65.10 - Systemic inflammatory response syndrome (SIRS) of non-infectious origin without acute organ dysfunction Status: Acute Assessment and Plan: * Initially meeting SIRS criteria with heart rate of 111, respiratory rate 24, blood pressures ranging 84/75 to 91/66 * Slightly elevated at 10.1 * UA only shown 6-10 urine RBC, with yeast present. * Respiratory panel was negative for influenza a and B, RSV, COVID * Patient received 1 L LR in the ED with improvement in her vital signs (2) Acute kidney injury superimposed on chronic kidney disease: Code(s): N17.9 - Acute kidney failure, unspecified; N18.9 - Chronic kidney disease, unspecified Status: Acute Assessment and Plan: * Creatinine 2.23, EGFR 21 * Baseline creatinine unknown, last creatinine that was recorded in our system was 1.80 however that was back in 2019 * Continue to trend (3) Acute dehydration: Code(s): E86.0 - Dehydration Status: Acute Assessment and Plan: * Patient was given 1 L of LR while in the ED * Continue LR at 75 mL/hour for hydration * Monitor electrolytes (4) Altered mental status, unspecified: Code(s): R41.82 - Altered mental status, unspecified Status: Acute Assessment and Plan: Recently diagnosed with a UTI 2 weeks ago. History of CVA. * UA only shown 6-10 urine RBC, yeast present on UA * Respiratory panel was negative for influenza A and B, RSV, COVID * Sodium level 140, blood sugar was 112 * Will check ammonia level * Head CT showing old infarcts involving the shorty, right parietal and occipital lobe, bilateral basal ganglia, and bilateral thalami, moderate nonspecific cerebral white matter disease likely representing chronic small vessel ischemic disease * Will get MRI of the brain and brainstem with and without contrast * Neurology consulted * Continue neuro checks (5) Hypothyroidism: Code(s): E03.9 - Hypothyroidism, unspecified Status: Acute Assessment and Plan: * Currently on Synthroid 50 mcg daily we will increase to 62.5 daily * TSH 5.250, free T4 1.0, total T3 0.93 (6) Hypertension: Code(s): I10 - Essential (primary) hypertension Status: Acute Assessment and Plan: * Blood pressure ranging 140/60 to 156/110 * Not currently on any blood pressure medications at home * Will start amlodipine 5 mg daily (7) Hyperlipidemia: Code(s): E78.5 - Hyperlipidemia, unspecified Status: Acute Assessment and Plan: * Continue simvastatin (8) Depression: Code(s): F32.A - Depression, unspecified Status: Acute Assessment and Plan: * Continue Abilify and Celexa (9) Gout: Code(s): M10.9 - Gout, unspecified Status: Acute Assessment and Plan: * Continue allopurinol (10) 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 * Unknown why she is on chronic anticoagulation unless there were given this for CVA? Plan patient is a poor historian unable to provider detail ROS, patient c/o lowever extremities pain and swelling, patient was receiving IVF, will stop, will do venous dopplor, patient presented with AMS with history of bihemispheric stroke with involvement of the shorty, right parietal and occipital lobes in addition to subcortical area there is bilateral basal ganglia and thalami, seen by neurologist recommending EEG, will monitor, will have PT/OT evaluate the patient. patient remains confused, still c/o b/l lower extremities swelling, will order Lasix 40mg IM x1. Seen by neurologist ordered EEG, carotid Doppler study. also suggest to check her lipid profile, serum B12 folic acid level, methylmalonic acid level, vitamin-D and vitamin B1 levels. will continue to monitor. will have PT/OT. evaluate the patient. will monitor. Subjective Date/time seen: 07/11/24 12:10 Interval history: Altered mental status Narrative: This is an 84-year-old female with a significant past medical history of hypertension, hyperlipidemia, chronic kidney disease stage IV, asthma, CVA, gout, hypothyroidism who presented to the hospital from her assisted facility for concerns of mental status changes and weakness. Patient was recently diagnosed with a UTI 2 weeks ago. Patient unable to provide any history of presenting illness due to AMS. Most of history of presenting illness obtained from medical record. Workup in the hospital included a head CT which showed old infarcts involving the shorty, right parietal and occipital lobe, bilateral basal ganglia, and bilateral thalami, moderate nonspecific cerebral white matter disease consistent with chronic small-vessel ischemic disease. Chest/abdomen/pelvis CT showed a 1.9 cm left kidney mass which may be a hemorrhagic cyst or less likely renal cell carcinoma. Initial labs showed a white blood cell count of 10.1, globin 9.7, INR 1.1, bicarb 19, creatinine 2.23, EGFR 21, AST 57, proBNP 383, troponin 0.032, TSH 5.250, total T3 0.93, free T4 1.0. UA was obtained and showed 6-10 urine RBC, with yeast present otherwise negative. Respiratory panel was negative for influenza A and B, RSV, COVID. Blood cultures were obtained and pending. EKG shown sinus tach with nonspecific T-wave abnormality with a rate of 110, QTC 465. Patient was given 1 L of LR and started on IV fluids while in the ED. patient was initially meeting SIRS criteria with tachycardia, tachypnea, mild hypotension. patient is a poor historian unable to provider detail ROS, patient c/o lowever extremities pain and swelling, patient was receiving IVF, will stop, will do venous dopplor, patient presented with AMS with history of bihemispheric stroke with involvement of the shorty, right parietal and occipital lobes in addition to subcortical area there is bilateral basal ganglia and thalami, seen by neurologist recommending EEG, will monitor, will have PT/OT evaluate the patient. patient remains confused, still c/o b/l lower extremities swelling, will order Lasix 40mg IM x1. Seen by neurologist ordered EEG, carotid Doppler study. also suggest to check her lipid profile, serum B12 folic acid level, methylmalonic acid level, vitamin-D and vitamin B1 levels. will continue to monitor. will have PT/OT. evaluate the patient. will monitor. Review of Systems Review of Systems: All systems reviewed & are unremarkable except as noted in HPI and below ROS unobtainable: Yes unobtainable due to mental status Exam Narrative: Patient is comfortable, NAD HEENT: eyes are clear and none icteric LUNGS:CTA HEART: RR S1S2 ABD: BS+, Soft and nontender Lower extremities: edema SKIN: nonjaundiced Neuro: grossly intact. Objective Data Vital Signs Vital Signs: Vital Signs - 24 hr 07/10/24 14:00 07/10/24 20:00 07/10/24 21:02 Temperature 36.3 C L 36.7 C Pulse Rate 96 87 Respiratory Rate 18 12 Blood Pressure 111/45 L 127/42 L Pulse Oximetry 99 96 Oxygen Delivery Room Air 07/11/24 05:52 07/11/24 05:55 07/11/24 09:39 Temperature 36.2 C L 36.2 C L Pulse Rate 95 85 Respiratory Rate 12 13 Blood Pressure 123/64 151/49 H Pulse Oximetry 96 97 Oxygen Delivery Room Air 07/11/24 10:00 Temperature Pulse Rate Respiratory Rate Blood Pressure Pulse Oximetry Oxygen Delivery Room Air Intake/Output Intake/Output: Intake & Output 07/08/24 07/09/24 07/10/24 07/11/24 23:59 23:59 23:59 23:59 Intake Total 1000 1960.0 480 Output Total 1500 1850 1300 Balance -500 110.0 -820 Meds/Results Medications: Active Medications Generic Name Dose Route Start Last Admin Trade Name Freq PRN Reason Stop Dose Admin Acetaminophen 650 mg 07/09/24 18:45 Acetaminophen 325 Mg Tablet PO Q4H PRN Mild Pain (1-3) or Fever Allopurinol 300 mg 07/10/24 09:00 07/11/24 08:43 Allopurinol 300 Mg Tablet PO 300 mg DAILY RINA Administration Amlodipine Besylate 5 mg 07/10/24 09:00 07/11/24 08:42 Amlodipine Besylate 5 Mg Tablet PO 5 mg DAILY RINA Administration Apixaban 2.5 mg 07/10/24 09:00 07/11/24 08:43 Apixaban 2.5 Mg Tablet PO 2.5 mg Q12HR RINA Administration Aripiprazole 5 mg 07/10/24 09:00 07/11/24 08:42 Aripiprazole 5 Mg Tablet PO 5 mg DAILY RINA Administration Ascorbic Acid 500 mg 07/10/24 09:00 07/11/24 08:41 Ascorbic Acid 500 Mg Tablet PO 500 mg DAILY RINA Administration Citalopram Hydrobromide 10 mg 07/10/24 09:00 07/11/24 08:45 Citalopram Hydrobromide 10 Mg Tablet PO 10 mg DAILY RINA Administration Levothyroxine Sodium 12.5 mcg 07/10/24 06:30 07/11/24 05:33 Levothyroxine Sodium 12.5 Mcg Tablet PO 12.5 mcg DAILY@0630 RINA Administration Levothyroxine Sodium 50 mcg 07/10/24 06:30 07/11/24 05:34 Levothyroxine Sodium 50 Mcg Tablet PO 50 mcg DAILY@0630 RINA Administration Magnesium Oxide 400 mg 07/11/24 09:00 07/11/24 08:41 Magnesium Oxide 400 Mg Tablet PO 400 mg QAM RINA Administration Ondansetron HCl 4 mg 07/09/24 21:30 Ondansetron Inj 4 Mg/2 Ml Vial IV PUSH Q6H PRN Nausea And Vomiting Simvastatin 20 mg 07/10/24 21:00 07/10/24 22:08 Simvastatin 20 Mg Tablet PO 20 mg HS RINA Administration Vitamin B Complex 1 cap 07/10/24 09:00 07/11/24 08:41 Vitamin B Complex Capsule PO 1 cap DAILY RINA Administration Radiology Results: ITS Impressions Head CT 07/09/24 15:18 IMPRESSION: 1. Old infarcts involving the shorty, right parietal and occipital lobes, bilateral basal ganglia, and bilateral thalami. 2. Moderate nonspecific cerebral white matter disease, which likely represents chronic small vessel ischemic disease. Chest/Abdomen/Pelvis CT 07/09/24 15:24 IMPRESSION: 1. 1.9 cm left kidney mass, which may be a hemorrhagic cyst or less likely renal cell carcinoma. Abdomen CT or MRI without and with contrast is recommended. Brain MRI 07/10/24 14:35 IMPRESSION: 1. Old infarcts in the brain. 2. Moderate nonspecific cerebral white matter disease and pontine disease, which likely represents chronic small vessel ischemic disease. Labs Labs: Laboratory Results - last 24 hr 07/11/24 05:21 WBC 6.7 RBC 2.55 L Hgb 8.2 L Hct 26.3 L MCV 103.1 H MCH 32.2 MCHC 31.2 L RDW 15.9 H Plt Count 143 L MPV 10.4 Immature Gran % (Auto) 0.4 Neut % (Auto) 62.1 Lymph % (Auto) 20.8 [facility] % (Auto) 9.6 H Eos % (Auto) 6.4 H Baso % (Auto) 0.7 Lymph # (Auto) 1.39 [facility] # (Auto) 0.6 Eos # (Auto) 0.4 H Baso # (Auto) 0.1 Abs Immat Gran (auto) 0.03 Absolute Neuts (auto) 4.2 Absolute Nucleated RBC 0.000 Nucleated RBC % 0.0 Sodium 138 Potassium 4.0 Chloride 108 H Carbon Dioxide 24 Anion Gap 6 BUN 31 H Creatinine 1.56 H Estim Creat Clear Calc 33 Estimated GFR 32 L Glucose 96 Calcium 8.8 Magnesium 1.5 L Total Bilirubin 0.4 AST 43 H ALT 19 Alkaline Phosphatase 63 Total Protein 5.0 L Albumin 2.8 L Quality VTE Prophylaxis VTE prophylaxis: pharmacologic ordered
[2024-07-11 12:46] LABS: Cholesterol 130 mg/dL (0-200); HDL Direct 54 mg/dL; Triglycerides 126 mg/dL (<150)
[2024-07-11 12:57] LABS: LDL Cholesterol Direct 48 mg/dL
[2024-07-11 13:54] LABS: Folic Acid > 20.0 ng/mL (2.76->20)
[2024-07-11 14:00] VITALS: BP 135/54; PULSE 88; RESP 20; TEMP 36.3; O2SAT 96
[2024-07-11 21:01] VITALS: BP 125/42; PULSE 95; RESP 13; TEMP 37; O2SAT 95
[2024-07-11] MEDS: APIXABAN 5 MG TABLET 10 MG PO (21:06)
[2024-07-11] MEDS: SIMVASTATIN 20 MG TABLET PO (21:06)
[2024-07-12 05:41] VITALS: BP 139/44; PULSE 89; RESP 14; TEMP 36.3; O2SAT 95
[2024-07-12] MEDS: LEVOTHYROXINE SODIUM 50 MCG TABLET PO (06:00)
[2024-07-12] MEDS: LEVOTHYROXINE SODIUM 12.5 MCG TABLET PO (06:00)
[2024-07-12 06:05] LABS: Basophils Percent Auto 0.4 % (0.2-1.2); Eosinophils Absolute Auto 0.4 K/mm3 (0-0.3); Eosinophils Percent Auto 5.7 % (0-4.4); Hematocrit 28.5 % (37.0-47.0); Hemoglobin 8.5 g/dL (12.0-15.0); Immature Granulocyte Absolute 0.05 K/mm3 (0.00-0.031); Immature Granulocyte Percent A 0.7 % (0-0.5); Lymphocytes Absolute Auto 1.35 K/mm3 (0.9-3.2); Lymphocytes Percent Auto 18.9 % (18.3-44.2); Mean Corpuscular HGB Conc 29.8 g/dl (32-36); Mean Corpuscular Hemoglobin 30.8 pg (26-34); Mean Corpuscular Volume 103.3 fl (80-100); Mean Platelet Volume 10.7 fl (7.4-10.4); Monocytes Absolute Auto 0.6 K/mm3 (0.1-0.6); Monocytes Percent Auto 8.1 % (2.6-8.5); Neutrophils Absolute Auto 4.7 K/mm3 (1.3-6.7); Neutrophils Percent Auto 66.2 % (45.5-73.1); Platelet Count Result 168 k/mm3 (150-375); Red Blood Count 2.76 M/mm3 (4.2-5.4); Red Cell Distribution Width 15.5 % (11.5-14.5); White Blood Count 7.2 K/mm3 (4.5-10.0)
[2024-07-12 06:14] LABS: Alanine Aminotransferase 20 U/L (6-35); Albumin Level 2.9 g/dL (3.5-5.1); Alkaline Phosphatase 70 U/L (38-126); Anion Gap 4 mmol/L (4-12); Aspartate Amino Transferase 36 U/L (14-36); Bilirubin,Total 0.4 mg/dL (0.2-1.3); Blood Urea Nitrogen 52 mg/dL (7-17); Calcium 9.1 mg/dL (8.4-10.2); Carbon Dioxide 29 mmol/L (22-30); Chloride 103 mmol/L (98-107); Estimated CRCL calculation 33 ml/min; Estimated Glomerular Filt Rate 31; Glucose 102 mg/dL (65-110); Magnesium 1.6 mg/dL (1.6-2.3); Potassium 4.2 mmol/L (3.4-5.0); Sodium 136 mmol/L (137-145)
[2024-07-12 06:32] LABS: Acanthocytes 1+; Hypochromasia 1+; Macrocytosis 1+ (NORMAL); Platelet Estimate Adequate (Adequate); Schistocytes None Seen
[2024-07-12 08:00] VITALS: O2SAT 95
[2024-07-12] MEDS: allopurinoL 300 MG TABLET PO (09:24)
[2024-07-12] MEDS: amLODIPine BESYLATE 5 MG TABLET PO (09:24)
[2024-07-12] MEDS: APIXABAN 5 MG TABLET 10 MG PO ×2 (09:25→20:24)
[2024-07-12] MEDS: ARIPiprazole 5 MG TABLET PO (09:26)
[2024-07-12] MEDS: ASCORBIC ACID 500 MG TABLET PO (09:26)
[2024-07-12] MEDS: MAGNESIUM OXIDE 400 MG TABLET PO (09:26)
[2024-07-12] MEDS: VITAMIN B COMPLEX CAPSULE 1 CAP PO (09:26)
[2024-07-12] MEDS: CITALOPRAM HYDROBROMIDE 10 MG TABLET PO (09:26)
--- NOTE | 2024-07-12 11:49 | PCPTNOTE ---
Attempted to see patient for PT, however patient reported 10/10 pain in L foot/toes and unable to participated in PT. RN aware.
[2024-07-12] MEDS: ACETAMINOPHEN 325 MG TABLET 650 MG PO ×2 (11:58→20:22)
[2024-07-12] MEDS: LIDOCAINE 5% PATCH 2 PATCH TRANSDERM (12:55)
[2024-07-12 14:00] VITALS: BP 122/47; PULSE 90; RESP 18; TEMP 36.8; O2SAT 93
--- NOTE | 2024-07-12 14:49 | P.PN_ITS ---
Progress Note: A&P Assessment and Plan (1) SIRS (systemic inflammatory response syndrome): Code(s): R65.10 - Systemic inflammatory response syndrome (SIRS) of non-infectious origin without acute organ dysfunction Status: Acute Assessment and Plan: * Initially meeting SIRS criteria with heart rate of 111, respiratory rate 24, blood pressures ranging 84/75 to 91/66 * Slightly elevated at 10.1 * UA only shown 6-10 urine RBC, with yeast present. * Respiratory panel was negative for influenza a and B, RSV, COVID * Patient received 1 L LR in the ED with improvement in her vital signs (2) Acute kidney injury superimposed on chronic kidney disease: Code(s): N17.9 - Acute kidney failure, unspecified; N18.9 - Chronic kidney disease, unspecified Status: Acute Assessment and Plan: * Creatinine 2.23, EGFR 21 * Baseline creatinine unknown, last creatinine that was recorded in our system was 1.80 however that was back in 2019 * Continue to trend (3) Acute dehydration: Code(s): E86.0 - Dehydration Status: Acute Assessment and Plan: * Patient was given 1 L of LR while in the ED * Continue LR at 75 mL/hour for hydration * Monitor electrolytes (4) Altered mental status, unspecified: Code(s): R41.82 - Altered mental status, unspecified Status: Acute Assessment and Plan: Recently diagnosed with a UTI 2 weeks ago. History of CVA. * UA only shown 6-10 urine RBC, yeast present on UA * Respiratory panel was negative for influenza A and B, RSV, COVID * Sodium level 140, blood sugar was 112 * Will check ammonia level * Head CT showing old infarcts involving the shorty, right parietal and occipital lobe, bilateral basal ganglia, and bilateral thalami, moderate nonspecific cerebral white matter disease likely representing chronic small vessel ischemic disease * Will get MRI of the brain and brainstem with and without contrast * Neurology consulted * Continue neuro checks (5) Hypothyroidism: Code(s): E03.9 - Hypothyroidism, unspecified Status: Acute Assessment and Plan: * Currently on Synthroid 50 mcg daily we will increase to 62.5 daily * TSH 5.250, free T4 1.0, total T3 0.93 (6) Hypertension: Code(s): I10 - Essential (primary) hypertension Status: Acute Assessment and Plan: * Blood pressure ranging 140/60 to 156/110 * Not currently on any blood pressure medications at home * Will start amlodipine 5 mg daily (7) Hyperlipidemia: Code(s): E78.5 - Hyperlipidemia, unspecified Status: Acute Assessment and Plan: * Continue simvastatin (8) Depression: Code(s): F32.A - Depression, unspecified Status: Acute Assessment and Plan: * Continue Abilify and Celexa (9) Gout: Code(s): M10.9 - Gout, unspecified Status: Acute Assessment and Plan: * Continue allopurinol (10) 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 * Unknown why she is on chronic anticoagulation unless there were given this for CVA? Plan patient is a poor historian unable to provider detail ROS, patient c/o lowever extremities pain and swelling, patient was receiving IVF, will stop, will do venous dopplor, patient presented with AMS with history of bihemispheric stroke with involvement of the shorty, right parietal and occipital lobes in addition to subcortical area there is bilateral basal ganglia and thalami, seen by neurologist recommending EEG, will monitor, will have PT/OT evaluate the patient. patient remains confused, still c/o b/l lower extremities swelling, will order Lasix 40mg IM x1. Seen by neurologist ordered EEG, carotid Doppler study. also suggest to check her lipid profile, serum B12 folic acid level, methylmalonic acid level, vitamin-D and vitamin B1 levels. will continue to monitor. will have PT/OT. evaluate the patient. will monitor. today patient appears in good spirit and smiling, her carotid dopplor study showed b/l 50% stenosis, vitamin b12 is low normal will give 1x b12 1000mcg IM and start the patient on ora b12, lower extremities dopplor showed bilateral deep vein thrombosis, will start patient on Eliquis 10mg BID for 7days and thereafter will start 5mg BID, will monitor and plan. Subjective Date/time seen: 07/12/24 14:49 Interval history: Altered mental status Narrative: This is an 84-year-old female with a significant past medical history of hypertension, hyperlipidemia, chronic kidney disease stage IV, asthma, CVA, gout, hypothyroidism who presented to the hospital from her care home facility for concerns of mental status changes and weakness. Patient was recently diagnosed with a UTI 2 weeks ago. Patient unable to provide any history of presenting illness due to AMS. Most of history of presenting illness obtained from medical record. Workup in the hospital included a head CT which showed old infarcts involving the shorty, right parietal and occipital lobe, bilateral basal ganglia, and bilateral thalami, moderate nonspecific cerebral white matter disease consistent with chronic small-vessel ischemic disease. Chest/abdomen/pelvis CT showed a 1.9 cm left kidney mass which may be a hemorrhagic cyst or less likely renal cell carcinoma. Initial labs showed a white blood cell count of 10.1, globin 9.7, INR 1.1, bicarb 19, creatinine 2.23, EGFR 21, AST 57, proBNP 383, troponin 0.032, TSH 5.250, total T3 0.93, free T4 1.0. UA was obtained and showed 6-10 urine RBC, with yeast present otherwise negative. Respiratory panel was negative for influenza A and B, RSV, COVID. Blood cultures were obtained and pending. EKG shown sinus tach with nonspecific T-wave abnormality with a rate of 110, QTC 465. Patient was given 1 L of LR and started on IV fluids while in the ED. patient was initially meeting SIRS criteria with tachycardia, tachypnea, mild hypotension. patient is a poor historian unable to provider detail ROS, patient c/o lowever extremities pain and swelling, patient was receiving IVF, will stop, will do venous dopplor, patient presented with AMS with history of bihemispheric stroke with involvement of the shorty, right parietal and occipital lobes in addition to subcortical area there is bilateral basal ganglia and thalami, seen by neurologist recommending EEG, will monitor, will have PT/OT evaluate the patient. patient remains confused, still c/o b/l lower extremities swelling, will order Lasix 40mg IM x1. Seen by neurologist ordered EEG, carotid Doppler study. also suggest to check her lipid profile, serum B12 folic acid level, methylmalonic acid level, vitamin-D and vitamin B1 levels. will continue to monitor. will have PT/OT. evaluate the patient. will monitor. today patient appears in good spirit and smiling, her carotid dopplor study showed b/l 50% stenosis, vitamin b12 is low normal will give 1x b12 1000mcg IM and start the patient on ora b12, lower extremities dopplor showed bilateral deep vein thrombosis, will start patient on Eliquis 10mg BID for 7days and thereafter will start 5mg BID, will monitor and plan. Review of Systems Review of Systems: All systems reviewed & are unremarkable except as noted in HPI and below ROS unobtainable: Yes unobtainable due to mental status Exam Narrative: Patient is comfortable, NAD HEENT: eyes are clear and none icteric LUNGS:CTA HEART: RR S1S2 ABD: BS+, Soft and nontender Lower extremities: edema SKIN: nonjaundiced Neuro: grossly intact. Objective Data Vital Signs Vital Signs: Vital Signs - 24 hr 07/11/24 20:00 07/11/24 21:01 07/12/24 05:41 Temperature 37.0 C 36.3 C L Pulse Rate 95 89 Respiratory Rate 13 14 Blood Pressure 125/42 L 139/44 L Pulse Oximetry 95 95 Oxygen Delivery Room Air 07/12/24 08:00 07/12/24 14:00 Temperature 36.8 C Pulse Rate 90 Respiratory Rate 18 Blood Pressure 122/47 L Pulse Oximetry 95 93 Oxygen Delivery Room Air Intake/Output Intake/Output: Intake & Output 07/09/24 07/10/24 07/11/24 07/12/24 23:59 23:59 23:59 23:59 Intake Total 1000 1960.0 1440 1340 Output Total 1500 1850 3750 1800 Balance -500 110.0 -2310 -460 Meds/Results Medications: Active Medications Generic Name Dose Route Start Last Admin Trade Name Freq PRN Reason Stop Dose Admin Acetaminophen 650 mg 07/09/24 18:45 07/12/24 11:58 Acetaminophen 325 Mg Tablet PO 650 mg Q4H PRN Administration Mild Pain (1-3) or Fever Allopurinol 300 mg 07/10/24 09:00 07/12/24 09:24 Allopurinol 300 Mg Tablet PO 300 mg DAILY RINA Administration Amlodipine Besylate 5 mg 07/10/24 09:00 07/12/24 09:24 Amlodipine Besylate 5 Mg Tablet PO 5 mg DAILY RINA Administration Apixaban 10 mg 07/11/24 21:00 07/12/24 09:25 Apixaban 5 Mg Tablet PO 07/21/24 09:01 10 mg Q12HR RINA Administration Apixaban 5 mg 07/21/24 21:00 Apixaban 5 Mg Tablet PO Q12HR [facility] Aripiprazole 5 mg 07/10/24 09:00 07/12/24 09:26 Aripiprazole 5 Mg Tablet PO 5 mg DAILY RINA Administration Ascorbic Acid 500 mg 07/10/24 09:00 07/12/24 09:26 Ascorbic Acid 500 Mg Tablet PO 500 mg DAILY RINA Administration Citalopram Hydrobromide 10 mg 07/10/24 09:00 07/12/24 09:26 Citalopram Hydrobromide 10 Mg Tablet PO 10 mg DAILY RINA Administration Levothyroxine Sodium 12.5 mcg 07/10/24 06:30 07/12/24 06:00 Levothyroxine Sodium 12.5 Mcg Tablet PO 12.5 mcg DAILY@0630 RINA Administration Levothyroxine Sodium 50 mcg 07/10/24 06:30 07/12/24 06:00 Levothyroxine Sodium 50 Mcg Tablet PO 50 mcg DAILY@0630 RINA Administration Lidocaine 2 patch 07/12/24 09:00 07/12/24 12:55 Lidocaine 5% Patch TRANSDERM 2 patch DAILY RINA Administration Magnesium Oxide 400 mg 07/11/24 09:00 07/12/24 09:26 Magnesium Oxide 400 Mg Tablet PO 400 mg QAM RINA Administration Ondansetron HCl 4 mg 07/09/24 21:30 Ondansetron Inj 4 Mg/2 Ml Vial IV PUSH Q6H PRN Nausea And Vomiting Simvastatin 20 mg 07/10/24 21:00 07/11/24 21:06 Simvastatin 20 Mg Tablet PO 20 mg HS RINA Administration Vitamin B Complex 1 cap 07/10/24 09:00 07/12/24 09:26 Vitamin B Complex Capsule PO 1 cap DAILY RINA Administration Radiology Results: ITS Impressions Head CT 07/09/24 15:18 IMPRESSION: 1. Old infarcts involving the shorty, right parietal and occipital lobes, bilateral basal ganglia, and bilateral thalami. 2. Moderate nonspecific cerebral white matter disease, which likely represents chronic small vessel ischemic disease. Chest/Abdomen/Pelvis CT 07/09/24 15:24 IMPRESSION: 1. 1.9 cm left kidney mass, which may be a hemorrhagic cyst or less likely renal cell carcinoma. Abdomen CT or MRI without and with contrast is recommended. Brain MRI 07/10/24 14:35 IMPRESSION: 1. Old infarcts in the brain. 2. Moderate nonspecific cerebral white matter disease and pontine disease, which likely represents chronic small vessel ischemic disease. Venous Doppler Study 07/11/24 16:06 IMPRESSION: Bilateral deep vein thrombosis. Carotid Doppler Study 07/11/24 16:16 IMPRESSION: 1. <50% stenosis in the right internal carotid artery. 2. <50% stenosis in the left internal carotid artery. Labs Labs: Laboratory Results - last 24 hr 07/12/24 05:26 WBC 7.2 RBC 2.76 L Hgb 8.5 L Hct 28.5 L MCV 103.3 H MCH 30.8 MCHC 29.8 L RDW 15.5 H Plt Count 168 MPV 10.7 H Immature Gran % (Auto) 0.7 H Neut % (Auto) 66.2 Lymph % (Auto) 18.9 [place] % (Auto) 8.1 Eos % (Auto) 5.7 H Baso % (Auto) 0.4 Lymph # (Auto) 1.35 [place] # (Auto) 0.6 Eos # (Auto) 0.4 H Baso # (Auto) 0.0 Abs Immat Gran (auto) 0.05 H Absolute Neuts (auto) 4.7 Absolute Nucleated RBC 0.000 Band Neutrophils % Not Reportable Nucleated RBC % 0.0 Platelet Estimate Adequate Hypochromasia 1+ Macrocytosis 1+ Acanthocytes (Spur) 1+ Schistocytes None seen Sodium 136 L Potassium 4.2 Chloride 103 Carbon Dioxide 29 Anion Gap 4 BUN 52 H D Creatinine 1.59 H Estim Creat Clear Calc 33 Estimated GFR 31 L Glucose 102 Calcium 9.1 Magnesium 1.6 Total Bilirubin 0.4 AST 36 ALT 20 Alkaline Phosphatase 70 Total Protein 5.0 L Albumin 2.9 L Quality VTE Prophylaxis VTE prophylaxis: pharmacologic ordered
[2024-07-12] MEDS: SIMVASTATIN 20 MG TABLET PO (20:24)
[2024-07-13 06:00] VITALS: BP 138/45; PULSE 84; RESP 18; TEMP 36.2; O2SAT 100
[2024-07-13] MEDS: LEVOTHYROXINE SODIUM 50 MCG TABLET PO (07:07)
[2024-07-13] MEDS: LEVOTHYROXINE SODIUM 12.5 MCG TABLET PO (07:07)
[2024-07-13 07:15] LABS: Basophils Percent Auto 0.2 % (0.2-1.2); Eosinophils Absolute Auto 0.2 K/mm3 (0-0.3); Hematocrit 30.5 % (37.0-47.0); Hemoglobin 9.3 g/dL (12.0-15.0); Immature Granulocyte Absolute 0.07 K/mm3 (0.00-0.031); Immature Granulocyte Percent A 0.9 % (0-0.5); Lymphocytes Absolute Auto 0.98 K/mm3 (0.9-3.2); Lymphocytes Percent Auto 12.1 % (18.3-44.2); Mean Corpuscular HGB Conc 30.5 g/dl (32-36); Mean Corpuscular Hemoglobin 31.2 pg (26-34); Mean Corpuscular Volume 102.3 fl (80-100); Mean Platelet Volume 10.4 fl (7.4-10.4); Monocytes Absolute Auto 0.5 K/mm3 (0.1-0.6); Monocytes Percent Auto 6.4 % (2.6-8.5); Neutrophils Absolute Auto 6.3 K/mm3 (1.3-6.7); Neutrophils Percent Auto 77.4 % (45.5-73.1); Platelet Count Result 172 k/mm3 (150-375); Red Blood Count 2.98 M/mm3 (4.2-5.4); Red Cell Distribution Width 15.3 % (11.5-14.5); White Blood Count 8.1 K/mm3 (4.5-10.0)
[2024-07-13 07:35] LABS: Alanine Aminotransferase 21 U/L (6-35); Albumin Level 3.4 g/dL (3.5-5.1); Alkaline Phosphatase 76 U/L (38-126); Anion Gap 6 mmol/L (4-12); Aspartate Amino Transferase 34 U/L (14-36); Bilirubin,Total 0.5 mg/dL (0.2-1.3); Blood Urea Nitrogen 53 mg/dL (7-17); Calcium 9.7 mg/dL (8.4-10.2); Carbon Dioxide 31 mmol/L (22-30); Chloride 99 mmol/L (98-107); Estimated CRCL calculation 34 ml/min; Estimated Glomerular Filt Rate 32; Glucose 116 mg/dL (65-110); Magnesium 1.6 mg/dL (1.6-2.3); Potassium 4.1 mmol/L (3.4-5.0); Sodium 136 mmol/L (137-145)
[2024-07-13 08:00] VITALS: PULSE 94; RESP 18; O2SAT 95
[2024-07-13] MEDS: LIDOCAINE 5% PATCH 2 PATCH TRANSDERM (09:08)
[2024-07-13] MEDS: allopurinoL 300 MG TABLET PO (09:09)
[2024-07-13] MEDS: ARIPiprazole 5 MG TABLET PO (09:09)
[2024-07-13] MEDS: CITALOPRAM HYDROBROMIDE 10 MG TABLET PO (09:09)
[2024-07-13] MEDS: APIXABAN 5 MG TABLET 10 MG PO (09:09)
[2024-07-13] MEDS: ASCORBIC ACID 500 MG TABLET PO (09:09)
[2024-07-13] MEDS: VITAMIN B COMPLEX CAPSULE 1 CAP PO (09:09)
[2024-07-13] MEDS: amLODIPine BESYLATE 5 MG TABLET PO (09:09)
[2024-07-13] MEDS: MAGNESIUM OXIDE 400 MG TABLET PO (09:09)
--- NOTE | 2024-07-13 12:44 | P.PNIM_ITS ---
Progress Note: A&P Assessment and Plan (1) SIRS (systemic inflammatory response syndrome): Code(s): R65.10 - Systemic inflammatory response syndrome (SIRS) of non-infectious origin without acute organ dysfunction Status: Acute Assessment and Plan: * Initially meeting SIRS criteria with heart rate of 111, respiratory rate 24, blood pressures ranging 84/75 to 91/66 * Slightly elevated at 10.1 * UA only shown 6-10 urine RBC, with yeast present. * Respiratory panel was negative for influenza a and B, RSV, COVID * Patient received 1 L LR in the ED with improvement in her vital signs (2) Acute kidney injury superimposed on chronic kidney disease: Code(s): N17.9 - Acute kidney failure, unspecified; N18.9 - Chronic kidney disease, unspecified Status: Acute Assessment and Plan: * Creatinine 2.23, EGFR 21 * Baseline creatinine unknown, last creatinine that was recorded in our system was 1.80 however that was back in 2019 * Continue to trend (3) Acute dehydration: Code(s): E86.0 - Dehydration Status: Acute Assessment and Plan: * Patient was given 1 L of LR while in the ED * Continue LR at 75 mL/hour for hydration * Monitor electrolytes (4) Altered mental status, unspecified: Code(s): R41.82 - Altered mental status, unspecified Status: Acute Assessment and Plan: Recently diagnosed with a UTI 2 weeks ago. History of CVA. * UA only shown 6-10 urine RBC, yeast present on UA * Respiratory panel was negative for influenza A and B, RSV, COVID * Sodium level 140, blood sugar was 112 * Will check ammonia level * Head CT showing old infarcts involving the shorty, right parietal and occipital lobe, bilateral basal ganglia, and bilateral thalami, moderate nonspecific cerebral white matter disease likely representing chronic small vessel ischemic disease * Will get MRI of the brain and brainstem with and without contrast * Neurology consulted * Continue neuro checks (5) Hypothyroidism: Code(s): E03.9 - Hypothyroidism, unspecified Status: Acute Assessment and Plan: * Currently on Synthroid 50 mcg daily we will increase to 62.5 daily * TSH 5.250, free T4 1.0, total T3 0.93 (6) Hypertension: Code(s): I10 - Essential (primary) hypertension Status: Acute Assessment and Plan: * Blood pressure ranging 140/60 to 156/110 * Not currently on any blood pressure medications at home * Will start amlodipine 5 mg daily (7) Hyperlipidemia: Code(s): E78.5 - Hyperlipidemia, unspecified Status: Acute Assessment and Plan: * Continue simvastatin (8) Depression: Code(s): F32.A - Depression, unspecified Status: Acute Assessment and Plan: * Continue Abilify and Celexa (9) Gout: Code(s): M10.9 - Gout, unspecified Status: Acute Assessment and Plan: * Continue allopurinol (10) Chronic anticoagulation: Code(s): 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 * Unknown why she is on chronic anticoagulation unless there were given this for CVA? Plan patient is a poor historian unable to provider detail ROS, patient c/o lowever extremities pain and swelling, patient was receiving IVF, will stop, will do venous dopplor, patient presented with AMS with history of bihemispheric stroke with involvement of the shorty, right parietal and occipital lobes in addition to subcortical area there is bilateral basal ganglia and thalami, seen by neurologist recommending EEG, will monitor, will have PT/OT evaluate the patient. patient remains confused, still c/o b/l lower extremities swelling, will order Lasix 40mg IM x1. Seen by neurologist ordered EEG, carotid Doppler study. also suggest to check her lipid profile, serum B12 folic acid level, methylmalonic acid level, vitamin-D and vitamin B1 levels. will continue to monitor. will have PT/OT. evaluate the patient. will monitor. today patient appears in good spirit and smiling, her carotid dopplor study showed b/l 50% stenosis, vitamin b12 is low normal will give 1x b12 1000mcg IM and start the patient on ora b12, lower extremities dopplor showed bilateral deep vein thrombosis, started patient on Eliquis 10mg BID for 7days and thereafter will start 5mg BID, last night patient was confused and pull her Peterson out, she does have urinary retention, will continue Peterson, will monitor and plan. Subjective Date/time seen: 07/13/24 12:44 Interval history: Altered mental status Narrative: This is an 84-year-old female with a significant past medical history of hypertension, hyperlipidemia, chronic kidney disease stage IV, asthma, CVA, gout, hypothyroidism who presented to the hospital from her halfway facility for concerns of mental status changes and weakness. Patient was recently diagnosed with a UTI 2 weeks ago. Patient unable to provide any history of presenting illness due to AMS. Most of history of presenting illness obtained from medical record. Workup in the hospital included a head CT which showed old infarcts involving the shorty, right parietal and occipital lobe, bilateral basal ganglia, and bilateral thalami, moderate nonspecific cerebral white matter disease consistent with chronic small-vessel ischemic disease. Chest/abdomen /pelvis CT showed a 1.9 cm left kidney mass which may be a hemorrhagic cyst or less likely renal cell carcinoma. Initial labs showed a white blood cell count of 10.1, globin 9.7, INR 1.1, bicarb 19, creatinine 2.23, EGFR 21, AST 57, proBNP 383, troponin 0.032, TSH 5.250, total T3 0.93, free T4 1.0. UA was obtained and showed 6-10 urine RBC, with yeast present otherwise negative. Respiratory panel was negative for influenza A and B, RSV, COVID. Blood cultures were obtained and pending. EKG shown sinus tach with nonspecific T- wave abnormality with a rate of 110, QTC 465. Patient was given 1 L of LR and started on IV fluids while in the ED. patient was initially meeting SIRS criteria with tachycardia, tachypnea, mild hypotension. patient is a poor historian unable to provider detail ROS, patient c/o lowever extremities pain and swelling, patient was receiving IVF, will stop, will do venous dopplor, patient presented with AMS with history of bihemispheric stroke with involvement of the shorty, right parietal and occipital lobes in addition to subcortical area there is bilateral basal ganglia and thalami, seen by neurologist recommending EEG, will monitor, will have PT/OT evaluate the patient. patient remains confused, still c/o b/l lower extremities swelling, will order Lasix 40mg IM x1. Seen by neurologist ordered EEG, carotid Doppler study. also suggest to check her lipid profile, serum B12 folic acid level, methylmalonic acid level, vitamin-D and vitamin B1 levels. will continue to monitor. will have PT/OT. evaluate the patient. will monitor. today patient appears in good spirit and smiling, her carotid dopplor study showed b/l 50% stenosis, vitamin b12 is low normal will give 1x b12 1000mcg IM and start the patient on ora b12, lower extremities dopplor showed bilateral deep vein thrombosis, started patient on Eliquis 10mg BID for 7days and thereafter will start 5mg BID, last night patient was confused and pull her Peterson out, she does have urinary retention, will continue Peterson, will monitor and plan. Review of Systems Review of Systems: ROS unobtainable: Yes unobtainable due to mental status Exam Narrative: Patient is comfortable, NAD HEENT: eyes are clear and none icteric LUNGS:CTA HEART: RR S1S2 ABD: BS+, Soft and nontender Lower extremities: edema SKIN: nonjaundiced Neuro: grossly intact. Objective Data Vital Signs Vital Signs: Vital Signs - 24 hr 07/12/24 14:00 07/12/24 20:00 07/13/24 06:00 Temperature 36.8 C 36.2 C L Pulse Rate 90 84 Respiratory Rate 18 18 Blood Pressure 122/47 L 138/45 L Pulse Oximetry 93 100 Oxygen Delivery Room Air Intake/Output Intake/Output: Intake & Output 07/10/24 07/11/24 07/12/24 07/13/24 23:59 23:59 23:59 23:59 Intake Total 1960.0 1440 1580 558 Output Total 1850 3750 2450 1000 Balance 110.0 -2310 -870 -442 Meds/Results Medications: Active Medications Generic Name Dose Route Start Last Admin Trade Name Freq PRN Reason Stop Dose Admin Acetaminophen 650 mg 07/09/24 18:45 07/12/24 20:22 Acetaminophen 325 Mg Tablet PO 650 mg Q4H PRN Administration Mild Pain (1-3) or Fever Allopurinol 300 mg 07/10/24 09:00 07/13/24 09:09 Allopurinol 300 Mg Tablet PO 300 mg DAILY RINA Administration Amlodipine Besylate 5 mg 07/10/24 09:00 07/13/24 09:09 Amlodipine Besylate 5 Mg Tablet PO 5 mg DAILY RINA Administration Apixaban 10 mg 07/11/24 21:00 07/13/24 09:09 Apixaban 5 Mg Tablet PO 07/21/24 09:01 10 mg Q12HR RINA Administration Apixaban 5 mg 07/21/24 21:00 Apixaban 5 Mg Tablet PO Q12HR RINA Aripiprazole 5 mg 07/10/24 09:00 07/13/24 09:09 Aripiprazole 5 Mg Tablet PO 5 mg DAILY RINA Administration Ascorbic Acid 500 mg 07/10/24 09:00 07/13/24 09:09 Ascorbic Acid 500 Mg Tablet PO 500 mg DAILY RINA Administration Citalopram Hydrobromide 10 mg 07/10/24 09:00 07/13/24 09:09 Citalopram Hydrobromide 10 Mg Tablet PO 10 mg DAILY RINA Administration Levothyroxine Sodium 12.5 mcg 07/10/24 06:30 07/13/24 07:07 Levothyroxine Sodium 12.5 Mcg Tablet PO 12.5 mcg DAILY@0630 RINA Administration Levothyroxine Sodium 50 mcg 07/10/24 06:30 07/13/24 07:07 Levothyroxine Sodium 50 Mcg Tablet PO 50 mcg DAILY@0630 RINA Administration Lidocaine 2 patch 07/12/24 09:00 07/13/24 09:08 Lidocaine 5% Patch TRANSDERM 2 patch DAILY RINA Administration Magnesium Oxide 400 mg 07/11/24 09:00 07/13/24 09:09 Magnesium Oxide 400 Mg Tablet PO 400 mg QAM RINA Administration Ondansetron HCl 4 mg 07/09/24 21:30 Ondansetron Inj 4 Mg/2 Ml Vial IV PUSH Q6H PRN Nausea And Vomiting Simvastatin 20 mg 07/10/24 21:00 07/12/24 20:24 Simvastatin 20 Mg Tablet PO 20 mg HS RINA Administration Vitamin B Complex 1 cap 07/10/24 09:00 07/13/24 09:09 Vitamin B Complex Capsule PO 1 cap DAILY RINA Administration Radiology Results: ITS Impressions Head CT 07/09/24 15:18 IMPRESSION: 1. Old infarcts involving the shorty, right parietal and occipital lobes, bilateral basal ganglia, and bilateral thalami. 2. Moderate nonspecific cerebral white matter disease, which likely represents chronic small vessel ischemic disease. Chest/Abdomen/Pelvis CT 07/09/24 15:24 IMPRESSION: 1. 1.9 cm left kidney mass, which may be a hemorrhagic cyst or less likely renal cell carcinoma. Abdomen CT or MRI without and with contrast is recommended. Brain MRI 07/10/24 14:35 IMPRESSION: 1. Old infarcts in the brain. 2. Moderate nonspecific cerebral white matter disease and pontine disease, which likely represents chronic small vessel ischemic disease. Venous Doppler Study 07/11/24 16:06 IMPRESSION: Bilateral deep vein thrombosis. Carotid Doppler Study 07/11/24 16:16 IMPRESSION: 1. <50% stenosis in the right internal carotid artery. 2. <50% stenosis in the left internal carotid artery. Labs Labs: Laboratory Results - last 24 hr 07/13/24 06:33 WBC 8.1 RBC 2.98 L Hgb 9.3 L Hct 30.5 L MCV 102.3 H MCH 31.2 MCHC 30.5 L RDW 15.3 H Plt Count 172 MPV 10.4 Immature Gran % (Auto) 0.9 H Neut % (Auto) 77.4 H Lymph % (Auto) 12.1 L [place] % (Auto) 6.4 Eos % (Auto) 3.0 Baso % (Auto) 0.2 Lymph # (Auto) 0.98 [place] # (Auto) 0.5 Eos # (Auto) 0.2 Baso # (Auto) 0.0 Abs Immat Gran (auto) 0.07 H Absolute Neuts (auto) 6.3 Absolute Nucleated RBC 0.000 Nucleated RBC % 0.0 Sodium 136 L Potassium 4.1 Chloride 99 Carbon Dioxide 31 H Anion Gap 6 BUN 53 H Creatinine 1.55 H Estim Creat Clear Calc 34 Estimated GFR 32 L Glucose 116 H Calcium 9.7 Magnesium 1.6 Total Bilirubin 0.5 AST 34 ALT 21 Alkaline Phosphatase 76 Total Protein 6.0 L Albumin 3.4 L Quality VTE Prophylaxis VTE prophylaxis: pharmacologic ordered
[2024-07-13 14:00] VITALS: BP 132/47; PULSE 94; RESP 18; TEMP 36.2; O2SAT 95
[2024-07-13] MEDS: CYANOCOBALAMIN INJ 1,000 MCG/ML VIAL 1000 MCG IM (18:59)
[2024-07-13 20:00] VITALS: PULSE 94; RESP 18; O2SAT 95
[2024-07-14 06:00] VITALS: BP 151/90; PULSE 90; RESP 18; TEMP 36.4; O2SAT 96
[2024-07-14 06:11] LABS: Basophils Percent Auto 0.5 % (0.2-1.2); Eosinophils Absolute Auto 0.3 K/mm3 (0-0.3); Eosinophils Percent Auto 3.7 % (0-4.4); Hematocrit 30.3 % (37.0-47.0); Hemoglobin 9.1 g/dL (12.0-15.0); Immature Granulocyte Absolute 0.06 K/mm3 (0.00-0.031); Immature Granulocyte Percent A 0.7 % (0-0.5); Lymphocytes Absolute Auto 1.22 K/mm3 (0.9-3.2); Lymphocytes Percent Auto 15.1 % (18.3-44.2); Mean Corpuscular Hemoglobin 31.3 pg (26-34); Mean Corpuscular Volume 104.1 fl (80-100); Mean Platelet Volume 10.1 fl (7.4-10.4); Monocytes Absolute Auto 0.6 K/mm3 (0.1-0.6); Monocytes Percent Auto 7.3 % (2.6-8.5); Neutrophils Absolute Auto 5.9 K/mm3 (1.3-6.7); Neutrophils Percent Auto 72.7 % (45.5-73.1); Platelet Count Result 183 k/mm3 (150-375); Red Blood Count 2.91 M/mm3 (4.2-5.4); Red Cell Distribution Width 15.2 % (11.5-14.5); White Blood Count 8.1 K/mm3 (4.5-10.0)
[2024-07-14 06:33] LABS: Alanine Aminotransferase 19 U/L (6-35); Albumin Level 3.2 g/dL (3.5-5.1); Alkaline Phosphatase 74 U/L (38-126); Anion Gap 9 mmol/L (4-12); Aspartate Amino Transferase 31 U/L (14-36); Bilirubin,Total 0.6 mg/dL (0.2-1.3); Blood Urea Nitrogen 52 mg/dL (7-17); Calcium 9.5 mg/dL (8.4-10.2); Carbon Dioxide 26 mmol/L (22-30); Chloride 100 mmol/L (98-107); Estimated CRCL calculation 38 ml/min; Estimated Glomerular Filt Rate 37; Glucose 107 mg/dL (65-110); Magnesium 1.7 mg/dL (1.6-2.3); Potassium 3.9 mmol/L (3.4-5.0); Sodium 135 mmol/L (137-145)
[2024-07-14 08:00] VITALS: O2SAT 96
[2024-07-14] MEDS: LIDOCAINE 5% PATCH 2 PATCH TRANSDERM (08:47)
[2024-07-14 11:55] LABS: Glucose Point of Care 106 mg/dl (65-105)
--- NOTE | 2024-07-14 13:02 | P.DS_ITS ---
DS: Summary Time Spent with Patient Time attestation: Total time spent providing and/or coordinating discharge services: DS: Data Data Completed and Pending Labs on day of discharge: Labs from last 24 hours 07/14/24 07/14/24 11:50 05:57 WBC 8.1 RBC 2.91 L Hgb 9.1 L Hct 30.3 L MCV 104.1 H MCH 31.3 MCHC 30.0 L RDW 15.2 H Plt Count 183 MPV 10.1 Immature Gran % (Auto) 0.7 H Neut % (Auto) 72.7 Lymph % (Auto) 15.1 L [place] % (Auto) 7.3 Eos % (Auto) 3.7 Baso % (Auto) 0.5 Lymph # (Auto) 1.22 [place] # (Auto) 0.6 Eos # (Auto) 0.3 Baso # (Auto) 0.0 Abs Immat Gran (auto) 0.06 H Absolute Neuts (auto) 5.9 Absolute Nucleated RBC 0.000 Nucleated RBC % 0.0 Sodium 135 L Potassium 3.9 Chloride 100 Carbon Dioxide 26 Anion Gap 9 BUN 52 H Creatinine 1.38 H Estim Creat Clear Calc 38 Estimated GFR 37 L Glucose 107 POC Capillary Glucose 106 H Calcium 9.5 Magnesium 1.7 Total Bilirubin 0.6 AST 31 ALT 19 Alkaline Phosphatase 74 Total Protein 6.0 L Albumin 3.2 L Preliminary micro results at discharge 07/09/24 16:04 Blood Culture - Preliminary Blood 07/09/24 15:23 Blood Culture - Preliminary Blood Discharge Plan Discharge Attending physician on discharge: Ann Duran Consulting providers: Jordon Aguilera Discharging Clinician: Jordi Russo Patient Disposition: [place] Residential/Asst Living Activity: as tolerated Diet: heart healthy Discharge Instructions: patient has b/l lower extremities DVT, patient will take Eliquis 10mg BID for first 10 and thereafter 5mg BID, patient to follow up with her neurologist and primary care provider as soon as possible. Patient Instructions: Antibiotic Form, Apixaban (By mouth) Patient Language: Romanian Stand Alone Forms: General Discharge Information Follow-up/Referrals: Sohan,Piter Mejia MD [Primary Care Provider] - Jordon Aguilera MD [Physician] - Discharge Medications: New amlodipine [Norvasc] 5 mg Tablet 5 mg PO DAILY Qty: 30 0RF magnesium oxide 400 mg (241.3 mg magnesium) Tablet 400 mg PO QAM Qty: 30 0RF Eliquis 5 mg Tablet 10 mg PO Q12HR Qty: 16 0RF lidocaine [Lidoderm] 5 % Adhesive Patch,Medicated 2 patch transdermal DAILY Qty: 30 0RF cyanocobalamin (vitamin B-12) [Vitamin B-12] 500 mcg Tablet 500 mcg PO QAM Qty: 30 0RF Eliquis 5 mg Tablet 5 mg PO Q12HR Qty: 60 0RF Continued allopurinol 300 mg tablet 300 mg PO DAILY aripiprazole [Abilify] 5 mg tablet 5 mg PO DAILY ascorbic acid (vitamin C) [C-500] 500 mg tablet 500 mg PO DAILY vitamin B complex Tablet 1 tablet PO DAILY citalopram [Celexa] 10 mg tablet 10 mg PO DAILY diphenhydramine HCl [Benadryl] 25 mg capsule 25 mg PO HS PRN (Reason: sleep) levothyroxine 50 mcg capsule 50 mcg PO DAILY simvastatin 20 mg tablet 20 mg PO HS loperamide 2 mg tablet 2 mg PO TID PRN (Reason: diarrhea) Discontinued Eliquis 2.5 mg tablet 2.5 mg PO BID Date of admission: 07/11/24 13:33 Primary Care Provider: Sohan,Piter Mejia Admitting Provider: Ann Duran Attending physician on admission: Ann Duran Condition: Stable
[2024-07-15 15:34] LABS: Homocysteine 22.7 umol/L (<10.4)
[2024-07-15 17:24] LABS: Methylmalonic Acid 403 nmol/L (85-423)
[2024-07-16 14:09] LABS: Vitamin B1 14 nmol/L (8-30)
== END 2024-07-14 15:14 | DRG 641 ==
LOC: ANHED 18:45 → ANH3MEDSUR 19:54
PROVIDERS: Emergency Medicine; Nurse Practitioner Acute Care; Psychiatry & Neurology Neurology; Admitting Provider Hospitalist; Emergency Provider Student in an Organized Health Care Education/Training Program; PCP Internal Medicine; Visit Provider Family Medicine
DX: E86.0 Dehydration (principal); N17.9 Acute kidney failure, unspecified; I82.403 Acute embolism and thrombosis of unspecified deep veins of lower extremity, bilateral; R65.10 Systemic inflammatory response syndrome (SIRS) of non-infectious origin without acute organ dysfunction; N18.4 Chronic kidney disease, stage 4 (severe); E03.9 Hypothyroidism, unspecified; E78.5 Hyperlipidemia, unspecified; F32.A Depression, unspecified; I12.9 Hypertensive chronic kidney disease with stage 1 through stage 4 chronic kidney disease, or unspecified chronic kidney disease; J45.909 Unspecified asthma, uncomplicated; M10.9 Gout, unspecified; N28.9 Disorder of kidney and ureter, unspecified; R33.9 Retention of urine, unspecified; Z20.822 Contact with and (suspected) exposure to COVID-19; Z79.01 Long term (current) use of anticoagulants; Z86.73 Personal history of transient ischemic attack (TIA), and cerebral infarction without residual deficits
CPT/HCPCS: 36415; 70450; 70553; 71250; 74176; 80053; 80061; 81001; 82140; 82306; 82607; 82746; 82948; 83090; 83605; 83735; 83880; 83921; 84425; 84439; 84443; 84480; 84484; 85025; 85610; 85730; 87040; 87637; 93005; 93880; 93970; 96361; 96374; 97116; 97161; 97166; 97530; 99212; 99285; A9270; A9579; G0378; G0463; J1940; J3420; J3475; J7120

== ENCOUNTER 2024-12-25 20:02 | Emergency (ER) | payer MEDICARE, SELFPAY ==
--- NOTE | ~2024-12-25 | XR_ITS ---
EXAMINATION: XR hip RT min 2V DATE: 12/25/2024 20:42 INDICATION: Right hip injury after fall out of wheelchair TECHNIQUE: Anteroposterior and frog-leg lateral views of the right hip were obtained. COMPARISON: None. FINDINGS: Expected appearance of a right total hip arthroplasty which appears well seated with no periprosthetic lucency to suggest loosening. No fracture. Coarsely calcified degenerated uterine fibroid projecting over the central pelvis. IMPRESSION: 1. No acute osseous adenopathy. Reviewed, dictated and finalized at location A.
--- NOTE | ~2024-12-25 | CT_ITS ---
EXAMINATION: CT brain wo con DATE: 12/25/2024 20:56 INDICATION: Fall from wheelchair with head injury TECHNIQUE: Computed tomography (CT) of the head was performed without intravenous contrast. Sagittal and coronal reconstructions were performed. The mA was adjusted according to patient size. Iterative reconstruction technique was employed. The dose-length product was 374.22 mGy-cm. COMPARISON: head CT dated 07/09/2024 FINDINGS: Moderate-sized left frontal scalp hematoma. No fracture. No acute intracranial hemorrhage, acute infarction or abnormal extra axial fluid collection. Moderate- sized region of encephalomalacia in the right occipital lobe consistent with sequela of chronic infarct. There are old lacunar infarcts at the bilateral basal ganglia and thalami and in the shorty. There is moderate scattered white matter hypoattenuation consistent with chronic small vessel ischemic disease. Symmetric prominence of the sulci and subarachnoid spaces overlying the convexities consistent with moderate age-appropriate diffuse cerebral volume loss. Ventricles are normal and symmetric. No mass/mass effect. Changes of bilateral intraocular lens replacement. The orbits, paranasal sinuses and mastoid air cells are normal. Intracranial calcified cerebral atherosclerosis is noted. IMPRESSION: 1. No fracture or acute intracranial process. 2. 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 3. Age-related changes including moderate diffuse volume loss and moderate scattered white matter hypoattenuation consistent with chronic small vessel ischemic disease. Reviewed, dictated and finalized at location A. IMPRESSION: 1. No fracture or acute intracranial process. 2. Old infarcts at the right occipital lobe, shorty as well as the bilateral basa l ganglia and thalami. 3. Age-related changes including moderate diffuse volume loss and moderate scat tered white matter hypoattenuation consistent with chronic small vessel ischemi c disease.
--- NOTE | ~2024-12-25 | CT_ITS ---
EXAMINATION: CT cervical spine wo con DATE: 12/25/2024 20:56 INDICATION: Fall with head injury TECHNIQUE: Computed tomography (CT) of the cervical spine was performed without intravenous contrast. Automated exposure control and iterative reconstruction technique were employed. The dose-length product was 374.22 mGy-cm. COMPARISON: None FINDINGS: Reversal of the normal cervical lordosis. Moderate osteoarthritis at the atlantoaxial articulation. Vertebral body heights are normal. No acute fracture. Severe disc height loss with degenerative endplate changes at C4-C5 and C6-C7, moderate disc height loss at C3-C4, C5-C6 and C7-T1 and mild disc height loss at C2-C3 and T1-T2. Posterior disc osteophyte complexes contribute to mild central canal stenosis at C4-C5 and C5-C6 and C6-C7. Multilevel moderate to severe cervical facet and uncovertebral osteoarthritis. There is moderate neural foraminal stenosis on the left at C3-C4, C4-C5 and C5-C6 with mild neural from stenosis at many of the remaining neural foramina. Visualized apices of lungs are clear. Cervical soft tissues are unremarkable. IMPRESSION: 1. Severe cervical spondylosis. No acute osseous abnormality. Reviewed, dictated and finalized at location A.
--- OUTSIDE RECORDS SUMMARY | 2024-12-25 20:04 | XMS_ITS | Clinical Summary ---
Author Organization [facility] Address [address] [place] [address] Care Team Providers Care Data Center Technician Name Role Phone Piter Parry MD Primary [...] (ascorbic acid with azra hips) 500 mg tablet,chewable Acti ve cholecalciferol , vitamin D3, 1,000 unit tablet,chewable Take 1 tablet/chew tab by mouth Active vitamin B mnppaai-C-phf-F e-FA 106 mg iron- 1 mg tabletIndicatio ns:Vitamin Deficiency 1 tablet Active folic acid (FOLVITE) 1 mg tablet Take 2 mg by mouth daily Active levothyroxine (SYNTHROID) 50 mcg tablet Take 1 tablet (50 mcg total) by mouth certification technician before breakfast Active allopurinoL (ZYLOPRIM) 300 mg tablet Take 1 tablet (300 mg total) by mouth daily Active apixaban (ELIQUIS) 2.5 mg tablet Take 2.5 mg by mouth 2 (two) times a day Active simvastatin (ZOCOR) 20 mg tablet Take 20 mg by mouth nightly Active ARIPiprazole (ABILIFY) 2 mg tablet Take 1 tablet (2 mg total) by mouth daily Active Active Problems Problem Noted Date Diagnosed Date Acute kidney injury superimposed on chronic kidn ey disease 06/19/2024 KEEK (acute kidney injury) 05/30/2024 Fall 04/11/2019 Dizziness [...] (04/11/2019): Added automatically from request for surgery [id number] Essential hypertension 08/24/2018 Overview (08/24/2018): Hypertension Hemiparesis [...] reflux disease GERD Asthma as child Cancer (HCC) skin cancer on f shade, s/p excision Arthritis Stroke (HCC) DVT (deep venous thrombosis) 08/2017 Bladder incontinence 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 No 06/20/2024 Social Connection and Isolation Panel Answer Date Recorded In a typical week, how many times do you talk on the phone with family, friends, or neighbors? Twice a week 06/20/2024 How often do you get together with friends or re latives? Never 06/20/2024 How often do you attend restorationist or methodist serv ices? Never 06/20/2024 Do you belong to any clubs o r organizations such as restorationist groups, unions, fraternal or athletic groups, or [...] any time in the past [address] [facility], were you homeless or living in a longterm (including now)? No 06/20/2024 Personal Safety Answer Date Recorded Have you ever been in or are you currently in a harmful physical or emotional relationship or is someone making you feel afraid or unsafe? 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 Gender Identity Not on file Sexual Orientation Not on file Obstetrics History Last Filed Vital Signs Vital Sign Reading Time Taken Comments Blood Pressure 147/53 06/24/2024 5:15 AM CONE MACHINE FEEDER Pulse 66 06/24/2024 5:15 AM CONE MACHINE FEEDER Temperature 37.1 C (98.8 F) 06/23/2024 8:20 PM CONE MACHINE FEEDER Respiratory Rate 18 06/23/2024 8:20 PM CONE MACHINE FEEDER Oxygen Saturation 98% 06/24/2024 5:15 AM CONE MACHINE FEEDER Inhaled Oxygen Concentration - - Weight 100 kg (220 lb 7.4 oz) 06/20/2024 8:00 AM CONE MACHINE FEEDER Height 168 cm (5' 6.14) 06/20/2024 8:00 AM CONE MACHINE FEEDER Body Mass Index 35.43 06/20/2024 8:00 AM CONE MACHINE FEEDER Plan of Treatment Health Maintenance Due Date Last Done Comments Osteoporosis Screening-Bone Density Scan 1942 DTaP/Tdap/Td Vaccine (1 - Tdap) 1953 Hepatitis B Screening 02/07/1960 Zoster Vaccine (1 of 2) 02/07/1992 Well Visit 65+ 2007 Pneumococcal vaccine 65+ (2 of 2 - PCV) 02/09/2013 02/10/2012 Depression Screening 06/01/2019 06/01/2018, 06/01/19 19 Influenza Vaccine (#1) 2024 9, 02/20/2018, 02/19/2014, Additional history exists Fall Risk Assessment 06/24/2025 06/24/2024 Medical Devices Implanted Type Area Supervisor Dry Paste Device Identifier Shelf Expiration Date Model / Serial / Lot Lens Lens Bilateral: Eye Insurance MEDICARE [facility] TRADITIONAL MEDICARE [facility] MEDICARE [facility] MEDICARE SUPPLEMENT Advance Directives For more information, please contact: [phone] Documents on File Type Date Recorded Patient Assistant Producer Expl anation ADVANCE DIRECTIVE 06/05/2018 11:45 AM POWER OF GIS PROGRAMMER ADVANCE DIRECTIVE 06/05/2018 11:42 AM POWER OF GIS PROGRAMMER ADVANCE DIRECTIVE 06/02/2018 12:56 AM POWER OF GIS PROGRAMMER * Full Code (Latest Code Status on [...] Agents on File Name Relationship Healthcare Agent Promise satinder Communication Doris Tamayo Daughter First Alternate Health Care Agent Care Teams Data Center Technician Relationship Specialty Start Date End Date Piter Parry MD [address] [address] PCP - General 04/10/19
--- OUTSIDE RECORDS SUMMARY | 2024-12-25 20:04 | XMS_ITS | Clinical Summary ---
Author Organization [facility] Address [address] [facility] Attn: Epic Prelude ADT [place] [address] Care Team Providers Care Public Information Director Name Role Phone Piter Parry MD Primary Care Provider [phone] Allergies Active Allergy Reactions Criticality Noted Date [...] Encounters Date Type Department Care Team Description 12/25/2024 External Device Data [facility] ABSTRACTION Provider, Abstract 11/13/2024 External Device Data [facility] ABSTRACTION Provider, Abstract 10/15/2024 External Device Data [facility] ABSTRACTION Provider, Abstract [...] No 02/25/2024 Food Insecurity Answer Date Recorded Patient needs follow up regardin 09/03/2024 Transportation Needs Answer Date Record ed Patient needs follow up regardin 09/03/2024 Housing Stability Answer Date Recorded Social/Environmental Concerns No concerns Utility Needs Answer Date Recorded Patient needs follow up regardin 09/03/2024 Comments Unknown Sex and Gender Information Value Date Recorded Sex Assigned at Not on file 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 Gender Identity Not on file Sexual Orientation [...] 1:58 PM CDT Height 170.2 cm (5' 7) 02/25/2024 1:58 PM CDT Body Mass Index 35.94 02/25/2024 1:58 PM CDT Plan of Treatment Health Maintenance Due Date Last Done Comments DTAP/TDAP/TD VACCINES (1 - Tdap) 1961 PNEUMOCOCCAL VACCINE 50+ YEA RS (1 of 1 - PCV) 02/07/1992 ZOSTER VACCINE (1 of 2) 02/07/1992 OSTEOPOROSIS SCREENING 2007 RSV VACCINE (60+ or ) (1 - 1-dose 75+ series) 2017 INFLUENZA VACCINE (#1) 2024 COLORECTAL SCREENING Discontinued 01/29/2024, 01/29/20 24 Colorectal Cancer Screening Discontinued FIT-DNA Q 3 years Discontinued FIT/FOBT Q 1 year Discontinued Flex Sig/CT Colonography Q 5 years Discontinued Medical Devices Implanted Type Area Web Administrator Device Identifier Shelf Expiration Date Model / Serial / Lot Lens Io Toric Sn6at5 18.5 - [id number] Implanted:Qty: 1 on 09/20/2012 Eye Left: Eye [facility] 08/29/2015 SN6AT5 18 .5 / [id number] / Lens Io Toric Sn6at4 19.5 - [id number] Implanted:Qty: 1 on 10/16/2012 Eye Right: Eye [facility] 07/28/2014 SN6AT4 19 .5 / [id number] / Insurance [facility] SUPP MEDICARE PART A AND B Advance Directives For more information, please contact: [phone] * Full Code (Latest Code Status on File) Date Activated Date Inactivated Comments 02/25/2024 10:57 AM 02/27/2024 3:04 PM Care Teams Public Information Director Relationship Specialty Start Date End Date Piter Parry MD [address] [address] PCP - General Internal Medicine 03/20/18
--- OUTSIDE RECORDS SUMMARY | 2024-12-25 20:04 | XMS_ITS | Encounter Summary ---
Author Organization [facility] Address 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
--- OUTSIDE RECORDS SUMMARY | 2024-12-25 20:04 | XMS_ITS | Clinical Summary ---
Author Organization [facility] [address] [facility] Address [address] [facility] [place] [address] Phone Care Team Providers Care Setter Juice Packaging Machines Name Role Phone Piter Parry MD Primary Care Provider [phone] Allergies Active Allergy Reactions Criticality Noted Date [...] ASPIRIN ORAL Active vit b comp & m-uw-bppvow-zin c (DIATX ZN) 5-1.5-25 mg Tablet Take 1 Tab by mouth daily. Active vit E-ttthhvfk-lcnr thicone (CETAPHIL) Lotion Apply to affected area 4 times daily as needed. Active ELIQUIS 5 mg tablet 09/04/2017 Active citalopram (CeleXA) 10 mg tablet 01/11/2018 Active FLUAD 5318-3363, 65 YR UP,,PF, 45 mcg (15 mcg [...] Comments Blood Pressure 153/82 03/20/2018 3:00 PM JEWEL LATHE OPERATOR Pulse 75 03/20/2018 3:00 PM JEWEL LATHE OPERATOR Temperature 36.3 C (97.4 F) 10/16/2012 11:57 AM CDT Respiratory Rate 14 10/16/2012 11:57 AM CDT Oxygen Saturation 95% 03/20/2018 3:00 PM JEWEL LATHE OPERATOR Inhaled Oxygen Concentration - - Weight 99.8 kg (220 lb) 09/12/2017 1:56 PM CDT Height 170.2 cm (5' 7) 09/12/2017 1:56 PM CDT Body Mass Index 34.46 09/12/2017 1:56 PM CDT Plan of Treatment Health Maintenance Due Date Last Done Comments DTAP/TDAP/TD VACCINES (1 - Tdap) 1961 PNEUMOCOCCAL VACCINE 50+ YEARS (1 of 1 - PCV) 02/06/19 92 ZOSTER VACCINE (1 of 2) 02/07/1992 OSTEOPOROSIS SCREENING 2007 RSV VACCINE (60+ or ) (1 - 1-dose 75+ series) 2017 INFLUENZA VACCINE (#1) 2024 Medical Devices Implanted Type Area Rail Walker Device Identifier Shelf Expiration Date Model / Serial / Lot Lens Io Toric Sn6at5 18.5 - [id number] Implanted:Qty: 1 on 09/20/2012 at [place] [address] Eye Left: Eye [facility] 08/29/2015 SN6AT5 18.5 / [id number] / Lens Io Toric Sn6at4 19.5 - [id number] Implanted:Qty: 1 on 10/16/2012 at [place] [address] Eye Right: Eye [facility] 07/28/2014 SN6AT4 19.5 / [id number] / Insurance MEDICARE PART A AND B [facility] EYE MED VISION Advance Directives For more information, please contact: [phone] * Full Code (Latest Code Status on File) Date Activated Date Inactivated Comments 10/16/2012 11:19 AM 10/16/2012 2:33 PM * Full Code Date Activated Date Inactivated Comments 10/16/2012 9:24 AM 10/16/2012 11:19 AM * Full Code Date Activated Date Inactivated Comments 09/20/2012 10:18 AM 09/20/2012 2:09 PM * Full Code Date Activated Date Inactivated Comments 09/20/2012 9:20 AM 09/20/2012 10:18 AM Care Teams Setter Juice Packaging Machines Relationship Specialty Start Date End Date Piter Parry MD [address] [address] PCP - General Internal Medicine 03/20/18
[2024-12-25 20:07] VITALS: BP 119/45; PULSE 79; RESP 17; TEMP 36.6; O2SAT 99
--- OUTSIDE RECORDS SUMMARY | 2024-12-25 20:52 | XMS_ITS | Clinical Summary ---
Author Organization [facility] [address] [facility] Address [address] [facility] [place] [address] Phone Care Team Providers Care Locker Attendant Name Role Phone Piter Parry MD Primary Care Provider [phone] Allergies Active Allergy Reactions Criticality Noted Date [...] ASPIRIN ORAL Active vit b comp & y-am-swdizl-zin c (DIATX ZN) 5-1.5-25 mg Tablet Take 1 Tab by mouth daily. Active vit D-rzvsnhzv-ceky thicone (CETAPHIL) Lotion Apply to affected area 4 times daily as needed. Active ELIQUIS 5 mg tablet 09/04/2017 Active citalopram (CeleXA) 10 mg tablet 01/11/2018 Active FLUAD 2054-8800, 65 YR UP,,PF, 45 mcg (15 mcg [...] Comments Blood Pressure 153/82 03/20/2018 3:00 PM MEDICAL ASSISTANT SUPERVISOR Pulse 75 03/20/2018 3:00 PM MEDICAL ASSISTANT SUPERVISOR Temperature 36.3 C (97.4 F) 10/16/2012 11:57 AM CDT Respiratory Rate 14 10/16/2012 11:57 AM CDT Oxygen Saturation 95% 03/20/2018 3:00 PM MEDICAL ASSISTANT SUPERVISOR Inhaled Oxygen Concentration - - Weight 99.8 [...] (#1) 2024 Medical Devices Implanted Type Area Boat Tender Device Identifier Shelf Expiration Date Model / Serial / Lot Lens Io Toric Sn6at5 18.5 - [id number] Implanted:Qty: 1 on 09/20/2012 at [place] [address] Eye Left: Eye [facility] 08/29/2015 SN6AT5 18.5 / [id number] / Lens Io Toric Sn6at4 19.5 - [id number] Implanted:Qty: 1 on 10/16/2012 at [place] [address] Eye Right: Eye [facility] 07/28/2014 SN6AT4 19.5 / [id number] / Insurance MEDICARE PART A AND B [facility] EYE MED VISION Advance Directives For more information, please contact: [phone] * Full Code (Latest Code Status on File) Date Activated Date Inactivated Comments 10/16/2012 11:19 AM 10/16/2012 2:33 PM * Full Code Date Activated Date Inactivated Comments 10/16/2012 9:24 AM 10/16/2012 11:19 AM * Full Code Date Activated Date Inactivated Comments 09/20/2012 10:18 AM 09/20/2012 2:09 PM * Full Code Date Activated Date Inactivated Comments 09/20/2012 9:20 AM 09/20/2012 10:18 AM Care Teams Locker Attendant Relationship Specialty Start Date End Date Piter Parry MD [address] [address] PCP - General Internal Medicine 03/20/18
--- OUTSIDE RECORDS SUMMARY | 2024-12-25 20:52 | XMS_ITS | Encounter Summary ---
Author Organization [facility] Address 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
--- OUTSIDE RECORDS SUMMARY | 2024-12-25 20:52 | XMS_ITS | Clinical Summary ---
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 Gender Identity Not on file Sexual Orientation [...] years Discontinued Medical Devices Implanted Type Area Data Librarian Device Identifier Shelf Expiration Date Model / Serial / Lot Lens Io Toric Sn6at5 18.5 - [id number] Implanted:Qty: 1 on 09/20/2012 Eye Left: Eye [facility] 08/29/2015 SN6AT5 18 .5 / [id number] / Lens Io Toric Sn6at4 19.5 - [id number] Implanted:Qty: 1 on 10/16/2012 Eye Right: Eye [facility] 07/28/2014 SN6AT4 19 .5 / [id number] / Insurance [facility] SUPP MEDICARE PART A AND B Advance Directives For more information, please contact: [phone] * Full Code (Latest Code Status on File) Date Activated Date Inactivated Comments 02/25/2024 10:57 AM 02/27/2024 3:04 PM Care Teams Teenage Program Director Relationship Specialty Start Date End Date Piter Parry MD [address] [address] PCP - General Internal Medicine 03/20/18
--- NOTE | 2024-12-25 21:16 | PC.NURSE ---
Pt. daughter fletcher (guardian) called and notified that pt. is at the ER.
--- NOTE | 2024-12-25 21:31 | ED.FALL ---
HPI - Fall General Chief Complaint: Fall Stated Complaint: fall/head injury Time Seen by Provider: 12/25/24 20:44 History of Present Illness HPI Narrative: Patient is an 84-year-old female who presents emergency department this evening status post a ground level fall. Patient bent over her wheelchair and was trying to grab something when she fell. Did hit her head on the ground, the left side of her forehead. Denies any loss of consciousness. Patient is on blood thinners, Eliquis. Also complaining of right hip pain. No additional symptoms or concerns at this time. Related Data Home Medications ?Medication ?Instructions ?Recorded ?Confirmed ?Last Taken ?Type allopurinol 300 mg tablet 300 mg PO DAILY 07/09/24 12/11/24 07/09/24 History aripiprazole 5 mg tablet (Abilify) 5 mg PO DAILY 07/09/24 12/11/24 07/09/24 History ascorbic acid (vitamin C) 500 mg 500 mg PO DAILY 07/09/24 12/11/24 07/09/24 History tablet (C-500) citalopram 10 mg tablet (Celexa) 10 mg PO DAILY 07/09/24 12/11/24 07/09/24 History diphenhydramine HCl 25 mg capsule 25 mg PO HS PRN sleep 07/09/24 12/11/24 Unknown History (Benadryl) levothyroxine 50 mcg capsule 50 mcg PO DAILY 07/09/24 12/11/24 07/08/24 History loperamide 2 mg tablet 2 mg PO TID PRN diarrhea 07/09/24 12/11/24 Unknown History simvastatin 20 mg tablet 20 mg PO HS 07/09/24 12/11/24 07/08/24 History vitamin B complex 1 tablet PO DAILY 07/09/24 12/11/24 07/09/24 History Allergies Allergy/AdvReac Type Severity Reaction Status Date / Time codeine Allergy Mild Itching Verified 12/25/24 20:12 vancomycin Allergy Mild Hives / Verified 12/25/24 20:12 Red Face Review of Systems Review of Systems: All systems are reviewed and are negative unless stated otherwise in the HPI. [facility] Past Medical History Medical History Vascular dementia Chronic kidney disease, stage 4 (severe) Hypothyroidism Depression Gout Hyperlipidemia Hypertension History of cerebrovascular accident Social History Social History Smoking status: Smoker, status unknown Alcohol intake: unknown Substance use: unknown Substance use type: unknown Spiritual care concerns: No Exam Narrative: General: Alert, awake, afebrile, in no acute distress. HEENT: PERRL, no rhinorrhea, no post nasal drip, oropharynx clear, no evidence of head trauma. Neck: Trachea midline, no JVD, no lymphadenopathy, no midline cervical spine tenderness palpation. Cardiovascular: Regular rate and rhythm, no murmurs, rubs or gallops, no peripheral edema. Respiratory: Clear to auscultation bilaterally, no tachypnea, no wheezing, no rhonchi, no rubs, no respiratory distress. Abdomen: Soft, nontender, nondistended, no rebound, no guarding, no peritoneal signs. Musculoskeletal: No joint swelling or deformity, normal muscle tone, intact bilateral hip flexors and knee extensors. Skin: No rashes or petechia, no signs of infection. Psychiatric: Alert and oriented, normal behavior and judgment for situation. Neurological: Alert and oriented to person, place, and time. Follows all commands. No focal deficits, speech is clear and fluent. Course Vital Signs Vital signs: Vital Signs Temperature 97.8 F 12/25/24 20:07 Pulse Rate 79 12/25/24 20:07 Respiratory Rate 17 12/25/24 20:07 Blood Pressure 119/45 L 12/25/24 20:07 Pulse Oximetry 99 12/25/24 20:07 Oxygen Delivery Room Air 12/25/24 20:07 Temperature 97.8 F 12/25/24 20:07 Pulse Rate 79 12/25/24 20:07 Respiratory Rate 17 12/25/24 20:07 Blood Pressure 119/45 L 12/25/24 20:07 Pulse Oximetry 99 12/25/24 20:07 Oxygen Delivery Room Air 12/25/24 20:07 MDM - Fall MDM Narrative Medical decision making narrative: The patient was evaluated by myself in the emergency department. History is obtained from patient who is an independent historian and physical exam was performed. External medical records were reviewed at this time. Imaging studies obtained included CT brain and C-spine without IV contrast and right hip x-rays, which was independently interpreted by me revealing no acute process, which is pending final radiology interpretation. Differential diagnosis considerations include fractures, dislocations, intracranial hemorrhage. Comorbidities impacting this visit include anticoagulation use. I have evaluated and discussed social determinants of health with the patient that could potentially impact subsequent diagnosis and treatment plans. On repeat assessment of the patient, reevaluation revealed that the patient is doing well and is in no acute distress. Patient symptoms have improved since she arrived to our emergency department. Repeat vital signs were all reviewed and noted to be stable. Differential diagnosis and treatment plan were discussed with the patient at bedside. Patient agrees with discussion and after shared medical decision making agrees with discharge. All questions were answered to the patient's satisfaction. Patient will follow up with her PCP in 3-5 days. Patient was provided with strict return precautions and instructed to return to the emergency department if any new or worsening symptoms develop. The patient was discharged in stable condition. Discharge Plan Discharge Clinical Impression: Fall from ground level, Head injury Patient Disposition: Home Condition: Stable Instructions: Antibiotic Form, Fall Prevention for Older Adults (ED), Head Injury (ED) Additional Instructions: Please follow-up with your family doctor within the next 3-5 days. Return to emergency department if any new or worsening symptoms develop. Patient Language: Iraqi Prescriptions: No Action allopurinol 300 mg tablet 300 mg PO DAILY aripiprazole [Abilify] 5 mg tablet 5 mg PO DAILY ascorbic acid (vitamin C) [C-500] 500 mg tablet 500 mg PO DAILY vitamin B complex Tablet 1 tablet PO DAILY citalopram [Celexa] 10 mg tablet 10 mg PO DAILY diphenhydramine HCl [Benadryl] 25 mg capsule 25 mg PO HS PRN (Reason: sleep) levothyroxine 50 mcg capsule 50 mcg PO DAILY simvastatin 20 mg tablet 20 mg PO HS loperamide 2 mg tablet 2 mg PO TID PRN (Reason: diarrhea) amlodipine [Norvasc] 5 mg Tablet 5 mg PO DAILY Qty: 30 0RF magnesium oxide 400 mg (241.3 mg magnesium) Tablet 400 mg PO QAM Qty: 30 0RF cyanocobalamin (vitamin B-12) [Vitamin B-12] 500 mcg Tablet 500 mcg PO QAM Qty: 30 0RF lidocaine [Lidoderm] 5 % Adhesive Patch,Medicated 2 patch transdermal DAILY Qty: 30 0RF Eliquis 5 mg Tablet 5 mg PO Q12HR Qty: 60 0RF Eliquis 5 mg Tablet 10 mg PO Q12HR Qty: 16 0RF Follow-up/Referrals: Sohan,Piter Mejia MD [Primary Care Provider] - 3 Days Time of Disposition: 21:32
--- NOTE | 2024-12-25 21:39 | PC.NURSE ---
Pt. daughter Doris (guardian) phoned by this RN and updated that pt. CT is negative and she is being d/c back to [place].
[2024-12-25 21:41] VITALS: BP 110/72; PULSE 85; RESP 16; O2SAT 96
--- NOTE | 2024-12-25 21:53 | PC.NURSE ---
Report called to J CARLOS Juarez at [facility]. All questions answered.
--- NOTE | 2024-12-25 22:27 | PC.NURSE ---
Report given to [facility]. All questions answered.
== END 2024-12-25 22:46 | disposition home or self-care (01) ==
PROVIDERS: Emergency Provider Emergency Medicine; PCP Internal Medicine
DX: S09.90XA Unspecified injury of head, initial encounter (principal); F01.50 Vascular dementia, unspecified severity, without behavioral disturbance, psychotic disturbance, mood disturbance, and anxiety; I12.9 Hypertensive chronic kidney disease with stage 1 through stage 4 chronic kidney disease, or unspecified chronic kidney disease; N18.4 Chronic kidney disease, stage 4 (severe); E03.9 Hypothyroidism, unspecified; E78.5 Hyperlipidemia, unspecified; Z86.73 Personal history of transient ischemic attack (TIA), and cerebral infarction without residual deficits; W05.0XXA Fall from non-moving wheelchair, initial encounter
CPT/HCPCS: 70450; 72125; 73502; 99284

== ENCOUNTER 2024-12-29 13:43 | Inpatient (IN) | payer MEDICARE, SELFPAY ==
[2024-12-29] VITALS (8 sets, daily range): BP systolic 134–144; BP diastolic 56–74; PULSE 84–105; RESP 14–20; TEMP 36.4–36.5; O2SAT 97–100; BMI 37.3
--- NOTE | ~2024-12-29 | XR_ITS ---
EXAMINATION: XR chest 2V DATE: 12/29/2024 16:13 INDICATION: Weakness. Somnolent. TECHNIQUE: frontal view of the chest was obtained. COMPARISON: Chest CT dated 07/09/24 FINDINGS: No focal airspace opacities, pulmonary edema, pleural effusion or pneumothorax. Heart size is normal. Atherosclerotic calcification along the thoracic aorta and at the right. Subclavian and bilateral axillary arteries. Moderate to severe thoracic spondylosis. A few splenic calcifications consistent with old granulomatous disease. IMPRESSION: 1. No acute cardiopulmonary disease. Reviewed, dictated and finalized at location A.
--- NOTE | ~2024-12-29 | CT_ITS ---
EXAMINATION: CT brain wo con DATE: 12/29/2024 15:55 INDICATION: Weakness. Somnolence. TECHNIQUE: Computed tomography (CT) of the head was performed without intravenous contrast. Sagittal and coronal reconstructions were performed. The mA was adjusted according to patient size. Iterative reconstruction technique was employed. The dose-length product was 681.00 mGy-cm. COMPARISON: head CT dated 12/25/2024 FINDINGS: Interval decrease in size of the previously seen left frontal scalp hematoma. No fracture. Moderate-sized region of encephalomalacia in the right occipital lobe consistent with sequela of old infarct. There are old lacunar infarcts at the bilateral basal ganglia and thalami and in the shorty. There is moderate scattered white matter hypoattenuation consistent with chronic small vessel ischemic disease. Symmetric prominence of the sulci and subarachnoid spaces overlying the convexities consistent with moderate age-appropriate diffuse cerebral volume loss. Ventricles are normal and symmetric. No mass/mass effect. Changes of bilateral intraocular lens replacement. The orbits, paranasal sinuses and masto id air cells are normal. Intracranial calcified cerebral atherosclerosis is noted. IMPRESSION: 1. 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 No acute intracranial process 2. Age-related changes including moderate diffuse volume loss and moderate scattered white matter hypoattenuation consistent with chronic small vessel ischemic disease. Reviewed, dictated and finalized at location A. IMPRESSION: 1. Old infarcts at the right occipital lobe, shorty as well as the bilateral basa l ganglia and thalami. No acute intracranial process 2. Age-related changes including moderate diffuse volume loss and moderate scat tered white matter hypoattenuation consistent with chronic small vessel ischemi c disease.
--- OUTSIDE RECORDS SUMMARY | 2024-12-29 13:46 | XMS_ITS | Clinical Summary ---
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 Gender Identity Not on file Sexual Orientation [...] years Discontinued Medical Devices Implanted Type Area Emu Farmer Device Identifier Shelf Expiration Date Model / Serial / Lot Lens Io Toric Sn6at5 18.5 - [id number] Implanted:Qty: 1 on 09/20/2012 Eye Left: Eye [facility] 08/29/2015 SN6AT5 18 .5 / [id number] / Lens Io Toric Sn6at4 19.5 - [id number] Implanted:Qty: 1 on 10/16/2012 Eye Right: Eye [facility] 07/28/2014 SN6AT4 19 .5 / [id number] / Insurance [facility] SUPP MEDICARE PART A AND B Advance Directives For more information, please contact: [phone] * Full Code (Latest Code Status on File) Date Activated Date Inactivated Comments 02/25/2024 10:57 AM 02/27/2024 3:04 PM Care Teams Senior Product Marketing Manager Relationship Specialty Start Date End Date Piter Parry MD [address] [address] PCP - General Internal Medicine 03/20/18
--- OUTSIDE RECORDS SUMMARY | 2024-12-29 13:46 | XMS_ITS | Clinical Summary ---
Author Organization [facility] [address] [facility] Address [address] [facility] [place] [address] Phone Care Team Providers Care Guest Services Associate Name Role Phone Piter Parry MD Primary Care Provider [phone] Allergies Active Allergy Reactions Criticality Noted Date [...] ASPIRIN ORAL Active vit b comp & w-dv-bywsgy-zin c (DIATX ZN) 5-1.5-25 mg Tablet Take 1 Tab by mouth daily. Active vit V-qjqltujw-goxr thicone (CETAPHIL) Lotion Apply to affected area 4 times daily as needed. Active ELIQUIS 5 mg tablet 09/04/2017 Active citalopram (CeleXA) 10 mg tablet 01/11/2018 Active FLUAD 0618-9645, 65 YR UP,,PF, 45 mcg (15 mcg [...] Comments Blood Pressure 153/82 03/20/2018 3:00 PM WOODS MANAGER Pulse 75 03/20/2018 3:00 PM WOODS MANAGER Temperature 36.3 C (97.4 F) 10/16/2012 11:57 AM CDT Respiratory Rate 14 10/16/2012 11:57 AM CDT Oxygen Saturation 95% 03/20/2018 3:00 PM WOODS MANAGER Inhaled Oxygen Concentration - - Weight 99.8 [...] (#1) 2024 Medical Devices Implanted Type Area Nursing Project Coordinator Device Identifier Shelf Expiration Date Model / Serial / Lot Lens Io Toric Sn6at5 18.5 - [id number] Implanted:Qty: 1 on 09/20/2012 at [place] [address] Eye Left: Eye [facility] 08/29/2015 SN6AT5 18.5 / [id number] / Lens Io Toric Sn6at4 19.5 - [id number] Implanted:Qty: 1 on 10/16/2012 at [place] [address] Eye Right: Eye [facility] 07/28/2014 SN6AT4 19.5 / [id number] / Insurance MEDICARE PART A AND B [facility] EYE MED VISION Advance Directives For more information, please contact: [phone] * Full Code (Latest Code Status on File) Date Activated Date Inactivated Comments 10/16/2012 11:19 AM 10/16/2012 2:33 PM * Full Code Date Activated Date Inactivated Comments 10/16/2012 9:24 AM 10/16/2012 11:19 AM * Full Code Date Activated Date Inactivated Comments 09/20/2012 10:18 AM 09/20/2012 2:09 PM * Full Code Date Activated Date Inactivated Comments 09/20/2012 9:20 AM 09/20/2012 10:18 AM Care Teams Guest Services Associate Relationship Specialty Start Date End Date Piter Parry MD [address] [address] PCP - General Internal Medicine 03/20/18
--- OUTSIDE RECORDS SUMMARY | 2024-12-29 15:46 | XMS_ITS | Clinical Summary ---
Author Organization [facility] [address] [facility] Address [address] [facility] [place] [address] Phone Care Team Providers Care Railroad Auditor Name Role Phone Piter Parry MD Primary Care Provider [phone] Allergies Active Allergy Reactions Criticality Noted Date [...] ASPIRIN ORAL Active vit b comp & p-ec-nwpzfo-zin c (DIATX ZN) 5-1.5-25 mg Tablet Take 1 Tab by mouth daily. Active vit W-kqjwfotq-azej thicone (CETAPHIL) Lotion Apply to affected area 4 times daily as needed. Active ELIQUIS 5 mg tablet 09/04/2017 Active citalopram (CeleXA) 10 mg tablet 01/11/2018 Active FLUAD 6585-1473, 65 YR UP,,PF, 45 mcg (15 mcg [...] Comments Blood Pressure 153/82 03/20/2018 3:00 PM CALENDER INSPECTOR Pulse 75 03/20/2018 3:00 PM CALENDER INSPECTOR Temperature 36.3 C (97.4 F) 10/16/2012 11:57 AM CDT Respiratory Rate 14 10/16/2012 11:57 AM CDT Oxygen Saturation 95% 03/20/2018 3:00 PM CALENDER INSPECTOR Inhaled Oxygen Concentration - - Weight 99.8 [...] (#1) 2024 Medical Devices Implanted Type Area In Home Aide Device Identifier Shelf Expiration Date Model / Serial / Lot Lens Io Toric Sn6at5 18.5 - [id number] Implanted:Qty: 1 on 09/20/2012 at [place] [address] Eye Left: Eye [facility] 08/29/2015 SN6AT5 18.5 / [id number] / Lens Io Toric Sn6at4 19.5 - [id number] Implanted:Qty: 1 on 10/16/2012 at [place] [address] Eye Right: Eye [facility] 07/28/2014 SN6AT4 19.5 / [id number] / Insurance MEDICARE PART A AND B [facility] EYE MED VISION Advance Directives For more information, please contact: [phone] * Full Code (Latest Code Status on File) Date Activated Date Inactivated Comments 10/16/2012 11:19 AM 10/16/2012 2:33 PM * Full Code Date Activated Date Inactivated Comments 10/16/2012 9:24 AM 10/16/2012 11:19 AM * Full Code Date Activated Date Inactivated Comments 09/20/2012 10:18 AM 09/20/2012 2:09 PM * Full Code Date Activated Date Inactivated Comments 09/20/2012 9:20 AM 09/20/2012 10:18 AM Care Teams Railroad Auditor Relationship Specialty Start Date End Date Piter Parry MD [address] [address] PCP - General Internal Medicine 03/20/18
--- OUTSIDE RECORDS SUMMARY | 2024-12-29 15:46 | XMS_ITS | Clinical Summary ---
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 Gender Identity Not on file Sexual Orientation [...] years Discontinued Medical Devices Implanted Type Area Cigarette Tipper Device Identifier Shelf Expiration Date Model / Serial / Lot Lens Io Toric Sn6at5 18.5 - [id number] Implanted:Qty: 1 on 09/20/2012 Eye Left: Eye [facility] 08/29/2015 SN6AT5 18 .5 / [id number] / Lens Io Toric Sn6at4 19.5 - [id number] Implanted:Qty: 1 on 10/16/2012 Eye Right: Eye [facility] 07/28/2014 SN6AT4 19 .5 / [id number] / Insurance [facility] SUPP MEDICARE PART A AND B Advance Directives For more information, please contact: [phone] * Full Code (Latest Code Status on File) Date Activated Date Inactivated Comments 02/25/2024 10:57 AM 02/27/2024 3:04 PM Care Teams Project Developer Relationship Specialty Start Date End Date Piter Parry MD [address] [address] PCP - General Internal Medicine 03/20/18
[2024-12-29 16:27] LABS: Hematocrit 29.3 % (37.0-47.0); Hemoglobin 9.2 g/dL (12.0-15.0); Immature Granulocyte Percent A 0.3 % (0-0.5); Lymphocytes Absolute Auto 1.18 K/mm3 (0.9-3.2); Mean Corpuscular HGB Conc 31.4 g/dl (32-36); Mean Corpuscular Hemoglobin 31.6 pg (26-34); Mean Corpuscular Volume 100.7 fl (80-100); Nucleated Red Blood Cells Absolute Auto 0.000 K/mm3 (0.0-0.012); Nucleated Red Blood Cells Perc 0.0 % (0.0-0.2); Platelet Count Result 170 k/mm3 (150-375); Red Blood Count 2.91 M/mm3 (4.2-5.4); White Blood Count 9.0 K/mm3 (4.5-10.0)
[2024-12-29 16:40] LABS: Alanine Aminotransferase 27 U/L (6-35); Albumin Level 4.1 g/dL (3.5-5.1); Alkaline Phosphatase 80 U/L (38-126); Anion Gap 9 mmol/L (4-12); Aspartate Amino Transferase 62 U/L (14-36); Bilirubin,Total 0.4 mg/dL (0.2-1.3); Blood Urea Nitrogen 47 mg/dL (7-17); Calcium 9.9 mg/dL (8.4-10.2); Carbon Dioxide 20 mmol/L (22-30); Chloride 109 mmol/L (98-107); Estimated CRCL calculation 22 ml/min; Estimated Glomerular Filt Rate 21; Glucose 106 mg/dL (65-110); Magnesium 1.9 mg/dL (1.6-2.3); Potassium 4.6 mmol/L (3.4-5.0); Sodium 138 mmol/L (137-145); Total Protein 7.1 g/dL (6.3-8.2)
[2024-12-29 16:41] LABS: INR 1.4; Prothrombin Time 16.7 Seconds (11.1-14.7)
[2024-12-29 16:42] LABS: Partial Thromboplastin Time 33.7 Seconds (22.3-36.8)
[2024-12-29 16:50] LABS: NT Pro B Type Natriuretic Pept 161 pg/mL (19.9-100); Troponin I 0.015 ng/mL (0.000-0.034)
[2024-12-29] MEDS: SODIUM CHLORIDE 0.9% IV 1,000 ML 999 ML IV CONT (17:29)
[2024-12-29 17:31] LABS: Add Urine Microscopic? YES; Appearance Urine Clear (Clear); Glucose Urine UA Negative (Negative); Leukocyte Esterase Ur 2+ LEU/UL (Negative); Nitrate Urine Negative (Negative); Specific Grav Ur 1.013 (1.001-1.035)
--- NOTE | 2024-12-29 17:55 | ED.WEAKNESS ---
HPI - Weakness General Chief complaint: Weakness <Danielle Khan PA-C - Last Filed: 12/29/24 21:14> Stated complaint: weakness per [facility] staff, pt no complaints <Danielle Khan PA-C - Last Filed: 12/29/24 21:14> Time Seen by Provider: 12/29/24 14:32 <Danielle Khan PA-C - Last Filed: 12/29/24 21:14> Source: patient <Danielle Khan PA-C - Last Filed: 12/29/24 21:14> Mode of arrival: EMS <SONNY Barnes Last Filed: 12/29/24 21:14> Limitations: dementia <Danielle Khan PA-C - Last Filed: 12/29/24 21:14> History of Present Illness HPI Narrative: Patient is an 84-year-old female, with past medical history of vascular dementia, CVA, CKD, chronic anticoagulation, who presents the ED via EMS with report of weakness. Patient is resident of [facility]. Per detention report, patient was noted to be increasingly weak and was sent here for further evaluation. Patient denies any complaints. She does not know why she is here. A&O x2, which is her baseline. <Danielle Khan PA-C - Last Filed: 12/29/24 21:14> Related Data Home medications: Home Medications ?Medication ?Instructions ?Recorded ?Confirmed ?Last Taken ?Type allopurinol 300 mg tablet 300 mg PO DAILY 07/09/24 12/29/24 07/09/24 History aripiprazole 5 mg tablet (Abilify) 5 mg PO DAILY 07/09/24 12/29/24 07/09/24 History ascorbic acid (vitamin C) 500 mg 500 mg PO DAILY 07/09/24 12/29/24 07/09/24 History tablet (C-500) citalopram 10 mg tablet (Celexa) 10 mg PO DAILY 07/09/24 12/29/24 07/09/24 History diphenhydramine HCl 25 mg capsule 25 mg PO HS PRN sleep 07/09/24 12/29/24 Unknown History (Benadryl) levothyroxine 50 mcg capsule 50 mcg PO DAILY 07/09/24 12/29/24 07/08/24 History loperamide 2 mg tablet 2 mg PO TID PRN diarrhea 07/09/24 12/29/24 Unknown History simvastatin 20 mg tablet 20 mg PO HS 07/09/24 12/29/24 07/08/24 History vitamin B complex 1 tablet PO DAILY 07/09/24 12/29/24 07/09/24 History gabapentin 300 mg capsule 300 mg PO TID 12/29/24 12/29/24 Unknown History <Danielle Khan PA-C - Last Filed: 12/29/24 21:14> Allergies/Adverse reactions: Allergies Allergy/AdvReac Type Severity Reaction Status Date / Time codeine Allergy Mild Itching Verified 12/29/24 21:30 vancomycin Allergy Mild Hives / Verified 12/29/24 21:30 Red Face <Danielle Khan PA-C - Last Filed: 12/29/24 21:14> Review of Systems Review of Systems: All systems reviewed & are unremarkable except as noted in HPI. 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) Vascular dementia Chronic kidney disease, stage 4 (severe) Hypothyroidism Depression Gout Hyperlipidemia Hypertension History of cerebrovascular accident <Danielle Khan PA-C - Last Filed: 12/29/24 21:14> Surgical History Surgical History: Surgical History (Updated 12/29/24 @ 21:53 by Vonda Hale DO) History of total right hip arthroplasty <Danielle Khan PA-C - Last Filed: 12/29/24 21:14> Family History Family History: Family History (Updated 12/29/24 @ 21:56 by Vonda Hale DO) Other Unknown family medical history <Danielle Khan PA-C - Last Filed: 12/29/24 21:14> Social History Social History: Social History (Updated 12/29/24 @ 21:56 by Vonda Hale DO) Social History: Patient has 2 daughters who are listed as emergency contacts. Code status: DNR/DNI (per detention record) Healthcare power of deputy prosecuting attorney: Doris Tamayo (daughter) Smoking status: Smoker, status unknown Alcohol intake: unknown Substance use: unknown Substance use type: unknown Spiritual care concerns: No <Danielle Khan PA-C - Last Filed: 12/29/24 21:14> Exam Narrative: GENERAL: Elderly, obese with BMI of 37.3, somewhat somnolent, non-toxic, in no acute distress. HEAD: Normocephalic, atraumatic. RESPIRATORY: Airway patent, respirations nonlabored. Clear to auscultation bilaterally, no rales, rhonchi, wheezing. CARDIOVASCULAR: Regular rate and rhythm without murmurs, rubs, or gallops. MUSCULOSKELETAL: Moves all extremities. No gross deformities. Diffuse pitting edema throughout BLE, symmetric bilaterally. SKIN: Warm, dry, normal color. NEURO: A&O X2, unsure of year. Somewhat somnolent but easily arousable. Answers questions and follows commands. Speech clear. No ataxic movements. No appreciable focal deficits. Intermittently agitated and asking me to stop asking her questions. PSYCHIATRIC: Normal mood. Normal interaction. <Danielle Khan PA-C - Last Filed: 12/29/24 21:14> Course CONCERT PIANIST/PA Physician Supervision This visit was performed by both a physician and an APC. I performed all aspects of the MDM as documented. <Jos Cordero MD - Last Filed: 12/30/24 08:30> Vital Signs Vital signs: Vital Signs Temperature 97.7 F 12/29/24 13:59 Pulse Rate 86 12/29/24 13:59 Respiratory Rate 20 12/29/24 13:59 Blood Pressure 140/56 L 12/29/24 13:59 Pulse Oximetry 99 12/29/24 13:59 Oxygen Delivery Room Air 12/29/24 13:59 Temperature 97.4 F L 12/30/24 05:08 Pulse Rate 91 12/30/24 05:08 Respiratory Rate 17 12/30/24 05:08 Blood Pressure 127/48 L 12/30/24 05:08 Pulse Oximetry 96 12/30/24 05:08 Oxygen Delivery Room Air 12/29/24 22:08 <Danielle Khan PA-C - Last Filed: 12/29/24 21:14> Vital Signs Temperature 97.7 F 12/29/24 13:59 Pulse Rate 86 12/29/24 13:59 Respiratory Rate 20 12/29/24 13:59 Blood Pressure 140/56 L 12/29/24 13:59 Pulse Oximetry 99 12/29/24 13:59 Oxygen Delivery Room Air 12/29/24 13:59 Temperature 97.4 F L 12/30/24 05:08 Pulse Rate 91 12/30/24 05:08 Respiratory Rate 17 12/30/24 05:08 Blood Pressure 127/48 L 12/30/24 05:08 Pulse Oximetry 96 12/30/24 05:08 Oxygen Delivery Room Air 12/29/24 22:08 <Jos Cordero MD - Last Filed: 12/30/24 08:30> MDM - Weakness MDM Narrative Medical decision making narrative: Patient presented to ED with weakness, from local detention facility. Patient unsure why she is here. History of dementia. Vital signs are stable upon arrival. Patient in no acute distress. Appears neurologically intact. At her neurologic baseline per records. Laboratory studies were obtained, without leukocytosis. Chronic mild anemia, consistent with previous records. Stable platelets. CMP with evidence of KEKE. Creatinine 2.19. Per records, baseline more around 1.3-1.5. Patient given 1 L fluid bolus. She does have diffuse pitting edema on exam, which she is unsure if this is chronic or not. I do not see patient to be on any diuretic therapy. BNP was obtained today and within normal range. She is on Eliquis, low suspicion for DVT. UA consistent with infection. Urine sent for culture. Patient started on Rocephin in the ED. No previous urine cultures to compare to. CT brain with old and age-related findings, no acute findings. Chest x-ray clear. Patient will be admitted for further gentle hydration, management of KEKE, abx for UTI. Discussed case with Dr. Hale, hospitalist, accepted patient for admission. Will start continuous fluids at 75cc/hr -- This visit was performed by both a physician and an APC. I performed all aspects of the MDM as documented. <Danielle Khan PA-C - Last Filed: 12/29/24 21:14> Patient presented to ED with weakness, from local detention facility. Patient unsure why she is here. History of dementia. Vital signs are stable upon arrival. Patient in no acute distress. Appears neurologically intact. At her neurologic baseline per records. Laboratory studies were obtained, without leukocytosis. Chronic mild anemia, consistent with previous records. Stable platelets. CMP with evidence of KEKE. Creatinine 2.19. Per records, baseline more around 1.3-1.5. Patient given 1 L fluid bolus. She does have diffuse pitting edema on exam, which she is unsure if this is chronic or not. I do not see patient to be on any diuretic therapy. BNP was obtained today and within normal range. UA consistent with infection. Urine sent for culture. Patient started on Rocephin in the ED. CT brain with old and age-related findings, no acute findings. Chest x-ray clear. Patient will be admitted for further gentle hydration, management of KEKE, abx for UTI. This visit was performed by both a physician and an APC. I performed all aspects of the MDM as documented. <Jos Cordero MD - Last Filed: 12/30/24 08:30> Medical Records Attestation: I reviewed the patient's medical records. <Danielle Khan PA-C - Last Filed: 12/29/24 21:14> Lab Data Attestation: I reviewed the patient's lab results. <Danielle Khan PA-C - Last Filed: 12/29/24 21:14> Result diagrams: 12/30/24 03:49 12/30/24 03:49 <Danielle Khan PA-C - Last Filed: 12/29/24 21:14> Labs: Lab Results 12/29/24 12/29/24 12/29/24 Range/Units 14:01 16:18 16:18 WBC 9.0 (4.5-10.0) K/mm3 RBC 2.91 L (4.2-5.4) M/mm3 Hgb 9.2 L (12.0-15.0) g/dL Hct 29.3 L (37.0-47.0) % MCV 100.7 H (80-100) fl MCH 31.6 (26-34) pg MCHC 31.4 L (32-36) g/dl RDW 15.9 H (11.5-14.5) % Plt Count 170 (150-375) k/mm3 MPV 9.6 (7.4-10.4) fl Immature Gran % (Auto) 0.3 (0-0.5) % Neut % (Auto) 74.4 H (45.5-73.1) % Lymph % (Auto) 13.2 L (18.3-44.2) % [place] % (Auto) 10.5 H (2.6-8.5) % Eos % (Auto) 1.3 (0-4.4) % Baso % (Auto) 0.3 (0.2-1.2) % Lymph # (Auto) 1.18 (0.9-3.2) K/mm3 [place] # (Auto) 0.9 H (0.1-0.6) K/mm3 Eos # (Auto) 0.1 (0-0.3) K/mm3 Baso # (Auto) 0.0 (0.0-0.1) K/mm3 Abs Immat Gran (auto) 0.03 (0.00-0.031) K/mm3 Absolute Neuts (auto) 6.7 (1.3-6.7) K/mm3 Absolute Nucleated RBC 0.000 (0.0-0.012) K/mm3 Nucleated RBC % 0.0 (0.0-0.2) % PT 16.7 H (11.1-14.7) Seconds INR 1.4 APTT 33.7 (22.3-36.8) Seconds Sodium Cancelled 138 Potassium Cancelled Chloride Carbon Dioxide Anion Gap BUN Creatinine Estim Creat Clear Calc Estimated GFR Glucose POC Capillary Glucose 120 H (65-105) mg/dl Calcium Magnesium Total Bilirubin AST ALT Alkaline Phosphatase Troponin I (0.000-0.034) ng/mL NT-Pro-B Natriuret Pep (19.9-100) pg/mL Total Protein Albumin TSH (Reflex) (0.465-4.68) uIU/mL Urine Color (Yellow) Urine Appearance (Clear) Urine pH (5.0-9.0) Ur Specific [place] (1.001-1.035) Urine Protein (Negative) mg/dL Urine Glucose (UA) (Negative) mg/dL Urine Ketones (Negative) mg/dL Ur Blood (Man) (Negative) Urine Nitrate (Negative) Urine Bilirubin (Negative) Urine Urobilinogen (<2.0) mg/dL Leukocyte Esterase Rfl (Negative) ROWAN/UL Urine RBC (0-2) /hpf Urine WBC (0-3) /hpf Ur Squamous Epith Cells (Few) /hpf Urine Bacteria /hpf Urine Casts 12/29/24 12/29/24 12/29/24 Range/Units 16:18 16:18 16:18 WBC (4.5-10.0) K/mm3 RBC (4.2-5.4) M/mm3 Hgb (12.0-15.0) g/dL Hct (37.0-47.0) % MCV (80-100) fl MCH (26-34) pg MCHC (32-36) g/dl RDW (11.5-14.5) % Plt Count (150-375) k/mm3 MPV (7.4-10.4) fl Immature Gran % (Auto) (0-0.5) % Neut % (Auto) (45.5-73.1) % Lymph % (Auto) (18.3-44.2) % [place] % (Auto) (2.6-8.5) % Eos % (Auto) (0-4.4) % Baso % (Auto) (0.2-1.2) % Lymph # (Auto) (0.9-3.2) K/mm3 [place] # (Auto) (0.1-0.6) K/mm3 Eos # (Auto) (0-0.3) K/mm3 Baso # (Auto) (0.0-0.1) K/mm3 Abs Immat Gran (auto) (0.00-0.031) K/mm3 Absolute Neuts (auto) (1.3-6.7) K/mm3 Absolute Nucleated RBC (0.0-0.012) K/mm3 Nucleated RBC % (0.0-0.2) % PT (11.1-14.7) Seconds INR APTT (22.3-36.8) Seconds Sodium Potassium 4.6 Chloride Cancelled 109 H Carbon Dioxide Cancelled 20 L Anion Gap Cancelled BUN Creatinine Estim Creat Clear Calc Estimated GFR Glucose POC Capillary Glucose (65-105) mg/dl Calcium Magnesium Total Bilirubin AST ALT Alkaline Phosphatase Troponin I (0.000-0.034) ng/mL NT-Pro-B Natriuret Pep (19.9-100) pg/mL Total Protein Albumin TSH (Reflex) (0.465-4.68) uIU/mL Urine Color (Yellow) Urine Appearance (Clear) Urine pH (5.0-9.0) Ur Specific [place] (1.001-1.035) Urine Protein (Negative) mg/dL Urine Glucose (UA) (Negative) mg/dL Urine Ketones (Negative) mg/dL Ur Blood (Man) (Negative) Urine Nitrate (Negative) Urine Bilirubin (Negative) Urine Urobilinogen (<2.0) mg/dL Leukocyte Esterase Rfl (Negative) ROWAN/UL Urine RBC (0-2) /hpf Urine WBC (0-3) /hpf Ur Squamous Epith Cells (Few) /hpf Urine Bacteria /hpf Urine Casts 12/29/24 12/29/24 12/29/24 Range/Units 16:18 16:18 16:18 WBC (4.5-10.0) K/mm3 RBC (4.2-5.4) M/mm3 Hgb (12.0-15.0) g/dL Hct (37.0-47.0) % MCV (80-100) fl MCH (26-34) pg MCHC (32-36) g/dl RDW (11.5-14.5) % Plt Count (150-375) k/mm3 MPV (7.4-10.4) fl Immature Gran % (Auto) (0-0.5) % Neut % (Auto) (45.5-73.1) % Lymph % (Auto) (18.3-44.2) % [place] % (Auto) (2.6-8.5) % Eos % (Auto) (0-4.4) % Baso % (Auto) (0.2-1.2) % Lymph # (Auto) (0.9-3.2) K/mm3 [place] # (Auto) (0.1-0.6) K/mm3 Eos # (Auto) (0-0.3) K/mm3 Baso # (Auto) (0.0-0.1) K/mm3 Abs Immat Gran (auto) (0.00-0.031) K/mm3 Absolute Neuts (auto) (1.3-6.7) K/mm3 Absolute Nucleated RBC (0.0-0.012) K/mm3 Nucleated RBC % (0.0-0.2) % PT (11.1-14.7) Seconds INR APTT (22.3-36.8) Seconds Sodium Potassium Chloride Carbon Dioxide Anion Gap 9 BUN Cancelled 47 H Creatinine Cancelled 2.19 H Estim Creat Clear Calc Cancelled Estimated GFR Glucose POC Capillary Glucose (65-105) mg/dl Calcium Magnesium Total Bilirubin AST ALT Alkaline Phosphatase Troponin I (0.000-0.034) ng/mL NT-Pro-B Natriuret Pep (19.9-100) pg/mL Total Protein Albumin TSH (Reflex) (0.465-4.68) uIU/mL Urine Color (Yellow) Urine Appearance (Clear) Urine pH (5.0-9.0) Ur Specific [place] (1.001-1.035) Urine Protein (Negative) mg/dL Urine Glucose (UA) (Negative) mg/dL Urine Ketones (Negative) mg/dL Ur Blood (Man) (Negative) Urine Nitrate (Negative) Urine Bilirubin (Negative) Urine Urobilinogen (<2.0) mg/dL Leukocyte Esterase Rfl (Negative) ROWAN/UL Urine RBC (0-2) /hpf Urine WBC (0-3) /hpf Ur Squamous Epith Cells (Few) /hpf Urine Bacteria /hpf Urine Casts 12/29/24 12/29/24 12/29/24 Range/Units 16:18 16:18 16:18 WBC (4.5-10.0) K/mm3 RBC (4.2-5.4) M/mm3 Hgb (12.0-15.0) g/dL Hct (37.0-47.0) % MCV (80-100) fl MCH (26-34) pg MCHC (32-36) g/dl RDW (11.5-14.5) % Plt Count (150-375) k/mm3 MPV (7.4-10.4) fl Immature Gran % (Auto) (0-0.5) % Neut % (Auto) (45.5-73.1) % Lymph % (Auto) (18.3-44.2) % [place] % (Auto) (2.6-8.5) % Eos % (Auto) (0-4.4) % Baso % (Auto) (0.2-1.2) % Lymph # (Auto) (0.9-3.2) K/mm3 [place] # (Auto) (0.1-0.6) K/mm3 Eos # (Auto) (0-0.3) K/mm3 Baso # (Auto) (0.0-0.1) K/mm3 Abs Immat Gran (auto) (0.00-0.031) K/mm3 Absolute Neuts (auto) (1.3-6.7) K/mm3 Absolute Nucleated RBC (0.0-0.012) K/mm3 Nucleated RBC % (0.0-0.2) % PT (11.1-14.7) Seconds INR APTT (22.3-36.8) Seconds Sodium Potassium Chloride Carbon Dioxide Anion Gap BUN Creatinine Estim Creat Clear Calc 22 Estimated GFR Cancelled 21 L Glucose Cancelled 106 POC Capillary Glucose (65-105) mg/dl Calcium Cancelled Magnesium Total Bilirubin AST ALT Alkaline Phosphatase Troponin I (0.000-0.034) ng/mL NT-Pro-B Natriuret Pep (19.9-100) pg/mL Total Protein Albumin TSH (Reflex) (0.465-4.68) uIU/mL Urine Color (Yellow) Urine Appearance (Clear) Urine pH (5.0-9.0) Ur Specific [place] (1.001-1.035) Urine Protein (Negative) mg/dL Urine Glucose (UA) (Negative) mg/dL Urine Ketones (Negative) mg/dL Ur Blood (Man) (Negative) Urine Nitrate (Negative) Urine Bilirubin (Negative) Urine Urobilinogen (<2.0) mg/dL Leukocyte Esterase Rfl (Negative) ROWAN/UL Urine RBC (0-2) /hpf Urine WBC (0-3) /hpf Ur Squamous Epith Cells (Few) /hpf Urine Bacteria /hpf Urine Casts 12/29/24 12/29/24 12/29/24 Range/Units 16:18 16:18 16:18 WBC (4.5-10.0) K/mm3 RBC (4.2-5.4) M/mm3 Hgb (12.0-15.0) g/dL Hct (37.0-47.0) % MCV (80-100) fl MCH (26-34) pg MCHC (32-36) g/dl RDW (11.5-14.5) % Plt Count (150-375) k/mm3 MPV (7.4-10.4) fl Immature Gran % (Auto) (0-0.5) % Neut % (Auto) (45.5-73.1) % Lymph % (Auto) (18.3-44.2) % [place] % (Auto) (2.6-8.5) % Eos % (Auto) (0-4.4) % Baso % (Auto) (0.2-1.2) % Lymph # (Auto) (0.9-3.2) K/mm3 [place] # (Auto) (0.1-0.6) K/mm3 Eos # (Auto) (0-0.3) K/mm3 Baso # (Auto) (0.0-0.1) K/mm3 Abs Immat Gran (auto) (0.00-0.031) K/mm3 Absolute Neuts (auto) (1.3-6.7) K/mm3 Absolute Nucleated RBC (0.0-0.012) K/mm3 Nucleated RBC % (0.0-0.2) % PT (11.1-14.7) Seconds INR APTT (22.3-36.8) Seconds Sodium Potassium Chloride Carbon Dioxide Anion Gap BUN Creatinine Estim Creat Clear Calc Estimated GFR Glucose POC Capillary Glucose (65-105) mg/dl Calcium 9.9 Magnesium Cancelled 1.9 Total Bilirubin Cancelled 0.4 AST Cancelled ALT Alkaline Phosphatase Troponin I (0.000-0.034) ng/mL NT-Pro-B Natriuret Pep (19.9-100) pg/mL Total Protein Albumin TSH (Reflex) (0.465-4.68) uIU/mL Urine Color (Yellow) Urine Appearance (Clear) Urine pH (5.0-9.0) Ur Specific [place] (1.001-1.035) Urine Protein (Negative) mg/dL Urine Glucose (UA) (Negative) mg/dL Urine Ketones (Negative) mg/dL Ur Blood (Man) (Negative) Urine Nitrate (Negative) Urine Bilirubin (Negative) Urine Urobilinogen (<2.0) mg/dL Leukocyte Esterase Rfl (Negative) ROWAN/UL Urine RBC (0-2) /hpf Urine WBC (0-3) /hpf Ur Squamous Epith Cells (Few) /hpf Urine Bacteria /hpf Urine Casts 12/29/24 12/29/24 12/29/24 Range/Units 16:18 16:18 16:18 WBC (4.5-10.0) K/mm3 RBC (4.2-5.4) M/mm3 Hgb (12.0-15.0) g/dL Hct (37.0-47.0) % MCV (80-100) fl MCH (26-34) pg MCHC (32-36) g/dl RDW (11.5-14.5) % Plt Count (150-375) k/mm3 MPV (7.4-10.4) fl Immature Gran % (Auto) (0-0.5) % Neut % (Auto) (45.5-73.1) % Lymph % (Auto) (18.3-44.2) % [place] % (Auto) (2.6-8.5) % Eos % (Auto) (0-4.4) % Baso % (Auto) (0.2-1.2) % Lymph # (Auto) (0.9-3.2) K/mm3 [place] # (Auto) (0.1-0.6) K/mm3 Eos # (Auto) (0-0.3) K/mm3 Baso # (Auto) (0.0-0.1) K/mm3 Abs Immat Gran (auto) (0.00-0.031) K/mm3 Absolute Neuts (auto) (1.3-6.7) K/mm3 Absolute Nucleated RBC (0.0-0.012) K/mm3 Nucleated RBC % (0.0-0.2) % PT (11.1-14.7) Seconds INR APTT (22.3-36.8) Seconds Sodium Potassium Chloride Carbon Dioxide Anion Gap BUN Creatinine Estim Creat Clear Calc Estimated GFR Glucose POC Capillary Glucose (65-105) mg/dl Calcium Magnesium Total Bilirubin AST 62 H ALT Cancelled 27 Alkaline Phosphatase Cancelled 80 Troponin I 0.015 (0.000-0.034) ng/mL NT-Pro-B Natriuret Pep 161 H (19.9-100) pg/mL Total Protein Cancelled Albumin TSH (Reflex) (0.465-4.68) uIU/mL Urine Color (Yellow) Urine Appearance (Clear) Urine pH (5.0-9.0) Ur Specific [place] (1.001-1.035) Urine Protein (Negative) mg/dL Urine Glucose (UA) (Negative) mg/dL Urine Ketones (Negative) mg/dL Ur Blood (Man) (Negative) Urine Nitrate (Negative) Urine Bilirubin (Negative) Urine Urobilinogen (<2.0) mg/dL Leukocyte Esterase Rfl (Negative) ROWAN/UL Urine RBC (0-2) /hpf Urine WBC (0-3) /hpf Ur Squamous Epith Cells (Few) /hpf Urine Bacteria /hpf Urine Casts 12/29/24 12/29/24 12/29/24 Range/Units 16:18 16:18 17:11 WBC (4.5-10.0) K/mm3 RBC (4.2-5.4) M/mm3 Hgb (12.0-15.0) g/dL Hct (37.0-47.0) % MCV (80-100) fl MCH (26-34) pg MCHC (32-36) g/dl RDW (11.5-14.5) % Plt Count (150-375) k/mm3 MPV (7.4-10.4) fl Immature Gran % (Auto) (0-0.5) % Neut % (Auto) (45.5-73.1) % Lymph % (Auto) (18.3-44.2) % [place] % (Auto) (2.6-8.5) % Eos % (Auto) (0-4.4) % Baso % (Auto) (0.2-1.2) % Lymph # (Auto) (0.9-3.2) K/mm3 [place] # (Auto) (0.1-0.6) K/mm3 Eos # (Auto) (0-0.3) K/mm3 Baso # (Auto) (0.0-0.1) K/mm3 Abs Immat Gran (auto) (0.00-0.031) K/mm3 Absolute Neuts (auto) (1.3-6.7) K/mm3 Absolute Nucleated RBC (0.0-0.012) K/mm3 Nucleated RBC % (0.0-0.2) % PT (11.1-14.7) Seconds INR APTT (22.3-36.8) Seconds Sodium Potassium Chloride Carbon Dioxide Anion Gap BUN Creatinine Estim Creat Clear Calc Estimated GFR Glucose POC Capillary Glucose (65-105) mg/dl Calcium Magnesium Total Bilirubin AST ALT Alkaline Phosphatase Troponin I (0.000-0.034) ng/mL NT-Pro-B Natriuret Pep (19.9-100) pg/mL Total Protein 7.1 Albumin Cancelled 4.1 TSH (Reflex) (0.465-4.68) uIU/mL Urine Color Yellow (Yellow) Urine Appearance Clear (Clear) Urine pH 5.5 (5.0-9.0) Ur Specific [place] 1.013 (1.001-1.035) Urine Protein Trace (Negative) mg/dL Urine Glucose (UA) Negative (Negative) mg/dL Urine Ketones Negative (Negative) mg/dL Ur Blood (Man) Negative (Negative) Urine Nitrate Negative (Negative) Urine Bilirubin Negative (Negative) Urine Urobilinogen 0.2 (<2.0) mg/dL Leukocyte Esterase Rfl 2+ H (Negative) ROWAN/UL Urine RBC 0-2 (0-2) /hpf Urine WBC 21-50 H (0-3) /hpf Ur Squamous Epith Cells Occasional (Few) /hpf Urine Bacteria 4+ H /hpf Urine Casts 3-5 12/30/24 Range/Units 03:49 WBC 6.6 (4.5-10.0) K/mm3 RBC 2.66 L (4.2-5.4) M/mm3 Hgb 8.1 L (12.0-15.0) g/dL Hct 26.9 L (37.0-47.0) % MCV 101.1 H (80-100) fl MCH 30.5 (26-34) pg MCHC 30.1 L (32-36) g/dl RDW 15.9 H (11.5-14.5) % Plt Count 160 (150-375) k/mm3 MPV 9.8 (7.4-10.4) fl Immature Gran % (Auto) (0-0.5) % Neut % (Auto) (45.5-73.1) % Lymph % (Auto) (18.3-44.2) % [place] % (Auto) (2.6-8.5) % Eos % (Auto) (0-4.4) % Baso % (Auto) (0.2-1.2) % Lymph # (Auto) (0.9-3.2) K/mm3 [place] # (Auto) (0.1-0.6) K/mm3 Eos # (Auto) (0-0.3) K/mm3 Baso # (Auto) (0.0-0.1) K/mm3 Abs Immat Gran (auto) (0.00-0.031) K/mm3 Absolute Neuts (auto) (1.3-6.7) K/mm3 Absolute Nucleated RBC (0.0-0.012) K/mm3 Nucleated RBC % (0.0-0.2) % PT (11.1-14.7) Seconds INR APTT (22.3-36.8) Seconds Sodium 138 Potassium 4.0 Chloride 113 H Carbon Dioxide 18 L Anion Gap 7 BUN 38 H Creatinine 1.76 H Estim Creat Clear Calc 27 Estimated GFR 28 L Glucose 98 POC Capillary Glucose (65-105) mg/dl Calcium 9.3 Magnesium Total Bilirubin AST ALT Alkaline Phosphatase Troponin I (0.000-0.034) ng/mL NT-Pro-B Natriuret Pep (19.9-100) pg/mL Total Protein Albumin TSH (Reflex) 3.150 (0.465-4.68) uIU/mL Urine Color (Yellow) Urine Appearance (Clear) Urine pH (5.0-9.0) Ur Specific [place] (1.001-1.035) Urine Protein (Negative) mg/dL Urine Glucose (UA) (Negative) mg/dL Urine Ketones (Negative) mg/dL Ur Blood (Man) (Negative) Urine Nitrate (Negative) Urine Bilirubin (Negative) Urine Urobilinogen (<2.0) mg/dL Leukocyte Esterase Rfl (Negative) ROWAN/UL Urine RBC (0-2) /hpf Urine WBC (0-3) /hpf Ur Squamous Epith Cells (Few) /hpf Urine Bacteria /hpf Urine Casts <Danielle Khan PA-C - Last Filed: 12/29/24 21:14> Lab Results 12/29/24 12/29/24 12/29/24 Range/Units 14:01 16:18 16:18 WBC 9.0 (4.5-10.0) K/mm3 RBC 2.91 L (4.2-5.4) M/mm3 Hgb 9.2 L (12.0-15.0) g/dL Hct 29.3 L (37.0-47.0) % MCV 100.7 H (80-100) fl MCH 31.6 (26-34) pg MCHC 31.4 L (32-36) g/dl RDW 15.9 H (11.5-14.5) % Plt Count 170 (150-375) k/mm3 MPV 9.6 (7.4-10.4) fl Immature Gran % (Auto) 0.3 (0-0.5) % Neut % (Auto) 74.4 H (45.5-73.1) % Lymph % (Auto) 13.2 L (18.3-44.2) % [place] % (Auto) 10.5 H (2.6-8.5) % Eos % (Auto) 1.3 (0-4.4) % Baso % (Auto) 0.3 (0.2-1.2) % Lymph # (Auto) 1.18 (0.9-3.2) K/mm3 [place] # (Auto) 0.9 H (0.1-0.6) K/mm3 Eos # (Auto) 0.1 (0-0.3) K/mm3 Baso # (Auto) 0.0 (0.0-0.1) K/mm3 Abs Immat Gran (auto) 0.03 (0.00-0.031) K/mm3 Absolute Neuts (auto) 6.7 (1.3-6.7) K/mm3 Absolute Nucleated RBC 0.000 (0.0-0.012) K/mm3 Nucleated RBC % 0.0 (0.0-0.2) % PT 16.7 H (11.1-14.7) Seconds INR 1.4 APTT 33.7 (22.3-36.8) Seconds Sodium Cancelled 138 Potassium Cancelled Chloride Carbon Dioxide Anion Gap BUN Creatinine Estim Creat Clear Calc Estimated GFR Glucose POC Capillary Glucose 120 H (65-105) mg/dl Calcium Magnesium Total Bilirubin AST ALT Alkaline Phosphatase Troponin I (0.000-0.034) ng/mL NT-Pro-B Natriuret Pep (19.9-100) pg/mL Total Protein Albumin TSH (Reflex) (0.465-4.68) uIU/mL Urine Color (Yellow) Urine Appearance (Clear) Urine pH (5.0-9.0) Ur Specific [place] (1.001-1.035) Urine Protein (Negative) mg/dL Urine Glucose (UA) (Negative) mg/dL Urine Ketones (Negative) mg/dL Ur Blood (Man) (Negative) Urine Nitrate (Negative) Urine Bilirubin (Negative) Urine Urobilinogen (<2.0) mg/dL Leukocyte Esterase Rfl (Negative) ROWAN/UL Urine RBC (0-2) /hpf Urine WBC (0-3) /hpf Ur Squamous Epith Cells (Few) /hpf Urine Bacteria /hpf Urine Casts 12/29/24 12/29/24 12/29/24 Range/Units 16:18 16:18 16:18 WBC (4.5-10.0) K/mm3 RBC (4.2-5.4) M/mm3 Hgb (12.0-15.0) g/dL Hct (37.0-47.0) % MCV (80-100) fl MCH (26-34) pg MCHC (32-36) g/dl RDW (11.5-14.5) % Plt Count (150-375) k/mm3 MPV (7.4-10.4) fl Immature Gran % (Auto) (0-0.5) % Neut % (Auto) (45.5-73.1) % Lymph % (Auto) (18.3-44.2) % [place] % (Auto) (2.6-8.5) % Eos % (Auto) (0-4.4) % Baso % (Auto) (0.2-1.2) % Lymph # (Auto) (0.9-3.2) K/mm3 [place] # (Auto) (0.1-0.6) K/mm3 Eos # (Auto) (0-0.3) K/mm3 Baso # (Auto) (0.0-0.1) K/mm3 Abs Immat Gran (auto) (0.00-0.031) K/mm3 Absolute Neuts (auto) (1.3-6.7) K/mm3 Absolute Nucleated RBC (0.0-0.012) K/mm3 Nucleated RBC % (0.0-0.2) % PT (11.1-14.7) Seconds INR APTT (22.3-36.8) Seconds Sodium Potassium 4.6 Chloride Cancelled 109 H Carbon Dioxide Cancelled 20 L Anion Gap Cancelled BUN Creatinine Estim Creat Clear Calc Estimated GFR Glucose POC Capillary Glucose (65-105) mg/dl Calcium Magnesium Total Bilirubin AST ALT Alkaline Phosphatase Troponin I (0.000-0.034) ng/mL NT-Pro-B Natriuret Pep (19.9-100) pg/mL Total Protein Albumin TSH (Reflex) (0.465-4.68) uIU/mL Urine Color (Yellow) Urine Appearance (Clear) Urine pH (5.0-9.0) Ur Specific [place] (1.001-1.035) Urine Protein (Negative) mg/dL Urine Glucose (UA) (Negative) mg/dL Urine Ketones (Negative) mg/dL Ur Blood (Man) (Negative) Urine Nitrate (Negative) Urine Bilirubin (Negative) Urine Urobilinogen (<2.0) mg/dL Leukocyte Esterase Rfl (Negative) ROWAN/UL Urine RBC (0-2) /hpf Urine WBC (0-3) /hpf Ur Squamous Epith Cells (Few) /hpf Urine Bacteria /hpf Urine Casts 12/29/24 12/29/24 12/29/24 Range/Units 16:18 16:18 16:18 WBC (4.5-10.0) K/mm3 RBC (4.2-5.4) M/mm3 Hgb (12.0-15.0) g/dL Hct (37.0-47.0) % MCV (80-100) fl MCH (26-34) pg MCHC (32-36) g/dl RDW (11.5-14.5) % Plt Count (150-375) k/mm3 MPV (7.4-10.4) fl Immature Gran % (Auto) (0-0.5) % Neut % (Auto) (45.5-73.1) % Lymph % (Auto) (18.3-44.2) % [place] % (Auto) (2.6-8.5) % Eos % (Auto) (0-4.4) % Baso % (Auto) (0.2-1.2) % Lymph # (Auto) (0.9-3.2) K/mm3 [place] # (Auto) (0.1-0.6) K/mm3 Eos # (Auto) (0-0.3) K/mm3 Baso # (Auto) (0.0-0.1) K/mm3 Abs Immat Gran (auto) (0.00-0.031) K/mm3 Absolute Neuts (auto) (1.3-6.7) K/mm3 Absolute Nucleated RBC (0.0-0.012) K/mm3 Nucleated RBC % (0.0-0.2) % PT (11.1-14.7) Seconds INR APTT (22.3-36.8) Seconds Sodium Potassium Chloride Carbon Dioxide Anion Gap 9 BUN Cancelled 47 H Creatinine Cancelled 2.19 H Estim Creat Clear Calc Cancelled Estimated GFR Glucose POC Capillary Glucose (65-105) mg/dl Calcium Magnesium Total Bilirubin AST ALT Alkaline Phosphatase Troponin I (0.000-0.034) ng/mL NT-Pro-B Natriuret Pep (19.9-100) pg/mL Total Protein Albumin TSH (Reflex) (0.465-4.68) uIU/mL Urine Color (Yellow) Urine Appearance (Clear) Urine pH (5.0-9.0) Ur Specific [place] (1.001-1.035) Urine Protein (Negative) mg/dL Urine Glucose (UA) (Negative) mg/dL Urine Ketones (Negative) mg/dL Ur Blood (Man) (Negative) Urine Nitrate (Negative) Urine Bilirubin (Negative) Urine Urobilinogen (<2.0) mg/dL Leukocyte Esterase Rfl (Negative) ROWAN/UL Urine RBC (0-2) /hpf Urine WBC (0-3) /hpf Ur Squamous Epith Cells (Few) /hpf Urine Bacteria /hpf Urine Casts 12/29/24 12/29/24 12/29/24 Range/Units 16:18 16:18 16:18 WBC (4.5-10.0) K/mm3 RBC (4.2-5.4) M/mm3 Hgb (12.0-15.0) g/dL Hct (37.0-47.0) % MCV (80-100) fl MCH (26-34) pg MCHC (32-36) g/dl RDW (11.5-14.5) % Plt Count (150-375) k/mm3 MPV (7.4-10.4) fl Immature Gran % (Auto) (0-0.5) % Neut % (Auto) (45.5-73.1) % Lymph % (Auto) (18.3-44.2) % [place] % (Auto) (2.6-8.5) % Eos % (Auto) (0-4.4) % Baso % (Auto) (0.2-1.2) % Lymph # (Auto) (0.9-3.2) K/mm3 [place] # (Auto) (0.1-0.6) K/mm3 Eos # (Auto) (0-0.3) K/mm3 Baso # (Auto) (0.0-0.1) K/mm3 Abs Immat Gran (auto) (0.00-0.031) K/mm3 Absolute Neuts (auto) (1.3-6.7) K/mm3 Absolute Nucleated RBC (0.0-0.012) K/mm3 Nucleated RBC % (0.0-0.2) % PT (11.1-14.7) Seconds INR APTT (22.3-36.8) Seconds Sodium Potassium Chloride Carbon Dioxide Anion Gap BUN Creatinine Estim Creat Clear Calc 22 Estimated GFR Cancelled 21 L Glucose Cancelled 106 POC Capillary Glucose (65-105) mg/dl Calcium Cancelled Magnesium Total Bilirubin AST ALT Alkaline Phosphatase Troponin I (0.000-0.034) ng/mL NT-Pro-B Natriuret Pep (19.9-100) pg/mL Total Protein Albumin TSH (Reflex) (0.465-4.68) uIU/mL Urine Color (Yellow) Urine Appearance (Clear) Urine pH (5.0-9.0) Ur Specific [place] (1.001-1.035) Urine Protein (Negative) mg/dL Urine Glucose (UA) (Negative) mg/dL Urine Ketones (Negative) mg/dL Ur Blood (Man) (Negative) Urine Nitrate (Negative) Urine Bilirubin (Negative) Urine Urobilinogen (<2.0) mg/dL Leukocyte Esterase Rfl (Negative) ROWAN/UL Urine RBC (0-2) /hpf Urine WBC (0-3) /hpf Ur Squamous Epith Cells (Few) /hpf Urine Bacteria /hpf Urine Casts 12/29/24 12/29/24 12/29/24 Range/Units 16:18 16:18 16:18 WBC (4.5-10.0) K/mm3 RBC (4.2-5.4) M/mm3 Hgb (12.0-15.0) g/dL Hct (37.0-47.0) % MCV (80-100) fl MCH (26-34) pg MCHC (32-36) g/dl RDW (11.5-14.5) % Plt Count (150-375) k/mm3 MPV (7.4-10.4) fl Immature Gran % (Auto) (0-0.5) % Neut % (Auto) (45.5-73.1) % Lymph % (Auto) (18.3-44.2) % [place] % (Auto) (2.6-8.5) % Eos % (Auto) (0-4.4) % Baso % (Auto) (0.2-1.2) % Lymph # (Auto) (0.9-3.2) K/mm3 [place] # (Auto) (0.1-0.6) K/mm3 Eos # (Auto) (0-0.3) K/mm3 Baso # (Auto) (0.0-0.1) K/mm3 Abs Immat Gran (auto) (0.00-0.031) K/mm3 Absolute Neuts (auto) (1.3-6.7) K/mm3 Absolute Nucleated RBC (0.0-0.012) K/mm3 Nucleated RBC % (0.0-0.2) % PT (11.1-14.7) Seconds INR APTT (22.3-36.8) Seconds Sodium Potassium Chloride Carbon Dioxide Anion Gap BUN Creatinine Estim Creat Clear Calc Estimated GFR Glucose POC Capillary Glucose (65-105) mg/dl Calcium 9.9 Magnesium Cancelled 1.9 Total Bilirubin Cancelled 0.4 AST Cancelled ALT Alkaline Phosphatase Troponin I (0.000-0.034) ng/mL NT-Pro-B Natriuret Pep (19.9-100) pg/mL Total Protein Albumin TSH (Reflex) (0.465-4.68) uIU/mL Urine Color (Yellow) Urine Appearance (Clear) Urine pH (5.0-9.0) Ur Specific [place] (1.001-1.035) Urine Protein (Negative) mg/dL Urine Glucose (UA) (Negative) mg/dL Urine Ketones (Negative) mg/dL Ur Blood (Man) (Negative) Urine Nitrate (Negative) Urine Bilirubin (Negative) Urine Urobilinogen (<2.0) mg/dL Leukocyte Esterase Rfl (Negative) ROWAN/UL Urine RBC (0-2) /hpf Urine WBC (0-3) /hpf Ur Squamous Epith Cells (Few) /hpf Urine Bacteria /hpf Urine Casts 12/29/24 12/29/24 12/29/24 Range/Units 16:18 16:18 16:18 WBC (4.5-10.0) K/mm3 RBC (4.2-5.4) M/mm3 Hgb (12.0-15.0) g/dL Hct (37.0-47.0) % MCV (80-100) fl MCH (26-34) pg MCHC (32-36) g/dl RDW (11.5-14.5) % Plt Count (150-375) k/mm3 MPV (7.4-10.4) fl Immature Gran % (Auto) (0-0.5) % Neut % (Auto) (45.5-73.1) % Lymph % (Auto) (18.3-44.2) % [place] % (Auto) (2.6-8.5) % Eos % (Auto) (0-4.4) % Baso % (Auto) (0.2-1.2) % Lymph # (Auto) (0.9-3.2) K/mm3 [place] # (Auto) (0.1-0.6) K/mm3 Eos # (Auto) (0-0.3) K/mm3 Baso # (Auto) (0.0-0.1) K/mm3 Abs Immat Gran (auto) (0.00-0.031) K/mm3 Absolute Neuts (auto) (1.3-6.7) K/mm3 Absolute Nucleated RBC (0.0-0.012) K/mm3 Nucleated RBC % (0.0-0.2) % PT (11.1-14.7) Seconds INR APTT (22.3-36.8) Seconds Sodium Potassium Chloride Carbon Dioxide Anion Gap BUN Creatinine Estim Creat Clear Calc Estimated GFR Glucose POC Capillary Glucose (65-105) mg/dl Calcium Magnesium Total Bilirubin AST 62 H ALT Cancelled 27 Alkaline Phosphatase Cancelled 80 Troponin I 0.015 (0.000-0.034) ng/mL NT-Pro-B Natriuret Pep 161 H (19.9-100) pg/mL Total Protein Cancelled Albumin TSH (Reflex) (0.465-4.68) uIU/mL Urine Color (Yellow) Urine Appearance (Clear) Urine pH (5.0-9.0) Ur Specific [place] (1.001-1.035) Urine Protein (Negative) mg/dL Urine Glucose (UA) (Negative) mg/dL Urine Ketones (Negative) mg/dL Ur Blood (Man) (Negative) Urine Nitrate (Negative) Urine Bilirubin (Negative) Urine Urobilinogen (<2.0) mg/dL Leukocyte Esterase Rfl (Negative) ROWAN/UL Urine RBC (0-2) /hpf Urine WBC (0-3) /hpf Ur Squamous Epith Cells (Few) /hpf Urine Bacteria /hpf Urine Casts 12/29/24 12/29/24 12/29/24 Range/Units 16:18 16:18 17:11 WBC (4.5-10.0) K/mm3 RBC (4.2-5.4) M/mm3 Hgb (12.0-15.0) g/dL Hct (37.0-47.0) % MCV (80-100) fl MCH (26-34) pg MCHC (32-36) g/dl RDW (11.5-14.5) % Plt Count (150-375) k/mm3 MPV (7.4-10.4) fl Immature Gran % (Auto) (0-0.5) % Neut % (Auto) (45.5-73.1) % Lymph % (Auto) (18.3-44.2) % [place] % (Auto) (2.6-8.5) % Eos % (Auto) (0-4.4) % Baso % (Auto) (0.2-1.2) % Lymph # (Auto) (0.9-3.2) K/mm3 [place] # (Auto) (0.1-0.6) K/mm3 Eos # (Auto) (0-0.3) K/mm3 Baso # (Auto) (0.0-0.1) K/mm3 Abs Immat Gran (auto) (0.00-0.031) K/mm3 Absolute Neuts (auto) (1.3-6.7) K/mm3 Absolute Nucleated RBC (0.0-0.012) K/mm3 Nucleated RBC % (0.0-0.2) % PT (11.1-14.7) Seconds INR APTT (22.3-36.8) Seconds Sodium Potassium Chloride Carbon Dioxide Anion Gap BUN Creatinine Estim Creat Clear Calc Estimated GFR Glucose POC Capillary Glucose (65-105) mg/dl Calcium Magnesium Total Bilirubin AST ALT Alkaline Phosphatase Troponin I (0.000-0.034) ng/mL NT-Pro-B Natriuret Pep (19.9-100) pg/mL Total Protein 7.1 Albumin Cancelled 4.1 TSH (Reflex) (0.465-4.68) uIU/mL Urine Color Yellow (Yellow) Urine Appearance Clear (Clear) Urine pH 5.5 (5.0-9.0) Ur Specific [place] 1.013 (1.001-1.035) Urine Protein Trace (Negative) mg/dL Urine Glucose (UA) Negative (Negative) mg/dL Urine Ketones Negative (Negative) mg/dL Ur Blood (Man) Negative (Negative) Urine Nitrate Negative (Negative) Urine Bilirubin Negative (Negative) Urine Urobilinogen 0.2 (<2.0) mg/dL Leukocyte Esterase Rfl 2+ H (Negative) ROWAN/UL Urine RBC 0-2 (0-2) /hpf Urine WBC 21-50 H (0-3) /hpf Ur Squamous Epith Cells Occasional (Few) /hpf Urine Bacteria 4+ H /hpf Urine Casts 3-5 09/01/25 Range/Units 03:49 WBC 6.6 (4.5-10.0) K/mm3 RBC 2.66 L (4.2-5.4) M/mm3 Hgb 8.1 L (12.0-15.0) g/dL Hct 26.9 L (37.0-47.0) % MCV 101.1 H (80-100) fl MCH 30.5 (26-34) pg MCHC 30.1 L (32-36) g/dl RDW 15.9 H (11.5-14.5) % Plt Count 160 (150-375) k/mm3 MPV 9.8 (7.4-10.4) fl Immature Gran % (Auto) (0-0.5) % Neut % (Auto) (45.5-73.1) % Lymph % (Auto) (18.3-44.2) % [place] % (Auto) (2.6-8.5) % Eos % (Auto) (0-4.4) % Baso % (Auto) (0.2-1.2) % Lymph # (Auto) (0.9-3.2) K/mm3 [place] # (Auto) (0.1-0.6) K/mm3 Eos # (Auto) (0-0.3) K/mm3 Baso # (Auto) (0.0-0.1) K/mm3 Abs Immat Gran (auto) (0.00-0.031) K/mm3 Absolute Neuts (auto) (1.3-6.7) K/mm3 Absolute Nucleated RBC (0.0-0.012) K/mm3 Nucleated RBC % (0.0-0.2) % PT (11.1-14.7) Seconds INR APTT (22.3-36.8) Seconds Sodium 138 Potassium 4.0 Chloride 113 H Carbon Dioxide 18 L Anion Gap 7 BUN 38 H Creatinine 1.76 H Estim Creat Clear Calc 27 Estimated GFR 28 L Glucose 98 POC Capillary Glucose (65-105) mg/dl Calcium 9.3 Magnesium Total Bilirubin AST ALT Alkaline Phosphatase Troponin I (0.000-0.034) ng/mL NT-Pro-B Natriuret Pep (19.9-100) pg/mL Total Protein Albumin TSH (Reflex) 3.150 (0.465-4.68) uIU/mL Urine Color (Yellow) Urine Appearance (Clear) Urine pH (5.0-9.0) Ur Specific [place] (1.001-1.035) Urine Protein (Negative) mg/dL Urine Glucose (UA) (Negative) mg/dL Urine Ketones (Negative) mg/dL Ur Blood (Man) (Negative) Urine Nitrate (Negative) Urine Bilirubin (Negative) Urine Urobilinogen (<2.0) mg/dL Leukocyte Esterase Rfl (Negative) ROWAN/UL Urine RBC (0-2) /hpf Urine WBC (0-3) /hpf Ur Squamous Epith Cells (Few) /hpf Urine Bacteria /hpf Urine Casts <Jos Cordero MD - Last Filed: 12/30/24 08:30> Imaging Data Attestation: I personally reviewed and interpreted this imaging study as follows: <Danielle Khan PA-C - Last Filed: 12/29/24 21:14> Radiologist's impression: ITS Impressions Head CT 12/29/24 16:03 IMPRESSION: 1. 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 No acute intracranial process 2. Age-related changes including moderate diffuse volume loss and moderate scattered white matter hypoattenuation consistent with chronic small vessel ischemic disease. Chest X-Ray 12/29/24 16:42 IMPRESSION: 1. No acute cardiopulmonary disease. <Danielle Khan PA-C - Last Filed: 12/29/24 21:14> Discharge Plan Discharge Clinical Impression: Generalized weakness, KEKE (acute kidney injury) UTI (urinary tract infection) Qualifiers: Urinary tract infection type: acute cystitis Hematuria presence: without hematuria Qualified Code(s): N30.00 - Acute cystitis without hematuria <SONNY Barnes Last Filed: 12/29/24 21:14> Patient Disposition: Still a Patient <SONNY Barnes Last Filed: 12/29/24 21:14> Condition: Stable <SONNY Barnes Last Filed: 12/29/24 21:14>
[2024-12-29] MEDS: cefTRIAXone 1 GM in SODIUM CHLORIDE 0.9% IV 50 ML 100 ML IVPB (18:35)
--- NOTE | 2024-12-29 21:30 | PC.NURSE ---
This RN called to [facility] to update about pts POC and admission.
--- NOTE | 2024-12-29 21:46 | PM.IMHP ---
H&P: HPI History of Present Illness Date/Time: 12/29/24 21:46 Chief Complaint: Increased weakness Narrative: 84-year-old female with past medical history of prior CVA, dementia with behaviors, chronic kidney disease stage 4, gout, hypothyroidism who presented from [facility] via EMS due to increased weakness. The patient herself states that she does not have any complaints in that she is not sick. She she stated that she was brought to the ER because the staff are idiots. However the patient was so weak in the ER that she could not hold her head up for finish a sentence. At the time of my evaluation the patient was asleep. She woke up long enough to acknowledge that I called her by knee in then fell back asleep. As such, entirety of the history was obtained from review of past medical records and [facility] records as well as ER physician report. Review of Systems Review of Systems: Review of systems unobtainable due to patient's dementia. 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 Code status: DNR/DNI (per [facility] record) Healthcare power of perlite grinder: Doris Tamayo (daughter) Smoking status: Smoker, status unknown Alcohol intake: unknown Substance use: unknown Substance use type: unknown Spiritual care concerns: No Meds Home Medications and Allergies Home Medications ?Medication ?Instructions ?Recorded ?Confirmed ?Type allopurinol 300 mg tablet 300 mg PO DAILY 07/09/24 12/29/24 History aripiprazole 5 mg tablet (Abilify) 5 mg PO DAILY 07/09/24 12/29/24 History ascorbic acid (vitamin C) 500 mg 500 mg PO DAILY 07/09/24 12/29/24 History tablet (C-500) citalopram 10 mg tablet (Celexa) 10 mg PO DAILY 07/09/24 12/29/24 History diphenhydramine HCl 25 mg capsule 25 mg PO HS PRN sleep 07/09/24 12/29/24 History (Benadryl) levothyroxine 50 mcg capsule 50 mcg PO DAILY 07/09/24 12/29/24 History loperamide 2 mg tablet 2 mg PO TID PRN diarrhea 07/09/24 12/29/24 History simvastatin 20 mg tablet 20 mg PO HS 07/09/24 12/29/24 History vitamin B complex 1 tablet PO DAILY 07/09/24 12/29/24 History amlodipine 5 mg tablet (Norvasc) 5 mg PO DAILY #30 tabs 07/14/24 12/29/24 Rx apixaban 5 mg tablet (Eliquis) 5 mg PO Q12HR #60 tabs 07/14/24 12/29/24 Rx cyanocobalamin (vitamin B-12) 500 500 mcg PO QAM #30 tabs 07/14/24 12/29/24 Rx mcg tablet (Vitamin B-12) magnesium oxide 400 mg (241.3 mg 400 mg PO QAM #30 tabs 07/14/24 12/29/24 Rx magnesium) tablet gabapentin 300 mg capsule 300 mg PO TID 12/29/24 12/29/24 History Allergies Allergy/AdvReac Type Severity Reaction Status Date / Time codeine Allergy Mild Itching Verified 12/29/24 21:30 vancomycin Allergy Mild Hives / Verified 12/29/24 21:30 Red Face Vital Signs Vital Signs - 24 hr 12/29/24 13:59 12/29/24 14:13 12/29/24 14:15 Temperature 97.7 F Pulse Rate 86 88 84 Respiratory Rate 20 15 Blood Pressure 140/56 L 134/74 Pulse Oximetry 99 100 Oxygen Delivery Room Air Room Air 12/29/24 18:36 12/29/24 21:04 12/29/24 21:23 Temperature Pulse Rate 99 97 97 Respiratory Rate 14 14 14 Blood Pressure 144/64 H 140/69 140/69 Pulse Oximetry 98 97 97 Oxygen Delivery Exam Narrative: Weight 104.8 kg BMI 37.3 Const: Other: Elderly, obese, lying in the his bed 30?, no acute distress, resting comfortably HENMT: Other: Tacky mucous membranes, poor dentition, head is normocephalic atraumatic Neck: Other: No lymphadenopathy no JVD Resp: Other: Clear to auscultation bilaterally, no increased work of breathing Cardio: Other: Regular rate, 2+ bilateral radial pedal pulses, no JVD, no murmur GI: Other: Distended, nontender, normoactive bowel sounds, soft in the upper abdomen firm in the lower abdomen : Other: No urine within the pure wick, bladder scan greater than 600 Skin: Other: Hot to touch, non jaundice, mild pallor Neuro: Other: Lethargic, alert to name only, speech is clear, patient does not follow commands Extrem: Other: Bilateral lower extremity lymphedema with chronic venous stasis changes Psych: Other: Flat affect H&P: Results Labs Labs: Laboratory Tests 12/29/24 16:18 12/29/24 16:18 12/29/24 12/29/24 12/29/24 14:01 16:18 16:18 WBC 9.0 RBC 2.91 L Hgb 9.2 L Hct 29.3 L MCV 100.7 H MCH 31.6 MCHC 31.4 L RDW 15.9 H Plt Count 170 MPV 9.6 Immature Gran % (Auto) 0.3 Neut % (Auto) 74.4 H Lymph % (Auto) 13.2 L Bennett % (Auto) 10.5 H Eos % (Auto) 1.3 Baso % (Auto) 0.3 Lymph # (Auto) 1.18 Bennett # (Auto) 0.9 H Eos # (Auto) 0.1 Baso # (Auto) 0.0 Abs Immat Gran (auto) 0.03 Absolute Neuts (auto) 6.7 Absolute Nucleated RBC 0.000 Nucleated RBC % 0.0 PT 16.7 H INR 1.4 APTT 33.7 Sodium Cancelled 138 Potassium Cancelled Chloride Carbon Dioxide Anion Gap BUN Creatinine Estim Creat Clear Calc Estimated GFR Glucose POC Capillary Glucose 120 H Calcium Magnesium Total Bilirubin AST ALT Alkaline Phosphatase Troponin I NT-Pro-B Natriuret Pep Total Protein Albumin Urine Color Urine Appearance Urine pH Ur Specific Woodruff Urine Protein Urine Glucose (UA) Urine Ketones Ur Blood (Man) Urine Nitrate Urine Bilirubin Urine Urobilinogen Leukocyte Esterase Rfl Urine RBC Urine WBC Ur Squamous Epith Cells Urine Bacteria Urine Casts 12/29/24 12/29/24 12/29/24 16:18 16:18 16:18 WBC RBC Hgb Hct MCV MCH MCHC RDW Plt Count MPV Immature Gran % (Auto) Neut % (Auto) Lymph % (Auto) Bennett % (Auto) Eos % (Auto) Baso % (Auto) Lymph # (Auto) Bennett # (Auto) Eos # (Auto) Baso # (Auto) Abs Immat Gran (auto) Absolute Neuts (auto) Absolute Nucleated RBC Nucleated RBC % PT INR APTT Sodium Potassium 4.6 Chloride Cancelled 109 H Carbon Dioxide Cancelled 20 L Anion Gap Cancelled BUN Creatinine Estim Creat Clear Calc Estimated GFR Glucose POC Capillary Glucose Calcium Magnesium Total Bilirubin AST ALT Alkaline Phosphatase Troponin I NT-Pro-B Natriuret Pep Total Protein Albumin Urine Color Urine Appearance Urine pH Ur Specific Woodruff Urine Protein Urine Glucose (UA) Urine Ketones Ur Blood (Man) Urine Nitrate Urine Bilirubin Urine Urobilinogen Leukocyte Esterase Rfl Urine RBC Urine WBC Ur Squamous Epith Cells Urine Bacteria Urine Casts 12/29/24 12/29/24 12/29/24 16:18 16:18 16:18 WBC RBC Hgb Hct MCV MCH MCHC RDW Plt Count MPV Immature Gran % (Auto) Neut % (Auto) Lymph % (Auto) Bennett % (Auto) Eos % (Auto) Baso % (Auto) Lymph # (Auto) Bennett # (Auto) Eos # (Auto) Baso # (Auto) Abs Immat Gran (auto) Absolute Neuts (auto) Absolute Nucleated RBC Nucleated RBC % PT INR APTT Sodium Potassium Chloride Carbon Dioxide Anion Gap 9 BUN Cancelled 47 H Creatinine Cancelled 2.19 H Estim Creat Clear Calc Cancelled Estimated GFR Glucose POC Capillary Glucose Calcium Magnesium Total Bilirubin AST ALT Alkaline Phosphatase Troponin I NT-Pro-B Natriuret Pep Total Protein Albumin Urine Color Urine Appearance Urine pH Ur Specific Woodruff Urine Protein Urine Glucose (UA) Urine Ketones Ur Blood (Man) Urine Nitrate Urine Bilirubin Urine Urobilinogen Leukocyte Esterase Rfl Urine RBC Urine WBC Ur Squamous Epith Cells Urine Bacteria Urine Casts 12/29/24 12/29/24 12/29/24 16:18 16:18 16:18 WBC RBC Hgb Hct MCV MCH MCHC RDW Plt Count MPV Immature Gran % (Auto) Neut % (Auto) Lymph % (Auto) Bennett % (Auto) Eos % (Auto) Baso % (Auto) Lymph # (Auto) Bennett # (Auto) Eos # (Auto) Baso # (Auto) Abs Immat Gran (auto) Absolute Neuts (auto) Absolute Nucleated RBC Nucleated RBC % PT INR APTT Sodium Potassium Chloride Carbon Dioxide Anion Gap BUN Creatinine Estim Creat Clear Calc 22 Estimated GFR Cancelled 21 L Glucose Cancelled 106 POC Capillary Glucose Calcium Cancelled Magnesium Total Bilirubin AST ALT Alkaline Phosphatase Troponin I NT-Pro-B Natriuret Pep Total Protein Albumin Urine Color Urine Appearance Urine pH Ur Specific Woodruff Urine Protein Urine Glucose (UA) Urine Ketones Ur Blood (Man) Urine Nitrate Urine Bilirubin Urine Urobilinogen Leukocyte Esterase Rfl Urine RBC Urine WBC Ur Squamous Epith Cells Urine Bacteria Urine Casts 12/29/24 12/29/24 12/29/24 16:18 16:18 16:18 WBC RBC Hgb Hct MCV MCH MCHC RDW Plt Count MPV Immature Gran % (Auto) Neut % (Auto) Lymph % (Auto) Bennett % (Auto) Eos % (Auto) Baso % (Auto) Lymph # (Auto) Bennett # (Auto) Eos # (Auto) Baso # (Auto) Abs Immat Gran (auto) Absolute Neuts (auto) Absolute Nucleated RBC Nucleated RBC % PT INR APTT Sodium Potassium Chloride Carbon Dioxide Anion Gap BUN Creatinine Estim Creat Clear Calc Estimated GFR Glucose POC Capillary Glucose Calcium 9.9 Magnesium Cancelled 1.9 Total Bilirubin Cancelled 0.4 AST Cancelled ALT Alkaline Phosphatase Troponin I NT-Pro-B Natriuret Pep Total Protein Albumin Urine Color Urine Appearance Urine pH Ur Specific Woodruff Urine Protein Urine Glucose (UA) Urine Ketones Ur Blood (Man) Urine Nitrate Urine Bilirubin Urine Urobilinogen Leukocyte Esterase Rfl Urine RBC Urine WBC Ur Squamous Epith Cells Urine Bacteria Urine Casts 12/29/24 12/29/24 12/29/24 16:18 16:18 16:18 WBC RBC Hgb Hct MCV MCH MCHC RDW Plt Count MPV Immature Gran % (Auto) Neut % (Auto) Lymph % (Auto) Bennett % (Auto) Eos % (Auto) Baso % (Auto) Lymph # (Auto) Bennett # (Auto) Eos # (Auto) Baso # (Auto) Abs Immat Gran (auto) Absolute Neuts (auto) Absolute Nucleated RBC Nucleated RBC % PT INR APTT Sodium Potassium Chloride Carbon Dioxide Anion Gap BUN Creatinine Estim Creat Clear Calc Estimated GFR Glucose POC Capillary Glucose Calcium Magnesium Total Bilirubin AST 62 H ALT Cancelled 27 Alkaline Phosphatase Cancelled 80 Troponin I 0.015 NT-Pro-B Natriuret Pep 161 H Total Protein Cancelled Albumin Urine Color Urine Appearance Urine pH Ur Specific Woodruff Urine Protein Urine Glucose (UA) Urine Ketones Ur Blood (Man) Urine Nitrate Urine Bilirubin Urine Urobilinogen Leukocyte Esterase Rfl Urine RBC Urine WBC Ur Squamous Epith Cells Urine Bacteria Urine Casts 12/29/24 12/29/24 12/29/24 16:18 16:18 17:11 WBC RBC Hgb Hct MCV MCH MCHC RDW Plt Count MPV Immature Gran % (Auto) Neut % (Auto) Lymph % (Auto) Bennett % (Auto) Eos % (Auto) Baso % (Auto) Lymph # (Auto) Bennett # (Auto) Eos # (Auto) Baso # (Auto) Abs Immat Gran (auto) Absolute Neuts (auto) Absolute Nucleated RBC Nucleated RBC % PT INR APTT Sodium Potassium Chloride Carbon Dioxide Anion Gap BUN Creatinine Estim Creat Clear Calc Estimated GFR Glucose POC Capillary Glucose Calcium Magnesium Total Bilirubin AST ALT Alkaline Phosphatase Troponin I NT-Pro-B Natriuret Pep Total Protein 7.1 Albumin Cancelled 4.1 Urine Color Yellow Urine Appearance Clear Urine pH 5.5 Ur Specific Woodruff 1.013 Urine Protein Trace Urine Glucose (UA) Negative Urine Ketones Negative Ur Blood (Man) Negative Urine Nitrate Negative Urine Bilirubin Negative Urine Urobilinogen 0.2 Leukocyte Esterase Rfl 2+ H Urine RBC 0-2 Urine WBC 21-50 H Ur Squamous Epith Cells Occasional Urine Bacteria 4+ H Urine Casts 3-[address] 12/29/24 16:03 IMPRESSION: 1. 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 No acute intracranial process 2. Age-related changes including moderate diffuse volume loss and moderate scattered white matter hypoattenuation consistent with chronic small vessel ischemic disease. Chest X-Ray 12/29/24 16:42 IMPRESSION: 1. No acute cardiopulmonary disease. Assessment and Plan Assessment and plan (1) Generalized weakness: Code(s): R53.1 - Weakness Status: Acute (2) UTI (urinary tract infection): Qualifiers: Hematuria presence: without hematuria Urinary tract infection type: acute cystitis Qualified Code(s): N30.00 - Acute cystitis without hematuria Code(s): N39.0 - Urinary tract infection, site not specified Status: Acute (3) Acute kidney injury superimposed on chronic kidney disease: Code(s): N17.9 - Acute kidney failure, unspecified; N18.9 - Chronic kidney disease, unspecified Status: Acute (4) Vascular dementia: Qualifiers: Dementia behavioral or psychological symptom: with mood disturbance Dementia severity: moderate Qualified Code(s): F01.B3 - Vascular dementia, moderate, with mood disturbance Code(s): F01.50 - Vascular dementia, unspecified severity, without behavioral disturbance, psychotic disturbance, mood disturbance, and anxiety Status: Acute (5) Urinary retention: Code(s): R33.9 - Retention of urine, unspecified Status: Acute Plan Patient presents with increased generalized weakness nurse found to have acute kidney injury on chronic kidney disease and possible urinary tract infection. Patient was given 1 L normal saline in the ER and started on empiric antibiotic therapy with Rocephin. Will continue gentle IV fluid hydration and repeat electrolyte panel in a.m.. Patient had no urine output in the pure wick catheter. Patient has history of urinary retention with prior admissions. Bladder scan was performed which demonstrated greater than 600 mL of retained urine. Peterson catheter will be placed. Will discontinue patient's p.r.n. Benadryl as this can contribute to increased risk of urinary retention. Will check TSH to ensure patient's thyroid levels are therapeutic and that her hypothyroidism isn't playing a component into her weakness. Will continue Rocephin and await urine culture result. Will resume the patient's home depression and antipsychotic medications. Will resume home antihypertensives. Patient has been admitted as observation status. MEDICAL DECISION MAKING NARRATIVE -Spoke with the ED provider in detail regarding patient's evaluation, workup and management -Patient seen and examined at bedside -Collaborated with patient's nurse at the bedside in detail and addressed all concerns -Labs, electrolytes, radiology, investigations and test results personally reviewed and interpreted unless otherwise specified -ED/Consult/Nursing/Ancilliary notes on the chart reviewed and appreciated Quality VTE Prophylaxis VTE prophylaxis: pharmacologic ordered (Continue home Eliquis.) Hospitalist MIPS Advance Care Plan I have confirmed that the patient's Advanced Care Plan is present, code status is documented, or surrogate decision maker is listed in patient medical record.: Yes Medication Reconciliation I have utilized all available resources to obtain, update and review the patients current medications (includes all prescriptions, OTC, herbals, cannabis, and nutritional supplements).: Yes
--- NOTE | 2024-12-29 21:55 | ADMGEN ---
This patient, Clau Escalante, was admitted to 2 Medical Room 243-. Patient/family oriented to hospital policies and general routines including ID bracelet, bed and alarms, visiting hours, pain management, procedures, bathroom and other care routines, personal items, smoking policy, room service/diet, and visiting hours. Information on how to activate the Rapid Response Team has been discussed. Patient/Family are encouraged to report perceived risks to care and to ask questions if they do not understand what they are told or what they should do.
[2024-12-29] MEDS: SODIUM CHLORIDE 0.9% IV 1,000 ML 75 ML IV CONT (21:59)
[2024-12-29] MEDS: GABAPENTIN 300 MG CAPSULE PO (23:48)
[2024-12-29] MEDS: ACETAMINOPHEN 325 MG TABLET 650 MG PO (23:48)
[2024-12-30 04:37] LABS: Hematocrit 26.9 % (37.0-47.0); Hemoglobin 8.1 g/dL (12.0-15.0); Mean Corpuscular HGB Conc 30.1 g/dl (32-36); Mean Corpuscular Hemoglobin 30.5 pg (26-34); Mean Corpuscular Volume 101.1 fl (80-100); Platelet Count Result 160 k/mm3 (150-375); Red Blood Count 2.66 M/mm3 (4.2-5.4); White Blood Count 6.6 K/mm3 (4.5-10.0)
[2024-12-30] MEDS: APIXABAN 5 MG TABLET PO ×2 (05:03→21:09)
[2024-12-30 05:05] LABS: Anion Gap 7 mmol/L (4-12); Blood Urea Nitrogen 38 mg/dL (7-17); Calcium 9.3 mg/dL (8.4-10.2); Carbon Dioxide 18 mmol/L (22-30); Chloride 113 mmol/L (98-107); Estimated CRCL calculation 27 ml/min; Estimated Glomerular Filt Rate 28; Glucose 98 mg/dL (65-110); Potassium 4.0 mmol/L (3.4-5.0); Sodium 138 mmol/L (137-145)
[2024-12-30 05:08] VITALS: BP 127/48; PULSE 91; RESP 17; TEMP 36.3; O2SAT 96
[2024-12-30 05:23] LABS: Thyroid Stimulating Hormone Reflex 3.150 uIU/mL (0.465-4.68)
[2024-12-30] MEDS: LEVOTHYROXINE SODIUM 50 MCG TABLET PO (06:06)
[2024-12-30] MEDS: CITALOPRAM HYDROBROMIDE 10 MG TABLET PO (09:08)
[2024-12-30 09:09] VITALS: BP 135/66
[2024-12-30] MEDS: MAGNESIUM OXIDE 400 MG TABLET PO (09:09)
[2024-12-30] MEDS: CYANOCOBALAMIN 500 MCG TABLET PO (09:09)
[2024-12-30] MEDS: ASCORBIC ACID 500 MG TABLET PO (09:09)
[2024-12-30] MEDS: GABAPENTIN 300 MG CAPSULE PO ×3 (09:09→16:59)
--- NOTE | 2024-12-30 10:05 | PM.IMPN ---
Progress Note: A&P Assessment and Plan (1) Generalized weakness: Code(s): R53.1 - Weakness Status: Acute Assessment and Plan: PT/OT. Reports that she normally walks with walker at facility. (2) UTI (urinary tract infection): Qualifiers: Hematuria presence: without hematuria Urinary tract infection type: acute cystitis Qualified Code(s): N30.00 - Acute cystitis without hematuria Code(s): N39.0 - Urinary tract infection, site not specified Status: Acute Assessment and Plan: Bladder scan demonstrated >600 ml. Peterson catheter placed. Urine 2+ leukocytes, WBC 21-50, Bacteria 4+. Urine culture pending. Ceftriaxone 1 gram IVPB q 24. (3) Acute kidney injury superimposed on chronic kidney disease: Code(s): N17.9 - Acute kidney failure, unspecified; N18.9 - Chronic kidney disease, unspecified Status: Acute Assessment and Plan: Creatinine improved from 2.19>1.76 with IV fluids. Monitor levels and I&O's. (4) Vascular dementia: Qualifiers: Dementia severity: moderate Dementia behavioral or psychological symptom: with mood disturbance Qualified Code(s): F01.B3 - Vascular dementia, moderate, with mood disturbance Code(s): F01.50 - Vascular dementia, unspecified severity, without behavioral disturbance, psychotic disturbance, mood disturbance, and anxiety Status: Acute Assessment and Plan: 12/29/24 CT brain showed:IMPRESSION: 1. 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 No acute intracranial process 2. Age-related changes including moderate diffuse volume loss and moderate scattered white matter hypoattenuation consistent with chronic small vessel ischemic disease. Citalopram 10 mg PO daily. (5) Urinary retention: Code(s): R33.9 - Retention of urine, unspecified Status: Acute Assessment and Plan: Bladder scan demonstrated >600 ml. Peterson catheter placed. Subjective Date/time seen: 12/30/24 10:05 Interval history: Patient sitting up in bed. Reports feeling tired and that she normally walks with a walker at [facility]. Denies chest pain, palpitations, headache, dizziness, nausea, or vomiting. Review of Systems Review of Systems: All systems reviewed & are unremarkable except as noted in HPI and below Exam Const: General: comfortable and no acute distress Resp: Effort & Inspection: normal respiratory effort Auscultation: clear to auscultation bilaterally Cardio: Rate: regular rate Rhythm: regular rhythm GI: GI Palp: Yes Soft to palpation Auscultation: normal bowel sounds Urinary Catheter: Urinary Catheter: patent and draining Neuro: Speech: normal speech Extrem: General: pedal edema bilaterally 1+ Psych: Other: flat affect. Alert to self and that she is at the hospital. Objective Data Vital Signs Vital Signs: Vital Signs - 24 hr 12/29/24 13:59 12/29/24 14:13 12/29/24 14:15 Temperature 97.7 F Pulse Rate 86 88 84 Respiratory Rate 20 15 Blood Pressure 140/56 L 134/74 Pulse Oximetry 99 100 Oxygen Delivery Room Air Room Air 12/29/24 18:36 12/29/24 21:04 12/29/24 21:23 Temperature Pulse Rate 99 97 97 Respiratory Rate 14 14 14 Blood Pressure 144/64 H 140/69 140/69 Pulse Oximetry 98 97 97 Oxygen Delivery 12/29/24 21:35 12/29/24 22:08 12/30/24 05:08 Temperature 97.6 F 97.4 F L Pulse Rate 105 H 105 H 91 Respiratory Rate 20 20 17 Blood Pressure 140/70 127/48 L Pulse Oximetry 97 97 96 Oxygen Delivery Room Air 12/30/24 09:09 Temperature Pulse Rate Respiratory Rate Blood Pressure 135/66 Pulse Oximetry Oxygen Delivery Intake/Output Intake/Output: Intake & Output 12/27/24 12/28/24 12/29/24 12/30/24 23:59 23:59 23:59 23:59 Intake Total 1050 150 Output Total 400 1200 Balance 650 -1050 Meds/Results Medications: Active Medications Generic Name Dose Route Start Last Admin Trade Name Freq PRN Reason Stop Dose Admin Acetaminophen 650 mg 12/29/24 20:29 12/29/24 23:48 Acetaminophen 325 Mg Tablet PO 650 mg Q4H PRN Administration Mild Pain (1-3) or Fever Allopurinol 100 mg 12/30/24 08:00 12/30/24 09:09 Allopurinol 100 Mg Tablet PO 100 mg DAILY@0800 RINA Administration Amlodipine Besylate 5 mg 12/30/24 09:00 12/30/24 09:09 Amlodipine Besylate 5 Mg Tablet PO 5 mg DAILY RINA Administration Apixaban 5 mg 12/30/24 21:00 Apixaban 5 Mg Tablet PO Q12HR RINA Aripiprazole 5 mg 12/30/24 09:00 12/30/24 09:09 Aripiprazole 5 Mg Tablet PO 5 mg DAILY RINA Administration Ascorbic Acid 500 mg 12/30/24 09:00 12/30/24 09:09 Ascorbic Acid 500 Mg Tablet PO 500 mg DAILY RINA Administration Citalopram Hydrobromide 10 mg 12/30/24 09:00 12/30/24 09:08 Citalopram Hydrobromide 10 Mg Tablet PO 10 mg DAILY RINA Administration Cyanocobalamin 500 mcg 12/30/24 09:00 12/30/24 09:09 Cyanocobalamin 500 Mcg Tablet PO 500 mcg QAM RINA Administration Dextrose 12.5 gm 12/29/24 20:34 Dextrose 50% 25 Gm/50 Ml Syringe IV PUSH PRN PRN Hypoglycemia Protocol Gabapentin 300 mg 12/29/24 23:40 12/30/24 09:09 Gabapentin 300 Mg Capsule PO 300 mg TID RINA Administration Glucagon 1 mg 12/29/24 20:34 Glucagon For Inj 1 Mg Vial IM PRN PRN Hypoglycemia Protocol Glucose 15 gm 12/29/24 20:34 Glucose Oral Gel 15 Gm Of Glucse In 37.5 Gm Tube PO PRN PRN Hypoglycemia Protocol Dextrose 1,000 mls @ 100 mls/hr 12/29/24 20:34 Dextrose 5% 1,000 Ml IVPB PRN PRN Hypoglycemia Protocol Ceftriaxone Sodium 1 gm/ 50 mls @ 100 mls/hr 12/30/24 18:00 Sodium Chloride IVPB Q24H [facility] Levothyroxine Sodium 50 mcg 12/30/24 06:30 12/30/24 06:06 Levothyroxine Sodium 50 Mcg Tablet PO 50 mcg DAILY@0630 RINA Administration Magnesium Oxide 400 mg 12/30/24 09:00 12/30/24 09:09 Magnesium Oxide 400 Mg Tablet PO 400 mg QAM RINA Administration Ondansetron HCl 4 mg 12/29/24 20:29 Ondansetron Inj 4 Mg/2 Ml Vial IV PUSH Q4H PRN Nausea Radiology Results: ITS Impressions Head CT 12/29/24 16:03 IMPRESSION: 1. 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 No acute intracranial process 2. Age-related changes including moderate diffuse volume loss and moderate scattered white matter hypoattenuation consistent with chronic small vessel ischemic disease. Chest X-Ray 12/29/24 16:42 IMPRESSION: 1. No acute cardiopulmonary disease. Labs Labs: Laboratory Results - last 24 hr 12/29/24 12/29/24 12/29/24 14:01 16:18 16:18 WBC 9.0 RBC 2.91 L Hgb 9.2 L Hct 29.3 L MCV 100.7 H MCH 31.6 MCHC 31.4 L RDW 15.9 H Plt Count 170 MPV 9.6 Immature Gran % (Auto) 0.3 Neut % (Auto) 74.4 H Lymph % (Auto) 13.2 L [place] % (Auto) 10.5 H Eos % (Auto) 1.3 Baso % (Auto) 0.3 Lymph # (Auto) 1.18 [place] # (Auto) 0.9 H Eos # (Auto) 0.1 Baso # (Auto) 0.0 Abs Immat Gran (auto) 0.03 Absolute Neuts (auto) 6.7 Absolute Nucleated RBC 0.000 Nucleated RBC % 0.0 PT 16.7 H INR 1.4 APTT 33.7 Sodium Cancelled 138 Potassium Cancelled Chloride Carbon Dioxide Anion Gap BUN Creatinine Estim Creat Clear Calc Estimated GFR Glucose POC Capillary Glucose 120 H Calcium Magnesium Total Bilirubin AST ALT Alkaline Phosphatase Troponin I NT-Pro-B Natriuret Pep Total Protein Albumin TSH (Reflex) Urine Color Urine Appearance Urine pH Ur Specific [place] Urine Protein Urine Glucose (UA) Urine Ketones Ur Blood (Man) Urine Nitrate Urine Bilirubin Urine Urobilinogen Leukocyte Esterase Rfl Urine RBC Urine WBC Ur Squamous Epith Cells Urine Bacteria Urine Casts 12/29/24 12/29/24 12/29/24 16:18 16:18 16:18 WBC RBC Hgb Hct MCV MCH MCHC RDW Plt Count MPV Immature Gran % (Auto) Neut % (Auto) Lymph % (Auto) [place] % (Auto) Eos % (Auto) Baso % (Auto) Lymph # (Auto) [place] # (Auto) Eos # (Auto) Baso # (Auto) Abs Immat Gran (auto) Absolute Neuts (auto) Absolute Nucleated RBC Nucleated RBC % PT INR APTT Sodium Potassium 4.6 Chloride Cancelled 109 H Carbon Dioxide Cancelled 20 L Anion Gap Cancelled BUN Creatinine Estim Creat Clear Calc Estimated GFR Glucose POC Capillary Glucose Calcium Magnesium Total Bilirubin AST ALT Alkaline Phosphatase Troponin I NT-Pro-B Natriuret Pep Total Protein Albumin TSH (Reflex) Urine Color Urine Appearance Urine pH Ur Specific [place] Urine Protein Urine Glucose (UA) Urine Ketones Ur Blood (Man) Urine Nitrate Urine Bilirubin Urine Urobilinogen Leukocyte Esterase Rfl Urine RBC Urine WBC Ur Squamous Epith Cells Urine Bacteria Urine Casts 12/29/24 12/29/24 12/29/24 16:18 16:18 16:18 WBC RBC Hgb Hct MCV MCH MCHC RDW Plt Count MPV Immature Gran % (Auto) Neut % (Auto) Lymph % (Auto) [place] % (Auto) Eos % (Auto) Baso % (Auto) Lymph # (Auto) [place] # (Auto) Eos # (Auto) Baso # (Auto) Abs Immat Gran (auto) Absolute Neuts (auto) Absolute Nucleated RBC Nucleated RBC % PT INR APTT Sodium Potassium Chloride Carbon Dioxide Anion Gap 9 BUN Cancelled 47 H Creatinine Cancelled 2.19 H Estim Creat Clear Calc Cancelled Estimated GFR Glucose POC Capillary Glucose Calcium Magnesium Total Bilirubin AST ALT Alkaline Phosphatase Troponin I NT-Pro-B Natriuret Pep Total Protein Albumin TSH (Reflex) Urine Color Urine Appearance Urine pH Ur Specific [place] Urine Protein Urine Glucose (UA) Urine Ketones Ur Blood (Man) Urine Nitrate Urine Bilirubin Urine Urobilinogen Leukocyte Esterase Rfl Urine RBC Urine WBC Ur Squamous Epith Cells Urine Bacteria Urine Casts 12/29/24 12/29/24 12/29/24 16:18 16:18 16:18 WBC RBC Hgb Hct MCV MCH MCHC RDW Plt Count MPV Immature Gran % (Auto) Neut % (Auto) Lymph % (Auto) [place] % (Auto) Eos % (Auto) Baso % (Auto) Lymph # (Auto) [place] # (Auto) Eos # (Auto) Baso # (Auto) Abs Immat Gran (auto) Absolute Neuts (auto) Absolute Nucleated RBC Nucleated RBC % PT INR APTT Sodium Potassium Chloride Carbon Dioxide Anion Gap BUN Creatinine Estim Creat Clear Calc 22 Estimated GFR Cancelled 21 L Glucose Cancelled 106 POC Capillary Glucose Calcium Cancelled Magnesium Total Bilirubin AST ALT Alkaline Phosphatase Troponin I NT-Pro-B Natriuret Pep Total Protein Albumin TSH (Reflex) Urine Color Urine Appearance Urine pH Ur Specific [place] Urine Protein Urine Glucose (UA) Urine Ketones Ur Blood (Man) Urine Nitrate Urine Bilirubin Urine Urobilinogen Leukocyte Esterase Rfl Urine RBC Urine WBC Ur Squamous Epith Cells Urine Bacteria Urine Casts 12/29/24 12/29/24 12/29/24 16:18 16:18 16:18 WBC RBC Hgb Hct MCV MCH MCHC RDW Plt Count MPV Immature Gran % (Auto) Neut % (Auto) Lymph % (Auto) [place] % (Auto) Eos % (Auto) Baso % (Auto) Lymph # (Auto) [place] # (Auto) Eos # (Auto) Baso # (Auto) Abs Immat Gran (auto) Absolute Neuts (auto) Absolute Nucleated RBC Nucleated RBC % PT INR APTT Sodium Potassium Chloride Carbon Dioxide Anion Gap BUN Creatinine Estim Creat Clear Calc Estimated GFR Glucose POC Capillary Glucose Calcium 9.9 Magnesium Cancelled 1.9 Total Bilirubin Cancelled 0.4 AST Cancelled ALT Alkaline Phosphatase Troponin I NT-Pro-B Natriuret Pep Total Protein Albumin TSH (Reflex) Urine Color Urine Appearance Urine pH Ur Specific [place] Urine Protein Urine Glucose (UA) Urine Ketones Ur Blood (Man) Urine Nitrate Urine Bilirubin Urine Urobilinogen Leukocyte Esterase Rfl Urine RBC Urine WBC Ur Squamous Epith Cells Urine Bacteria Urine Casts 12/29/24 12/29/24 12/29/24 16:18 16:18 16:18 WBC RBC Hgb Hct MCV MCH MCHC RDW Plt Count MPV Immature Gran % (Auto) Neut % (Auto) Lymph % (Auto) [place] % (Auto) Eos % (Auto) Baso % (Auto) Lymph # (Auto) [place] # (Auto) Eos # (Auto) Baso # (Auto) Abs Immat Gran (auto) Absolute Neuts (auto) Absolute Nucleated RBC Nucleated RBC % PT INR APTT Sodium Potassium Chloride Carbon Dioxide Anion Gap BUN Creatinine Estim Creat Clear Calc Estimated GFR Glucose POC Capillary Glucose Calcium Magnesium Total Bilirubin AST 62 H ALT Cancelled 27 Alkaline Phosphatase Cancelled 80 Troponin I 0.015 NT-Pro-B Natriuret Pep 161 H Total Protein Cancelled Albumin TSH (Reflex) Urine Color Urine Appearance Urine pH Ur Specific [place] Urine Protein Urine Glucose (UA) Urine Ketones Ur Blood (Man) Urine Nitrate Urine Bilirubin Urine Urobilinogen Leukocyte Esterase Rfl Urine RBC Urine WBC Ur Squamous Epith Cells Urine Bacteria Urine Casts 12/29/24 12/29/24 12/29/24 16:18 16:18 17:11 WBC RBC Hgb Hct MCV MCH MCHC RDW Plt Count MPV Immature Gran % (Auto) Neut % (Auto) Lymph % (Auto) [place] % (Auto) Eos % (Auto) Baso % (Auto) Lymph # (Auto) [place] # (Auto) Eos # (Auto) Baso # (Auto) Abs Immat Gran (auto) Absolute Neuts (auto) Absolute Nucleated RBC Nucleated RBC % PT INR APTT Sodium Potassium Chloride Carbon Dioxide Anion Gap BUN Creatinine Estim Creat Clear Calc Estimated GFR Glucose POC Capillary Glucose Calcium Magnesium Total Bilirubin AST ALT Alkaline Phosphatase Troponin I NT-Pro-B Natriuret Pep Total Protein 7.1 Albumin Cancelled 4.1 TSH (Reflex) Urine Color Yellow Urine Appearance Clear Urine pH 5.5 Ur Specific [place] 1.013 Urine Protein Trace Urine Glucose (UA) Negative Urine Ketones Negative Ur Blood (Man) Negative Urine Nitrate Negative Urine Bilirubin Negative Urine Urobilinogen 0.2 Leukocyte Esterase Rfl 2+ H Urine RBC 0-2 Urine WBC 21-50 H Ur Squamous Epith Cells Occasional Urine Bacteria 4+ H Urine Casts 3-5 12/30/24 03:49 WBC 6.6 RBC 2.66 L Hgb 8.1 L Hct 26.9 L MCV 101.1 H MCH 30.5 MCHC 30.1 L RDW 15.9 H Plt Count 160 MPV 9.8 Immature Gran % (Auto) Neut % (Auto) Lymph % (Auto) [place] % (Auto) Eos % (Auto) Baso % (Auto) Lymph # (Auto) [place] # (Auto) Eos # (Auto) Baso # (Auto) Abs Immat Gran (auto) Absolute Neuts (auto) Absolute Nucleated RBC Nucleated RBC % PT INR APTT Sodium 138 Potassium 4.0 Chloride 113 H Carbon Dioxide 18 L Anion Gap 7 BUN 38 H Creatinine 1.76 H Estim Creat Clear Calc 27 Estimated GFR 28 L Glucose 98 POC Capillary Glucose Calcium 9.3 Magnesium Total Bilirubin AST ALT Alkaline Phosphatase Troponin I NT-Pro-B Natriuret Pep Total Protein Albumin TSH (Reflex) 3.150 Urine Color Urine Appearance Urine pH Ur Specific [place] Urine Protein Urine Glucose (UA) Urine Ketones Ur Blood (Man) Urine Nitrate Urine Bilirubin Urine Urobilinogen Leukocyte Esterase Rfl Urine RBC Urine WBC Ur Squamous Epith Cells Urine Bacteria Urine Casts Quality VTE Prophylaxis VTE prophylaxis: pharmacologic ordered
[2024-12-30 14:00] VITALS: BP 137/55; PULSE 86; RESP 16; TEMP 36.9; O2SAT 98
[2024-12-30] MEDS: cefTRIAXone 1 GM in SODIUM CHLORIDE 0.9% IV 50 ML 100 ML IVPB (16:59)
[2024-12-30 19:57] VITALS: BP 108/48; PULSE 83; RESP 18; TEMP 36.4; O2SAT 94
[2024-12-30] MEDS: ACETAMINOPHEN 325 MG TABLET 650 MG PO (21:07)
[2024-12-31 03:40] VITALS: BP 136/50; PULSE 74; RESP 20; TEMP 36.5; O2SAT 95
[2024-12-31 04:46] LABS: Hematocrit 26.7 % (37.0-47.0); Hemoglobin 8.1 g/dL (12.0-15.0); Immature Granulocyte Percent A 0.2 % (0-0.5); Lymphocytes Absolute Auto 1.38 K/mm3 (0.9-3.2); Mean Corpuscular HGB Conc 30.3 g/dl (32-36); Mean Corpuscular Hemoglobin 30.8 pg (26-34); Mean Corpuscular Volume 101.5 fl (80-100); Nucleated Red Blood Cells Absolute Auto 0.000 K/mm3 (0.0-0.012); Nucleated Red Blood Cells Perc 0.0 % (0.0-0.2); Platelet Count Result 164 k/mm3 (150-375); Red Blood Count 2.63 M/mm3 (4.2-5.4); White Blood Count 5.7 K/mm3 (4.5-10.0)
[2024-12-31 05:13] LABS: Alanine Aminotransferase 20 U/L (6-35); Albumin Level 3.2 g/dL (3.5-5.1); Alkaline Phosphatase 70 U/L (38-126); Anion Gap 3 mmol/L (4-12); Aspartate Amino Transferase 42 U/L (14-36); Bilirubin,Total 0.2 mg/dL (0.2-1.3); Blood Urea Nitrogen 30 mg/dL (7-17); Calcium 9.4 mg/dL (8.4-10.2); Carbon Dioxide 23 mmol/L (22-30); Chloride 112 mmol/L (98-107); Estimated CRCL calculation 33 ml/min; Estimated Glomerular Filt Rate 35; Glucose 80 mg/dL (65-110); Magnesium 1.7 mg/dL (1.6-2.3); Potassium 4.1 mmol/L (3.4-5.0); Sodium 138 mmol/L (137-145); Total Protein 5.8 g/dL (6.3-8.2)
[2024-12-31] MEDS: LEVOTHYROXINE SODIUM 50 MCG TABLET PO (05:24)
[2024-12-31 08:20] VITALS: BP 141/51; PULSE 86; RESP 20; O2SAT 96
[2024-12-31 08:24] VITALS: PULSE 74; RESP 20; O2SAT 95
[2024-12-31] MEDS: MAGNESIUM OXIDE 400 MG TABLET PO (08:24)
[2024-12-31] MEDS: APIXABAN 5 MG TABLET PO ×2 (08:24→20:12)
[2024-12-31] MEDS: CYANOCOBALAMIN 500 MCG TABLET PO (08:24)
[2024-12-31] MEDS: GABAPENTIN 300 MG CAPSULE PO ×3 (08:24→17:41)
[2024-12-31] MEDS: ASCORBIC ACID 500 MG TABLET PO (08:25)
[2024-12-31] MEDS: CITALOPRAM HYDROBROMIDE 10 MG TABLET PO (08:25)
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
[2024-12-31 13:07] VITALS: BMI 37.3
[2024-12-31 14:00] VITALS: BP 115/44; PULSE 73; RESP 18; TEMP 36.2; O2SAT 98
--- NOTE | 2024-12-31 14:08 | PC.NURSE ---
On 12/31/24, the student, [Alisa Powers], provided care and completed [facility] documentation on this patient. I have reviewed the student's documentation and agree with the findings.
[2024-12-31] MEDS: cefTRIAXone 1 GM in SODIUM CHLORIDE 0.9% IV 50 ML 100 ML IVPB (17:03)
[2024-12-31 20:00] VITALS: PULSE 72; RESP 20; O2SAT 97
[2024-12-31 20:42] VITALS: BP 133/52; PULSE 72; RESP 20; TEMP 36.3; O2SAT 97
[2025-01-01 03:36] VITALS: BP 168/66; PULSE 78; RESP 20; TEMP 36.9; O2SAT 98
[2025-01-01 04:56] LABS: Hematocrit 28.7 % (37.0-47.0); Hemoglobin 8.7 g/dL (12.0-15.0); Immature Granulocyte Percent A 0.6 % (0-0.5); Lymphocytes Absolute Auto 1.28 K/mm3 (0.9-3.2); Mean Corpuscular HGB Conc 30.3 g/dl (32-36); Mean Corpuscular Hemoglobin 30.9 pg (26-34); Mean Corpuscular Volume 101.8 fl (80-100); Nucleated Red Blood Cells Absolute Auto 0.000 K/mm3 (0.0-0.012); Nucleated Red Blood Cells Perc 0.0 % (0.0-0.2); Platelet Count Result 161 k/mm3 (150-375); Red Blood Count 2.82 M/mm3 (4.2-5.4); White Blood Count 6.4 K/mm3 (4.5-10.0)
[2025-01-01 05:11] LABS: Alanine Aminotransferase 28 U/L (6-35); Albumin Level 3.5 g/dL (3.5-5.1); Alkaline Phosphatase 87 U/L (38-126); Anion Gap 6 mmol/L (4-12); Aspartate Amino Transferase 55 U/L (14-36); Bilirubin,Total 0.3 mg/dL (0.2-1.3); Blood Urea Nitrogen 26 mg/dL (7-17); Calcium 9.6 mg/dL (8.4-10.2); Carbon Dioxide 23 mmol/L (22-30); Chloride 107 mmol/L (98-107); Estimated CRCL calculation 35 ml/min; Estimated Glomerular Filt Rate 37; Glucose 97 mg/dL (65-110); Magnesium 1.6 mg/dL (1.6-2.3); Potassium 4.0 mmol/L (3.4-5.0); Sodium 136 mmol/L (137-145); Total Protein 6.3 g/dL (6.3-8.2)
[2025-01-01] MEDS: LEVOTHYROXINE SODIUM 50 MCG TABLET PO (05:18)
[2025-01-01 09:15] VITALS: BP 129/52; PULSE 89; RESP 16; TEMP 36.4; O2SAT 98
[2025-01-01 09:17] VITALS: PULSE 89; RESP 16; O2SAT 98
[2025-01-01] MEDS: GABAPENTIN 300 MG CAPSULE PO ×3 (09:17→16:20)
[2025-01-01] MEDS: CITALOPRAM HYDROBROMIDE 10 MG TABLET PO (09:17)
[2025-01-01] MEDS: CYANOCOBALAMIN 500 MCG TABLET PO (09:17)
[2025-01-01] MEDS: MAGNESIUM OXIDE 400 MG TABLET PO (09:17)
[2025-01-01] MEDS: APIXABAN 5 MG TABLET PO ×2 (09:17→21:06)
[2025-01-01] MEDS: ASCORBIC ACID 500 MG TABLET PO (09:17)
[2025-01-01] MEDS: TAMSULOSIN HCL 0.4 MG CAPSULE PO (09:19)
--- NOTE | 2025-01-01 12:35 | P.PNIM_ITS ---
Progress Note: A&P Assessment and Plan (1) Hypothyroidism: Code(s): E03.9 - Hypothyroidism, unspecified Status: Acute (2) Acute kidney injury superimposed on chronic kidney disease: Code(s): N17.9 - Acute kidney failure, unspecified; N18.9 - Chronic kidney disease, unspecified Status: Acute (3) Urinary retention: Code(s): R33.9 - Retention of urine, unspecified Status: Acute (4) UTI (urinary tract infection): Qualifiers: Hematuria presence: without hematuria Urinary tract infection type: acute cystitis Qualified Code(s): N30.00 - Acute cystitis without hematuria Code(s): N39.0 - Urinary tract infection, site not specified Status: Acute Plan 84-year-old female with past medical history of prior CVA, dementia with behaviors, chronic kidney disease stage 4, gout, hypothyroidism who presented from [facility] via EMS due to increased weakness. 1. Generalized weakness: Likely secondary to UTI Physical deconditioning PT/OT as tolerated 2. UTI: Continue with ceftriaxone Await urine culture 3. Urinary retention: Peterson was placed Will start on Flomax Will try to do voiding trial with removal of Peterson tomorrow 4. KEKE on pre-existing CKD: Improving kidney function Likely close to baseline Avoid nephrotoxins Recheck BMP in a.m. 5. History of vascular dementia: Monitor Treat supportively 6. DVT prophylaxis: On Eliquis 7. Code status: DNR 8. Disposition: Pending improvement, await urine culture to finalize Time Spent With Patient Time: 38 minutes Subjective Date/time seen: 01/01/25 12:35 Interval history: No acute events overnight Review of Systems Review of Systems: All systems reviewed & are unremarkable except as noted in HPI and below Exam Narrative: GENERAL: Elderly, non-toxic, in no acute distress. HEAD: Normocephalic, atraumatic. RESPIRATORY: Airway patent, respirations nonlabored. Clear to auscultation bilaterally, no rales, rhonchi, wheezing. CARDIOVASCULAR: Regular rate and rhythm without murmurs, rubs, or gallops. MUSCULOSKELETAL: Moves all extremities. No gross deformities. Trace edema SKIN: Warm, dry, normal color. NEURO: A&O X 1, Speech clear. No ataxic movements. No appreciable focal deficits PSYCHIATRIC: Normal mood. Normal interaction Objective Data Vital Signs Vital Signs: Vital Signs - 24 hr 12/31/24 12:37 12/31/24 14:00 12/31/24 20:00 Temperature 97.2 F L Pulse Rate 73 72 Respiratory Rate 18 20 Blood Pressure 115/44 L Pulse Oximetry 98 97 Oxygen Delivery Room Air Room Air 12/31/24 20:42 01/01/25 03:36 01/01/25 09:15 Temperature 97.3 F L 98.4 F 97.5 F L Pulse Rate 72 78 89 Respiratory Rate 20 20 16 Blood Pressure 133/52 L 168/66 H 129/52 L Pulse Oximetry 97 98 98 Oxygen Delivery 01/01/25 09:17 Temperature Pulse Rate 89 Respiratory Rate 16 Blood Pressure Pulse Oximetry 98 Oxygen Delivery Room Air Intake/Output Intake/Output: Intake & Output 12/29/24 12/30/24 12/31/24 01/01/25 23:59 23:59 23:59 23:59 Intake Total 7687 756 1293 770 Output Total 400 2700 1850 800 Balance 650 -2260 -730 -30 Meds/Results Medications: Active Medications Generic Name Dose Route Start Last Admin Trade Name Freq PRN Reason Stop Dose Admin Acetaminophen 650 mg 12/29/24 20:29 12/30/24 21:07 Acetaminophen 325 Mg Tablet PO 650 mg Q4H PRN Administration Mild Pain (1-3) or Fever Allopurinol 100 mg 12/30/24 08:00 01/01/25 09:17 Allopurinol 100 Mg Tablet PO 100 mg DAILY@0800 RINA Administration Amlodipine Besylate 5 mg 12/30/24 09:00 01/01/25 09:17 Amlodipine Besylate 5 Mg Tablet PO 5 mg DAILY RINA Administration Apixaban 5 mg 12/30/24 21:00 01/01/25 09:17 Apixaban 5 Mg Tablet PO 5 mg Q12HR RINA Administration Aripiprazole 5 mg 12/30/24 09:00 01/01/25 09:17 Aripiprazole 5 Mg Tablet PO 5 mg DAILY RINA Administration Ascorbic Acid 500 mg 12/30/24 09:00 01/01/25 09:17 Ascorbic Acid 500 Mg Tablet PO 500 mg DAILY RINA Administration Citalopram Hydrobromide 10 mg 12/30/24 09:00 01/01/25 09:17 Citalopram Hydrobromide 10 Mg Tablet PO 10 mg DAILY RINA Administration Cyanocobalamin 500 mcg 12/30/24 09:00 01/01/25 09:17 Cyanocobalamin 500 Mcg Tablet PO 500 mcg QAM RINA Administration Dextrose 12.5 gm 12/29/24 20:34 Dextrose 50% 25 Gm/50 Ml Syringe IV PUSH PRN PRN Hypoglycemia Protocol Gabapentin 300 mg 12/29/24 23:40 01/01/25 12:04 Gabapentin 300 Mg Capsule PO 300 mg TID RINA Administration Glucagon 1 mg 12/29/24 20:34 Glucagon For Inj 1 Mg Vial IM PRN PRN Hypoglycemia Protocol Glucose 15 gm 12/29/24 20:34 Glucose Oral Gel 15 Gm Of Glucse In 37.5 Gm Tube PO PRN PRN Hypoglycemia Protocol Dextrose 1,000 mls @ 100 mls/hr 12/29/24 20:34 Dextrose 5% 1,000 Ml IVPB PRN PRN Hypoglycemia Protocol Ceftriaxone Sodium 1 gm/ 50 mls @ 100 mls/hr 12/30/24 18:00 12/31/24 17:33 Sodium Chloride IVPB Infused Q24H RINA Infusion Levothyroxine Sodium 50 mcg 12/30/24 06:30 01/01/25 05:18 Levothyroxine Sodium 50 Mcg Tablet PO 50 mcg DAILY@0630 RINA Administration Magnesium Oxide 400 mg 12/30/24 09:00 01/01/25 09:17 Magnesium Oxide 400 Mg Tablet PO 400 mg QAM RINA Administration Ondansetron HCl 4 mg 12/29/24 20:29 Ondansetron Inj 4 Mg/2 Ml Vial IV PUSH Q4H PRN Nausea Tamsulosin HCl 0.4 mg 01/01/25 09:00 01/01/25 09:19 Tamsulosin Hcl 0.4 Mg Capsule PO 0.4 mg QAM RINA Administration Radiology Results: ITS Impressions Head CT 12/29/24 16:03 IMPRESSION: 1. 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 No acute intracranial process 2. Age-related changes including moderate diffuse volume loss and moderate scattered white matter hypoattenuation consistent with chronic small vessel ischemic disease. Chest X-Ray 12/29/24 16:42 IMPRESSION: 1. No acute cardiopulmonary disease. Labs Labs: Laboratory Results - last 24 hr 01/01/25 04:26 WBC 6.4 RBC 2.82 L Hgb 8.7 L Hct 28.7 L MCV 101.8 H MCH 30.9 MCHC 30.3 L RDW 15.9 H Plt Count 161 MPV 10.1 Immature Gran % (Auto) 0.6 H Neut % (Auto) 64.0 Lymph % (Auto) 20.1 [place] % (Auto) 11.5 H Eos % (Auto) 3.3 Baso % (Auto) 0.5 Lymph # (Auto) 1.28 [place] # (Auto) 0.7 H Eos # (Auto) 0.2 Baso # (Auto) 0.0 Abs Immat Gran (auto) 0.04 H Absolute Neuts (auto) 4.1 Absolute Nucleated RBC 0.000 Nucleated RBC % 0.0 Sodium 136 L Potassium 4.0 Chloride 107 Carbon Dioxide 23 Anion Gap 6 BUN 26 H Creatinine 1.38 H Estim Creat Clear Calc 35 Estimated GFR 37 L Glucose 97 Calcium 9.6 Magnesium 1.6 Total Bilirubin 0.3 AST 55 H ALT 28 Alkaline Phosphatase 87 Total Protein 6.3 Albumin 3.5 Quality VTE Prophylaxis VTE prophylaxis: pharmacologic ordered
[2025-01-01 13:51] VITALS: BP 122/42; PULSE 79; RESP 14; TEMP 36.7; O2SAT 100
[2025-01-01] MEDS: ACETAMINOPHEN 325 MG TABLET 650 MG PO (16:22)
[2025-01-01] MEDS: cefTRIAXone 1 GM in SODIUM CHLORIDE 0.9% IV 50 ML 100 ML IVPB (17:36)
[2025-01-01 19:53] VITALS: PULSE 79; RESP 14; O2SAT 100
[2025-01-01 20:05] VITALS: BP 117/53; PULSE 76; RESP 18; TEMP 36.6; O2SAT 97
[2025-01-02 04:59] VITALS: BP 131/51; PULSE 67; RESP 18; TEMP 37.1; O2SAT 95
[2025-01-02 04:59] LABS: Hematocrit 28.6 % (37.0-47.0); Hemoglobin 8.8 g/dL (12.0-15.0); Immature Granulocyte Percent A 0.5 % (0-0.5); Lymphocytes Absolute Auto 1.08 K/mm3 (0.9-3.2); Mean Corpuscular HGB Conc 30.8 g/dl (32-36); Mean Corpuscular Hemoglobin 30.9 pg (26-34); Mean Corpuscular Volume 100.4 fl (80-100); Nucleated Red Blood Cells Absolute Auto 0.000 K/mm3 (0.0-0.012); Nucleated Red Blood Cells Perc 0.0 % (0.0-0.2); Platelet Count Result 179 k/mm3 (150-375); Red Blood Count 2.85 M/mm3 (4.2-5.4); White Blood Count 6.6 K/mm3 (4.5-10.0)
[2025-01-02 05:20] LABS: Alanine Aminotransferase 35 U/L (6-35); Albumin Level 3.6 g/dL (3.5-5.1); Alkaline Phosphatase 83 U/L (38-126); Anion Gap 6 mmol/L (4-12); Aspartate Amino Transferase 58 U/L (14-36); Bilirubin,Total 0.4 mg/dL (0.2-1.3); Blood Urea Nitrogen 29 mg/dL (7-17); Calcium 9.7 mg/dL (8.4-10.2); Carbon Dioxide 25 mmol/L (22-30); Chloride 104 mmol/L (98-107); Estimated CRCL calculation 36 ml/min; Estimated Glomerular Filt Rate 38; Glucose 106 mg/dL (65-110); Magnesium 1.6 mg/dL (1.6-2.3); Potassium 4.1 mmol/L (3.4-5.0); Sodium 135 mmol/L (137-145); Total Protein 6.5 g/dL (6.3-8.2)
[2025-01-02] MEDS: ACETAMINOPHEN 325 MG TABLET 650 MG PO ×2 (06:28→17:38)
[2025-01-02] MEDS: LEVOTHYROXINE SODIUM 50 MCG TABLET PO (06:29)
--- NOTE | 2025-01-02 07:06 | P.PNIM_ITS ---
Progress Note: A&P Assessment and Plan (1) Hypothyroidism: Code(s): E03.9 - Hypothyroidism, unspecified Status: Acute (2) Acute kidney injury superimposed on chronic kidney disease: Code(s): N17.9 - Acute kidney failure, unspecified; N18.9 - Chronic kidney disease, unspecified Status: Acute (3) Urinary retention: Code(s): R33.9 - Retention of urine, unspecified Status: Acute (4) UTI (urinary tract infection): Qualifiers: Hematuria presence: without hematuria Urinary tract infection type: acute cystitis Qualified Code(s): N30.00 - Acute cystitis without hematuria Code(s): N39.0 - Urinary tract infection, site not specified Status: Acute Plan 84-year-old female with past medical history of prior CVA, dementia with behaviors, chronic kidney disease stage 4, gout, hypothyroidism who presented from [facility] via EMS due to increased weakness. 1. Generalized weakness: Likely secondary to UTI Physical deconditioning PT/OT as tolerated Plan to return to LTC as patient is out of SNF days per care coordination notes 2. UTI: Continue with ceftriaxone gram negative bacilli isolated on urine culture, await final ID and sensitivities Await urine culture 3. Urinary retention: Pedroza was placed on admission Was started on Flomax, will continue for now Will try to do voiding trial with removal of Pedroza catheter today 4. KEKE on pre-existing CKD: Improving kidney function Appears close to baseline Avoid nephrotoxins BMP in a.m. 5. History of vascular dementia: Monitor Treat supportively 6. DVT prophylaxis: On Eliquis 7. Code status: DNR 8. Disposition: Pending improvement, await urine culture to finalize Subjective Date/time seen: 01/02/25 07:06 Interval history: Patient is a 84 year old female with PMH of prior CVA, demential with behaviors, CKD stage 4 and hypothyroidism. 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 Patient was admitted due to generalized weakness, UTI, urinary retention. Patient was given IV fluids with noted improvement of her kidney function to baseline. Patient has been on IV ceftriaxone while awaiting urine culture results. Patient has had a pedroza catheter in place for urinary retention and was started on Flomax. Patient seen today sitting up in a chair, in no acute distress. Plan to remove patient's pedroza catheter and attempt voiding trial today. Continue IV ceftriaxone while awaiting final urine culture results. Plan will be for patient to discharge back to nursing home care once ready. Review of Systems Review of Systems: Review of systems unobtainable due to patient's dementia. All systems reviewed & are unremarkable except as noted in HPI and below Exam Narrative: General: well appearing, appears stated age. HEENT: normocephalic, . Mucous membranes moist. EOMI Respiratory: clear to ascultation bilaterally. No rales/rhonic/wheezes. Cardiovascular: Regular rate and rhythm, normal S1-S2 upon ascultation. No mur murs, rubs, or clicks. Abdomen: Soft, round, no pulsatile masses, nondistended and nontender. No rebound, no guarding. Bowel sounds present to all four quadrants Extremities: No cyanosis, clubbing. 1+ edema to BLE. Neuro: Alert and orientated x 1 to self, baseline dementia Skin: Warm, dry, and intact, without rash, erythema, or lesion.? Psych: pleasant, cooperative, normal speech, normal affect Objective Data Vital Signs Vital Signs: Vital Signs - 24 hr 01/01/25 09:15 01/01/25 09:17 01/01/25 13:51 Temperature 97.5 F L 98.1 F Pulse Rate 89 89 79 Respiratory Rate 16 16 14 Blood Pressure 129/52 L 122/42 L Pulse Oximetry 98 98 100 Oxygen Delivery Room Air 01/01/25 19:53 01/01/25 20:05 01/02/25 04:59 Temperature 97.9 F 98.8 F Pulse Rate 79 76 67 Respiratory Rate 14 18 18 Blood Pressure 117/53 L 131/51 L Pulse Oximetry 100 97 95 Oxygen Delivery Room Air Intake/Output Intake/Output: Intake & Output 12/30/24 12/31/24 01/01/25 01/02/25 23:59 23:59 23:59 23:59 Intake Total 440 1120 1580 500 Output Total 2700 0810 7491 625 Balance -2260 -730 -920 -350 Meds/Results Medications: Active Medications Generic Name Dose Route Start Last Admin Trade Name Freq PRN Reason Stop Dose Admin Acetaminophen 650 mg 12/29/24 20:29 01/02/25 06:28 Acetaminophen 325 Mg Tablet PO 650 mg Q4H PRN Administration Mild Pain (1-3) or Fever Allopurinol 100 mg 12/30/24 08:00 01/01/25 09:17 Allopurinol 100 Mg Tablet PO 100 mg DAILY@0800 RINA Administration Amlodipine Besylate 5 mg 12/30/24 09:00 01/01/25 09:17 Amlodipine Besylate 5 Mg Tablet PO 5 mg DAILY RINA Administration Apixaban 5 mg 12/30/24 21:00 01/01/25 21:06 Apixaban 5 Mg Tablet PO 5 mg Q12HR RINA Administration Aripiprazole 5 mg 12/30/24 09:00 01/01/25 09:17 Aripiprazole 5 Mg Tablet PO 5 mg DAILY RINA Administration Ascorbic Acid 500 mg 12/30/24 09:00 01/01/25 09:17 Ascorbic Acid 500 Mg Tablet PO 500 mg DAILY RINA Administration Citalopram Hydrobromide 10 mg 12/30/24 09:00 01/01/25 09:17 Citalopram Hydrobromide 10 Mg Tablet PO 10 mg DAILY RINA Administration Cyanocobalamin 500 mcg 12/30/24 09:00 01/01/25 09:17 Cyanocobalamin 500 Mcg Tablet PO 500 mcg QAM RINA Administration Dextrose 12.5 gm 12/29/24 20:34 Dextrose 50% 25 Gm/50 Ml Syringe IV PUSH PRN PRN Hypoglycemia Protocol Gabapentin 300 mg 12/29/24 23:40 01/01/25 16:20 Gabapentin 300 Mg Capsule PO 300 mg TID RINA Administration Glucagon 1 mg 12/29/24 20:34 Glucagon For Inj 1 Mg Vial IM PRN PRN Hypoglycemia Protocol Glucose 15 gm 12/29/24 20:34 Glucose Oral Gel 15 Gm Of Glucse In 37.5 Gm Tube PO PRN PRN Hypoglycemia Protocol Dextrose 1,000 mls @ 100 mls/hr 12/29/24 20:34 Dextrose 5% 1,000 Ml IVPB PRN PRN Hypoglycemia Protocol Ceftriaxone Sodium 1 gm/ 50 mls @ 100 mls/hr 12/30/24 18:00 01/01/25 18:06 Sodium Chloride IVPB Infused Q24H RINA Infusion Levothyroxine Sodium 50 mcg 12/30/24 06:30 01/02/25 06:29 Levothyroxine Sodium 50 Mcg Tablet PO 50 mcg DAILY@0630 RINA Administration Magnesium Oxide 400 mg 12/30/24 09:00 01/01/25 09:17 Magnesium Oxide 400 Mg Tablet PO 400 mg QAM RINA Administration Ondansetron HCl 4 mg 12/29/24 20:29 Ondansetron Inj 4 Mg/2 Ml Vial IV PUSH Q4H PRN Nausea Tamsulosin HCl 0.4 mg 01/01/25 09:00 01/01/25 09:19 Tamsulosin Hcl 0.4 Mg Capsule PO 0.4 mg QAM RINA Administration Radiology Results: ITS Impressions Head CT 12/29/24 16:03 IMPRESSION: 1. 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 No acute intracranial process 2. Age-related changes including moderate diffuse volume loss and moderate scattered white matter hypoattenuation consistent with chronic small vessel ischemic disease. Chest X-Ray 12/29/24 16:42 IMPRESSION: 1. No acute cardiopulmonary disease. Labs Labs: Laboratory Results - last 24 hr 01/02/25 04:08 WBC 6.6 RBC 2.85 L Hgb 8.8 L Hct 28.6 L MCV 100.4 H MCH 30.9 MCHC 30.8 L RDW 15.7 H Plt Count 179 MPV 10.6 H Immature Gran % (Auto) 0.5 Neut % (Auto) 69.6 Lymph % (Auto) 16.3 L [place] % (Auto) 9.8 H Eos % (Auto) 3.5 Baso % (Auto) 0.3 Lymph # (Auto) 1.08 [place] # (Auto) 0.7 H Eos # (Auto) 0.2 Baso # (Auto) 0.0 Abs Immat Gran (auto) 0.03 Absolute Neuts (auto) 4.6 Absolute Nucleated RBC 0.000 Nucleated RBC % 0.0 Sodium 135 L Potassium 4.1 Chloride 104 Carbon Dioxide 25 Anion Gap 6 BUN 29 H Creatinine 1.34 H Estim Creat Clear Calc 36 Estimated GFR 38 L Glucose 106 Calcium 9.7 Magnesium 1.6 Total Bilirubin 0.4 AST 58 H ALT 35 Alkaline Phosphatase 83 Total Protein 6.5 Albumin 3.6 Quality VTE Prophylaxis VTE prophylaxis: pharmacologic ordered
[2025-01-02] MEDS: MAGNESIUM OXIDE 400 MG TABLET PO (09:07)
[2025-01-02] MEDS: ASCORBIC ACID 500 MG TABLET PO (09:07)
[2025-01-02] MEDS: APIXABAN 5 MG TABLET PO ×2 (09:07→20:40)
[2025-01-02] MEDS: TAMSULOSIN HCL 0.4 MG CAPSULE PO (09:07)
[2025-01-02] MEDS: CYANOCOBALAMIN 500 MCG TABLET PO (09:07)
[2025-01-02] MEDS: GABAPENTIN 300 MG CAPSULE PO ×3 (09:07→17:02)
[2025-01-02] MEDS: CITALOPRAM HYDROBROMIDE 10 MG TABLET PO (09:07)
[2025-01-02 14:00] VITALS: BP 132/59; PULSE 93; RESP 16; TEMP 36.2; O2SAT 90
[2025-01-02] MEDS: cefTRIAXone 1 GM in SODIUM CHLORIDE 0.9% IV 50 ML 100 ML IVPB (17:02)
[2025-01-02 19:58] VITALS: BP 151/72; PULSE 95; RESP 18; TEMP 36.8; O2SAT 94
[2025-01-03 04:52] VITALS: BP 150/90; PULSE 86; RESP 17; TEMP 36.8; O2SAT 94
[2025-01-03 05:02] LABS: Hematocrit 28.3 % (37.0-47.0); Hemoglobin 8.7 g/dL (12.0-15.0); Immature Granulocyte Percent A 0.3 % (0-0.5); Lymphocytes Absolute Auto 1.22 K/mm3 (0.9-3.2); Mean Corpuscular HGB Conc 30.7 g/dl (32-36); Mean Corpuscular Hemoglobin 30.7 pg (26-34); Mean Corpuscular Volume 100.0 fl (80-100); Nucleated Red Blood Cells Absolute Auto 0.000 K/mm3 (0.0-0.012); Nucleated Red Blood Cells Perc 0.0 % (0.0-0.2); Platelet Count Result 175 k/mm3 (150-375); Red Blood Count 2.83 M/mm3 (4.2-5.4); White Blood Count 6.4 K/mm3 (4.5-10.0)
[2025-01-03 05:17] LABS: Alanine Aminotransferase 28 U/L (6-35); Albumin Level 3.5 g/dL (3.5-5.1); Alkaline Phosphatase 79 U/L (38-126); Anion Gap 5 mmol/L (4-12); Aspartate Amino Transferase 38 U/L (14-36); Bilirubin,Total 0.2 mg/dL (0.2-1.3); Blood Urea Nitrogen 31 mg/dL (7-17); Calcium 9.8 mg/dL (8.4-10.2); Carbon Dioxide 25 mmol/L (22-30); Chloride 108 mmol/L (98-107); Estimated CRCL calculation 33 ml/min; Estimated Glomerular Filt Rate 35; Glucose 97 mg/dL (65-110); Magnesium 1.7 mg/dL (1.6-2.3); Potassium 4.3 mmol/L (3.4-5.0); Sodium 138 mmol/L (137-145); Total Protein 6.2 g/dL (6.3-8.2)
[2025-01-03] MEDS: LEVOTHYROXINE SODIUM INJ 100 MCG/5 ML VIAL 25 MCG IV PUSH (06:10)
[2025-01-03] MEDS: GABAPENTIN 300 MG CAPSULE PO ×2 (10:23→12:24)
[2025-01-03] MEDS: APIXABAN 5 MG TABLET PO (10:23)
[2025-01-03] MEDS: MAGNESIUM OXIDE 400 MG TABLET PO (10:23)
[2025-01-03] MEDS: TAMSULOSIN HCL 0.4 MG CAPSULE PO (10:24)
[2025-01-03] MEDS: CYANOCOBALAMIN 500 MCG TABLET PO (10:24)
[2025-01-03] MEDS: CITALOPRAM HYDROBROMIDE 10 MG TABLET PO (10:24)
[2025-01-03] MEDS: ASCORBIC ACID 500 MG TABLET PO (10:24)
--- NOTE | 2025-01-03 10:37 | PC.NURSE ---
Patient would not take medications for RN this morning. RN tried two more times and was successful with PT. Medications were given late.
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
== END 2025-01-03 14:20 | DRG 683 ==
LOC: ANHED 15:44 → ANH2MED 21:00
PROVIDERS: Nurse Practitioner Family; Admitting Provider Internal Medicine; Emergency Provider Physician Assistant; PCP Internal Medicine; Visit Provider Physician Assistant
DX: N17.9 Acute kidney failure, unspecified (principal); F01.B3 Vascular dementia, moderate, with mood disturbance; N30.00 Acute cystitis without hematuria; N18.4 Chronic kidney disease, stage 4 (severe); I12.9 Hypertensive chronic kidney disease with stage 1 through stage 4 chronic kidney disease, or unspecified chronic kidney disease; R33.9 Retention of urine, unspecified; R53.1 Weakness; E03.9 Hypothyroidism, unspecified; M10.9 Gout, unspecified; E78.5 Hyperlipidemia, unspecified; D64.9 Anemia, unspecified; Z66 Do not resuscitate; Z79.01 Long term (current) use of anticoagulants; Z79.899 Other long term (current) drug therapy; Z86.73 Personal history of transient ischemic attack (TIA), and cerebral infarction without residual deficits; Z96.641 Presence of right artificial hip joint
CPT/HCPCS: 36415; 70450; 71046; 80048; 80053; 81001; 82948; 83735; 83880; 84443; 84484; 85025; 85027; 85610; 85730; 87086; 87186; 96361; 96365; 96375; 97110; 97116; 97161; 97165; 97530; 99285; A9270; G0378; J0650; J0696; J7030

== ENCOUNTER 2025-03-16 18:46 | Inpatient (IN) | payer MEDICARE, SELFPAY ==
--- OUTSIDE RECORDS SUMMARY | 1999-07-26 03:00 | XMS_ITS | Continuity of Care Document ---
Author Organization [facility] Address [address] [place] [address] [address] [place] [address] Phone Care Team Providers Care Scrap Sorter Name Role Phone Doisy, Edward Unavailable Unavailable Advance Directives Directive Yes / No Effective Date File Name No Information Encounters Encounter Description Practice Location Reason(s) For Visit Diagnoses Date Provider Providers Copied on Encounter [facility], [address], [place], [place], [id number], [place] tel:[phone] [facility] No Information Mar-2 7-200 0 Doisy Edward. [address] [facility] , [address], [place], [address], [place]. tel:[phone] Family History Family Member Type Diagnosis Age At Onset No Information Payers Payer name Insurance type Covered democrat ID Authoriza tion(s) No Information Social History Type Description Quantity Date Captured Comments Sex Female Smoking Status No Information Chief Complaint And Reason For Visit No Information Reason For Referral Reason For Referral No Information History Of Present Illness Encounter Date Complaint History Of Prese nt Illness No Information Functional Status Date Functional Assessmen t No Information Instructions Date Instruction Additional Infor mation No Information Assessments Type Assessment Date No Information Patient Care Teams Name Effective Dates (start - stop) Status Members No Information
--- OUTSIDE RECORDS SUMMARY | 1999-07-26 03:00 | XMS_ITS | Continuity of Care Document ---
Author Organization [facility] Address [address] [place] [address] [address] [place] [address] Phone Care Team Providers Care Boilermaker Name Role Phone Doisy, Edward Unavailable Unavailable Advance Directives Directive Yes / No Effective Date File Name No Information Encounters Encounter Description Practice Location Reason(s) For Visit Diagnoses Date Provider Providers Copied on Encounter [facility], [address], [place], [place], [id number], [place] tel:[phone] [facility] No Information Mar-2 7-200 0 Doisy Edward. [address] [facility] , [address], [place], [address], [place]. tel:[phone] Family History Family Member Type Diagnosis Age At Onset No Information Payers Payer name Insurance type Covered libertarian ID Authoriza tion(s) No Information Social History [...]
--- OUTSIDE RECORDS SUMMARY | 1999-07-26 03:00 | XMS_ITS | Continuity of Care Document ---
Author Organization [facility] Address [address] [place] [address] [address] [place] [address] Phone Care Team Providers Care Telephone Collector Name Role Phone Doisy, Edward Unavailable Unavailable Advance Directives Directive Yes / No Effective Date File Name No Information Encounters Encounter Description Practice Location Reason(s) For Visit Diagnoses Date Provider Providers Copied on Encounter [facility], [address], [place], [place], [id number], [place] tel:[phone] [facility] No Information Mar-2 7-200 0 Doisy Edward. [address] [facility] , [address], [place], [address], [place]. tel:[phone] Family History Family Member Type Diagnosis Age [...]
[2025-03-16] VITALS (31 sets, daily range): BP systolic 130–194; BP diastolic 54–116; PULSE 80–104; RESP 12–38; TEMP 36.5; O2SAT 72–100
--- NOTE | ~2025-03-16 | XR_ITS ---
EXAM/PROCEDURE: XR pelvis 1-2V HISTORY: unsuccessful reduction COMPARISON: X-rays same date at 7:39 PM TECHNIQUE: Single frontal view of the right hip FINDINGS: The right femoral head component of right total hip arthroplasty hardware is dislocated superiorly. No definite fracture seen. IMPRESSION: As above. Reviewed, dictated and finalized at location A. DING ENERGY RETROFIT TECHNICIAN IMPRESSION: As above.
--- NOTE | ~2025-03-16 | XR_ITS ---
EXAM/PROCEDURE: XR fluoroscopy no charge HISTORY: CLOSED REDUCTION RIGHT HIP; UNSUCCESSFUL COMPARISON: None available. TECHNIQUE: Fluoroscopic image for hip dislocation Fluoroscopy time: 3 minutes 12 seconds DAP: 18.535 Melvin per square centimeter Number of images: 1 IMPRESSION: Fluoroscopic guidance for right hip dislocation. See procedure/operative notes for complete evaluation. AL CONSUMER SECTOR VICE PRESIDENT Reviewed, dictated and finalized at location A.
--- NOTE | ~2025-03-16 | XR_ITS ---
EXAMINATION: XR knee RT 3V DATE: 03/16/2025 22:27 INDICATION: Injury TECHNIQUE: Right femur were obtained. COMPARISON: None. IMPRESSION: 1. No displaced fracture lucency, subluxation or dislocation seen. 2. No radiopaque suspicious foreign body. Reviewed, dictated and finalized at location A. R'S ASSISTANT
--- NOTE | ~2025-03-16 | XR_ITS ---
EXAMINATION: XR chest 1V, 03/16/2025 19:42 GAS REGULATOR REPAIRER HISTORY: Fall COMPARISON: No comparisons available. Technique: Single view. Findings: Mild pulmonary venous congestion. No pneumothorax. Mild cardiomegaly. Mediastinal and hilar contours are within normal limits. Bony thorax no acute abnormality. Impression: Mild CHF Reviewed, dictated and finalized at location P. REGULATOR REPAIRER Impression: Mild CHF
--- NOTE | ~2025-03-16 | XR_ITS ---
EXAMINATION: XR femur RT min 2V DATE: 03/16/2025 22:27 INDICATION: Injury TECHNIQUE: Right hip x-rays were obtained. COMPARISON: None. IMPRESSION: Right total hip arthroplasty hardware with superior and posterior dislocated femoral head component. No definite fracture seen. Reviewed, dictated and finalized at location A. ES 1 THRU 6 VISITING TEACHER IMPRESSION: Right total hip arthroplasty hardware with superior and posterior d islocated femoral head component. No definite fracture seen.
--- NOTE | ~2025-03-16 | XR_ITS ---
EXAMINATION: XR hip RT 2V w AP pelvis, 03/16/2025 19:42 GOLF BALL COVER TREATER HISTORY: Fall, R hip pain COMPARISON: No comparisons available. Findings: Arthroplasty noted, the femoral component is dislocated superiorly. There is no fracture identified. No significant degenerative changes. Soft tissues unremarkable. Impression: Dislocation detailed above Reviewed, dictated and finalized at location P. BALL COVER TREATER Impression: Dislocation detailed above
--- NOTE | 2025-03-16 19:24 | ED.GENADULT ---
HPI - General Adult General Chief complaint: Extremity Injury, Lower Stated complaint: R HIP PAIN S/P FALL; Hx THR Time Seen by Provider: 03/16/25 18:49 History of Present Illness HPI narrative: This is a 85-year-old female presenting after a ground level fall. Patient was walking with her walker when her right leg gave out. She then fell onto it. She struck her head with consciousness. She now has significant pain in right hip and cannot walk. She denies any other complaints such as fevers chills headache chest pain difficulty breathing abdominal pain nausea vomiting diarrhea or urinary symptoms. Related Data Home Medications ?Medication ?Instructions ?Recorded ?Confirmed ?Last Taken ?Type allopurinol 300 mg tablet 300 mg PO DAILY 07/09/24 12/29/24 07/09/24 History aripiprazole 5 mg tablet (Abilify) 5 mg PO DAILY 07/09/24 12/29/24 07/09/24 History ascorbic acid (vitamin C) 500 mg 500 mg PO DAILY 07/09/24 12/29/24 07/09/24 History tablet (C-500) citalopram 10 mg tablet (Celexa) 10 mg PO DAILY 07/09/24 12/29/24 07/09/24 History diphenhydramine HCl 25 mg capsule 25 mg PO HS PRN sleep 07/09/24 12/29/24 Unknown History (Benadryl) levothyroxine 50 mcg capsule 50 mcg PO DAILY 07/09/24 12/29/24 07/08/24 History loperamide 2 mg tablet 2 mg PO TID PRN diarrhea 07/09/24 12/29/24 Unknown History simvastatin 20 mg tablet 20 mg PO HS 07/09/24 12/29/24 07/08/24 History vitamin B complex 1 tablet PO DAILY 07/09/24 12/29/24 07/09/24 History gabapentin 300 mg capsule 300 mg PO TID 12/29/24 12/29/24 Unknown History Allergies Allergy/AdvReac Type Severity Reaction Status Date / Time codeine Allergy Mild Itching Verified 12/29/24 21:30 vancomycin Allergy Mild Hives / Verified 12/29/24 21:30 Red Face PMFSH Past Medical History Medical History 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 Code status: DNR/DNI (per usp record) Healthcare power of lay out helper: Doris Tamayo (daughter) Smoking status: Smoker, status unknown Alcohol intake: unknown Substance use: unknown Substance use type: unknown Spiritual care concerns: No Exam Narrative: APPEARANCE: No apparent distress. Head: atraumatic. EYES: EOMI, NOSE: Atraumatic NECK: Trachea midline RESPIRATORY: No increased rate of breathing Clear auscultation CARDIOVASCULAR: RRR, no peripheral edema ABDOMINAL: Non-distended soft nontender MUSCULOSKELETAl: Right leg is shortened and internally rotated, patient cannot move it due to exquisite pain in the hip. foot is neurovascularly intact. NEURO: Alert. Moving 4/4 extremities SKIN:: Warm, dry. Normal color PSYCHIATRIC: Normal affect Course Vital Signs Vital signs: Vital Signs Temperature 97.7 F 03/16/25 18:46 Pulse Rate 84 03/16/25 18:46 Respiratory Rate 16 03/16/25 18:46 Blood Pressure 181/80 H 03/16/25 18:46 Pulse Oximetry 97 03/16/25 18:46 Oxygen Delivery Room Air 03/16/25 18:46 Temperature 97.7 F 03/16/25 18:46 Pulse Rate 100 03/16/25 22:15 Respiratory Rate 23 H 03/16/25 22:15 Blood Pressure 167/70 H 03/16/25 22:15 Pulse Oximetry 95 03/16/25 22:15 Oxygen Delivery Room Air 03/16/25 22:15 Oxygen Flow Rate 10 03/16/25 21:09 Procedures Procedural Sedation Procedural Sedation #1: Procedural Sedation Date: 03/16/25 Presedation Evaluation: A 85-year-old female presenting for a dislocated prosthetic hip on the right. Procedure: Reduction a dislocated prosthetic hip. Provider Performed: sedation and procedure Informed Consent Obtained: yes Equipment in Room: bag and mask, capnography, senior hadoop developer, crash cart, oxygen, pulse oximeter and suction Plan for Sedation: moderate sedation ASA Class: II Mallampati Classification: class III NPO Status: last solid food (hours ago) Explanation to Patient/Family: Risk/Benefits/Alternatives and Pt/Family agreed with plan Pt. Educated on Procedural Sedation: Yes Re-evaluated immediately prior: Yes Preparation: senior hadoop developer applied, pulse oximeter, capnometry used, supplemental O2 applied, reversal agents at bedside, suction/airway equipment at bedside and IV secured IV Propofol dose (mg): 75 Patient Tolerated Procedure: well Complications: Respiratory Depression-Repositioning Required Interventions: airway repositioned and assist by BVM Medical Decision Making MDM Narrative Medical decision making narrative: -Course: 85-year-old female presenting with a ground level fall. Physical exam right leg is shortened and internally rotated. Foot is neurovascularly intact. Patient given pain medication and x-rays of hip been obtained. X-ray hip showed a dislocated prosthetic hip. Patient was procedure early stated I attempted multiple times to reduce the hip with no success. Case was discussed with Dr. Toribio. Patient will be admitted for orthopedic reduction in the morning. Dr. Dwyer then reached out to the ED and said that he would handle it in the morning. -DDX includes but is not limited to: Hip fracture, hip dislocation Vital Signs Vital Signs: Vital Signs Temperature 97.7 F 03/16/25 18:46 Pulse Rate 84 03/16/25 18:46 Respiratory Rate 16 03/16/25 18:46 Blood Pressure 181/80 H 03/16/25 18:46 Pulse Oximetry 97 03/16/25 18:46 Oxygen Delivery Room Air 03/16/25 18:46 Temperature 97.7 F 03/16/25 18:46 Pulse Rate 100 03/16/25 22:15 Respiratory Rate 23 H 03/16/25 22:15 Blood Pressure 167/70 H 03/16/25 22:15 Pulse Oximetry 95 03/16/25 22:15 Oxygen Delivery Room Air 03/16/25 22:15 Oxygen Flow Rate 10 03/16/25 21:09 Lab Data 03/16/25 20:06 03/16/25 20:06 Labs: Lab Results 03/16/25 03/16/25 Range/Units 20:06 22:00 WBC 10.9 H (4.5-10.0) K/mm3 RBC 3.28 L (4.2-5.4) M/mm3 Hgb 10.1 L (12.0-15.0) g/dL Hct 32.9 L (37.0-47.0) % MCV 100.3 H (80-100) fl MCH 30.8 (26-34) pg MCHC 30.7 L (32-36) g/dl RDW 15.0 H (11.5-14.5) % Plt Count 165 (150-375) k/mm3 MPV 9.3 (7.4-10.4) fl Immature Gran % (Auto) 0.5 (0-0.5) % Neut % (Auto) 85.4 H (45.5-73.1) % Lymph % (Auto) 8.0 L (18.3-44.2) % Eaton % (Auto) 4.8 (2.6-8.5) % Eos % (Auto) 0.9 (0-4.4) % Baso % (Auto) 0.4 (0.2-1.2) % Lymph # (Auto) 0.87 L (0.9-3.2) K/mm3 Eaton # (Auto) 0.5 (0.1-0.6) K/mm3 Eos # (Auto) 0.1 (0-0.3) K/mm3 Baso # (Auto) 0.0 (0.0-0.1) K/mm3 Abs Immat Gran (auto) 0.05 H (0.00-0.031) K/mm3 Absolute Neuts (auto) 9.3 H (1.3-6.7) K/mm3 Absolute Nucleated RBC 0.000 (0.0-0.012) K/mm3 Nucleated RBC % 0.0 (0.0-0.2) % PT 15.6 H (11.1-14.7) Seconds INR 1.3 APTT 32.4 (22.3-36.8) Seconds Sodium 137 (137-145) mmol/L Potassium 4.4 (3.4-5.0) mmol/L Chloride 106 (98-107) mmol/L Carbon Dioxide 22 (22-30) mmol/L Anion Gap 9 (4-12) mmol/L BUN 36 H (7-17) mg/dL Creatinine 1.64 H (0.7-1.0) mg/dL Estim Creat Clear Calc 30 ml/min Estimated GFR 30 L (59 - ) Glucose 122 H (65-110) mg/dL Calcium 9.9 (8.4-10.2) mg/dL Total Bilirubin 0.5 (0.2-1.3) mg/dL AST 35 (14-36) U/L ALT 19 (6-35) U/L Alkaline Phosphatase 105 (38-126) U/L Total Protein 7.5 (6.3-8.2) g/dL Albumin 4.3 (3.5-5.1) g/dL Urine Color Yellow (Yellow) Urine Appearance Clear (Clear) Urine pH 5.0 (5.0-9.0) Ur Specific [place] 1.014 (1.001-1.035) Urine Protein 1+ H (Negative) mg/dL Urine Glucose (UA) Negative (Negative) mg/dL Urine Ketones Trace H (Negative) mg/dL Ur Blood (Man) Negative (Negative) Urine Nitrate Negative (Negative) Urine Bilirubin Negative (Negative) Urine Urobilinogen 0.2 (<2.0) mg/dL Leukocyte Esterase Rfl Trace H (Negative) ROWAN/UL Urine RBC 0-2 (0-2) /hpf Urine WBC 0-5 (0-3) /hpf Ur Squamous Epith Cells None seen (Few) /hpf Urine Bacteria None seen /hpf Urine Casts 0-2 Discharge Plan Discharge Clinical Impression: Dislocated hip Patient Disposition: Still a Patient Condition: Stable Patient Language: Welsh Prescriptions: No Action allopurinol 300 mg tablet 300 mg PO DAILY aripiprazole [Abilify] 5 mg tablet 5 mg PO DAILY ascorbic acid (vitamin C) [C-500] 500 mg tablet 500 mg PO DAILY vitamin B complex Tablet 1 tablet PO DAILY citalopram [Celexa] 10 mg tablet 10 mg PO DAILY diphenhydramine HCl [Benadryl] 25 mg capsule 25 mg PO HS PRN (Reason: sleep) levothyroxine 50 mcg capsule 50 mcg PO DAILY simvastatin 20 mg tablet 20 mg PO HS loperamide 2 mg tablet 2 mg PO TID PRN (Reason: diarrhea) amlodipine [Norvasc] 5 mg Tablet 5 mg PO DAILY Qty: 30 0RF magnesium oxide 400 mg (241.3 mg magnesium) Tablet 400 mg PO QAM Qty: 30 0RF cyanocobalamin (vitamin B-12) [Vitamin B-12] 500 mcg Tablet 500 mcg PO QAM Qty: 30 0RF Eliquis 5 mg Tablet 5 mg PO Q12HR Qty: 60 0RF gabapentin 300 mg capsule 300 mg PO TID cefpodoxime 200 mg tablet 200 mg PO BID Qty: 4 0RF Rx Instructions: must administer with a meal/food Follow-up/Referrals: Sohan,Piter Mejia MD [Primary Care Provider]
[2025-03-16] MEDS: HYDROmorphone HCL INJ (*CRX) 1 MG/ML SYR 0.5 MG IV PUSH ×2 (19:28→23:24)
--- OUTSIDE RECORDS SUMMARY | 2025-03-16 19:30 | XMS_ITS | Clinical Summary ---
Author Organization [facility] [address] [facility] Address [address] [facility] [place] [address] Phone Care Team Providers Care Movie Editor Name Role Phone Piter Parry MD Primary Care Provider [phone] Allergies Active Allergy Reactions Criticality Noted Date [...] ASPIRIN ORAL Active vit b comp & d-xa-gbwvgo-zin c (DIATX ZN) 5-1.5-25 mg Tablet Take 1 Tab by mouth daily. Active vit O-kegakwyc-eoyb thicone (CETAPHIL) Lotion Apply to affected area 4 times daily as needed. Active ELIQUIS 5 mg tablet 09/04/2017 Active citalopram (CeleXA) 10 mg tablet 01/11/2018 Active FLUAD 3385-1159, 65 YR UP,,PF, 45 mcg (15 mcg [...] Comments Blood Pressure 153/82 03/20/2018 3:00 PM GRE INSTRUCTOR Pulse 75 03/20/2018 3:00 PM GRE INSTRUCTOR Temperature 36.3 C (97.4 F) 10/16/2012 11:57 AM CDT Respiratory Rate 14 10/16/2012 11:57 AM CDT Oxygen Saturation 95% 03/20/2018 3:00 PM GRE INSTRUCTOR Inhaled Oxygen Concentration - - Weight 99.8 [...] (#1) 2024 Medical Devices Implanted Type Area Electric Motor Tester Device Identifier Shelf Expiration Date Model / Serial / Lot Lens Io Toric Sn6at5 18.5 - [id number] Implanted:Qty: 1 on 09/20/2012 at [place] [address] Eye Left: Eye [facility] 08/29/2015 SN6AT5 18.5 / [id number] / Lens Io Toric Sn6at4 19.5 - [id number] Implanted:Qty: 1 on 10/16/2012 at [place] [address] Eye Right: Eye [facility] 07/28/2014 SN6AT4 19.5 / [id number] / Insurance MEDICARE PART A AND B [facility] MED [facility] Advance Directives For more information, please contact: [phone] * Full Code (Latest Code Status on File) Date Activated Date Inactivated Comments 10/16/2012 11:19 AM 10/16/2012 2:33 PM * Full Code Date Activated Date Inactivated Comments 10/16/2012 9:24 AM 10/16/2012 11:19 AM * Full Code Date Activated Date Inactivated Comments 09/20/2012 10:18 AM 09/20/2012 2:09 PM * Full Code Date Activated Date Inactivated Comments 09/20/2012 9:20 AM 09/20/2012 10:18 AM Care Teams Movie Editor Relationship Specialty Start Date End Date Piter Parry MD [address] [address] PCP - General Internal Medicine 03/20/18
--- OUTSIDE RECORDS SUMMARY | 2025-03-16 19:31 | XMS_ITS | Clinical Summary ---
Author Organization [facility] [employer] Address [address] [place] [address] Care Team Providers Care Chlorine Operator Name Role Phone Unavailable Primary Care Provider Unavailabl e Source Comments [facility],non-owned Affiliates and Associated Physician Practices is amultiple site organization consisting of ambulatory clinics and hospital sitesin [place], [place], [place] and [place]. This disclosure is being madepursuant to the Care Everywhere program and may not contain all information available regarding this patient. Last updated 18.[facility] [employer] Allergies Active Allergy Reactions Criticality Noted Date Comments Adhesive Sensitivity Rash Medium 07/31/2012 Codeine Urticaria,Rash Medium 07/31/2012 Vancomycin Urticaria Medium 09/18/2012 Medications * Be aware that medications may not be up to date on this document. Alwaysverify current medications with the patient. B Complex Vitamins (B COMPLEX 1 PO) [...] tablet by mouth nightly as needed Active lisinopril-hydr oCHLOROthiazide (Prinzide; Zestoretic) 20-12.5 MG tablet Take 1 [...] by mouth once daily Active vitamin D3 (Cholecalcifero l) 25 MCG (1000 UNITS) tablet Take 1 [...] mouth every 6 hours as needed for Nausea/Vomitin g Active famotidine (Pepcid) 20 MG tablet Take 1 (one) tablet by mouth at bedtime Active pantoprazole EC (Protonix) 40 MG tablet Take 1 (one) tablet by mouth daily before breakfast for 30 days 30 tablet 4 Active apixaban (Eliquis) 2.5 MG tablet Take 1 (one) tablet by mouth 2 times daily 4 Active Active Problems Problem Noted Date Diagnosed [...] Date Recorded PHQ2 TOTAL SCORE 0 08/09/2022 [facility] [place] of Occupat ional Health - Occupational Stress [...] place to sleep or slept in a [place] health care facility (including now)? 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 Gender Identity Not on file Sexual [...] 3:37 AM CDT Height 165.1 cm (5' 5) 01/28/2024 3:37 AM CDT Body Mass Index [...] yrs (1 - 1-dose 75+ series) 2017 DEPRESSION SCREENING 05/01/2024 08/08/2022 COVID-19 VACCINE ( season) 2024 04/13/2021, 08/25/2020, 07/28/2020 INFLUENZA VACCINE (#1) 2024 3, 02/04/2022, 02/19/2021, Additional history exists COLON MONITORING 01/28/2025 01/29/2024, 01/29/2024 Colorectal Cancer [...] complete this topic MENINGOCOCCAL (Group B) VACCINE SHARED DECISION-MAKING Aged Out No longer eligible based on patient's age to complete this topic MENINGOCOCCAL GROUPS A/C/Y/W VACCINE Aged Out No longer eligible based [...] Gender: Female Attending MD: Yari Rosa MD, [id number] _ Procedure: Colonoscopy Indications: Hematochezia Providers: Yari [...] two hemostatic clips were successfully placed. Clip horse trainer: [employer]. The transverse colon, ascending colon and cecum [...] Resected and retrieved. Clips were placed. Clip horse trainer: [employer]. - The transverse colon, ascending colon and [...] for surveillance. Procedure Code(s): --- Professional --- 52106, Colonoscopy, flexible; with endoscopic mucosal resection 40671, 59, Colonoscopy, flexible; with removal of tumor(s), polyp(s), or other lesion(s) by snare technique 86713, 59, Colonoscopy, flexible; with biopsy, single or multiple --- Technical --- 08778, Colonoscopy, flexible; with endoscopic mucosal resection 75998, 59, Colonoscopy, flexible; with removal of tumor(s), polyp(s), or other lesion(s) by snare technique 71713, 59, Colonoscopy, flexible; with biopsy, single or [...] or abscess without bleeding CPT copyright 2020 [employer]. All rights reserved. The codes documented in this report are preliminary and upon physician coder review may be revised to meet current compliance requirements. Dr. Theresa Rosa MD M Rufina Rosa MD 01/29/2024 4:20:25 PM This report has been signed electronically. Number of Addenda: 0 Note Initiated On: 01/29/2024 2:39 PM Procedure Date: 01/29/2024 2:39:58 PM Scope Withdrawal Time: 0 hours 29 minutes 12 seconds [facility] 01/29/2024 2:39 PM CDT Yari Rosa MD GI PROCEDURE ORDERABLES Edited Result - Final [facility] from Last 3 Months or Most Recently Relevant to Health Maintenance Insurance [facility] MEDICARE Member Subscriber Plan / Payer (Ef fective 2007-Present) Name:Clau Escalante Member ID:[id number] Relation to Subscriber:Self Name:Clau Escalante Subscriber ID:[id number] Payer ID:Not on file Group ID:Not on file Type:Medicare Address: [address] [address] MEDICARE Member Subscriber Plan / Payer (Ef fective 2007-Present) Name:Clau Escalante Member ID:[id number] Relation to Subscriber:Self Name:Clau Escalante Subscriber ID:[id number] Payer ID:Not on file Group ID:Not on file Type:Medicare Address: [address] [address] [facility] Advance Directives Documents on File Type Date Recorded Patient Honing Machine Try Out Setter Expl anation Adv Directive/Living Will/POA 08/13/2022 12:08 AM * Full Code (Latest Code Status on File) Date Activated Date Inactivated Comments 01/26/2024 4:31 PM 01/31/2024 3:46 PM * Full Code Date Activated Date Inactivated Comments 08/08/2022 10:05 PM 08/11/2022 2:32 PM
--- OUTSIDE RECORDS SUMMARY | 2025-03-16 19:31 | XMS_ITS | Clinical Summary ---
Author Organization [facility] Address [address] [place] [address] Care Team Providers Care Stock Clerk Name Role Phone Piter Parry MD [...] tablet/chew tab by mouth Active vitamin B mpuadev-D-mnt-F e-FA 106 mg iron- 1 mg tabletIndicatio ns:Vitamin Deficiency 1 tablet Active folic acid (FOLVITE) 1 mg tablet Take 2 mg by mouth daily Active levothyroxine (SYNTHROID) 50 mcg tablet Take 1 tablet (50 mcg total) by mouth patient placement coordinator before breakfast Active allopurinoL (ZYLOPRIM) 300 mg [...] (04/11/2019): Added automatically from request for surgery [id number] Essential hypertension 08/24/2018 Overview (08/24/2018): Hypertension Hemiparesis [...] e alcohol) 1-2 drinks, about 3 x/week [facility] Utilities Answer Date Recorded In the [...] Never 06/20/2024 How often do you attend buddhist or roman catholic serv ices? Never 06/20/2024 Do you belong to any clubs o r organizations such as buddhist groups, unions, fraternal or athletic groups, or [...] any time in the past 12 m [facility], were you homeless or living in a half-way (including now)? No 06/20/2024 Personal Safety Answer Date Recorded Have you ever been in or are you currently in a harmful physical or emotional relationship or is someone making you feel afraid or unsafe? 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 Gender Identity Not on file Sexual Orientation Not on file Last Filed Vital Signs Vital Sign Reading Time Taken Comments Blood Pressure 147/53 06/24/2024 5:15 AM LEAD PROJECT ENGINEER Pulse 66 06/24/2024 5:15 AM LEAD PROJECT ENGINEER Temperature 37.1 C (98.8 F) 06/23/2024 8:20 PM LEAD PROJECT ENGINEER Respiratory Rate 18 06/23/2024 8:20 PM LEAD PROJECT ENGINEER Oxygen Saturation 98% 06/24/2024 5:15 AM LEAD PROJECT ENGINEER Inhaled Oxygen Concentration - - Weight 100 kg (220 lb 7.4 oz) 06/20/2024 8:00 AM LEAD PROJECT ENGINEER Height 168 cm (5' 6.14) 06/20/2024 8:00 AM LEAD PROJECT ENGINEER Body Mass Index 35.43 06/20/2024 8:00 AM LEAD PROJECT ENGINEER Plan of Treatment Health Maintenance Due Date [...] 06/24/2025 06/24/2024 Medical Devices Implanted Type Area Switchboard Inspector Device Identifier Shelf Expiration Date Model / Serial / Lot Lens Lens Bilateral: Eye Insurance MEDICARE [facility] MEDICARE [facility] MEDICARE [facility] MEDICARE SUPPLEMENT Advance Directives For more information, please contact: [phone] Documents on File Type Date Recorded Patient Rand Cementer Expl anation ADVANCE DIRECTIVE 06/05/2018 11:45 AM POWER OF HEAD OF BUSINESS DEVELOPMENT ADVANCE DIRECTIVE 06/05/2018 11:42 AM POWER OF HEAD OF BUSINESS DEVELOPMENT ADVANCE DIRECTIVE 06/02/2018 12:56 AM POWER OF HEAD OF BUSINESS DEVELOPMENT * Full Code (Latest Code Status on [...] Agents on File Name Relationship Healthcare Agent [facility] Doris Tamayo Daughter First Alternate Health Care Agent Care Teams Stock Clerk Relationship Specialty Start Date End Date Piter Parry MD [address] [address] PCP - General 04/10/19
--- OUTSIDE RECORDS SUMMARY | 2025-03-16 19:31 | XMS_ITS | Clinical Summary ---
Author Organization [facility] Address [address] [facility] Attn: Epic Prelude ADT [place] [address] Care Team Providers Care Account Development Specialist Name Role Phone Piter Parry MD Primary Care Provider [phone] Allergies Active Allergy Reactions Criticality Noted Date [...] Encounters Date Type Department Care Team Description 02/11/2025 External Device Data ST[facility] ABSTRACTION Provider, Abstract 02/11/2025 External Device Data [facility] ABSTRACTION Provider, Abstract 01/14/2025 External Device Data [facility] ABSTRACTION Provider, Abstract 12/25/2024 External Device Data [facility] ABSTRACTION Provider, [...] on file Legal Sex Female 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 SUPP MEDICARE PART A AND B Advance Directives For more information, please contact: [phone] * Full Code (Latest Code Status on File) Date Activated Date Inactivated Comments 02/25/2024 10:57 AM 02/27/2024 3:04 PM Care Teams Account Development Specialist Relationship Specialty Start Date End Date Piter Parry MD [address] [place] [phone] PCP - General Internal Medicine 03/20/18
[2025-03-16 20:14] LABS: Hematocrit 32.9 % (37.0-47.0); Hemoglobin 10.1 g/dL (12.0-15.0); Immature Granulocyte Percent A 0.5 % (0-0.5); Lymphocytes Absolute Auto 0.87 K/mm3 (0.9-3.2); Mean Corpuscular HGB Conc 30.7 g/dl (32-36); Mean Corpuscular Hemoglobin 30.8 pg (26-34); Mean Corpuscular Volume 100.3 fl (80-100); Nucleated Red Blood Cells Absolute Auto 0.000 K/mm3 (0.0-0.012); Nucleated Red Blood Cells Perc 0.0 % (0.0-0.2); Platelet Count Result 165 k/mm3 (150-375); Red Blood Count 3.28 M/mm3 (4.2-5.4); White Blood Count 10.9 K/mm3 (4.5-10.0)
[2025-03-16 20:24] LABS: Alanine Aminotransferase 19 U/L (6-35); Albumin Level 4.3 g/dL (3.5-5.1); Alkaline Phosphatase 105 U/L (38-126); Anion Gap 9 mmol/L (4-12); Aspartate Amino Transferase 35 U/L (14-36); Bilirubin,Total 0.5 mg/dL (0.2-1.3); Blood Urea Nitrogen 36 mg/dL (7-17); Calcium 9.9 mg/dL (8.4-10.2); Carbon Dioxide 22 mmol/L (22-30); Chloride 106 mmol/L (98-107); Estimated CRCL calculation 30 ml/min; Estimated Glomerular Filt Rate 30; Glucose 122 mg/dL (65-110); Potassium 4.4 mmol/L (3.4-5.0); Sodium 137 mmol/L (137-145); Total Protein 7.5 g/dL (6.3-8.2)
[2025-03-16 20:25] LABS: INR 1.3; Prothrombin Time 15.6 Seconds (11.1-14.7)
[2025-03-16 20:26] LABS: Partial Thromboplastin Time 32.4 Seconds (22.3-36.8)
[2025-03-16] MEDS: SODIUM CHLORIDE 0.9% IV 1,000 ML 999 ML IV CONT (21:00)
[2025-03-16] MEDS: PROPOFOL IV EMULSION 200 MG/20 ML VIAL 101 MG IV PUSH (21:05)
[2025-03-16] MEDS: PROPOFOL IV EMULSION 200 MG/20 ML VIAL 50 MG IV PUSH (21:12)
[2025-03-16 22:16] LABS: Add Urine Microscopic? YES; Appearance Urine Clear (Clear); Glucose Urine UA Negative (Negative); Leukocyte Esterase Ur Trace LEU/UL (Negative); Nitrate Urine Negative (Negative); Non Pathogenic Casts 0-2; Specific Grav Ur 1.014 (1.001-1.035)
--- NOTE | 2025-03-16 22:32 | PC.NURSE ---
at 2114, there was no positive relocation despite multiple attempts by Dr Maria. [address] maria, resp using bvm. 2119 no further need for jaw thrust or bvm, pt breathing on own.
--- NOTE | 2025-03-16 23:46 | WPCEDHO ---
ED Hand Off Checklist All vitals saved:y IV Site documented:y All med administrations documented:y Triage Note Triage Note Patient here with GLF with pain 03/16/25 18:46 to right hip with positive rotation and shortening. Patient is from [facility] in [place]. Left forearm IV started by EMS -gave Morphine 5mg at 1830. Pain on arrival 02/07. Patient reports prior hip injury/ replacement to R. hip many years ago. Allergies codeine Allergy (Mild, Verified 12/29/24 21:30) Itching vancomycin Allergy (Mild, Verified 12/29/24 21:30) Hives / Red Face Family History (Last Reviewed 03/16/25 @ 19:25 by Jack Maria MD) Other Unknown family medical history Active Medications including assessments/comments Hydromorphone HCl (Hydromorphone Hcl Inj (*Crx) 1 Mg/Ml Syr) 0.5 mg IV PUSH Q4H PRN PRN Reason: Pain Rated 7-10 Last Admin: 03/16/25 23:24 Dose: 0.5 mg Documented By: TONYA [facility] Pain Assessment Document 03/16/25 23:24 TLB (Rec: 03/16/25 23:25 TLB [id number]) Pain Evaluation Pain Evaluation Assessment Pain Scale Pain Scale Used Numeric (1 - 10) Order Parameters Order Parameters for Pain Level 7-10 (Severe) Administering this Pain Med Self Report Pain Assessment Reported Pain Level 10 Pain Location Right Modifier Pain Location Hip(s) Pain Description Sharp,Spasms Pain Frequency Continuous Pain Aggravating None Factors Pain Behaviors Anxious,Grimacing Pain Score Pain Score 10: Self Report Administered/Completed Medications Discontinued Medications Hydromorphone HCl (Hydromorphone Hcl Inj (*Crx) 1 Mg/Ml Syr) 0.5 mg IV PUSH ONCE STA Stop: 03/16/25 19:24 Last Admin: 03/16/25 19:28 Dose: 0.5 mg Documented By: TONYA Sodium Chloride (Normal Saline Iv) Confirm Administered Dose 250 mls @ as directed .ROUTE .STK-MED ONE Stop: 03/16/25 20:58 Last Admin: 03/16/25 22:20 Dose: Not Given Documented By: TLAngela Non-Admin Reason: Duplicate Dose Sodium Chloride (Normal Saline Iv) 1,000 mls @ 999 mls/hr IV CONT .Q1H1M STA Stop: 03/16/25 23:21 Last Infusion: 03/16/25 22:24 Dose: Infused Documented By: Admin: 03/16/25 21:00 Dose: 999 mls/hr Documented By: TONYA Propofol (Propofol Iv Emulsion 200 Mg/20 Ml Vial) 101 mg IV PUSH ONCE ONE Stop: 03/16/25 20:55 Last Admin: 03/16/25 21:05 Dose: 75 mg Documented By: ALKA Propofol (Propofol Iv Emulsion 200 Mg/20 Ml Vial) 50 mg IV PUSH ONCE ONE Stop: 03/16/25 22:22 Last Admin: 03/16/25 21:12 Dose: 50 mg Documented By: TONYA Comments: Given by Dr Maria Notes 03/16/25 22:32 Nurse Note by Shantel Huff at 2114, there was no positive relocation despite multiple attempts by Dr Maria. [address] maria, resp using bvm. 2119 no further need for jaw thrust or bvm, pt breathing on own. Initialized on 03/16/25 22:32 - END OF NOTE Interventions/Assessments IV / Saline Lock, Insert Start: 03/16/25 18:45 Freq: Status: Active Protocol: Document 03/16/25 21:00 KKR (Rec: 03/16/25 21:18 KKR [id number]) IV Assessment Peripheral Access Right Wrist IV Catheter Access Initiated IV Insertion Date 03/16/25 IV Insertion Time 21:00 Catheter Gauge 18 IV Insertion 1 Attempts Ultrasound Used for No Placement IV Site Assessment WNL IV Care and WNL Maintenance PA: Integumentary Assessment Start: 03/16/25 22:29 Freq: Status: Active Protocol: Document 03/16/25 22:29 KKR (Rec: 03/16/25 22:31 KKR [id number]) Closed Skin Problem Labia Color Red Description Tender Additional Closed Jose[place] area noted to be red, skin unbroken. Skin Problem Comment Last Vital Signs Temperature 97.7 F 03/16/25 18:46 Pulse Rate 89 03/16/25 23:02 Respiratory Rate 14 03/16/25 23:02 Pulse Oximetry 96 03/16/25 23:02 Blood Pressure 130/54 L 03/16/25 23:02 Blood Pressure Mean 79 03/16/25 23:02 Blood Pressure Position Sitting 03/16/25 18:46 Oxygen Delivery Room Air 03/16/25 22:15 Oxygen Flow Rate 10 03/16/25 21:09 Weight 101 kg 03/16/25 18:46 Last Result - Abnormals Only WBC 10.9 K/mm3 (4.5-10.0) H 03/16/25 20:06 RBC 3.28 M/mm3 (4.2-5.4) L 03/16/25 20:06 Hgb 10.1 g/dL (12.0-15.0) L 03/16/25 20:06 Hct 32.9 % (37.0-47.0) L 03/16/25 20:06 MCV 100.3 fl (80-100) H 03/16/25 20:06 MCHC 30.7 g/dl (32-36) L 03/16/25 20:06 RDW 15.0 % (11.5-14.5) H 03/16/25 20:06 Neut % (Auto) 85.4 % (45.5-73.1) H 03/16/25 20:06 Lymph % (Auto) 8.0 % (18.3-44.2) L 03/16/25 20:06 Lymph # (Auto) 0.87 K/mm3 (0.9-3.2) L 03/16/25 20:06 Abs Immat Gran (auto) 0.05 K/mm3 (0.00-0.031) H 03/16/25 20:06 Absolute Neuts (auto) 9.3 K/mm3 (1.3-6.7) H 03/16/25 20:06 PT 15.6 Seconds (11.1-14.7) H 03/16/25 20:06 BUN 36 mg/dL (7-17) H 03/16/25 20:06 Creatinine 1.64 mg/dL (0.7-1.0) H 03/16/25 20:06 Estimated GFR 30 (59-) L 03/16/25 20:06 Glucose 122 mg/dL (65-110) H 03/16/25 20:06 Urine Protein 1+ mg/dL (Negative) H 03/16/25 22:00 Urine Ketones Trace mg/dL (Negative) H 03/16/25 22:00 Leukocyte Esterase Rfl Trace ROWAN/UL (Negative) H 03/16/25 22:00 Most Recent Suicide Severity Rating Suicide Severity Rating NO RISK INDICATED 03/16/25 18:46
[2025-03-17] VITALS (11 sets, daily range): BP systolic 121–188; BP diastolic 47–88; PULSE 82–108; RESP 14–20; TEMP 36.8–37.6; O2SAT 91–100; BMI 32.0
--- NOTE | 2025-03-17 00:17 | ADMGEN ---
This patient, Clau Escalante, was admitted to Medical Room 343-01. Patient/family oriented to hospital policies and general routines including ID bracelet, bed and alarms, visiting hours, pain management, procedures, bathroom and other care routines, personal items, smoking policy, room service/diet, and visiting hours. Information on how to activate the Rapid Response Team has been discussed. Patient/Family are encouraged to report perceived risks to care and to ask questions if they do not understand what they are told or what they should do.
--- NOTE | 2025-03-17 00:56 | P.HP_ITS ---
H&P: HPI History of Present Illness Date/Time: 03/17/25 00:56 Chief Complaint: Ground level fall Narrative: 85-year-old female presents to [facility] ER on 03/16/2025 after a ground level fall. PMH CVA, vascular dementia with behavioral disturbances, depression, CKD stage 4, hypothyroidism, gout, hyperlipidemia, hypertension, asthma. She was using her walker, her right leg gave out and she fell, she did not strike her head. Had significant right hip pain and could not walk. She has a prior hip surgery, x-ray in the ER demonstrates arthroplasty with femoral component dislocated superiorly, no fracture identified. Procedural sedation with multiple times to reduce the hip no success. Orthopedic surgery consulted from the ER. Plan to reduce in the a.m.. 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 Code status: DNR/DNI (per [facility] record) Healthcare power of estate planning attorney: Doris Tamayo (daughter) Smoking status: Smoker, status unknown Alcohol intake: never Substance use: never Substance use type: unknown Lack of Transportation: No Lack of Food: Never True Current Housing: I Have Housing Concerned About Future Housing: No Difficulty Paying Gas/Electric Bills: No Difficulty Paying for Meds: No Currently Unemployed: No Education: High School Diploma/GED Difficulty w/ Childcare or Family Care: No Spiritual care concerns: No Meds Home Medications and Allergies Home Medications ?Medication ?Instructions ?Recorded ?Confirmed ?Type allopurinol 300 mg tablet 300 mg PO DAILY 07/09/24 History aripiprazole 5 mg tablet (Abilify) 5 mg PO DAILY 07/0903/17/25 History ascorbic acid (vitamin C) 500 mg 500 mg PO DAILY 07/0903/17/25 History tablet (C-500) citalopram 10 mg tablet (Celexa) 10 mg PO DAILY 03/17/25 History diphenhydramine HCl 25 mg capsule 25 mg PO Q12H PRN sl eep 07/09/24 03/17/25 History (Benadryl) levothyroxine 50 mcg capsule 50 mcg PO DAILY 07/09/24 03/17/25 History loperamide 2 mg tablet 2 mg PO TID PRN diarrhea 03/2503/17/25 History simvastatin 20 mg tablet 20 mg PO HS 07/09/24 5 History vitamin B complex 1 tablet PO DAILY 07/09/24 1 05/17/24 History amlodipine 5 mg tablet (Norvasc) 5 mg PO DAILY #30 tab s 07/14/24 03/17/25 Rx apixaban 5 mg tablet (Eliquis) 5 mg PO Q12HR #60 tabs 07/14/24 03/17/25 Rx cyanocobalamin (vitamin B-12) 500 500 mcg PO QAM #30 t abs 07/14/24 03/17/25 Rx mcg tablet (Vitamin B-12) magnesium oxide 400 mg (241.3 mg 400 mg PO QAM #30 tab s 07/14/24 03/17/25 Rx magnesium) tablet gabapentin 300 mg capsule 300 mg PO HS 12/29/24 History Allergies Allergy/AdvReac Type Severity Reaction Status Date / Time codeine Allergy Mild Itching Verified 03/17/25 00:24 vancomycin Allergy Mild Hives / Verified 03/17/25 00:24 Red Face Vital Signs Vital Signs - 24 hr 03/16/25 18:46 03/16/25 19:01 03/16/25 19:16 Temperature 97.7 F Pulse Rate 84 81 90 Pulse Rate [Monitor] Respiratory Rate 16 16 13 Blood Pressure 181/80 H 184/73 H 180/77 H Blood Pressure [Right Arm] Pulse Oximetry 97 97 95 Oxygen Delivery Room Air Oxygen Flow Rate 03/16/25 19:31 03/16/25 20:10 03/16/25 20:11 Temperature Pulse Rate 83 84 80 Pulse Rate [Monitor] Respiratory Rate 19 17 14 Blood Pressure 181/116 H 165/56 H 165/56 H Blood Pressure [Right Arm] Pulse Oximetry 96 94 89 L Oxygen Delivery Oxygen Flow Rate 03/16/25 20:16 03/16/25 20:45 03/16/25 21:02 Temperature Pulse Rate 86 95 Pulse Rate [Monitor] 94 Respiratory Rate 17 17 13 Blood Pressure 155/59 H Blood Pressure [Right Arm] Pulse Oximetry 94 94 95 Oxygen Delivery Room Air Oxygen Flow Rate 03/16/25 21:03 03/16/25 21:06 03/16/25 21:09 Temperature Pulse Rate 95 96 Pulse Rate [Monitor] 104 H Respiratory Rate 20 18 25 H Blood Pressure 182/82 H 181/68 H Blood Pressure [Right Arm] 167/109 H Pulse Oximetry 97 92 94 Oxygen Delivery Bag Valve Mask Oxygen Flow Rate 10 03/16/25 21:09 03/16/25 21:11 03/16/25 21:13 Temperature Pulse Rate 101 H 93 Pulse Rate [Monitor] 97 Respiratory Rate 21 H 22 H 20 Blood Pressure 167/109 H 194/83 H Blood Pressure [Right Arm] 194/83 H Pulse Oximetry 72 L 95 Oxygen Delivery Room Air Oxygen Flow Rate 03/16/25 21:16 03/16/25 21:18 03/16/25 21:19 Temperature Pulse Rate 91 Pulse Rate [Monitor] 91 88 Respiratory Rate 21 H 38 H 15 Blood Pressure 184/75 H Blood Pressure [Right Arm] 184/75 H 135/56 L Pulse Oximetry 100 96 92 Oxygen Delivery Room Air Room Air Oxygen Flow Rate 03/16/25 21:21 03/16/25 21:23 03/16/25 21:26 Temperature Pulse Rate 89 86 Pulse Rate [Monitor] 85 Respiratory Rate 14 14 12 Blood Pressure 135/56 L 141/57 H Blood Pressure [Right Arm] 141/57 H Pulse Oximetry 92 93 92 Oxygen Delivery Room Air Oxygen Flow Rate 03/16/25 21:31 03/16/25 21:36 03/16/25 21:41 Temperature Pulse Rate 92 86 93 Pulse Rate [Monitor] Respiratory Rate 19 14 18 Blood Pressure 144/70 H 161/63 H 176/61 H Blood Pressure [Right Arm] Pulse Oximetry 94 93 Oxygen Delivery Oxygen Flow Rate 03/16/25 21:46 03/16/25 21:53 03/16/25 21:55 Temperature Pulse Rate 91 89 Pulse Rate [Monitor] 93 Respiratory Rate 15 17 15 Blood Pressure 165/68 H 165/65 H Blood Pressure [Right Arm] 165/65 H Pulse Oximetry 95 Oxygen Delivery Room Air Oxygen Flow Rate 03/16/25 22:01 03/16/25 22:15 03/16/25 22:31 Temperature Pulse Rate 88 98 Pulse Rate [Monitor] 100 Respiratory Rate 14 23 H 22 H Blood Pressure 160/60 H 167/70 H Blood Pressure [Right Arm] 167/70 H Pulse Oximetry 92 95 Oxygen Delivery Room Air Oxygen Flow Rate 03/16/25 23:01 03/16/25 23:02 03/17/25 00:27 Temperature 98.2 F Pulse Rate 87 89 97 Pulse Rate [Monitor] Respiratory Rate 14 14 20 Blood Pressure 130/54 L 130/54 L 155/58 H Blood Pressure [Right Arm] Pulse Oximetry 96 91 Oxygen Delivery Oxygen Flow Rate Exam Const: General: comfortable and no acute distress Other: A&O x3 HENMT: Mouth: Yes moist mucous membranes Eyes: Pupils: Equal, round and reactive pupils present Neck: Neck: supple Resp: Effort & Inspection: normal respiratory effort Auscultation: clear to auscultation bilaterally Cardio: Rate: regular rate Rhythm: regular rhythm GI: Inspection: non-distended GI Palp: Yes Soft to palpation Neuro: Motor exam (neuro): 5/5 motor strength present throughout Other: Right lower extremity mobility was limited by pain, right lower extremity shortened, neurovascular exam intact. H&P: Results Labs Labs: Short CBC 03/16/25 Range/Units 20:06 WBC 10.9 H (4.5-10.0) K/mm3 Hgb 10.1 L (12.0-15.0) g/dL Hct 32.9 L (37.0-47.0) % Plt Count 165 (150-375) k/mm3 BMP 03/16/25 20:06 Sodium 137 Potassium 4.4 Chloride 106 Carbon Dioxide 22 BUN 36 H Creatinine 1.64 H Glucose 122 H Calcium 9.9 Liver Function 03/16/25 Range/Units 20:06 Total Bilirubin 0.5 (0.2-1.3) mg/dL AST 35 (14-36) U/L ALT 19 (6-35) U/L Alkaline Phosphatase 105 (38-126) U/L Albumin 4.3 (3.5-5.1) g/dL Urine 03/16/25 Range/Units 22:00 Urine Color Yellow (Yellow) Urine Appearance Clear (Clear) Urine pH 5.0 (5.0-9.0) Ur Specific [place] 1.014 (1.001-1.035) Urine Protein 1+ H (Negative) mg/dL Urine Glucose (UA) Negative (Negative) mg/dL Assessment and Plan Assessment and plan (1) Acute kidney injury superimposed on chronic kidney disease: Code(s): N17.9 - Acute kidney failure, unspecified; N18.9 - Chronic kidney disease, unspecified Status: Acute (2) Dislocated hip: Code(s): S73.006A - Unspecified dislocation of unspecified hip, initial encounter Status: Acute (3) Vascular dementia: Qualifiers: Dementia severity: moderate Dementia behavioral or psychological symptom: with mood disturbance Qualified Code(s): F01.B3 - Vascular dementia, moderate, with mood disturbance Code(s): F01.50 - Vascular dementia, unspecified severity, without behavioral disturbance, psychotic disturbance, mood disturbance, and anxiety Status: Acute Plan NPO. Orthopedic surgery to see. Jim p.r.n.. Elevated serum creatinine above her baseline. Possible CKD or progression. Lactated Ringer's at 100 cc/hour. Patient wishes to be DNR. SCDs. Bed rest, fall precautions. Hold JUNIOR HIGH SCHOOL PRINCIPAL Eliquis. Medication reconciliation pending, restart JUNIOR HIGH SCHOOL PRINCIPAL medications as appropriate and indicated. Hospitalist [facility] Advance Care Plan I have confirmed that the patient's Advanced Care Plan is present, code status is documented, or surrogate decision maker is listed in patient medical record.: Yes Medication Reconciliation I have utilized all available resources to obtain, update and review the patients current medications (includes all prescriptions, OTC, herbals, cannabis, and nutritional supplements).: Yes
[2025-03-17] MEDS: LACTATED RINGERS 1,000 ML 100 ML IV CONT ×2 (04:45→12:48)
[2025-03-17 05:00] LABS: Hematocrit 28.5 % (37.0-47.0); Hemoglobin 8.9 g/dL (12.0-15.0); Immature Granulocyte Percent A 0.4 % (0-0.5); Lymphocytes Absolute Auto 0.88 K/mm3 (0.9-3.2); Mean Corpuscular HGB Conc 31.2 g/dl (32-36); Mean Corpuscular Hemoglobin 31.4 pg (26-34); Mean Corpuscular Volume 100.7 fl (80-100); Nucleated Red Blood Cells Absolute Auto 0.000 K/mm3 (0.0-0.012); Nucleated Red Blood Cells Perc 0.0 % (0.0-0.2); Platelet Count Result 148 k/mm3 (150-375); Red Blood Count 2.83 M/mm3 (4.2-5.4); White Blood Count 9.3 K/mm3 (4.5-10.0)
[2025-03-17 05:24] LABS: Anion Gap 8 mmol/L (4-12); Blood Urea Nitrogen 32 mg/dL (7-17); Calcium 9.4 mg/dL (8.4-10.2); Carbon Dioxide 21 mmol/L (22-30); Chloride 108 mmol/L (98-107); Estimated CRCL calculation 34 ml/min; Estimated Glomerular Filt Rate 34; Glucose 118 mg/dL (65-110); Magnesium 2.0 mg/dL (1.6-2.3); Potassium 4.8 mmol/L (3.4-5.0); Sodium 137 mmol/L (137-145)
[2025-03-17 05:36] LABS: INR 1.2; Prothrombin Time 15.5 Seconds (11.1-14.7)
[2025-03-17 05:37] LABS: Partial Thromboplastin Time 31.7 Seconds (22.3-36.8)
[2025-03-17] MEDS: HYDROmorphone HCL INJ (*CRX) 1 MG/ML SYR 0.5 MG IV PUSH ×2 (05:41→12:34)
--- NOTE | 2025-03-17 06:45 | PM.CNOR ---
Assessment and Plan Assessment and plan (1) Failure of right total hip arthroplasty with dislocation of hip: Code(s): T84.020A - Dislocation of internal right hip prosthesis, initial encounter Status: Acute Assessment and Plan: Patient fell on her right hip. She is overdue dislocation of total hip arthroplasty will attempt closed versus open reduction. If the hip is unstable she will need to have revision surgery. Discussed in detail. 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: Doris Tamayo (daughter) Smoking status: Smoker, status unknown Alcohol intake: never Substance use: never Substance use type: unknown Lack of Transportation: No Lack of Food: Never True Current Housing: I Have Housing Concerned About Future Housing: No Difficulty Paying Gas/Electric Bills: No Difficulty Paying for Meds: No Currently Unemployed: No Education: High School Diploma/GED Difficulty w/ Childcare or Family Care: No Spiritual care concerns: No Meds Home Medications and Allergies Home Medications ?Medication ?Instructions ?Recorded ?Confirmed ?Type allopurinol 300 mg tablet 300 mg PO DAILY 07/09/24 03/17/25 History aripiprazole 5 mg tablet (Abilify) 5 mg PO DAILY 07/09/24 03/17/25 History ascorbic acid (vitamin C) 500 mg 500 mg PO DAILY 07/09/24 03/17/25 History tablet (C-500) citalopram 10 mg tablet (Celexa) 10 mg PO DAILY 07/09/24 03/17/25 History diphenhydramine HCl 25 mg capsule 25 mg PO Q12H PRN sleep 07/09/24 03/17/25 History (Benadryl) levothyroxine 50 mcg capsule 50 mcg PO DAILY 07/09/24 03/17/25 History loperamide 2 mg tablet 2 mg PO TID PRN diarrhea 07/09/24 03/17/25 History simvastatin 20 mg tablet 20 mg PO HS 07/09/24 03/17/25 History vitamin B complex 1 tablet PO DAILY 07/09/24 03/17/25 History amlodipine 5 mg tablet (Norvasc) 5 mg PO DAILY #30 tabs 07/14/24 03/17/25 Rx apixaban 5 mg tablet (Eliquis) 5 mg PO Q12HR #60 tabs 07/14/24 03/17/25 Rx cyanocobalamin (vitamin B-12) 500 500 mcg PO QAM #30 tabs 07/14/24 03/17/25 Rx mcg tablet (Vitamin B-12) magnesium oxide 400 mg (241.3 mg 400 mg PO QAM #30 tabs 07/14/24 03/17/25 Rx magnesium) tablet gabapentin 300 mg capsule 300 mg PO HS 12/29/24 03/17/25 History Allergies Allergy/AdvReac Type Severity Reaction Status Date / Time codeine Allergy Mild Itching Verified 03/17/25 00:24 vancomycin Allergy Mild Hives / Verified 03/17/25 00:24 Red Face Vital Signs Vital Signs - 24 hr 03/16/25 18:46 03/16/25 19:01 03/16/25 19:16 Temperature 97.7 F Pulse Rate 84 81 90 Pulse Rate [Monitor] Respiratory Rate 16 16 13 Blood Pressure 181/80 H 184/73 H 180/77 H Blood Pressure [Right Arm] Pulse Oximetry 97 97 95 Oxygen Delivery Room Air Oxygen Flow Rate 03/16/25 19:31 03/16/25 20:10 03/16/25 20:11 Temperature Pulse Rate 83 84 80 Pulse Rate [Monitor] Respiratory Rate 19 17 14 Blood Pressure 181/116 H 165/56 H 165/56 H Blood Pressure [Right Arm] Pulse Oximetry 96 94 89 L Oxygen Delivery Oxygen Flow Rate 03/16/25 20:16 03/16/25 20:45 03/16/25 21:02 Temperature Pulse Rate 86 95 Pulse Rate [Monitor] 94 Respiratory Rate 17 17 13 Blood Pressure 155/59 H Blood Pressure [Right Arm] Pulse Oximetry 94 94 95 Oxygen Delivery Room Air Oxygen Flow Rate 03/16/25 21:03 03/16/25 21:06 03/16/25 21:09 Temperature Pulse Rate 95 96 Pulse Rate [Monitor] 104 H Respiratory Rate 20 18 25 H Blood Pressure 182/82 H 181/68 H Blood Pressure [Right Arm] 167/109 H Pulse Oximetry 97 92 94 Oxygen Delivery Bag Valve Mask Oxygen Flow Rate 10 03/16/25 21:09 03/16/25 21:11 03/16/25 21:13 Temperature Pulse Rate 101 H 93 Pulse Rate [Monitor] 97 Respiratory Rate 21 H 22 H 20 Blood Pressure 167/109 H 194/83 H Blood Pressure [Right Arm] 194/83 H Pulse Oximetry 72 L 95 Oxygen Delivery Room Air Oxygen Flow Rate 03/16/25 21:16 03/16/25 21:18 03/16/25 21:19 Temperature Pulse Rate 91 Pulse Rate [Monitor] 91 88 Respiratory Rate 21 H 38 H 15 Blood Pressure 184/75 H Blood Pressure [Right Arm] 184/75 H 135/56 L Pulse Oximetry 100 96 92 Oxygen Delivery Room Air Room Air Oxygen Flow Rate 03/16/25 21:21 03/16/25 21:23 03/16/25 21:26 Temperature Pulse Rate 89 86 Pulse Rate [Monitor] 85 Respiratory Rate 14 14 12 Blood Pressure 135/56 L 141/57 H Blood Pressure [Right Arm] 141/57 H Pulse Oximetry 92 93 92 Oxygen Delivery Room Air Oxygen Flow Rate 03/16/25 21:31 03/16/25 21:36 03/16/25 21:41 Temperature Pulse Rate 92 86 93 Pulse Rate [Monitor] Respiratory Rate 19 14 18 Blood Pressure 144/70 H 161/63 H 176/61 H Blood Pressure [Right Arm] Pulse Oximetry 94 93 Oxygen Delivery Oxygen Flow Rate 03/16/25 21:46 03/16/25 21:53 03/16/25 21:55 Temperature Pulse Rate 91 89 Pulse Rate [Monitor] 93 Respiratory Rate 15 17 15 Blood Pressure 165/68 H 165/65 H Blood Pressure [Right Arm] 165/65 H Pulse Oximetry 95 Oxygen Delivery Room Air Oxygen Flow Rate 03/16/25 22:01 03/16/25 22:15 03/16/25 22:31 Temperature Pulse Rate 88 98 Pulse Rate [Monitor] 100 Respiratory Rate 14 23 H 22 H Blood Pressure 160/60 H 167/70 H Blood Pressure [Right Arm] 167/70 H Pulse Oximetry 92 95 Oxygen Delivery Room Air Oxygen Flow Rate 03/16/25 23:01 03/16/25 23:02 03/17/25 00:27 Temperature 98.2 F Pulse Rate 87 89 97 Pulse Rate [Monitor] Respiratory Rate 14 14 20 Blood Pressure 130/54 L 130/54 L 155/58 H Blood Pressure [Right Arm] Pulse Oximetry 96 91 Oxygen Delivery Oxygen Flow Rate 03/17/25 06:00 Temperature 98.3 F Pulse Rate 92 Pulse Rate [Monitor] Respiratory Rate 18 Blood Pressure 147/55 H Blood Pressure [Right Arm] Pulse Oximetry 93 Oxygen Delivery Oxygen Flow Rate Exam Narrative: Wiggles toed. Has pain with motion. Leg shortened and roatated. Eyes: General: appearance normal, both eyes and all related structures Neck: Neck: supple Resp: Effort & Inspection: normal respiratory effort Cardio: Rate: regular rate Rhythm: regular rhythm Femur X-Ray 03/16/25 Hip X-Ray 12/25/24 Hip/Pelvis X-Ray 03/16/25 Knee X-Ray 03/16/25 Pelvis X-Ray 03/16/25 Results Labs 03/17/25 04:44 03/17/25 04:44 Labs: Abnormal lab results 03/16/25 03/16/25 03/17/25 Range/Units 20:06 22:00 04:44 WBC 10.9 H (4.5-10.0) K/mm3 RBC 3.28 L 2.83 L (4.2-5.4) M/mm3 Hgb 10.1 L 8.9 L (12.0-15.0) g/dL Hct 32.9 L 28.5 L (37.0-47.0) % MCV 100.3 H 100.7 H (80-100) fl MCHC 30.7 L 31.2 L (32-36) g/dl RDW 15.0 H 15.0 H (11.5-14.5) % Plt Count 148 L (150-375) k/mm3 Neut % (Auto) 85.4 H 84.5 H (45.5-73.1) % Lymph % (Auto) 8.0 L 9.5 L (18.3-44.2) % Lymph # (Auto) 0.87 L 0.88 L (0.9-3.2) K/mm3 Abs Immat Gran (auto) 0.05 H 0.04 H (0.00-0.031) K/mm3 Absolute Neuts (auto) 9.3 H 7.8 H (1.3-6.7) K/mm3 PT 15.6 H 15.5 H (11.1-14.7) Seconds Chloride 108 H (98-107) mmol/L Carbon Dioxide 21 L (22-30) mmol/L BUN 36 H 32 H (7-17) mg/dL Creatinine 1.64 H 1.46 H (0.7-1.0) mg/dL Estimated GFR 30 L 34 L (59 - ) Glucose 122 H 118 H (65-110) mg/dL Urine Protein 1+ H (Negative) mg/dL Urine Ketones Trace H (Negative) mg/dL Leukocyte Esterase Rfl Trace H (Negative) ROWAN/UL H & H 03/16/25 03/17/25 Range/Units 20:06 04:44 Hgb 10.1 L 8.9 L (12.0-15.0) g/dL Hct 32.9 L 28.5 L (37.0-47.0) % Coagulation 03/16/25 03/17/25 Range/Units 20:06 04:44 INR 1.3 1.2 All other labs normal.
--- NOTE | 2025-03-17 06:52 | WPDHPUPDATE1 ---
History and Physical Update Update Date/Time: 03/17/25 06:52 History and Physical has been reviewed, including an updated exam of the patient. There are NO changes in the patient's condition. Risks, benefits, and alternatives have been discussed and questions answered. Patient agrees to proceed with procedure.
--- NOTE | 2025-03-17 07:47 | SUR.PREOP ---
This RN attempted to call Doris AREVALO, to obtain surgical consent, but number went to voicemail. Message left to call back.
--- NOTE | 2025-03-17 07:50 | SUR.PREOP ---
RN attempted to call second contact listed, Lay, but number went to voicemail. Left message to call back.
--- NOTE | 2025-03-17 08:20 | SUR.PREOP ---
Spoke with daughter via telephone to obtain consent for procedure. Daughter updated on patient status and plan of care at this time. All questions answered; no further questions at this time.
[2025-03-17] MEDS: LACTATED RINGERS 1,000 ML 30 ML IV CONT (08:34)
--- NOTE | 2025-03-17 09:03 | WPDANESEPPF ---
Anes - Initial Pre Proc Eval Procedure: Operation Date: 03/17/25 09:30 Proposed Procedures p Closed Reduction Right Hip - Norbert Dwyer MD Date/Time: 03/17/25 09:03 Surgeon: Kiah Rivera MD Pre Op Diagnosis: hip dislocation Patient Data Age: 85 Gender: F Height: 1.78 m Weight: 101.3 kg Last Vital Signs Temp 99.7 F H 03/17/25 07:40 Pulse 82 03/17/25 07:40 Resp 18 03/17/25 07:40 BP 144/52 H 03/17/25 07:40 Pulse Ox 95 03/17/25 07:40 O2 Del Method Room Air 03/17/25 07:40 O2 Flow Rate 10 03/16/25 21:09 Allergies Allergy/AdvReac Type Severity Reaction Status Date / Time codeine Allergy Mild Itching Verified 03/17/25 07:57 vancomycin Allergy Mild Hives / Verified 03/17/25 07:57 Red Face Home Medications ?Medication ?Instructions ?Recorded ?Confirmed ?Type allopurinol 300 mg tablet 300 mg PO DAILY 07/09/24 03/17/25 History aripiprazole 5 mg tablet (Abilify) 5 mg PO DAILY 07/09/24 03/17/25 History ascorbic acid (vitamin C) 500 mg 500 mg PO DAILY 07/09/24 03/17/25 History tablet (C-500) citalopram 10 mg tablet (Celexa) 10 mg PO DAILY 07/09/24 03/17/25 History diphenhydramine HCl 25 mg capsule 25 mg PO Q12H PRN sleep 07/09/24 03/17/25 History (Benadryl) levothyroxine 50 mcg capsule 50 mcg PO DAILY 07/09/24 03/17/25 History loperamide 2 mg tablet 2 mg PO TID PRN diarrhea 07/09/24 03/17/25 History simvastatin 20 mg tablet 20 mg PO HS 07/09/24 03/17/25 History vitamin B complex 1 tablet PO DAILY 07/09/24 03/17/25 History amlodipine 5 mg tablet (Norvasc) 5 mg PO DAILY #30 tabs 07/14/24 03/17/25 Rx apixaban 5 mg tablet (Eliquis) 5 mg PO Q12HR #60 tabs 07/14/24 03/17/25 Rx cyanocobalamin (vitamin B-12) 500 500 mcg PO QAM #30 tabs 07/14/24 03/17/25 Rx mcg tablet (Vitamin B-12) magnesium oxide 400 mg (241.3 mg 400 mg PO QAM #30 tabs 07/14/24 03/17/25 Rx magnesium) tablet gabapentin 300 mg capsule 300 mg PO HS 12/29/24 03/17/25 History Laboratory Tests 03/16/25 03/16/25 03/17/25 20:06 22:00 04:44 WBC 10.9 H K/mm3 9.3 K/mm3 (4.5-10.0) (4.5-10.0) RBC 3.28 L M/mm3 2.83 L M/mm3 (4.2-5.4) (4.2-5.4) Hgb 10.1 L g/dL 8.9 L g/dL (12.0-15.0) (12.0-15.0) Hct 32.9 L % 28.5 L % (37.0-47.0) (37.0-47.0) MCV 100.3 H fl 100.7 H fl (80-100) (80-100) MCH 30.8 pg 31.4 pg (26-34) (26-34) MCHC 30.7 L g/dl 31.2 L g/dl (32-36) (32-36) RDW 15.0 H % 15.0 H % (11.5-14.5) (11.5-14.5) Plt Count 165 k/mm3 148 L k/mm3 (150-375) (150-375) MPV 9.3 fl 9.8 fl (7.4-10.4) (7.4-10.4) Immature Gran % (Auto) 0.5 % 0.4 % (0-0.5) (0-0.5) Neut % (Auto) 85.4 H % 84.5 H % (45.5-73.1) (45.5-73.1) Lymph % (Auto) 8.0 L % 9.5 L % (18.3-44.2) (18.3-44.2) [place] % (Auto) 4.8 % 5.3 % (2.6-8.5) (2.6-8.5) Eos % (Auto) 0.9 % 0.0 % (0-4.4) (0-4.4) Baso % (Auto) 0.4 % 0.3 % (0.2-1.2) (0.2-1.2) Lymph # (Auto) 0.87 L K/mm3 0.88 L K/mm3 (0.9-3.2) (0.9-3.2) [place] # (Auto) 0.5 K/mm3 0.5 K/mm3 (0.1-0.6) (0.1-0.6) Eos # (Auto) 0.1 K/mm3 0.0 K/mm3 (0-0.3) (0-0.3) Baso # (Auto) 0.0 K/mm3 0.0 K/mm3 (0.0-0.1) (0.0-0.1) Abs Immat Gran (auto) 0.05 H K/mm3 0.04 H K/mm3 (0.00-0.031) (0.00-0.031) Absolute Neuts (auto) 9.3 H K/mm3 7.8 H K/mm3 (1.3-6.7) (1.3-6.7) Absolute Nucleated RBC 0.000 K/mm3 0.000 K/mm3 (0.0-0.012) (0.0-0.012) Nucleated RBC % 0.0 % 0.0 % (0.0-0.2) (0.0-0.2) PT 15.6 H Seconds 15.5 H Seconds (11.1-14.7) (11.1-14.7) INR 1.3 1.2 APTT 32.4 Seconds 31.7 Seconds (22.3-36.8) (22.3-36.8) Sodium 137 mmol/L 137 mmol/L (137-145) (137-145) Potassium 4.4 mmol/L 4.8 mmol/L (3.4-5.0) (3.4-5.0) Chloride 106 mmol/L 108 H mmol/L (98-107) (98-107) Carbon Dioxide 22 mmol/L 21 L mmol/L (22-30) (22-30) Anion Gap 9 mmol/L 8 mmol/L (4-12) (4-12) BUN 36 H mg/dL 32 H mg/dL (7-17) (7-17) Creatinine 1.64 H mg/dL 1.46 H mg/dL (0.7-1.0) (0.7-1.0) Estim Creat Clear Calc 30 ml/min 34 ml/min Estimated GFR 30 L 34 L (59 - ) (59 - ) Glucose 122 H mg/dL 118 H mg/dL (65-110) (65-110) Calcium 9.9 mg/dL 9.4 mg/dL (8.4-10.2) (8.4-10.2) Magnesium 2.0 mg/dL (1.6-2.3) Total Bilirubin 0.5 mg/dL (0.2-1.3) AST 35 U/L (14-36) ALT 19 U/L (6-35) Alkaline Phosphatase 105 U/L (38-126) Total Protein 7.5 g/dL (6.3-8.2) Albumin 4.3 g/dL (3.5-5.1) Urine Color Yellow (Yellow) Urine Appearance Clear (Clear) Urine pH 5.0 (5.0-9.0) Ur Specific [place] 1.014 (1.001-1.035) Urine Protein 1+ H mg/dL (Negative) Urine Glucose (UA) Negative mg/dL (Negative) Urine Ketones Trace H mg/dL (Negative) Ur Blood (Man) Negative (Negative) Urine Nitrate Negative (Negative) Urine Bilirubin Negative (Negative) Urine Urobilinogen 0.2 mg/dL (<2.0) Leukocyte Esterase Rfl Trace H ROWAN/UL (Negative) Urine RBC 0-2 /hpf (0-2) Urine WBC 0-5 /hpf (0-3) Ur Squamous Epith Cells None seen /hpf (Few) Urine Bacteria None seen /hpf Urine Casts 0-2 Patient hx anesthesia problems: none Family hx anesthesia problems: none Results Review: All pre-operative results and documents have been reviewed as part of the pre-operative evaluation. 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: Doris Roni (daughter) Smoking status: Smoker, status unknown Alcohol intake: never Substance use: never Substance use type: unknown Lack of Transportation: No Lack of Food: Never True Current Housing: I Have Housing Concerned About Future Housing: No Difficulty Paying Gas/Electric Bills: No Difficulty Paying for Meds: No Currently Unemployed: No Education: High School Diploma/GED Difficulty w/ Childcare or Family Care: No Spiritual care concerns: No Anes - Eval Final PreProcedure Day of Procedure 03/17/25 09:03 Patient weight: obese Lungs: normal air movement Airway: Mallampati scale class II Neurological: alert and oriented Last oral intake: >/= 8 hours ASA classification: IV Emergent: no Anesthetic plan: proceed Anesthesia type and monitoring: general GIVS and standard monitoring Results Review: All pre-operative results and documents have been reviewed as part of the pre-operative evaluation. HTN, hyperlipidemia, hypothyroidism, BMI 32, demenia/ hx of hemorrhage. Now for closed reduction. DNR status noted and goal 3 selected. Informed Consent: The patient's anesthetic plan and its attendant risks and benefits were discussed with the patient/family/POA. Questions were solicited and answers provided to the satisfaction of the patient/family/POA.
--- NOTE | 2025-03-17 09:47 | W.PM.PROC2 ---
Procedure Note - Detailed Date of Procedure 03/17/25 Pre-op Diagnosis Right hip dislocation of the hip prosthesis Post-op Diagnosis Same Procedure Performed attempted reduction under general anesthetic Surgeon Norbert Dwyer MD Production Proofreader Ilya Greco Anesthesia General Indications Dislocation Description of Procedure Patient brought to operating room number #7. A general anesthetic was administered. She was placed on the operating room table and after appropriate paralyzation instituted I attempted to reduce the hip under with the help of the C-arm. I could not get the hip even close to the being reduced. Despite multiple attempts and multiple manipulations. I suspect the hip is been out for some time. She does have an x-ray in November demonstrates the hip was then however [address] has been complaining hip pain for several weeks if not months. Estimated Blood Loss 0 Condition Stable Disposition PACU [facility] Billing Surgery - Charge Forward: Surgery Billing ([id number] Attempted Reduction)
[2025-03-17] MEDS: VITAMIN B COMPLEX CAPSULE 1 CAP PO (12:25)
[2025-03-17] MEDS: LEVOTHYROXINE SODIUM 50 MCG TABLET PO (12:25)
[2025-03-17] MEDS: MAGNESIUM OXIDE 400 MG TABLET PO (12:25)
[2025-03-17] MEDS: CYANOCOBALAMIN 500 MCG TABLET PO (12:26)
[2025-03-17] MEDS: CITALOPRAM HYDROBROMIDE 10 MG TABLET PO (12:26)
[2025-03-17] MEDS: ASCORBIC ACID 500 MG TABLET PO (12:26)
--- NOTE | 2025-03-17 15:37 | PM.IMPN ---
Progress Note: A&P Assessment and Plan (1) Acute kidney injury superimposed on chronic kidney disease: Code(s): N17.9 - Acute kidney failure, unspecified; N18.9 - Chronic kidney disease, unspecified Status: Acute Assessment and Plan: patient's baseline creatinine around 1.3-1.4 creatinine on admission 1.64 IV fluids AM labs (2) Dislocated hip: Code(s): S73.006A - Unspecified dislocation of unspecified hip, initial encounter Status: Acute Assessment and Plan: unable to be reduced in the ER despite multiple attempts orthopedic surgery following pain control Eliquis on hold patient was taken to the OR by Dr. Dwyer and he was not able to successfully reduce her right hip under anesthesia and paralytics Per Dr. Dwyer patient will need to be transferred to [facility] or [facility] and will require an open reduction [facility] has accepted the patient and patient will transfer when a bed is available. (3) Vascular dementia: Qualifiers: Dementia behavioral or psychological symptom: with mood disturbance Dementia severity: moderate Qualified Code(s): F01.B3 - Vascular dementia, moderate, with mood disturbance Code(s): F01.50 - Vascular dementia, unspecified severity, without behavioral disturbance, psychotic disturbance, mood disturbance, and anxiety Status: Acute Assessment and Plan: patient appears at baseline Plan NPO. Orthopedic surgery to see. Jim noe. Elevated serum creatinine above her baseline. Possible CKD or progression. Lactated Ringer's at 100 cc/hour. Patient wishes to be DNR. SCDs. Bed rest, fall precautions. Hold [employer] Eliquis. Medication reconciliation pending, restart [employer] medications as appropriate and indicated. Subjective Date/time seen: 03/17/25 15:37 Interval history: Patient seen for a follow up visit. Patient lying in bed, in no acute distress. Patient is alert and oriented x 3. Patient reports right hip pain, nurse notified. Patient recently returned from the OR where Dr. Dwyer was not able to successfully reduce her right hip. Patient will require an open reduction and Dr. Dwyer would like her transferred to a higher level of care such as [facility] or [facility]. [facility] has accepted the patient and patient will transfer when a bed is available. Review of Systems Review of Systems: All systems reviewed & are unremarkable except as noted in HPI and below (Subjective) Exam Const: General: comfortable and no acute distress Other: A&O x3 HENMT: Mouth: Yes moist mucous membranes Eyes: Pupils: Equal, round and reactive pupils present Neck: Neck: supple Resp: Effort & Inspection: normal respiratory effort Auscultation: clear to auscultation bilaterally Cardio: Rate: regular rate Rhythm: regular rhythm GI: Inspection: non-distended Neuro: Cranial nerves: Yes Equal, round and reactive pupils present Motor exam (neuro): 5/5 motor strength present throughout Other: Right lower extremity mobility was limited by pain, right lower extremity shortened, neurovascular exam intact. Objective Data Vital Signs Vital Signs: Vital Signs - 24 hr 03/16/25 18:46 03/16/25 19:01 03/16/25 19:16 Temperature 97.7 F Pulse Rate 84 81 90 Pulse Rate [Monitor] Respiratory Rate 16 16 13 Blood Pressure 181/80 H 184/73 H 180/77 H Blood Pressure [Right Arm] Pulse Oximetry 97 97 95 Oxygen Delivery Room Air Oxygen Flow Rate 03/16/25 19:31 03/16/25 20:10 03/16/25 20:11 Temperature Pulse Rate 83 84 80 Pulse Rate [Monitor] Respiratory Rate 19 17 14 Blood Pressure 181/116 H 165/56 H 165/56 H Blood Pressure [Right Arm] Pulse Oximetry 96 94 89 L Oxygen Delivery Oxygen Flow Rate 03/16/25 20:16 03/16/25 20:45 03/16/25 21:02 Temperature Pulse Rate 86 95 Pulse Rate [Monitor] 94 Respiratory Rate 17 17 13 Blood Pressure 155/59 H Blood Pressure [Right Arm] Pulse Oximetry 94 94 95 Oxygen Delivery Room Air Oxygen Flow Rate 03/16/25 21:03 03/16/25 21:06 03/16/25 21:09 Temperature Pulse Rate 95 96 Pulse Rate [Monitor] 104 H Respiratory Rate 20 18 25 H Blood Pressure 182/82 H 181/68 H Blood Pressure [Right Arm] 167/109 H Pulse Oximetry 97 92 94 Oxygen Delivery Bag Valve Mask Oxygen Flow Rate 10 03/16/25 21:09 03/16/25 21:11 03/16/25 21:13 Temperature Pulse Rate 101 H 93 Pulse Rate [Monitor] 97 Respiratory Rate 21 H 22 H 20 Blood Pressure 167/109 H 194/83 H Blood Pressure [Right Arm] 194/83 H Pulse Oximetry 72 L 95 Oxygen Delivery Room Air Oxygen Flow Rate 03/16/25 21:16 03/16/25 21:18 03/16/25 21:19 Temperature Pulse Rate 91 Pulse Rate [Monitor] 91 88 Respiratory Rate 21 H 38 H 15 Blood Pressure 184/75 H Blood Pressure [Right Arm] 184/75 H 135/56 L Pulse Oximetry 100 96 92 Oxygen Delivery Room Air Room Air Oxygen Flow Rate 03/16/25 21:21 03/16/25 21:23 03/16/25 21:26 Temperature Pulse Rate 89 86 Pulse Rate [Monitor] 85 Respiratory Rate 14 14 12 Blood Pressure 135/56 L 141/57 H Blood Pressure [Right Arm] 141/57 H Pulse Oximetry 92 93 92 Oxygen Delivery Room Air Oxygen Flow Rate 03/16/25 21:31 03/16/25 21:36 03/16/25 21:41 Temperature Pulse Rate 92 86 93 Pulse Rate [Monitor] Respiratory Rate 19 14 18 Blood Pressure 144/70 H 161/63 H 176/61 H Blood Pressure [Right Arm] Pulse Oximetry 94 93 Oxygen Delivery Oxygen Flow Rate 03/16/25 21:46 03/16/25 21:53 03/16/25 21:55 Temperature Pulse Rate 91 89 Pulse Rate [Monitor] 93 Respiratory Rate 15 17 15 Blood Pressure 165/68 H 165/65 H Blood Pressure [Right Arm] 165/65 H Pulse Oximetry 95 Oxygen Delivery Room Air Oxygen Flow Rate 03/16/25 22:01 03/16/25 22:15 03/16/25 22:31 Temperature Pulse Rate 88 98 Pulse Rate [Monitor] 100 Respiratory Rate 14 23 H 22 H Blood Pressure 160/60 H 167/70 H Blood Pressure [Right Arm] 167/70 H Pulse Oximetry 92 95 Oxygen Delivery Room Air Oxygen Flow Rate 03/16/25 23:01 03/16/25 23:02 03/17/25 00:27 Temperature 98.2 F Pulse Rate 87 89 97 Pulse Rate [Monitor] Respiratory Rate 14 14 20 Blood Pressure 130/54 L 130/54 L 155/58 H Blood Pressure [Right Arm] Pulse Oximetry 96 91 Oxygen Delivery Oxygen Flow Rate 03/17/25 06:00 03/17/25 07:40 03/17/25 09:51 Temperature 98.3 F 99.7 F H 98.7 F Pulse Rate 92 82 103 H Pulse Rate [Monitor] Respiratory Rate 18 18 16 Blood Pressure 147/55 H 144/52 H 178/84 H Blood Pressure [Right Arm] Pulse Oximetry 93 95 100 Oxygen Delivery Room Air Simple Face Mask Oxygen Flow Rate 6 03/17/25 10:06 03/17/25 10:20 03/17/25 10:35 Temperature 99.0 F Pulse Rate 101 H 108 H 99 Pulse Rate [Monitor] Respiratory Rate 17 15 14 Blood Pressure 177/88 H 188/79 H 166/78 H Blood Pressure [Right Arm] Pulse Oximetry 96 96 97 Oxygen Delivery Room Air Room Air Oxygen Flow Rate 03/17/25 10:47 03/17/25 10:50 03/17/25 11:20 Temperature 98.4 F 98.4 F Pulse Rate 90 90 Pulse Rate [Monitor] Respiratory Rate 14 14 Blood Pressure 156/58 H 154/57 H Blood Pressure [Right Arm] Pulse Oximetry 92 97 93 Oxygen Delivery Room Air Oxygen Flow Rate Intake/Output Intake/Output: Intake & Output 03/14/25 03/15/25 03/16/25 03/17/25 23:59 23:59 23:59 23:59 Intake Total 1000 1060 Output Total 700 Balance 1000 360 Meds/Results Medications: Active Medications Generic Name Dose Route Start Last Admin Trade Name Freq PRN Reason Stop Dose Admin Allopurinol 300 mg 03/17/25 10:35 03/17/25 12:25 Allopurinol 300 Mg Tablet PO 300 mg DAILY RINA Administration Amlodipine Besylate 5 mg 03/17/25 10:35 03/17/25 12:25 Amlodipine Besylate 5 Mg Tablet PO 5 mg DAILY RINA Administration Apixaban 5 mg 03/17/25 10:40 03/17/25 12:27 Apixaban 5 Mg Tablet PO Not Given On Hold: 03/17/25 13:14 Q12HR RINA Aripiprazole 5 mg 03/17/25 10:40 03/17/25 12:25 Aripiprazole 5 Mg Tablet PO 5 mg DAILY RINA Administration Ascorbic Acid 500 mg 03/17/25 10:40 03/17/25 12:26 Ascorbic Acid 500 Mg Tablet PO 500 mg DAILY RINA Administration Citalopram Hydrobromide 10 mg 03/17/25 10:40 03/17/25 12:26 Citalopram Hydrobromide 10 Mg Tablet PO 10 mg DAILY RINA Administration Cyanocobalamin 500 mcg 03/17/25 10:40 03/17/25 12:26 Cyanocobalamin 500 Mcg Tablet PO 500 mcg QAM RINA Administration Diphenhydramine HCl 25 mg 03/17/25 21:00 Diphenhydramine Hcl Cap 25 Mg Capsule PO HS PRN Sleep Gabapentin 300 mg 03/17/25 21:00 Gabapentin 300 Mg Capsule PO HS RINA Hydromorphone HCl 0.5 mg 03/16/25 23:10 03/17/25 12:34 Hydromorphone Hcl Inj (*Crx) 1 Mg/Ml Syr IV PUSH 0.5 mg Q4H PRN Administration Pain Rated 7-10 Lactated Ringer's 1,000 mls @ 100 mls/hr 03/17/25 01:05 03/17/25 12:48 Lr - Lactated Ringers Iv IV CONT 100 mls/hr .Q10H RINA Administration Levothyroxine Sodium 50 mcg 03/17/25 10:40 03/17/25 12:25 Levothyroxine Sodium 50 Mcg Tablet PO 50 mcg DAILY@0630 RINA Administration Loperamide HCl 2 mg 03/17/25 10:29 Loperamide Hcl 2 Mg Capsule PO TID PRN Diarrhea Magnesium Oxide 400 mg 03/17/25 10:40 03/17/25 12:25 Magnesium Oxide 400 Mg Tablet PO 400 mg QAM RINA Administration Simvastatin 20 mg 03/17/25 21:00 Simvastatin 20 Mg Tablet PO HS RINA Vitamin B Complex 1 cap 03/17/25 10:40 03/17/25 12:25 Vitamin B Complex Capsule PO 1 cap DAILY RINA Administration Radiology Results: ITS Impressions Chest X-Ray 03/16/25 19:51 Impression: Mild CHF Hip/Pelvis X-Ray 03/16/25 19:52 Impression: Dislocation detailed above Pelvis X-Ray 03/17/25 08:20 IMPRESSION: As above. Femur X-Ray 03/17/25 08:24 IMPRESSION: Right total hip arthroplasty hardware with superior and posterior dislocated femoral head component. No definite fracture seen. Knee X-Ray 03/17/25 08:25 IMPRESSION: 1. No displaced fracture lucency, subluxation or dislocation seen. 2. No radiopaque suspicious foreign body. Fluoroscopy 03/17/25 10:24 IMPRESSION: Fluoroscopic guidance for right hip dislocation. See procedure/operative notes for complete evaluation. Labs Labs: Laboratory Results - last 24 hr 03/16/25 03/16/25 03/17/25 20:06 22:00 04:44 WBC 10.9 H 9.3 RBC 3.28 L 2.83 L Hgb 10.1 L 8.9 L Hct 32.9 L 28.5 L MCV 100.3 H 100.7 H MCH 30.8 31.4 MCHC 30.7 L 31.2 L RDW 15.0 H 15.0 H Plt Count 165 148 L MPV 9.3 9.8 Immature Gran % (Auto) 0.5 0.4 Neut % (Auto) 85.4 H 84.5 H Lymph % (Auto) 8.0 L 9.5 L [place] % (Auto) 4.8 5.3 Eos % (Auto) 0.9 0.0 Baso % (Auto) 0.4 0.3 Lymph # (Auto) 0.87 L 0.88 L [place] # (Auto) 0.5 0.5 Eos # (Auto) 0.1 0.0 Baso # (Auto) 0.0 0.0 Abs Immat Gran (auto) 0.05 H 0.04 H Absolute Neuts (auto) 9.3 H 7.8 H Absolute Nucleated RBC 0.000 0.000 Nucleated RBC % 0.0 0.0 PT 15.6 H 15.5 H INR 1.3 1.2 APTT 32.4 31.7 Sodium 137 137 Potassium 4.4 4.8 Chloride 106 108 H Carbon Dioxide 22 21 L Anion Gap 9 8 BUN 36 H 32 H Creatinine 1.64 H 1.46 H Estim Creat Clear Calc 30 34 Estimated GFR 30 L 34 L Glucose 122 H 118 H Calcium 9.9 9.4 Magnesium 2.0 Total Bilirubin 0.5 AST 35 ALT 19 Alkaline Phosphatase 105 Total Protein 7.5 Albumin 4.3 Urine Color Yellow Urine Appearance Clear Urine pH 5.0 Ur Specific [place] 1.014 Urine Protein 1+ H Urine Glucose (UA) Negative Urine Ketones Trace H Ur Blood (Man) Negative Urine Nitrate Negative Urine Bilirubin Negative Urine Urobilinogen 0.2 Leukocyte Esterase Rfl Trace H Urine RBC 0-2 Urine WBC 0-5 Ur Squamous Epith Cells None seen Urine Bacteria None seen Urine Casts 0-2 Quality VTE Prophylaxis VTE prophylaxis: mechanical ordered
[2025-03-17] MEDS: GABAPENTIN 300 MG CAPSULE PO (20:42)
[2025-03-17] MEDS: oxyCODONE HCL (*CRX) 5 MG TAB IR PO (20:42)
[2025-03-17] MEDS: SIMVASTATIN 20 MG TABLET PO (20:43)
--- NOTE | 2025-03-18 07:54 | PM.TDS ---
Transfer Discharge Sum: Prov Provider Date of admission: 03/16/25 23:11 Primary care physician: Piter Prary, Admitting clinician: Kiah Rivera MD Consults: 03/16/25 23:12 Consult to Physician Routine Comment: Consulting Provider: Norbert Dwyer Reason for consultation: Dislocated hip Has provider been notified: Yes Receiving physician/facility: [facility] Orthopedic Surgery DS: Admitting Diagnosis Discharge Date 03/17/25 Admitting Diagnosis Right hip dislocation DS: Discharge Diagnosis Discharge Diagnosis (1) Acute kidney injury superimposed on chronic kidney disease: Code(s): N17.9 - Acute kidney failure, unspecified; N18.9 - Chronic kidney disease, unspecified Status: Acute (2) Dislocated hip: Code(s): S73.006A - Unspecified dislocation of unspecified hip, initial encounter Status: Acute (3) Vascular dementia: Qualifiers: Dementia severity: moderate Dementia behavioral or psychological symptom: with mood disturbance Qualified Code(s): F01.B3 - Vascular dementia, moderate, with mood disturbance Code(s): F01.50 - Vascular dementia, unspecified severity, without behavioral disturbance, psychotic disturbance, mood disturbance, and anxiety Status: Acute Transfer Discharge Sum: Med Medications Active and Home Medications: Home Medications allopurinol 300 mg tablet 300 mg PO DAILY 07/09/24 [History Confirmed 03/17/25] aripiprazole 5 mg tablet (Abilify) 5 mg PO DAILY 07/09/24 [History Confirmed 03/17/25] ascorbic acid (vitamin C) 500 mg tablet (C-500) 500 mg PO DAILY 07/09/24 [History Confirmed 03/17/25] citalopram 10 mg tablet (Celexa) 10 mg PO DAILY 07/09/24 [History Confirmed 03/17/25] diphenhydramine HCl 25 mg capsule (Benadryl) 25 mg PO Q12H PRN sleep 07/09/24 [History Confirmed 03/17/25] levothyroxine 50 mcg capsule 50 mcg PO DAILY 07/09/24 [History Confirmed 03/17/25] loperamide 2 mg tablet 2 mg PO TID PRN diarrhea 07/09/24 [History Confirmed 03/17/25] simvastatin 20 mg tablet 20 mg PO HS 07/09/24 [History Confirmed 03/17/25] vitamin B complex 1 tablet PO DAILY 07/09/24 [History Confirmed 03/17/25] amlodipine 5 mg tablet (Norvasc) 5 mg PO DAILY #30 tabs 07/14/24 [Rx Confirmed 03/17/25] apixaban 5 mg tablet (Eliquis) 5 mg PO Q12HR #60 tabs 07/14/24 [Rx Confirmed 03/17/25] cyanocobalamin (vitamin B-12) 500 mcg tablet (Vitamin B-12) 500 mcg PO QAM #30 tabs 07/14/24 [Rx Confirmed 03/17/25] magnesium oxide 400 mg (241.3 mg magnesium) tablet 400 mg PO QAM #30 tabs 07/14/24 [Rx Confirmed 03/17/25] gabapentin 300 mg capsule 300 mg PO HS 12/29/24 [History Confirmed 03/17/25] Transfer Discharge Sum: Hosp Hospital Course Hospital course: Acute kidney injury superimposed on chronic kidney disease -patient's baseline creatinine around 1.3-1.4 -creatinine on admission 1.64 -IV fluids Dislocated Hip -unable to be reduced in the ER despite multiple attempts -orthopedic surgery following -pain control -Eliquis on hold -patient was taken to the OR by Dr. Dwyer and he was not able to successfully reduce her right hip under anesthesia and paralytics -Per Dr. Dwyer patient will need to be transferred to [facility] or [facility] and will require an open reduction -[facility] has accepted the patient and patient will transfer when a bed is available. Vascular dementia -patient appears at baseline Patient Condition: Stable Time Spent with Patient Time attestation: Total time spent providing and/or coordinating transfer services: 50 Minutes Exam Const: General: comfortable and no acute distress Other: A&O x3 HENMT: Mouth: Yes moist mucous membranes Eyes: Pupils: Equal, round and reactive pupils present Neck: Neck: supple Resp: Effort & Inspection: normal respiratory effort Auscultation: clear to auscultation bilaterally Cardio: Rate: regular rate Rhythm: regular rhythm GI: Inspection: non-distended Neuro: Cranial nerves: Yes Equal, round and reactive pupils present Motor exam (neuro): 5/5 motor strength present throughout Other: Right lower extremity mobility was limited by pain, right lower extremity shortened, neurovascular exam intact. DS: Data Imaging Radiologist's impression: Ordering Physician: Jack Maria MD Date of Service: 03/16/25 Procedure(s): XR chest 1V Accession Number(s): [id number] cc: ShaPiter MD; Jack Maria MD~ EXAMINATION: XR chest 1V, 03/16/2025 19:42 RN PRIOR AUTHORIZATION HISTORY: Fall COMPARISON: No comparisons available. Technique: Single view. Findings: Mild pulmonary venous congestion. No pneumothorax. Mild cardiomegaly. Mediastinal and hilar contours are within normal limits. Bony thorax no acute abnormality. Impression: Mild CHF Reviewed, dictated and finalized at location P. PRIOR AUTHORIZATION Ordering Physician: Jack Maria MD Date of Service: 03/16/25 Procedure(s): XR hip RT 2V w AP pelvis Accession Number(s): [id number] cc: ShaPiter MD; Jack Maria MD~ EXAMINATION: XR hip RT 2V w AP pelvis, 03/16/2025 19:42 RN PRIOR AUTHORIZATION HISTORY: Fall, R hip pain COMPARISON: No comparisons available. Findings: Arthroplasty noted, the femoral component is dislocated superiorly. There is no fracture identified. No significant degenerative changes. Soft tissues unremarkable. Impression: Dislocation detailed above Reviewed, dictated and finalized at location P. PRIOR AUTHORIZATION Ordering Physician: Jack Maria MD Date of Service: 03/16/25 Procedure(s): XR pelvis 1-2V Accession Number(s): [id number] cc: Kiah Rivera MD; ShaPiter MD; Jack Maria MD~ EXAM/PROCEDURE: XR pelvis 1-2V HISTORY: unsuccessful reduction COMPARISON: X-rays same date at 7:39 PM TECHNIQUE: Single frontal view of the right hip FINDINGS: The right femoral head component of right total hip arthroplasty hardware is dislocated superiorly. No definite fracture seen. IMPRESSION: As above. Reviewed, dictated and finalized at location A. PRIOR AUTHORIZATION Ordering Physician: Jack Maria MD Date of Service: 03/16/25 Procedure(s): XR femur RT min 2V Accession Number(s): [id number] cc: Kiah Rivera MD; Parry, Piter Mejia MD; Jack Maria MD~ EXAMINATION: XR femur RT min 2V DATE: 03/16/2025 22:27 INDICATION: Injury TECHNIQUE: Right hip x-rays were obtained. COMPARISON: None. IMPRESSION: Right total hip arthroplasty hardware with superior and posterior dislocated femoral head component. No definite fracture seen. Reviewed, dictated and finalized at location A. PRIOR AUTHORIZATION
== END 2025-03-17 21:00 | disposition short-term general hospital (02) | DRG 560 ==
LOC: ANHED 23:08 → ANH3MED 23:35
PROVIDERS: Orthopaedic Surgery; Admitting Provider General Practice; Emergency Provider Emergency Medicine; PCP Internal Medicine; Visit Provider Nurse Practitioner Adult Health
PROC: 0SJ9XZZ Inspection of Right Hip Joint, External Approach (ICD-10-PCS; principal; 2025-03-17 09:30)
DX: T84.020A Dislocation of internal right hip prosthesis, initial encounter (principal); F01.518 Vascular dementia, unspecified severity, with other behavioral disturbance; N18.4 Chronic kidney disease, stage 4 (severe); N17.9 Acute kidney failure, unspecified; W18.30XA Fall on same level, unspecified, initial encounter; I12.9 Hypertensive chronic kidney disease with stage 1 through stage 4 chronic kidney disease, or unspecified chronic kidney disease; E03.9 Hypothyroidism, unspecified; E78.5 Hyperlipidemia, unspecified; M10.9 Gout, unspecified; F32.A Depression, unspecified; Z96.641 Presence of right artificial hip joint; Z66 Do not resuscitate; Z86.73 Personal history of transient ischemic attack (TIA), and cerebral infarction without residual deficits
CPT/HCPCS: 27265; 36415; 71045; 72170; 73502; 73552; 73562; 80048; 80053; 81001; 83735; 85025; 85610; 85730; 96374; 96375; 99199; 99285; A9270; J1171; J2003; J2704; J3010; J7030; J7050; J7120